=== PATIENT | male | born 1985 | race Caucasian/White ===

== ENCOUNTER 2016-08-13 20:58 | Emergency (ER) | payer MEDICARE ==
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
[2016-08-13] MEDS ORDERED: Valium 5 MG PO ONE (21:28)
[2016-08-13] MEDS ORDERED: Valium 5 MG ONE (21:31)
[2016-08-13 21:38] LABS: BASOPHIL % 0.2 % (0.0-0.4); Eosinophil % 0.6 % (0.00-5.0); Granulocytes % 67.7 % (36.0-66.0); Lymphocytes % 24.6 % (24.0-44.0); Mean Cell Volume 87.7 fl (78-100); Mean Corpuscular Hemoglobin 30.7 pg (26-32); Mean Platelet Volume 10.1 fl (6-9.5); Monocytes % 6.9 % (0.0-12.0); Platelet Count 274 K/mm3 (150-450); Red Blood Count 4.72 M/mm3 (4.1-5.6); Red Cell Distribution Width 12.9 % (11.5-14.0)
[2016-08-13 21:55] LABS: LIPASE 156 U/L (73-393)
[2016-08-13 22:05] LABS: ALBUMIN 4.4 g/dL (3.4-5.0); ALKALINE PHOSPHATASE 66 U/L (46-116); ANION GAP 15.1 MEQ/L (5-15); BILIRUBIN,TOTAL 0.3 mg/dL (0.2-1.0); BLOOD UREA NITROGEN 13 mg/dL (9-20); CHLORIDE 105 mEq/L (98-107); Carbon Dioxide 23.6 mEq/L (21-32); Glucose 101 MG/DL (70-110); Potassium 3.5 mEq/L (3.5-5.1); SGOT/AST 13 U/L (15-37); SGPT/ALT 14 U/L (12-78); SODIUM 140 mEq/L (136-145); Total Protein 8.2 gm/dL (6.4-8.2)
[2016-08-13 22:07] LABS: TROPONIN < 0.017 ng/ml (0.000-0.056)
[2016-08-13 22:09] VITALS: BP 121/70
[2016-08-13] MEDS ORDERED: TORAdol 30 mg Injection ONE (22:41)
[2016-08-13] MEDS: TORAdol 30 mg Injection IV ONE ×2 (22:41→22:49)
[2016-08-13 23:21] VITALS: PULSE 96; O2SAT 98
--- NOTE | 2016-08-14 09:38 | XRAY ---
Indication: Short of breath. Comparison: May 11, 2016. Portable chest again demonstrates normal heart, lungs, and bony thorax.
== END 2016-08-13 23:00 | disposition home or self-care (01) ==
LOC: ED 20:58
DX: R07.89 Other chest pain (principal); F41.9 Anxiety disorder, unspecified
CPT/HCPCS: 36415; 71010; 80053; 82150; 83690; 83880; 84484; 85025; 93005; 93041; 99283; 99284; J1885

== ENCOUNTER 2016-09-26 13:03 | Emergency (ER) | payer MEDICARE ==
[2016-09-26 15:17] VITALS: BP 120/75; PULSE 67
[2016-09-26 15:22] VITALS: O2SAT 98
--- NOTE | 2016-09-26 15:22 | ERPHSYRPT ---
- History of Present Illness Time Seen by Provider: 09/26/16 14:16 Source: patient Exam Limitations: no limitations Patient Subjective Stated Complaint: cough for four weeks Triage Nursing Assessment: intermitent dry cough noted. skin w/d, color normal , resp easy. Physician History: States cough productive of yellowish sputum. Pt. does not work. Timing/Duration: week(s) (4) Cough Quality/Degree: mild Possible Cause: smoke exposure Modifying Factors: Improves With: activity Associated Symptoms: denies symptoms Allergies/Adverse Reactions: Iodinated Contrast Media - Oral and [Iodinated Contrast Media - IV Dye] Allergy (Severe, Verified 09/26/16 13:46) Rash quetiapine fumarate [From Seroquel] Allergy (Intermediate, Verified 09/26/16 13: 46) rash, itching meperidine HCl [From Demerol] Allergy (Mild, Verified 09/26/16 13:46) Rash/hyper morphine Allergy (Mild, Verified 09/26/16 13:46) rash/ hyper prednisone Allergy (Mild, Verified 09/26/16 13:46) Nausea promethazine HCl [From Phenergan] Allergy (Mild, Verified 09/26/16 13:46) rash, nausea tramadol HCl [From Ultram] Allergy (Mild, Verified 09/26/16 13:46) rash itching Home Medications: Methylphenidate HCl [Ritalin] 10 mg PO TID 08/13/16 [History] Amitriptyline HCl 25 mg [Elavil 25 mg] 25 mg PO HS 09/26/16 [History] Hx Tetanus, Diphtheria Vaccination/Date Given: Yes Hx Influenza Vaccination/Date Given: Yes Hx Pneumococcal Vaccination/Date Given: No - Review of Systems Constitutional: No Symptoms Eyes: No Symptoms Ears, Nose, & Throat: No Symptoms Respiratory: Cough Cardiac: No Symptoms Abdominal/Gastrointestinal: No Symptoms Musculoskeletal: No Symptoms Skin: No Symptoms Neurological: No Symptoms Psychological: No Symptoms Endocrine: No Symptoms Hematologic/Lymphatic: No Symptoms Immunological/Allergic: No Symptoms - Past Medical History Pertinent Past Medical History: Yes Neurological History: Migraines ENT History: No Pertinent History Cardiac History: No Pertinent History Respiratory History: No Pertinent History Endocrine Medical History: No Pertinent History Musculoskeletal History: Other GI Medical History: Hernia History: No Pertinent History Psycho-Social History: Attention Deficit Disorder Male Reproductive Disorders: No Pertinent History Other Medical History: non hodgkins lymphoma - Past Surgical History Past Surgical History: Yes Neuro Surgical History: No Pertinent History Cardiac: No Pertinent History Respiratory: No Pertinent History Gastrointestinal: Hernia Repair Genitourinary: No Pertinent History Musculoskeletal: Orthopedic Surgery Male Surgical History: No Pertinent History Other Surgical History: port placed et removed - Social History Smoking Status: Never smoker How long have you smoked: rarely Exposure to second hand smoke: No Drug Use: none Patient Lives Alone: No - Nursing Vital Signs Nursing Vital Signs: Initial Vital Signs Temperature 97.5 F Temperature Source Oral Pulse Rate 68 Respiratory Rate 20 Blood Pressure [Right Arm] 140/71 Pain Intensity 5 - Physical Exam General Appearance: mild distress Eye Exam: eyes nml inspection Ears, Nose, Throat Exam: normal ENT inspection, pharynx normal, moist mucous membranes, other (posterior pharyngeal drainage) Neck Exam: normal inspection Respiratory Exam: normal breath sounds, lungs clear Cardiovascular Exam: regular rate/rhythm, normal heart sounds, normal peripheral pulses Gastrointestinal/Abdomen Exam: soft, normal bowel sounds Back Exam: normal inspection, normal range of motion Extremity Exam: normal inspection, normal range of motion, pelvis stable Neurologic Exam: alert, oriented x 3, cooperative Skin Exam: normal color, warm, dry SpO2 Interpretation: normal SpO2: 98 Oxygen Delivery: Room Air - Course Nursing assessment & vital signs reviewed: Yes - Progress Progress: unchanged Air Movement: good Blood Culture(s) Obtained: No Antibiotics given: Yes Discussed with : Fer (PCP 1 week) Will see patient in: office Counseled pt/family regarding: diagnosis, need for follow-up - Departure Time of Disposition: 15:23 Departure Disposition: Home Clinical Impression: Bronchitis Condition: Stable Critical Care Time: No Prescriptions: Azithromycin [Azithromycin 250 mg Pack] 250 mg PO UD #6 tablet Dextromethorphan HBr [Robitussin] 15 mg PO 2XW PRN #20 capsule PRN Reason: Cough
== END 2016-09-26 15:38 | disposition home or self-care (01) ==
LOC: ED 13:03
DX: J40 Bronchitis, not specified as acute or chronic (principal); R05 Cough
CPT/HCPCS: 99283

== ENCOUNTER 2016-09-28 21:59 | Emergency (ER) | payer MEDICARE ==
[2016-09-28] MEDS ORDERED: NORCO 5/325 MG PO ONE (23:38)
[2016-09-28] MEDS ORDERED: NORCO 5/325 MG ONE (23:41)
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
[2016-09-29 00:22] VITALS: BP 140/105; PULSE 93; O2SAT 98
--- NOTE | 2016-09-29 09:15 | XRAY ---
Indication: Pain following fall. Comparison: January 08, 2010. 3 views of the right elbow again demonstrates normal bones, articulation, and soft tissues.
== END 2016-09-29 00:22 | disposition home or self-care (01) ==
LOC: ED 21:59
DX: S50.01XA Contusion of right elbow, initial encounter (principal); W18.2XXA Fall in (into) shower or empty bathtub, initial encounter
CPT/HCPCS: 73080; 99283; A9270-GY

== ENCOUNTER 2016-10-17 21:11 | Emergency (ER) | payer MEDICARE ==
[2016-10-17] MEDS ORDERED: TORAdol 30 mg Injection IM ONE (21:36)
--- NOTE | 2016-10-17 21:40 | ERPHSYRPT ---
- History of Present Illness Time Seen by Provider: 10/17/16 21:32 Source: patient Exam Limitations: no limitations Patient Subjective Stated Complaint: reports that he caught his ankle between a trailer hitch yesterday - swelling and pain and unable to bare weight Triage Nursing Assessment: wc to treatment area - hobbling gait to cart. alert/ oriented - flat affect. skin flushed/hot/dry - no rash - abrasion on right anterior/distal foot - swelling on the lateral right ankle. resps easy - non- labored Physician History: 31-year-old white male arrives with complaint of pain in his right foot and ankle after catching the foot between trailer hitch and a car yesterday states he has pain in the right foot and ankle will not specify exactly where worse with weightbearing. Past medical history includes migraines, ADD, non-Hodgkin's lymphoma. Past surgical history includes orthopedic surgery, port placed and removed. Social history positive for tobacco use Method of Injury: other (caught between trailer hitch and car yest) Occurred: yesterday Quality: constant Severity of Pain-Max: moderate Severity of Pain-Current: moderate Lower Extremities Pain: foot: right, ankle: right Modifying Factors: Improves With: other (standing and weightbearing) Associated Symptoms: unable to bear weight Allergies/Adverse Reactions: Iodinated Contrast Media - Oral and [Iodinated Contrast Media - IV Dye] Allergy (Severe, Verified 10/17/16 21:15) Rash ketorolac [From Toradol] Allergy (Intermediate, Verified 10/17/16 21:54) quetiapine fumarate [From Seroquel] Allergy (Intermediate, Verified 10/17/16 21: 15) rash, itching meperidine HCl [From Demerol] Allergy (Mild, Verified 10/17/16 21:15) Rash/hyper morphine Allergy (Mild, Verified 10/17/16 21:15) rash/ hyper prednisone Allergy (Mild, Verified 10/17/16 21:15) Nausea promethazine HCl [From Phenergan] Allergy (Mild, Verified 10/17/16 21:15) rash, nausea tramadol HCl [From Ultram] Allergy (Mild, Verified 10/17/16 21:15) rash itching Home Medications: Methylphenidate HCl [Ritalin] 10 mg PO TID 08/13/16 [History] Amitriptyline HCl 25 mg [Elavil 25 mg] 25 mg PO HS 09/26/16 [History] Hx Tetanus, Diphtheria Vaccination/Date Given: Yes Hx Influenza Vaccination/Date Given: No Hx Pneumococcal Vaccination/Date Given: No Immunizations Up to Date: Yes - Review of Systems Constitutional: No Fever, No Chills Eyes: No Symptoms Ears, Nose, & Throat: No Symptoms Respiratory: No Cough, No Dyspnea Cardiac: No Chest Pain, No Edema, No Syncope Abdominal/Gastrointestinal: No Abdominal Pain, No Nausea, No Vomiting, No Diarrhea Genitourinary Symptoms: No Dysuria Musculoskeletal: Other (right foot and ankle pain) Skin: No Rash Neurological: No Dizziness, No Focal Weakness, No Sensory Changes Psychological: No Symptoms Endocrine: No Symptoms All Other Systems: Reviewed and Negative - Past Medical History Pertinent Past Medical History: Yes Neurological History: Migraines ENT History: No Pertinent History Cardiac History: No Pertinent History Respiratory History: No Pertinent History Endocrine Medical History: No Pertinent History Musculoskeletal History: Other GI Medical History: Hernia History: No Pertinent History Psycho-Social History: Attention Deficit Disorder Male Reproductive Disorders: No Pertinent History Other Medical History: non hodgkins lymphoma - Past Surgical History Past Surgical History: Yes Neuro Surgical History: No Pertinent History Cardiac: No Pertinent History Respiratory: No Pertinent History Gastrointestinal: Hernia Repair Genitourinary: No Pertinent History Musculoskeletal: Orthopedic Surgery Male Surgical History: No Pertinent History Other Surgical History: port placed et removed - Social History Smoking Status: Never smoker How long have you smoked: rarely Exposure to second hand smoke: Yes Drug Use: none Patient Lives Alone: No - Nursing Vital Signs Nursing Vital Signs: Initial Vital Signs Pulse Rate 85 Respiratory Rate 16 Blood Pressure [] 157/63 Pain Intensity 7 - Physical Exam General Appearance: mild distress Eyes, Ears, Nose, Throat Exam: moist mucous membranes Neck Exam: non-tender, supple Cardiovascular/Respiratory Exam: chest non-tender, normal breath sounds, regular rate/rhythm, no respiratory distress Gastrointestinal/Abdominal Exam: non-tender, guarding Back Exam: normal inspection, No vertebral tenderness Hips Exam: bilateral: non-tender, normal inspection, normal range of motion, no evidence of injury Legs Exam: bilateral leg: non-tender, normal inspection, normal range of motion , no evidence of injury Knees Exam: bilateral knee: non-tender, normal inspection, normal range of motion, no evidence of injury Ankle Exam: right ankle: other (right ankle tender with palpation anteriorly, laterally, medially with palpation and movement), left ankle: non-tender, normal inspection, normal range of motion, no evidence of injury Foot Exam: right foot: other (left strapping machine tender with palpation dorsally , decreased range of motion left foot secondary to pain), left foot: non-tender, normal inspection, normal range of motion, no evidence of injury Neuro/Tendon Exam: normal sensation, normal motor functions Mental Status Exam: alert Skin Exam: normal color, warm, dry SpO2 Interpretation: normal (98%) SpO2: 98 Oxygen Delivery: Room Air - Radiology Exams Right Foot X-ray Interpretation: Interpreted by me, Negative, No Fracture, No Subluxation Right Ankle X-ray Interpretation: Interpreted by me, Negative, No Fracture, No Subluxation Ordered Tests: Active Orders 24 hr Category Date Time Status Juan Bandage Application -[facility] STAT Care 10/17/16 22:45 Active Crutches STAT Care 10/17/16 22:45 Active Splint STAT Care 10/17/16 22:45 Active ANKLE (3 VIEWS) Stat Exams 10/17/16 21:35 Taken FOOT (MINIMUM 3 VIEWS) Stat Exams 10/17/16 21:35 Taken Medication Summary Discontinued Medications Generic Name Dose Route Start Last Admin Trade Name Darwin PRN Reason Stop Dose Admin Ketorolac Tromethamine 60 mg 10/17/16 21:36 10/17/16 21:55 Toradol 30 Mg Injection IM 10/17/16 21:37 Not Given STAT ONE Ketorolac Tromethamine Confirm 10/17/16 21:45 Toradol 30 Mg Injection Administered 10/17/16 21:46 Dose 60 mg .ROUTE .STJeNaCell-MED ONE - Progress Progress: improved Progress Note: 10/17/16 22:47 X-ray patient's right foot and ankle both negative. Will go ahead and have nurse apply Juan wrap and a postop shoe. Had considered an injection of Toradol for pain for this person however he states "it makes him mean". Will give him a prescription for a limited amount of [place]. And one [place] tablet here in the emergency room. Will send patient home with crutches weightbearing as tolerated - Departure Time of Disposition: 22:48 Departure Disposition: Home Clinical Impression: Contusion of right foot Right ankle sprain Qualifiers: Encounter type: initial encounter Involved ligament of ankle: unspecified ligament Qualified Code(s): S93.401A - Sprain of unspecified ligament of right ankle, initial encounter Condition: Fair Critical Care Time: No Additional Instructions: Return home. Ice and elevate right foot and ankle 24-48 hours. [place] 5/325 #12 one orally every 4-6 hours as needed for pain. Crutches weightbearing as tolerated. Follow-up with your family . symptoms are worse, no better in 48 hours, or persist longer than one week. Return for acute distress or for severe symptoms. Your x-rays have been preliminarily read they will be reread tomorrow you'll be contacted if any discrepancies exist. Prescriptions: Hydrocodone Bit/Acetaminophen [[place] 5/325Mg] 1 tab PO Q4-6HPRN PRN #12 tablet PRN Reason: Pain
[2016-10-17] MEDS ORDERED: TORAdol 30 mg Injection ONE (21:45)
[2016-10-17 22:44] VITALS: O2SAT 98
[2016-10-17] MEDS ORDERED: NORCO 5/325 MG PO ONE (22:50)
[2016-10-17] MEDS ORDERED: NORCO 5/325 MG ONE (22:56)
[2016-10-17 23:08] VITALS: BP 157/87; PULSE 92
--- NOTE | 2016-10-18 19:05 | XRAY ---
Exam: 3 views of the right ankle from 10/17/2016. Comparison: None. Indication: Trauma. Findings: AP, internal oblique, and lateral images are submitted for evaluation. I see no acute fracture or dislocation. There is minimal soft tissue prominence overlying the lateral malleolus. Correlate clinically. The right ankle mortise is well-preserved and reveals smooth articular margins. The base of the right fifth metatarsal appears intact. Impression: 1. No acute fracture or dislocation of the right ankle is seen
--- NOTE | 2016-10-18 19:09 | XRAY ---
Exam: 3 views of the right foot from 10/17/2016. Comparison: None. Indication: Trauma. Findings: AP, internal oblique, and lateral radiographs of the right foot were obtained. I see no acute fracture or dislocation. A minimal intraosseous cyst is not excluded within the right calcaneus near the junction of the anterior and middle thirds on the lateral radiograph. The joint spaces appear unremarkable. The plantar arch is normal. No radiopaque soft tissue foreign body is seen. Impression: 1. No acute fracture or dislocation of the right foot is seen.
== END 2016-10-17 23:08 | disposition home or self-care (01) ==
LOC: ED 21:11
DX: S93.401A Sprain of unspecified ligament of right ankle, initial encounter (principal); S90.31XA Contusion of right foot, initial encounter; W22.8XXA Striking against or struck by other objects, initial encounter; F98.8 Other specified behavioral and emotional disorders with onset usually occurring in childhood and adolescence; C85.90 Non-Hodgkin lymphoma, unspecified, unspecified site
CPT/HCPCS: 73610; 73630; 96372; 99284; J1885; A9270-GY

== ENCOUNTER 2016-10-21 08:49 | Emergency (ER) | payer MEDICARE ==
[2016-10-21 09:01] VITALS: O2SAT 95
--- NOTE | 2016-10-21 09:13 | ERPHSYRPT ---
- History of Present Illness Time Seen by Provider: 10/21/16 09:17 Source: patient Exam Limitations: no limitations Patient Subjective Stated Complaint: fall Triage Nursing Assessment: fall after being chased by duck. fell and hit curb-- pain to rt shoulder. abrasion to rt knee and dorsal rt elbow. redness to rt shoulder. no swelling or deformity--pain with movement. ambulated on scene Physician History: Patient is a 31-year-old male brought in by ambulance after falling on his right shoulder and right knee while running away from a duck. The patient said he saw a duck near him and he ran away. He is right-handed. He scraped his right knee. He has pain from his elbow up to his right shoulder. He did not hit his head or lose consciousness. His last tetanus vaccination was 4 months ago. He is requesting pain medicine. His past medical history significant for ADHD. Occurred: just prior to arrival Reason for Fall: tripped, fell from standing pos Injuries/Pain Location: upper extremity, lower extremity Loss of Consciousness: no loss of consciousness Quality: sharpness Severity of Pain-Max: moderate Severity of Pain-Current: moderate Modifying Factors: Improves With: nothing Associated Symptoms (Fall): denies symptoms Allergies/Adverse Reactions: Iodinated Contrast Media - Oral and [Iodinated Contrast Media - IV Dye] Allergy (Severe, Verified 10/17/16 21:15) Rash ketorolac [From Toradol] Allergy (Intermediate, Verified 10/17/16 21:54) quetiapine fumarate [From Seroquel] Allergy (Intermediate, Verified 10/17/16 21: 15) rash, itching meperidine HCl [From Demerol] Allergy (Mild, Verified 10/17/16 21:15) Rash/hyper morphine Allergy (Mild, Verified 10/17/16 21:15) rash/ hyper prednisone Allergy (Mild, Verified 10/17/16 21:15) Nausea promethazine HCl [From Phenergan] Allergy (Mild, Verified 10/17/16 21:15) rash, nausea tramadol HCl [From Ultram] Allergy (Mild, Verified 10/17/16 21:15) rash itching Home Medications: Methylphenidate HCl [Ritalin] 10 mg PO TID 08/13/16 [History] Hx Tetanus, Diphtheria Vaccination/Date Given: No Hx Influenza Vaccination/Date Given: Yes Hx Pneumococcal Vaccination/Date Given: No Immunizations Up to Date: No - Review of Systems Constitutional: No Fever, No Chills Eyes: No Symptoms Ears, Nose, & Throat: No Symptoms Respiratory: No Cough, No Dyspnea Cardiac: No Chest Pain, No Edema, No Syncope Abdominal/Gastrointestinal: No Abdominal Pain, No Nausea, No Vomiting, No Diarrhea Genitourinary Symptoms: No Dysuria Musculoskeletal: Fall, Injury Skin: Skin Lesions, No Rash Neurological: No Dizziness, No Focal Weakness, No Sensory Changes Psychological: No Symptoms Endocrine: No Symptoms Hematologic/Lymphatic: No Symptoms Immunological/Allergic: No Symptoms All Other Systems: Reviewed and Negative - Past Medical History Pertinent Past Medical History: Yes Neurological History: Migraines ENT History: No Pertinent History Cardiac History: No Pertinent History Respiratory History: No Pertinent History Endocrine Medical History: No Pertinent History Musculoskeletal History: Other GI Medical History: Hernia History: No Pertinent History Psycho-Social History: Anxiety, Attention Deficit Disorder, Depression Male Reproductive Disorders: No Pertinent History Other Medical History: non hodgkins lymphoma - Past Surgical History Past Surgical History: Yes Neuro Surgical History: No Pertinent History Cardiac: No Pertinent History Respiratory: No Pertinent History Gastrointestinal: Hernia Repair Genitourinary: No Pertinent History Musculoskeletal: Orthopedic Surgery Male Surgical History: No Pertinent History Other Surgical History: port placed et removed. rt ankle fx - Social History Smoking Status: Never smoker How long have you smoked: rarely Exposure to second hand smoke: No Drug Use: none Patient Lives Alone: No - Nursing Vital Signs Nursing Vital Signs: Initial Vital Signs Temperature 98.5 F Temperature Source Oral Pulse Rate 71 Respiratory Rate 18 Blood Pressure [Left Arm] 144/97 Pain Intensity 7 - [place] Coma Score Best Eye Response ([place]): (4) open spontaneously Best Verbal Response ([place]): (5) oriented Best Motor Response ([place]): (6) obeys commands [place] Total: 15 - Physical Exam General Appearance: no apparent distress, alert Head Injury: no evidence of injury Eye Exam: PERRL/EOMI ENT Exam: airway nml Neck Exam: normal inspection, No tenderness Respiratory/Chest Exam: normal breath sounds, No chest tenderness, No respiratory distress Cardiovascular Exam: normal heart sounds, regular rate/rhythm Gastrointestinal Exam: soft, No tenderness, No distention, No guarding, No ecchymosis Rectal Exam: not done Back Exam: normal inspection, No vertebral tenderness Extremity Exam: limited range of motion (right arm), pain with movement Neurologic Exam: alert, oriented x 3, cooperative, sensation nml, No motor deficits Skin Exam: abrasion (posterior right shoulder and right knee) SpO2: 95 Oxygen Delivery: Room Air - Radiology Exams Right Humerus X-ray Interpretation: Teleradiologist Report, Negative Right Shoulder X-ray Interpretation: Teleradiologist Report, Non-displaced Fracture (small serpiginous radiolucency near the lateral margin of the scapula for which mondisplaced fracture is of primary concern per Dr Veloz.) Ordered Tests: Active Orders 24 hr Category Date Time Status Cold Application STAT Care 10/21/16 09:14 Active IV Insertion STAT Care 10/21/16 09:14 Active HUMERUS Stat Exams 10/21/16 09:15 Completed SHOULDER Stat Exams 10/21/16 09:15 Completed Medication Summary Discontinued Medications Generic Name Dose Route Start Last Admin Trade Name Freq PRN Reason Stop Dose Admin Ketorolac Tromethamine 30 mg 10/21/16 09:14 10/21/16 09:21 Toradol 30 Mg Injection IV 10/21/16 09:15 30 mg STAT ONE Administration Ketorolac Tromethamine Confirm 10/21/16 09:20 Toradol 30 Mg Injection Administered 10/21/16 09:21 Dose 30 mg .ROUTE .STInvacio-MED ONE - Progress Progress: improved Counseled pt/family regarding: rad results - Departure Time of Disposition: 10:17 Departure Disposition: Home Clinical Impression: Scapular fracture Condition: Stable Critical Care Time: No Additional Instructions: You have a small nondisplaced fracture of your right scapula, called shoulder blade. Take naproxen 500 mg every 12 hours as needed. Apply ice to the area as needed. Wear the sling until released by her doctor. Follow-up with your doctor next week. Prescriptions: Naproxen 500 mg PO BID PRN #30 tablet
[2016-10-21] MEDS ORDERED: TORAdol 30 mg Injection IV ONE (09:14)
[2016-10-21] MEDS ORDERED: TORAdol 30 mg Injection ONE (09:20)
--- NOTE | 2016-10-21 10:05 | XRAY ---
Indication: Pain following fall. Comparison: August 30, 2016. 3 views of the right shoulder now demonstrates small serpiginous radiolucency near the lateral margin of the scapula for which nondisplaced fracture is of primary concern. No other bony, articular, or soft tissue abnormalities.
--- NOTE | 2016-10-21 10:07 | XRAY ---
Indication: Pain following fall. Comparison: None 2 views of the right humerus obtained. No bony, articular, or soft tissue abnormalities. Shoulder reported separately.
[2016-10-21 10:41] VITALS: BP 139/56; PULSE 74
== END 2016-10-21 10:41 | disposition home or self-care (01) ==
LOC: ED 08:49
DX: S42.101A Fracture of unspecified part of scapula, right shoulder, initial encounter for closed fracture (principal); W01.10XA Fall on same level from slipping, tripping and stumbling with subsequent striking against unspecified object, initial encounter
CPT/HCPCS: 36000; 73030; 73060; 96374; 99284; J1885

== ENCOUNTER 2016-11-02 21:14 | Emergency (ER) | payer MEDICARE ==
[2016-11-02] MEDS ORDERED: MOTRIN 600 MG PO ONE (21:28)
[2016-11-02 21:29] VITALS: BP 147/105; PULSE 84
--- NOTE | 2016-11-02 21:29 | ERPHSYRPT ---
- History of Present Illness Time Seen by Provider: 11/02/16 21:20 Source: patient Exam Limitations: clinical condition Patient Subjective Stated Complaint: states that he fell and injured the right shoulder last night after tripping - states that he feels like it is swelling and is more painful today Triage Nursing Assessment: ambulatory to treatment area - steady gait - moves all extremities with equal strength - some disability et reduced ROM to the right arm. resps easy - non-labored. alert/oriented - pleasant affect. skin pwd with some superficial abrasions on the right forearm Physician History: PATIENT FELL 1 WEEK AGO SUSTAINED NONDISPLACED FRACTURE OF RIGHT LATERAL MARGIN OF HIS SCAPULA, ALSO FELL LAST NIGHT SUSTAINED INJURY TO RIGHT SHOULDER AND ELBOW AFTER HE TRIPPED. DENIES ASSOCIATED HEAD, NECK OR BACK INJURY. Occurred: just prior to arrival Method of Injury: direct blow, fell Quality: constant Severity of Pain-Max: moderate Severity of Pain-Current: moderate Extremities Pain Location: shoulder: right, elbow: right Modifying Factors: Improves With: movement Associated Symptoms: none Allergies/Adverse Reactions: Iodinated Contrast Media - Oral and [Iodinated Contrast Media - IV Dye] Allergy (Severe, Verified 11/02/16 21:24) Rash ketorolac [From Toradol] Allergy (Intermediate, Verified 11/02/16 21:24) quetiapine fumarate [From Seroquel] Allergy (Intermediate, Verified 11/02/16 21: 24) rash, itching meperidine HCl [From Demerol] Allergy (Mild, Verified 11/02/16 21:24) Rash/hyper morphine Allergy (Mild, Verified 11/02/16 21:24) rash/ hyper prednisone Allergy (Mild, Verified 11/02/16 21:24) Nausea promethazine HCl [From Phenergan] Allergy (Mild, Verified 11/02/16 21:24) rash, nausea tramadol HCl [From Ultram] Allergy (Mild, Verified 11/02/16 21:24) rash itching Home Medications: Methylphenidate HCl [Ritalin] 10 mg PO TID 08/13/16 [History] Hx Tetanus, Diphtheria Vaccination/Date Given: Yes Hx Influenza Vaccination/Date Given: No Hx Pneumococcal Vaccination/Date Given: No Immunizations Up to Date: Yes - Review of Systems Constitutional: No Fever, No Chills Musculoskeletal: Injury, Joint Pain, Joint Swelling - Past Medical History Pertinent Past Medical History: Yes Neurological History: Migraines ENT History: No Pertinent History Cardiac History: No Pertinent History Respiratory History: No Pertinent History Endocrine Medical History: No Pertinent History Musculoskeletal History: Other GI Medical History: Hernia History: No Pertinent History Psycho-Social History: Anxiety, Attention Deficit Disorder, Depression Male Reproductive Disorders: No Pertinent History Other Medical History: non hodgkins lymphoma - Past Surgical History Past Surgical History: Yes Neuro Surgical History: No Pertinent History Cardiac: No Pertinent History Respiratory: No Pertinent History Gastrointestinal: Hernia Repair Genitourinary: No Pertinent History Musculoskeletal: Orthopedic Surgery Male Surgical History: No Pertinent History Other Surgical History: port placed et removed. rt ankle fx - Social History Smoking Status: Never smoker How long have you smoked: rarely Exposure to second hand smoke: No Drug Use: none Patient Lives Alone: Yes - Nursing Vital Signs Nursing Vital Signs: Initial Vital Signs Temperature 97.9 F Temperature Source Oral Pulse Rate 84 Respiratory Rate 16 Blood Pressure [] 147/105 Pain Intensity 7 - Physical Exam General Appearance: alert Neck Exam: normal inspection, non-tender, supple, full range of motion Abdominal Exam: No guarding Back Exam: No vertebral tenderness Shoulder Exam: normal inspection, limited ROM (THERE IS NO ECCHYMOSIS OR CREPITUS), soft tissue tenderness Elbow/Forearm Exam: limited ROM (RIGHT RADIAL PULSE 2+), pain (NO ECCHYMOSIS OR DEFORMITY), soft tissue tenderness (RIGHT ELBOW 2CM SUPERIOR TO LATERAL EPICONDYLE), swelling DTR - Upper Extremity Exam: bicep (R): 2+, bicep (L): 2+, tricep (R): 2+, tricep (L): 2+ Neuro/Tendon Exam: normal sensation, normal motor functions Mental Status Exam: alert, oriented x 3, cooperative Skin Exam: normal color, warm, dry SpO2 Interpretation: normal SpO2: 99 - Radiology Exams Right Elbow X-ray Interpretation: Interpreted by me, Negative, No Fracture (NO DISLOCATION) Right Shoulder X-ray Interpretation: Interpreted by me, Negative (NO DISLOCATION, HEALING NONDISPLACED FRACTURE NEAR THE LATERAL MARGIN OF THE SCAPULA) Ordered Tests: Active Orders 24 hr Category Date Time Status ELBOW (MINIMUM 3 VIEWS) Stat Exams 11/02/16 21:28 Taken SHOULDER Stat Exams 11/02/16 21:29 Taken Medication Summary Discontinued Medications Generic Name Dose Route Start Last Admin Trade Name Freq PRN Reason Stop Dose Admin Ibuprofen 600 mg 11/02/16 21:28 11/02/16 21:29 Motrin 600 Mg PO 11/02/16 21:29 Not Given STAT ONE - Progress Counseled pt/family regarding: diagnosis, need for follow-up, rad results - Departure Time of Disposition: 22:10 Departure Disposition: Home Clinical Impression: CONTUSION/STRAIN RIGHT SHOULDER/ELBOW, HEALING RIGHT SCAPULA FRACTURE Condition: Stable Critical Care Time: No Referrals: CORAZON CABRALES [Primary Care Provider] - Additional Instructions: CONTINUE TO WEAR YOUR SLING AT HOME FOR 1 WEEK FOR COMFORT. NAPROSYN 500MG TWICE DAILY NEEDED. FOLLOW UP WITH YOUR FAMILY PHYSICIAN IN 1 WEEK. Prescriptions: Naproxen [Naprosyn] 500 mg PO BID PRN PRN #15 tablet PRN Reason: Pain
[2016-11-02 22:09] VITALS: O2SAT 99
--- NOTE | 2016-11-03 08:44 | XRAY ---
Indication: Pain following fall. Comparison: October 21, 2016. 3 views of the right shoulder obtained. No bony, articular, or soft tissue abnormalities. Previous lateral scapular radiolucency not seen today.
--- NOTE | 2016-11-03 08:46 | XRAY ---
Indication: Pain following fall. Comparison: September 28, 2016. 3 views of the right elbow again demonstrates normal bones, articulation, and soft tissues.
== END 2016-11-02 22:19 | disposition home or self-care (01) ==
LOC: ED 21:14
DX: S40.011A Contusion of right shoulder, initial encounter (principal); S43.401A Unspecified sprain of right shoulder joint, initial encounter; W01.0XXA Fall on same level from slipping, tripping and stumbling without subsequent striking against object, initial encounter; S42.101D Fracture of unspecified part of scapula, right shoulder, subsequent encounter for fracture with routine healing
CPT/HCPCS: 73030; 73080; 99283

== ENCOUNTER 2016-11-25 23:23 | Emergency (ER) | payer MEDICARE ==
--- NOTE | 2016-11-26 00:17 | ERPHSYRPT ---
- History of Present Illness Time Seen by Provider: 11/26/16 00:12 Source: patient Exam Limitations: no limitations Physician History: Noticed erythematous rash on R arm, puristic in nature after getting out of bathtub at 11PM. States worked outside around some leaves earlier today and unsure if he was around any poison jess/oak. No new soaps, detergents, pets or lotion. No SOB, dizziness or weakness. Timing/Duration: today Quality: itchy Severity: mild Location: other (R upper arm) Possible Causes: no cause identified Associated Symptoms: change in skin texture, rash, No difficulty breathing, No numbness, No paresthesia, No petechiae Allergies/Adverse Reactions: Iodinated Contrast Media - Oral and [Iodinated Contrast Media - IV Dye] Allergy (Severe, Verified 11/02/16 21:24) Rash ketorolac [From Toradol] Allergy (Intermediate, Verified 11/02/16 21:24) quetiapine fumarate [From Seroquel] Allergy (Intermediate, Verified 11/02/16 21: 24) rash, itching meperidine HCl [From Demerol] Allergy (Mild, Verified 11/02/16 21:24) Rash/hyper morphine Allergy (Mild, Verified 11/02/16 21:24) rash/ hyper prednisone Allergy (Mild, Verified 11/02/16 21:24) Nausea promethazine HCl [From Phenergan] Allergy (Mild, Verified 11/02/16 21:24) rash, nausea tramadol HCl [From Ultram] Allergy (Mild, Verified 11/02/16 21:24) rash itching Home Medications: Methylphenidate HCl [Ritalin] 10 mg PO TID 08/13/16 [History] Hx Tetanus, Diphtheria Vaccination/Date Given: Yes Hx Influenza Vaccination/Date Given: No Hx Pneumococcal Vaccination/Date Given: No - Review of Systems Constitutional: No Fever, No Chills Eyes: No Symptoms Ears, Nose, & Throat: No Symptoms Respiratory: No Cough, No Dyspnea Cardiac: No Chest Pain, No Edema, No Syncope Abdominal/Gastrointestinal: No Abdominal Pain, No Nausea, No Vomiting, No Diarrhea Genitourinary Symptoms: No Dysuria Musculoskeletal: No Back Pain, No Neck Pain Skin: Rash Neurological: No Dizziness, No Focal Weakness, No Sensory Changes Psychological: No Symptoms Endocrine: No Symptoms All Other Systems: Reviewed and Negative - Past Medical History Pertinent Past Medical History: Yes Neurological History: Migraines ENT History: No Pertinent History Cardiac History: No Pertinent History Respiratory History: No Pertinent History Endocrine Medical History: No Pertinent History Musculoskeletal History: Other GI Medical History: Hernia History: No Pertinent History Psycho-Social History: Anxiety, Attention Deficit Disorder, Depression Male Reproductive Disorders: No Pertinent History Other Medical History: non hodgkins lymphoma - Past Surgical History Past Surgical History: Yes Neuro Surgical History: No Pertinent History Cardiac: No Pertinent History Respiratory: No Pertinent History Gastrointestinal: Hernia Repair Genitourinary: No Pertinent History Musculoskeletal: Orthopedic Surgery Male Surgical History: No Pertinent History Other Surgical History: port placed et removed. rt ankle fx - Social History Smoking Status: Never smoker How long have you smoked: rarely Exposure to second hand smoke: No Drug Use: none Patient Lives Alone: Yes - Physical Exam General Appearance: no apparent distress, alert Eye Exam: PERRL/EOMI, eyes nml inspection Ears, Nose, Throat Exam: normal ENT inspection, pharynx normal, moist mucous membranes Neck Exam: normal inspection, non-tender, supple, full range of motion Respiratory Exam: normal breath sounds, lungs clear, No respiratory distress Cardiovascular Exam: regular rate/rhythm, normal heart sounds Gastrointestinal/Abdomen Exam: soft, mass, No tenderness Back Exam: normal inspection, normal range of motion, No CVA tenderness, No vertebral tenderness Extremity Exam: normal range of motion, other (Minimal erythematous rash to R upper arm/elbow if any seen) Neurologic Exam: alert, oriented x 3, cooperative, normal mood/affect, sensation nml, No motor deficits Skin Exam: normal color, warm, dry - Progress Progress: improved Progress Note: 11/26/16 00:19 Pt. given Benadryl for rash Counseled pt/family regarding: diagnosis - Departure Time of Disposition: 00:19 Departure Disposition: Home Clinical Impression: Rash and nonspecific skin eruption Condition: Stable Critical Care Time: No Instructions: Rash Additional Instructions: May take Benadryl 25-50mg every 6-8hrs for any itching rash Return for worse rash, itchiness, swelling or any problems.
[2016-11-26] MEDS ORDERED: BENADRYL 25 MG CAPSULE PO ONE (00:21)
[2016-11-26] MEDS ORDERED: BENADRYL 25 MG CAPSULE ONE (00:33)
[2016-11-26 00:56] VITALS: PULSE 98; O2SAT 99
== END 2016-11-26 00:57 | disposition home or self-care (01) ==
LOC: ED 23:23
DX: R21 Rash and other nonspecific skin eruption (principal)
CPT/HCPCS: 99282; A9270-GY

== ENCOUNTER 2016-11-27 21:11 | Emergency (ER) | payer MEDICARE ==
--- NOTE | 2016-11-27 21:28 | ERPHSYRPT ---
- History of Present Illness Time Seen by Provider: 11/27/16 21:25 Source: patient Exam Limitations: no limitations Physician History: States misstepped when he stepped in hole while at work today resulting in R ankle pain. Pt. able to work rest of day, but states he was limping due to discomfort with weight bearing. Also states noted some bruising and swelling to area as well. Denies any numbness, tingling or weakness or distal foot. Denies any other injuries. Have not taken any meds for discomfort. Method of Injury: fell Occurred: this morning Quality: constant, aching, throbbing Severity of Pain-Max: moderate Severity of Pain-Current: moderate Lower Extremities Pain: ankle: right Modifying Factors: Improves With: immobilization (improves), movement (worsens) Associated Symptoms: No unable to bear weight, No snapping sensation Allergies/Adverse Reactions: Iodinated Contrast Media - Oral and [Iodinated Contrast Media - IV Dye] Allergy (Severe, Verified 11/27/16 21:25) Rash ketorolac [From Toradol] Allergy (Intermediate, Verified 11/27/16 21:25) quetiapine fumarate [From Seroquel] Allergy (Intermediate, Verified 11/27/16 21: 25) rash, itching meperidine HCl [From Demerol] Allergy (Mild, Verified 11/27/16 21:25) Rash/hyper morphine Allergy (Mild, Verified 11/27/16 21:25) rash/ hyper prednisone Allergy (Mild, Verified 11/27/16 21:25) Nausea promethazine HCl [From Phenergan] Allergy (Mild, Verified 11/27/16 21:25) rash, nausea tramadol HCl [From Ultram] Allergy (Mild, Verified 11/27/16 21:25) rash itching Home Medications: Methylphenidate HCl [Ritalin] 10 mg PO TID 08/13/16 [History] Hx Tetanus, Diphtheria Vaccination/Date Given: Yes Hx Influenza Vaccination/Date Given: Yes Hx Pneumococcal Vaccination/Date Given: No - Review of Systems Constitutional: No Fever, No Chills Eyes: No Symptoms Ears, Nose, & Throat: No Symptoms Respiratory: No Cough, No Dyspnea Cardiac: No Symptoms, No Chest Pain, No Edema, No Syncope Abdominal/Gastrointestinal: No Symptoms, No Abdominal Pain, No Nausea, No Vomiting, No Diarrhea Genitourinary Symptoms: No Dysuria Musculoskeletal: Joint Pain (R ankle), No Back Pain, No Neck Pain Skin: No Symptoms, No Rash Neurological: No Symptoms, No Dizziness, No Focal Weakness, No Sensory Changes Psychological: No Symptoms Endocrine: No Symptoms All Other Systems: Reviewed and Negative - Past Medical History Pertinent Past Medical History: Yes Neurological History: Migraines ENT History: No Pertinent History Cardiac History: No Pertinent History Respiratory History: No Pertinent History Endocrine Medical History: No Pertinent History Musculoskeletal History: Other GI Medical History: Hernia History: No Pertinent History Psycho-Social History: Anxiety, Attention Deficit Disorder, Depression Male Reproductive Disorders: No Pertinent History Other Medical History: non hodgkins lymphoma - Past Surgical History Past Surgical History: Yes Neuro Surgical History: No Pertinent History Cardiac: No Pertinent History Respiratory: No Pertinent History Gastrointestinal: Hernia Repair Genitourinary: No Pertinent History Musculoskeletal: Orthopedic Surgery Male Surgical History: No Pertinent History Other Surgical History: port placed et removed. rt ankle fx - Social History Smoking Status: Never smoker How long have you smoked: rarely Exposure to second hand smoke: No Drug Use: none Patient Lives Alone: No - Nursing Vital Signs Nursing Vital Signs: Initial Vital Signs Temperature 98.1 F Temperature Source Oral Pulse Rate 110 Respiratory Rate 18 Blood Pressure [Left Arm] 119/70 Pain Intensity 8 - Physical Exam General Appearance: alert Eyes, Ears, Nose, Throat Exam: moist mucous membranes Neck Exam: non-tender, supple Cardiovascular/Respiratory Exam: chest non-tender, normal breath sounds, regular rate/rhythm, no respiratory distress Gastrointestinal/Abdominal Exam: non-tender, guarding Back Exam: normal inspection, No vertebral tenderness Hips Exam: bilateral: non-tender, normal inspection, normal range of motion, no evidence of injury Legs Exam: bilateral leg: non-tender, normal inspection, normal range of motion , no evidence of injury Knees Exam: bilateral knee: non-tender, normal inspection, normal range of motion, no evidence of injury Ankle Exam: right ankle: bone tenderness (Tender to bilat malleolar area), limited range of motion, pain, soft tissue tenderness, swelling (Minimal swelling if any noted, no ecchymosis noted), left ankle: non-tender, normal inspection, normal range of motion, no evidence of injury Foot Exam: bilateral foot: non-tender, normal inspection, normal range of motion , no evidence of injury DTR - Lower Extremities Exam: knee (R): 2+, knee (L): 2+ Neuro/Tendon Exam: normal sensation, normal motor functions Mental Status Exam: alert, oriented x 3, cooperative Skin Exam: normal color, warm, dry SpO2 Interpretation: normal SpO2: 96 Oxygen Delivery: Room Air - Course Nursing assessment & vital signs reviewed: Yes - Radiology Exams Right Ankle X-ray Interpretation: Interpreted by me, No Fracture Ordered Tests: Active Orders 24 hr Category Date Time Status Cold Application STAT Care 11/27/16 21:33 Active ANKLE (3 VIEWS) Stat Exams 11/27/16 21:35 Taken Medication Summary Discontinued Medications Generic Name Dose Route Start Last Admin Trade Name Darwin PRN Reason Stop Dose Admin Ibuprofen 800 mg 11/27/16 21:35 11/27/16 21:53 Motrin 600 Mg PO 11/27/16 21:36 Not Given STAT ONE Ibuprofen 800 mg 11/27/16 21:52 11/27/16 21:55 Motrin 400 Mg PO 11/27/16 21:53 800 mg STAT ONE Administration Ibuprofen Confirm 11/27/16 21:51 Motrin 400 Mg Administered 11/27/16 21:52 Dose 800 mg .ROUTE .STK-MED ONE - Progress Progress: improved Progress Note: 11/27/16 21:32 Pt. given Motrin for discomfort along with ice bag. Counseled pt/family regarding: diagnosis, rad results - Departure Time of Disposition: 22:02 Departure Disposition: Home Clinical Impression: Right ankle sprain Condition: Stable Critical Care Time: No Referrals: CORAZON CABRALES [Primary Care Provider] - Instructions: Ankle Sprain, Contusion Additional Instructions: Ice, elevate, decrease weight bearing, Motrin 800mg every 8 hrs with food to decrease swelling/pain. Return for worse swelling, pain, numbness or any problems. Follow up with your doctor in 2-3 days
[2016-11-27] MEDS ORDERED: MOTRIN 600 MG PO ONE (21:35)
[2016-11-27] MEDS ORDERED: MOTRIN 400 MG ONE (21:51)
[2016-11-27] MEDS: MOTRIN 400 MG PO ONE ×2 (21:55→22:14)
[2016-11-27 22:25] VITALS: BP 114/65; PULSE 68; O2SAT 98
--- NOTE | 2016-11-28 10:08 | XRAY ---
Indication: Pain. Comparison: October 17, 2016. 3 views of the right ankle again demonstrates tiny heel spurs. No new/acute bony, articular, or soft tissue abnormalities.
== END 2016-11-27 22:28 | disposition home or self-care (01) ==
LOC: ED 21:11
DX: S93.401A Sprain of unspecified ligament of right ankle, initial encounter (principal); W17.2XXA Fall into hole, initial encounter
CPT/HCPCS: 73610; 99283; A9270-GY

== ENCOUNTER 2016-12-08 22:08 | Emergency (ER) | payer MEDICARE ==
[2016-12-08] MEDS ORDERED: Sodium Chloride 0.9% 1000 ML 1,000 ML IV SCH (22:15)
[2016-12-08] MEDS ORDERED: Nitrostat 0.4 MG (ED) SL ONE ×2 (22:15→22:25)
--- NOTE | 2016-12-08 22:15 | ERPHSYRPT ---
- History of Present Illness Time Seen by Provider: 12/08/16 22:08 Source: patient Exam Limitations: no limitations Physician History: FOR THE PAST 3 DAYS PT HAS HAD A HEADACHE AND SHARP INTERMITTENT RIGHT SIDED CHEST PAIN RADIATING TO THE LEFT SIDE LASTING UP TO 30 MINUTES PER EPISODE WITH VOMITING X1 TODAY WITHOUT BLOOD. PT DENIES FEVER, DIARRHEA, ABDOMINAL PAIN. Allergies/Adverse Reactions: Iodinated Contrast- Oral and IV Dye [Iodinated Contrast Media - IV Dye] Allergy (Severe, Verified 11/27/16 21:25) Rash ketorolac [From Toradol] Allergy (Intermediate, Verified 11/27/16 21:25) quetiapine fumarate [From Seroquel] Allergy (Intermediate, Verified 11/27/16 21: 25) rash, itching meperidine HCl [From Demerol] Allergy (Mild, Verified 11/27/16 21:25) Rash/hyper morphine Allergy (Mild, Verified 11/27/16 21:25) rash/ hyper prednisone Allergy (Mild, Verified 11/27/16 21:25) Nausea promethazine HCl [From Phenergan] Allergy (Mild, Verified 11/27/16 21:25) rash, nausea tramadol HCl [From Ultram] Allergy (Mild, Verified 11/27/16 21:25) rash itching Home Medications: Methylphenidate HCl [Ritalin] 10 mg PO TID 08/13/16 [History] Hx Tetanus, Diphtheria Vaccination/Date Given: Yes Hx Influenza Vaccination/Date Given: Yes Hx Pneumococcal Vaccination/Date Given: No - Review of Systems Constitutional: No Fever Respiratory: No Dyspnea Cardiac: Chest Pain Abdominal/Gastrointestinal: Vomiting, No Abdominal Pain, No Diarrhea Neurological: Headache All Other Systems: Reviewed and Negative - Past Medical History Pertinent Past Medical History: Yes Neurological History: Migraines ENT History: No Pertinent History Cardiac History: No Pertinent History Respiratory History: No Pertinent History Endocrine Medical History: No Pertinent History Musculoskeletal History: Other GI Medical History: Hernia History: No Pertinent History Psycho-Social History: Anxiety, Attention Deficit Disorder, Depression Male Reproductive Disorders: No Pertinent History Other Medical History: non hodgkins lymphoma - Past Surgical History Past Surgical History: Yes Neuro Surgical History: No Pertinent History Cardiac: No Pertinent History Respiratory: No Pertinent History Gastrointestinal: Hernia Repair Genitourinary: No Pertinent History Musculoskeletal: Orthopedic Surgery Male Surgical History: No Pertinent History Other Surgical History: port placed et removed. rt ankle fx - Social History Smoking Status: Never smoker How long have you smoked: rarely Exposure to second hand smoke: No Drug Use: none Patient Lives Alone: No - Nursing Vital Signs Nursing Vital Signs: Initial Vital Signs Temperature 98.2 F Temperature Source Oral Pulse Rate [Bilateral Radial] 78 Pulse Rate 71 Respiratory Rate 20 Blood Pressure [Right Arm] 141/89 Pain Intensity 5 - Physical Exam General Appearance: alert Eye Exam: PERRL/EOMI Ears, Nose, Throat Exam: TMs normal, pharynx normal, moist mucous membranes Neck Exam: normal inspection Respiratory Exam: lungs clear Cardiovascular Exam: normal heart sounds Gastrointestinal/Abdomen Exam: soft, normal bowel sounds Back Exam: normal range of motion Extremity Exam: normal inspection, No pedal edema Neurologic Exam: alert, cooperative Skin Exam: warm, dry - Course Nursing assessment & vital signs reviewed: Yes EKG Interpreted by Me: RATE (67), NORMAL AXIS, NORMAL QRS, Other (SINUS ARRHYTHMIA) - Radiology Exams Chest X-ray Interpretation: Interpreted by me, No Pneumonia Ordered Tests: Active Orders 24 hr Category Date Time Status Quality Intern STAT Care 12/08/16 22:15 Active EKG-ER Only STAT Care 12/08/16 22:15 Active IV Insertion STAT Care 12/08/16 22:15 Active Oxygen-ED Only NASAL CANNULA 2 lpm Care 12/08/16 22:15 Active Pulse Oximetry (ED) STAT Care 12/08/16 22:15 Active CHEST 1 VIEW (PORTABLE) Stat Exams 12/08/16 22:16 Taken AMYLASE Stat Lab 12/08/16 22:00 Completed CBC W DIFF Stat Lab 12/08/16 22:00 Completed CMP Stat Lab 12/08/16 22:00 Completed LIPASE Stat Lab 12/08/16 22:00 Completed MAGNESIUM Stat Lab 12/08/16 22:00 Completed TROPONIN Q3H Lab 12/08/16 22:00 Completed TROPONIN Q3H Lab 12/09/16 01:30 Ordered TROPONIN Q3H Lab 12/09/16 04:30 Ordered TROPONIN Q3H Lab 12/09/16 07:30 Ordered TROPONIN Q3H Lab 12/09/16 10:30 Ordered Medication Summary Generic Name Dose Route Start Last Admin Trade Name Freq PRN Reason Stop Dose Admin Sodium Chloride 1,000 mls @ 100 mls/hr 12/08/16 22:15 12/08/16 22:27 Sodium Chloride 0.9% 1000 Ml IV 01/07/17 22:14 100 mls/hr .Q10H JOHAN Administration Discontinued Medications Generic Name Dose Route Start Last Admin Trade Name Darwin PRN Reason Stop Dose Admin Aspirin 324 mg 12/08/16 22:17 12/08/16 22:22 Baby Aspirin 81 Mg Chew PO 12/08/16 22:18 324 mg STAT ONE Administration Aspirin Confirm 12/08/16 22:25 Baby Aspirin 81 Mg Chew Administered 12/08/16 22:26 Dose 324 mg .ROUTE .STK-MED ONE Nitroglycerin 0.4 mg 12/08/16 22:15 12/08/16 22:23 Nitrostat 0.4 Mg (Ed) SL 12/08/16 22:16 0.4 mg STAT ONE Administration Nitroglycerin Confirm 12/08/16 22:25 Nitrostat 0.4 Mg (Ed) Administered 12/08/16 22:26 Dose 0.4 mg SL .STK-MED ONE Lab/Rad Data: Laboratory Result Diagrams 12/08/16 22:00 12/08/16 22:00 Laboratory Results 12/08/16 12/08/16 12/08/16 Range/Units 22:00 22:00 22:00 WBC 6.4 (4.0-10.5) K/mm3 RBC 4.55 (4.1-5.6) M/mm3 Hgb 13.7 (12.5-18.0) gm/dl Hct 39.9 L (42-50) % MCV 87.7 (78-100) fl MCH 30.1 (26-32) pg MCHC 34.3 (32-36) g/dl RDW 12.8 (11.5-14.0) % Plt Count 256 (150-450) K/mm3 MPV 10.1 H (6-9.5) fl Gran % 62.1 (36.0-66.0) % Lymphocytes % 26.8 (24.0-44.0) % Monocytes % 9.2 (0.0-12.0) % Eosinophils % 1.6 (0.00-5.0) % Basophils % 0.3 (0.0-0.4) % Basophils # 0.02 (0-0.4) Sodium 138 (136-145) mEq/L Potassium 3.8 (3.5-5.1) mEq/L Chloride 102 (98-107) mEq/L Carbon Dioxide 25.4 (21-32) mEq/L Anion Gap 14.6 (5-15) MEQ/L BUN 17 (9-20) mg/dL Creatinine 0.95 (0.55-1.30) mg/dl Estimated GFR > 60 ML/MIN Glucose 106 (70-110) MG/DL Calcium 9.3 (8.5-10.1) mg/dL Magnesium 2.0 (1.8-2.4) mg/dL Total Bilirubin 0.40 (0.2-1.0) mg/dL AST 30 (15-37) U/L ALT 23 (12-78) U/L Alkaline Phosphatase 68 (46-116) U/L Troponin I < 0.017 (0.000-0.056) ng/ml Serum Total Protein 8.3 H (6.4-8.2) gm/dL Albumin 4.1 (3.4-5.0) g/dL Amylase 37 (25-115) U/L Lipase 122 (73-393) U/L - Departure Time of Disposition: 23:03 Departure Disposition: Home Clinical Impression: CHEST PAIN, HEADACHE Condition: Fair Critical Care Time: No Instructions: Chest Pain Additional Instructions: FOLLOW UP WITH PRIVATE DOCTOR TOMORROW.
[2016-12-08] MEDS ORDERED: BABY ASPIRIN 81 MG CHEW PO ONE (22:17)
[2016-12-08 22:18] VITALS: BP 141/89; PULSE 71
[2016-12-08 22:20] LABS: BASOPHIL % 0.3 % (0.0-0.4); Eosinophil % 1.6 % (0.00-5.0); Granulocytes % 62.1 % (36.0-66.0); Lymphocytes % 26.8 % (24.0-44.0); Mean Cell Volume 87.7 fl (78-100); Mean Corpuscular Hemoglobin 30.1 pg (26-32); Mean Platelet Volume 10.1 fl (6-9.5); Monocytes % 9.2 % (0.0-12.0); Platelet Count 256 K/mm3 (150-450); Red Blood Count 4.55 M/mm3 (4.1-5.6); Red Cell Distribution Width 12.8 % (11.5-14.0); White Blood Count 6.4 K/mm3 (4.0-10.5)
[2016-12-08 22:21] VITALS: O2SAT 96
[2016-12-08] MEDS ORDERED: BABY ASPIRIN 81 MG CHEW ONE (22:25)
[2016-12-08] MEDS ORDERED: Sodium Chloride 0.9% 1000 ML 1,000 ML ONE (22:25)
[2016-12-08 22:45] LABS: ALBUMIN 4.1 g/dL (3.4-5.0); ALKALINE PHOSPHATASE 68 U/L (46-116); ANION GAP 14.6 MEQ/L (5-15); BLOOD UREA NITROGEN 17 mg/dL (9-20); CHLORIDE 102 mEq/L (98-107); Carbon Dioxide 25.4 mEq/L (21-32); Glucose 106 MG/DL (70-110); LIPASE 122 U/L (73-393); Potassium 3.8 mEq/L (3.5-5.1); SGOT/AST 30 U/L (15-37); SGPT/ALT 23 U/L (12-78); SODIUM 138 mEq/L (136-145); Total Protein 8.3 gm/dL (6.4-8.2)
[2016-12-08] MEDS ORDERED: TYLENOL 325 MG PO ONE (23:05)
[2016-12-08] MEDS ORDERED: TYLENOL 325 MG ONE (23:08)
--- NOTE | 2016-12-09 09:03 | XRAY ---
Indication: Chest pain. Comparison: August 13, 2016. Portable chest remains clear. Heart and mediastinal structures within normal limits. Bony thorax intact. Impression: Stable nonacute chest.
== END 2016-12-09 00:08 | disposition home or self-care (01) ==
LOC: ED 22:08
DX: R07.89 Other chest pain (principal); R51 Headache; R11.10 Vomiting, unspecified
CPT/HCPCS: 36000; 36415; 71010; 80053; 82150; 83690; 83735; 84484; 85025; 93005; 93041; 99283; A9270-GY

== ENCOUNTER 2016-12-12 14:07 | Emergency (ER) | payer MEDICARE ==
[2016-12-12] MEDS ORDERED: Fluor-I-Strip/Ful-Flo OP ONE ×2 (14:15→14:19)
[2016-12-12] MEDS ORDERED: TETRACAINE 0.5% STERI-UNIT SOL OP STA (14:15)
[2016-12-12] MEDS ORDERED: TETRACAINE 0.5% STERI-UNIT SOL OP ONE (14:19)
--- NOTE | 2016-12-12 14:19 | ERPHSYRPT ---
- History of Present Illness Time Seen by Provider: 12/12/16 14:15 Source: patient Patient Subjective Stated Complaint: PT WAS NAILING A BOARD AND NAIL HIT HIM TO LEFT EYE, CO PAIN TO LEFT EYE Triage Nursing Assessment: PT HAS REDNESS, TEARING , PT HAS SMALL DARK AREA TO LEFT SIDE OF EYE Physician History: Pt. was pounding a nail when it recoiled and hit his L eye. States sharp pain with blurred vision along with some fluid coming from L eye. States tetanus UTD and received his immunization this year. Denies any other injuries. Timing/Duration: today Location: left eye Severity: moderate Apparent Injury: yes Associated Symptoms: pain, burning, redness, decreased vision Visual Assistive Devices: None Chemical Exposure: No Treatment at Time of Chemical Exposure: Irrigated with water Trauma: Yes Welding Arc/Tanning Bed Exposure: No Allergies/Adverse Reactions: Iodinated Contrast- Oral and IV Dye [Iodinated Contrast Media - IV Dye] Allergy (Severe, Verified 11/27/16 21:25) Rash ketorolac [From Toradol] Allergy (Intermediate, Verified 11/27/16 21:25) quetiapine fumarate [From Seroquel] Allergy (Intermediate, Verified 11/27/16 21: 25) rash, itching meperidine HCl [From Demerol] Allergy (Mild, Verified 11/27/16 21:25) Rash/hyper morphine Allergy (Mild, Verified 11/27/16 21:25) rash/ hyper prednisone Allergy (Mild, Verified 11/27/16 21:25) Nausea promethazine HCl [From Phenergan] Allergy (Mild, Verified 11/27/16 21:25) rash, nausea tramadol HCl [From Ultram] Allergy (Mild, Verified 11/27/16 21:25) rash itching Home Medications: Methylphenidate HCl [Ritalin] 10 mg PO TID 08/13/16 [History] Hx Tetanus, Diphtheria Vaccination/Date Given: Yes (2016) Hx Influenza Vaccination/Date Given: No Hx Pneumococcal Vaccination/Date Given: No - Review of Systems Constitutional: No Fever, No Chills Eyes: Discharge, Eye Pain, Eye Redness, Tearing, Vision Changes, Foreign Body Sensation Ears, Nose, & Throat: No Symptoms Respiratory: No Cough, No Dyspnea Cardiac: No Chest Pain, No Edema, No Syncope Abdominal/Gastrointestinal: No Abdominal Pain, No Nausea, No Vomiting, No Diarrhea Genitourinary Symptoms: No Dysuria Musculoskeletal: No Back Pain, No Neck Pain Skin: No Rash Neurological: No Dizziness, No Focal Weakness, No Sensory Changes Psychological: No Symptoms Endocrine: No Symptoms All Other Systems: Reviewed and Negative - Past Medical History Pertinent Past Medical History: Yes Neurological History: Migraines ENT History: No Pertinent History Cardiac History: No Pertinent History Respiratory History: No Pertinent History Endocrine Medical History: No Pertinent History Musculoskeletal History: Other GI Medical History: Hernia History: No Pertinent History Psycho-Social History: Anxiety, Attention Deficit Disorder, Depression Male Reproductive Disorders: No Pertinent History Other Medical History: non hodgkins lymphoma - Past Surgical History Past Surgical History: Yes Neuro Surgical History: No Pertinent History Cardiac: No Pertinent History Respiratory: No Pertinent History Gastrointestinal: Hernia Repair Genitourinary: No Pertinent History Musculoskeletal: Orthopedic Surgery Male Surgical History: No Pertinent History Other Surgical History: port placed et removed. rt ankle fx - Social History Smoking Status: Never smoker How long have you smoked: rarely Exposure to second hand smoke: No Drug Use: none Patient Lives Alone: No - Nursing Vital Signs Nursing Vital Signs: Initial Vital Signs Temperature 97.4 F Temperature Source Oral Pulse Rate 94 Respiratory Rate 16 Blood Pressure [Right Arm] 137/108 Pain Intensity 7 - Physical Exam General Appearance: no apparent distress Vision Acuity Degree Evaluation Phase: Uncorrected Eye Exam: right eye: normal inspection, PERRL, EOMI, left eye: abnormal pupil ( teardrop pupil), vision changes, other (perforated L globe with aqueous humor noted) Ears, Nose, Throat Exam: normal ENT inspection Neck Exam: normal inspection Respiratory Exam: normal breath sounds Cardiovascular Exam: regular rate/rhythm Gastrointestinal Exam: soft Extremity Exam: normal inspection Neurologic: alert, oriented x 3, cooperative, hydrologist II-XII nml as tested, normal mood/affect Skin Exam: normal color SpO2 Interpretation: normal SpO2: 96 Oxygen Delivery: Room Air - Course Nursing assessment & vital signs reviewed: Yes Ordered Tests: Active Orders 24 hr Category Date Time Status Visual Acuity STAT Care 12/12/16 14:15 Active Medication Summary Discontinued Medications Generic Name Dose Route Start Last Admin Trade Name Freq PRN Reason Stop Dose Admin Fluorescein Sodium 1 mg 12/12/16 14:15 12/12/16 14:22 [place]-K-Lhpkp/Ful-Bala OP 12/12/16 14:16 1 mg STAT ONE Administration Fluorescein Sodium Confirm 12/12/16 14:19 Vlgym-E-Bqheg/Ful-Bala Administered 12/12/16 14:20 Dose 1 mg OP .STK-MED ONE Tetracaine HCl 4 ml 12/12/16 14:15 12/12/16 14:22 Tetracaine 0.5% Steri-Unit Lilly OP 12/12/16 14:16 4 ml STAT STA Administration Tetracaine HCl Confirm 12/12/16 14:19 Tetracaine 0.5% Steri-Unit Lilly Administered 12/12/16 14:20 Dose 4 ml OP .STK-MED ONE - Progress Progress: improved Progress Note: 12/12/16 14:57 Placed an eye shield placement to L eye. Dr. Alston, pasteurizing supervisor, notified and agreed to accept pt. Discussed with : Other (Dr. Alston agreed to admit) Counseled pt/family regarding: diagnosis - Departure Time of Disposition: 15:00 Departure Disposition: Transfer ([facility]) Clinical Impression: Penetrating eye injury of left eye Condition: Stable Critical Care Time: No
[2016-12-12 15:14] VITALS: BP 149/97; PULSE 90; O2SAT 99
== END 2016-12-12 15:19 | disposition home or self-care (01) ==
LOC: ED 14:07
DX: S05.52XA Penetrating wound with foreign body of left eyeball, initial encounter (principal); W22.8XXA Striking against or struck by other objects, initial encounter
CPT/HCPCS: 99283

== ENCOUNTER 2017-02-06 22:44 | Emergency (ER) | payer MEDICARE ==
[2017-02-06 22:56] VITALS: O2SAT 96
[2017-02-06] MEDS ORDERED: NORCO 5/325 MG PO ONE (23:00)
[2017-02-06] MEDS ORDERED: NORCO 5/325 MG ONE (23:04)
--- NOTE | 2017-02-06 23:06 | ERPHSYRPT ---
- History of Present Illness Time Seen by Provider: 02/06/17 22:53 Source: patient Exam Limitations: no limitations Patient Subjective Stated Complaint: pt states that left groin pain since hernia repair on 05/09/2016 but getting worse since 2200 tonight - denies acute injury Triage Nursing Assessment: ambulatory to treatment area - waddling gait - moves all extremities with equal strength. alert/oriented - appropriate affect. skin pwd - no rash/injury appreciated - tenderness to the left lower groin. resps easy - non-labored Physician History: ABOUT 90 MINUTES AGO PT STARTED WITH SHARP CONSTANT LEFT INGUINAL PAIN AFTER STANDING UP. PT HAD A LEFT INGUINAL HERNIA REPAIR 05/09/[address] HOLBROOK AND HAS HAD NO PROBLEMS UNTIL TONIGHT. LAST BM WAS TODAY & WNL. PT ALSO C/O A SORE THROAT AND NON-PRODUCTIVE COUGH TODAY. PT DENIES FEVER, NAUSEA, VOMITING, CHEST PAIN. Allergies/Adverse Reactions: Iodinated Contrast- Oral and IV Dye [Iodinated Contrast Media - IV Dye] Allergy (Severe, Verified 02/06/17 22:47) Rash ketorolac [From Toradol] Allergy (Intermediate, Verified 02/06/17 22:47) quetiapine fumarate [From Seroquel] Allergy (Intermediate, Verified 02/06/17 22: 47) rash, itching meperidine HCl [From Demerol] Allergy (Mild, Verified 02/06/17 22:47) Rash/hyper morphine Allergy (Mild, Verified 02/06/17 22:47) rash/ hyper oxycodone [From OxyContin] Allergy (Mild, Verified 02/06/17 22:56) Itching prednisone Allergy (Mild, Verified 02/06/17 22:47) Nausea promethazine HCl [From Phenergan] Allergy (Mild, Verified 02/06/17 22:47) rash, nausea tramadol HCl [From Ultram] Allergy (Mild, Verified 02/06/17 22:47) rash itching Home Medications: Methylphenidate HCl [Ritalin] 10 mg PO TID 02/06/17 [History] Hx Tetanus, Diphtheria Vaccination/Date Given: Yes Hx Influenza Vaccination/Date Given: Yes Hx Pneumococcal Vaccination/Date Given: No Immunizations Up to Date: Yes - Past Medical History Pertinent Past Medical History: Yes Neurological History: Migraines ENT History: No Pertinent History Cardiac History: No Pertinent History Respiratory History: No Pertinent History Endocrine Medical History: No Pertinent History Musculoskeletal History: Other GI Medical History: Hernia History: No Pertinent History Psycho-Social History: Anxiety, Attention Deficit Disorder, Depression Male Reproductive Disorders: No Pertinent History Other Medical History: non hodgkins lymphoma - Past Surgical History Past Surgical History: Yes Neuro Surgical History: No Pertinent History Cardiac: No Pertinent History Respiratory: No Pertinent History Gastrointestinal: Hernia Repair Genitourinary: No Pertinent History Musculoskeletal: Orthopedic Surgery Male Surgical History: No Pertinent History Other Surgical History: port placed et removed. rt ankle fx - Social History Smoking Status: Never smoker How long have you smoked: rarely Exposure to second hand smoke: No Drug Use: none Patient Lives Alone: No - Review of Systems Constitutional: No Fever Ears, Nose, & Throat: Throat Pain Respiratory: Cough Cardiac: No Chest Pain Abdominal/Gastrointestinal: No Nausea, No Vomiting Genitourinary Symptoms: Other (LEFT INGUINAL PAIN), No Dysuria Skin: No Rash Neurological: No Headache All Other Systems: Reviewed and Negative - Nursing Vital Signs Nursing Vital Signs: Initial Vital Signs Temperature 98.0 F 02/06/17 22:48 Pulse Rate 86 02/06/17 22:48 Respiratory Rate 16 02/06/17 22:48 Blood Pressure 123/93 02/06/17 22:48 O2 Sat by Pulse Oximetry 96 02/06/17 22:48 Pain Scale Pain Intensity 7 - Physical Exam General Appearance: alert Eye Exam: PERRL/EOMI Ears, Nose, Throat Exam: pharynx normal, moist mucous membranes Neck Exam: normal inspection, full range of motion Respiratory Exam: lungs clear Cardiovascular Exam: normal heart sounds Gastrointestinal/Abdomen Exam: soft, normal bowel sounds, No tenderness Male Genital Exam: inguinal tenderness (MILD LEFT INGUINAL TENDERNESS), No hernia mass, No scrotal swellling Back Exam: normal range of motion Extremity Exam: normal inspection, No pedal edema Neurologic Exam: alert, cooperative Skin Exam: warm, dry SpO2 Interpretation: normal SpO2: 96 Oxygen Delivery: Room Air - Radiology Ultrasound Exam Scrotal Ultrasound: Other (TECH REPORT: NO TORSION.) Ordered Tests: Active Orders 24 hr Category Date Time Status TESTICLE [US] Stat Exams 02/06/17 23:00 Ordered Medication Summary Discontinued Medications Generic Name Dose Route Start Last Admin Trade Name Freq PRN Reason Stop Dose Admin Hydrocodone Bitart/Acetaminophen 2 tab 02/06/17 23:00 02/06/17 23:06 [place] 5/325 Mg PO 02/06/17 23:01 2 tab STAT ONE Administration Hydrocodone Bitart/Acetaminophen Confirm 02/06/17 23:04 [place] 5/325 Mg Administered 02/06/17 23:05 Dose 2 tab .ROUTE .STK-MED ONE - Departure Time of Disposition: 00:12 Departure Disposition: Home Clinical Impression: LEFT INGUINAL STRAIN Condition: Stable Critical Care Time: No Referrals: CORAZON CABRALES [Primary Care Provider] - Instructions: Groin Strain Additional Instructions: FOLLOW UP WITH PRIVATE DOCTOR TOMORROW. AVOID HEAVY LIFTING FOR 2 DAYS. Prescriptions: Naproxen [Naprosyn] 500 mg PO [id number] PRN #20 tablet PRN Reason: Pain
[2017-02-07 00:20] VITALS: BP 146/94; PULSE 88
--- NOTE | 2017-02-07 09:14 | XRAY ---
Indication: Left testicular pain. Two-dimensional testicular sonogram performed. Comparison: None Both testicles homogeneous in echogenicity with normal color perfusion. The right testicle measures 4.8 x 2.3 x 2.9 cm and the left measures 4.2 x 2.3 x 3.0 cm. Left and right epididymis sonographically normal. Small nonspecific hydrocele, left greater than right. No suspicious extratesticular mass. Impression: Small bilateral hydroceles. Remaining testicle sonogram is negative. Comment: Preliminary report was given.
== END 2017-02-07 00:19 | disposition home or self-care (01) ==
LOC: ED 22:44
DX: S76.912A Strain of unspecified muscles, fascia and tendons at thigh level, left thigh, initial encounter (principal)
CPT/HCPCS: 76870; 99282; 99283; A9270-GY

== ENCOUNTER 2017-02-12 00:43 | Emergency (ER) | payer MEDICARE ==
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
[2017-02-12 01:25] VITALS: BP 130/96; PULSE 84; O2SAT 98
--- NOTE | 2017-02-12 08:55 | XRAY ---
Indication: 3rd-5th MCP pain. Comparison: January 17, 2017. 3 views of the right hand again demonstrates tiny well- circumscribed ossification base of the third proximal phalanx either developmental versus old injury. No new/acute bony, articular, or soft tissue abnormalities.
== END 2017-02-12 01:25 | disposition home or self-care (01) ==
LOC: ED 00:43
DX: S69.91XA Unspecified injury of right wrist, hand and finger(s), initial encounter (principal); W22.03XA Walked into furniture, initial encounter
CPT/HCPCS: 73130; 99282; 99283; L3908

== ENCOUNTER 2017-02-16 22:09 | Emergency (ER) | payer MEDICARE ==
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
[2017-02-16] MEDS ORDERED: ULTRAM 50 MG PO ONE (23:25)
[2017-02-16] MEDS ORDERED: ULTRAM 50 MG ONE (23:30)
[2017-02-16 23:39] VITALS: BP 140/93; PULSE 96; O2SAT 20
--- NOTE | 2017-02-17 08:54 | XRAY ---
Indication: Fourth finger pain following injury. Comparison: February 12, 2017. 3 views of the right hand unchanged again demonstrating tiny well- circumscribed ossification base of the third proximal phalanx either developmental versus old injury. No new/acute findings.
== END 2017-02-16 23:39 | disposition home or self-care (01) ==
LOC: ED 22:09
DX: M79.641 Pain in right hand (principal); W22.03XD Walked into furniture, subsequent encounter
CPT/HCPCS: 73130; 99283; A9270-GY

== ENCOUNTER 2017-02-24 22:51 | Emergency (ER) | payer MEDICARE ==
[2017-02-24] MEDS ORDERED: BABY ASPIRIN 81 MG CHEW PO ONE (23:11)
[2017-02-24 23:18] VITALS: O2SAT 97
[2017-02-24] MEDS ORDERED: BABY ASPIRIN 81 MG CHEW ONE (23:19)
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
[2017-02-25 00:11] VITALS: BP 155/109; PULSE 99
--- NOTE | 2017-02-25 09:03 | XRAY ---
Indication: Chest pain. Comparison: December 08, 2016. Portable chest less inflated today crowding the lung bases. No focal infiltrate, consolidation, or large effusion. Heart is not enlarged. Bony thorax intact. Impression: Nonacute chest.
== END 2017-02-25 00:10 | disposition home or self-care (01) ==
LOC: ED 22:51
DX: R07.89 Other chest pain (principal); F43.0 Acute stress reaction
CPT/HCPCS: 36000; 36415; 71010; 80307; 84484; 93005; 99284; A9270-GY

== ENCOUNTER 2017-05-11 20:37 | Emergency (ER) | payer MEDICARE ==
[2017-05-11 20:53] VITALS: BP 143/95; PULSE 80; O2SAT 97
[2017-05-11] MEDS ORDERED: SUBLIMAZE 100 MCG/2 ML IV ONE (20:56)
[2017-05-11] MEDS ORDERED: Zofran 4 MG/2 ML VIAL IV ONE (20:56)
[2017-05-11] MEDS ORDERED: Sodium Chloride 0.9% 1000 ML 1,000 ML IV SCH (21:00)
--- NOTE | 2017-05-11 21:04 | ERPHSYRPT ---
- History of Present Illness Time Seen by Provider: 05/11/17 20:50 Historian: patient Exam Limitations: clinical condition Patient Subjective Stated Complaint: pt states he began having chest pain at about 1800. states he was having neck and back pain and now his pain is in his chest wrapping around to both sides and to his lt arm. pain is worse with deep breath Triage Nursing Assessment: pt alert and oreinted, asnwers questions approp. skin pink warm and dry. pt ambulatory with steady gait noted. respirations nonlabored wtih lungs cta. pulse 80 on monitor, radial pulse strong and regular Physician History: PATIENT WITH A HISTORY OF CHRONIC LOW BACK PAIN COMPLAINS OF PAIN RADIATES FROM BACK TO HIS NECK AND LEFT SHOULDER SINCE 1800 ASSOCIATED WITH PAIN BELOW LEFT AXILLA OVER CHEST WALL EXACERBATED WITH BREATHING. DENIES DIAPHORESIS, PALPITATION, DYSPNEA OR COUGHING. Timing/Duration: today Activities at Onset: none Quality: stabbing Location: shoulder, back, other (LEFT ARM PIT NEAR SHOULDER) Severity of Pain-Max: mild Severity of Pain-Current: mild Modifying Factors: Improves With: breathing, change in position Associated Symptoms: hurts to breathe Prior Chest Pain/Cardiac Workup: no prior chest pain Nitro Today/Relief: no nitro taken today Aspirin Treatment Today: no aspirin today Allergies/Adverse Reactions: Iodinated Contrast- Oral and IV Dye [Iodinated Contrast Media - IV Dye] Allergy (Severe, Verified 05/11/17 21:27) Rash ketorolac [From Toradol] Allergy (Intermediate, Verified 05/11/17 21:27) quetiapine fumarate [From Seroquel] Allergy (Intermediate, Verified 05/11/17 21: 27) rash, itching meperidine HCl [From Demerol] Allergy (Mild, Verified 05/11/17 21:27) Rash/hyper morphine Allergy (Mild, Verified 05/11/17 21:27) rash/ hyper oxycodone [From OxyContin] Allergy (Mild, Verified 05/11/17 21:27) Itching prednisone Allergy (Mild, Verified 05/11/17 21:27) Nausea promethazine HCl [From Phenergan] Allergy (Mild, Verified 05/11/17 21:27) rash, nausea tramadol HCl [From Ultram] Allergy (Mild, Verified 05/11/17 21:27) rash itching Home Medications: Methylphenidate HCl [Ritalin] 10 mg PO TID 02/06/17 [History] Hx Tetanus, Diphtheria Vaccination/Date Given: Yes Hx Influenza Vaccination/Date Given: Yes Hx Pneumococcal Vaccination/Date Given: No Immunizations Up to Date: Yes - Review of Systems Constitutional: No Fever, No Chills Eyes: No Symptoms Ears, Nose, & Throat: No Symptoms Respiratory: No Symptoms Cardiac: Chest Pain Abdominal/Gastrointestinal: No Abdominal Pain, No Nausea, No Vomiting, No Diarrhea Genitourinary Symptoms: No Dysuria Musculoskeletal: No Back Pain, No Neck Pain Skin: No Rash Neurological: No Dizziness, No Focal Weakness, No Sensory Changes Psychological: No Symptoms Endocrine: No Symptoms All Other Systems: Reviewed and Negative - Past Medical History Pertinent Past Medical History: Yes Neurological History: Migraines ENT History: No Pertinent History Cardiac History: No Pertinent History Respiratory History: No Pertinent History Endocrine Medical History: No Pertinent History Musculoskeletal History: Other GI Medical History: Hernia History: No Pertinent History Psycho-Social History: Anxiety, Attention Deficit Disorder, Depression Male Reproductive Disorders: No Pertinent History Other Medical History: non hodgkins lymphoma - Past Surgical History Past Surgical History: Yes Neuro Surgical History: No Pertinent History Cardiac: No Pertinent History Respiratory: No Pertinent History Gastrointestinal: Hernia Repair Genitourinary: No Pertinent History Musculoskeletal: Orthopedic Surgery Male Surgical History: No Pertinent History Other Surgical History: port placed et removed. rt ankle fx - Social History Smoking Status: Former smoker How long have you smoked: rarely Exposure to second hand smoke: No Drug Use: none Patient Lives Alone: No - Nursing Vital Signs Nursing Vital Signs: Initial Vital Signs Temperature 97.7 F 05/11/17 20:38 Pulse Rate 72 05/11/17 20:38 Respiratory Rate 20 05/11/17 20:38 Blood Pressure 143/95 05/11/17 20:38 O2 Sat by Pulse Oximetry 97 05/11/17 20:38 Pain Scale Pain Intensity 8 - Physical Exam General Appearance: no apparent distress, alert Neck Exam: normal inspection, non-tender, supple, full range of motion, other ( TENDERNESS LEFT PARASPINAL AREA, LEFT DELTOID MUSCLE AND LEFT SHOULDER) Respiratory Exam: normal breath sounds, chest tenderness (INFERIOR TO AXILLA ON LEFT 3RD TO 5TH ICS) Cardiovascular Exam: normal heart sounds Gastrointestinal/Abdomen Exam: soft, normal bowel sounds Extremity Exam: normal inspection Neurologic Exam: alert, oriented x 3, cooperative SpO2 Interpretation: normal SpO2: 97 Oxygen Delivery: Room Air - Course EKG Interpreted by Me: RATE, Sinus Rhythm, NORMAL AXIS Ordered Tests: Active Orders 24 hr Category Date Time Status EKG-ER Only STAT Care 05/11/17 20:56 Active IV Insertion STAT Care 05/11/17 21:08 Active CHEST 1 VIEW (PORTABLE) Stat Exams 05/11/17 20:57 Taken BMP Stat Lab 05/11/17 20:45 Completed CBC W DIFF Stat Lab 05/11/17 20:45 Completed TROPONIN Q3H Lab 05/11/17 20:40 Completed Medication Summary Discontinued Medications Generic Name Dose Route Start Last Admin Trade Name Freq PRN Reason Stop Dose Admin Fentanyl Citrate 100 mcg 05/11/17 20:56 05/11/17 21:17 Sublimaze 100 Mcg/2 Ml IV 05/11/17 20:57 Not Given STAT ONE Fentanyl Citrate Confirm 05/11/17 21:05 Sublimaze 100 Mcg/2 Ml Administered 05/11/17 21:06 Dose 100 mcg .ROUTE .STK-MED ONE Sodium Chloride 1,000 mls @ 100 mls/hr 05/11/17 21:00 05/11/17 21:17 Sodium Chloride 0.9% 1000 Ml IV 06/10/17 20:59 Not Given .Q10H JOHAN Sodium Chloride Confirm 05/11/17 21:05 Sodium Chloride 0.9% 1000 Ml Administered 05/11/17 21:06 Dose 1,000 mls @ ud .ROUTE .STK-MED ONE Ondansetron HCl 4 mg 05/11/17 20:56 05/11/17 21:18 Zofran 4 Mg/2 Ml Vial IV 05/11/17 20:57 Not Given STAT ONE Ondansetron HCl Confirm 05/11/17 21:05 Zofran 4 Mg/2 Ml Vial Administered 05/11/17 21:06 Dose 4 mg .ROUTE .STK-MED ONE Lab/Rad Data: Laboratory Result Diagrams 05/11/17 20:45 05/11/17 20:45 Laboratory Results 05/11/17 05/11/17 05/11/17 Range/Units 20:45 20:45 20:40 WBC 6.4 (4.0-10.5) K/mm3 RBC 4.58 (4.1-5.6) M/mm3 Hgb 13.9 (12.5-18.0) gm/dl Hct 40.0 L (42-50) % MCV 87.3 (78-100) fl MCH 30.3 (26-32) pg MCHC 34.8 (32-36) g/dl RDW 12.7 (11.5-14.0) % Plt Count 268 (150-450) K/mm3 MPV 10.1 H (6-9.5) fl Gran % 62.0 (36.0-66.0) % Lymphocytes % 28.6 (24.0-44.0) % Monocytes % 8.2 (0.0-12.0) % Eosinophils % 0.9 (0.00-5.0) % Basophils % 0.3 (0.0-0.4) % Basophils # 0.02 (0-0.4) Sodium 139 (136-145) mEq/L Potassium 4.0 (3.5-5.1) mEq/L Chloride 105 (98-107) mEq/L Carbon Dioxide 24.5 (21-32) mEq/L Anion Gap 13.7 (5-15) MEQ/L BUN 10 (9-20) mg/dL Creatinine 0.91 (0.55-1.30) mg/dl Estimated GFR > 60 ML/MIN Glucose 117 H (70-110) MG/DL Calcium 8.9 (8.5-10.1) mg/dL Troponin I < 0.017 (0.000-0.056) ng/ml - Progress Progress Note: 05/11/17 22:49 OFFERED PATIENT IV ZOFRAN 4MG, FENTANYL 0.1MG AND PATIENT SIGNED AMA Counseled pt/family regarding: diagnosis, need for follow-up - Departure Time of Disposition: 20:40 Departure Disposition: AMA Clinical Impression: CHEST WALL PAIN Condition: Stable Critical Care Time: No Referrals: CORAZON CABRALES [Primary Care Provider] - Additional Instructions: CONSULT YOUR PRIMARY CARE PHYSICIAN FOR FOLLOWUP.
[2017-05-11] MEDS ORDERED: Zofran 4 MG/2 ML VIAL ONE (21:05)
[2017-05-11] MEDS ORDERED: Sodium Chloride 0.9% 1000 ML 0 ML ONE (21:05)
[2017-05-11] MEDS ORDERED: SUBLIMAZE 100 MCG/2 ML ONE (21:05)
[2017-05-11 21:16] LABS: BASOPHIL % 0.3 % (0.0-0.4); Eosinophil % 0.9 % (0.00-5.0); Lymphocytes % 28.6 % (24.0-44.0); Mean Cell Volume 87.3 fl (78-100); Mean Corpuscular Hemoglobin 30.3 pg (26-32); Mean Platelet Volume 10.1 fl (6-9.5); Monocytes % 8.2 % (0.0-12.0); Platelet Count 268 K/mm3 (150-450); Red Blood Count 4.58 M/mm3 (4.1-5.6); Red Cell Distribution Width 12.7 % (11.5-14.0); White Blood Count 6.4 K/mm3 (4.0-10.5)
[2017-05-11 21:33] LABS: ANION GAP 13.7 MEQ/L (5-15); BLOOD UREA NITROGEN 10 mg/dL (9-20); CHLORIDE 105 mEq/L (98-107); Carbon Dioxide 24.5 mEq/L (21-32); Glucose 117 MG/DL (70-110); SODIUM 139 mEq/L (136-145)
--- NOTE | 2017-05-12 09:02 | XRAY ---
Indication: Chest pain. Comparison: February 24, 2017. Portable chest remains underinflated and clear. Heart is not enlarged. Bony thorax intact. Impression: Stable nonacute underinflated chest.
== END 2017-05-11 21:17 | disposition left against medical advice (07) ==
LOC: ED 20:37
DX: R07.89 Other chest pain (principal)
CPT/HCPCS: 36000; 36415; 71010; 80048; 84484; 85025; 93005; 96374; 96375; 99283; J2405; J3010

== ENCOUNTER 2017-07-10 14:56 | Emergency (ER) | payer MEDICARE ==
--- NOTE | 2017-07-10 15:53 | ERPHSYRPT ---
- History of Present Illness Time Seen by Provider: 07/10/17 15:00 Source: patient, EMS Patient Subjective Stated Complaint: STATES FELL OUT OF CHAIR AT HOME THAT HAD WHEELS FALLING ON LEFT SHOULDER AND LEFT HIP. HAVING PAIN IN THOSE AREAS. Triage Nursing Assessment: TO ROOM PER EMS COT. SKIN W/D, COLOR NORMAL, RESP EASY. TENDERNESS NOTED TO LEFT SHOULDER AND LEFT HIP. GOOD LEFT RADIAL PULSE AND GOOD LEFT PEDAL PULSE. NO DEFORMITIES NOTED. Physician History: CC: fall Hx: 31 y/o patient fell at home from a chair. He has pain in left shoulder and left hip. No neck or back pain. No other injuries. no LOC. The chair slipped and broke. He has multiple allergies. No chest or abd pain. Occurred: just prior to arrival Loss of Consciousness: no loss of consciousness Allergies/Adverse Reactions: Iodinated Contrast- Oral and IV Dye [Iodinated Contrast Media - IV Dye] Allergy (Severe, Verified 05/11/17 21:27) Rash ketorolac [From Toradol] Allergy (Intermediate, Verified 05/11/17 21:27) quetiapine fumarate [From Seroquel] Allergy (Intermediate, Verified 05/11/17 21: 27) rash, itching meperidine HCl [From Demerol] Allergy (Mild, Verified 05/11/17 21:27) Rash/hyper morphine Allergy (Mild, Verified 05/11/17 21:27) rash/ hyper oxycodone [From OxyContin] Allergy (Mild, Verified 05/11/17 21:27) Itching prednisone Allergy (Mild, Verified 05/11/17 21:27) Nausea promethazine HCl [From Phenergan] Allergy (Mild, Verified 05/11/17 21:27) rash, nausea tramadol HCl [From Ultram] Allergy (Mild, Verified 05/11/17 21:27) rash itching Home Medications: Methylphenidate HCl [Ritalin] 10 mg PO TID 02/06/17 [History] Naproxen 500 mg [Naprosyn 500 MG] 500 mg PO BID 07/10/17 [History] Hx Tetanus, Diphtheria Vaccination/Date Given: Yes Hx Influenza Vaccination/Date Given: Yes Hx Pneumococcal Vaccination/Date Given: No - Review of Systems Constitutional: No Symptoms Eyes: No Vision Changes Respiratory: No Dyspnea Cardiac: No Chest Pain Abdominal/Gastrointestinal: No Abdominal Pain, No Nausea, No Vomiting Musculoskeletal: Fall, Injury, No Back Pain, No Neck Pain Neurological: No Focal Weakness, No Headache, No Parasthesia All Other Systems: Reviewed and Negative - Past Medical History Pertinent Past Medical History: Yes Neurological History: Migraines ENT History: No Pertinent History Cardiac History: No Pertinent History Respiratory History: No Pertinent History Endocrine Medical History: No Pertinent History Musculoskeletal History: Other GI Medical History: Hernia History: No Pertinent History Psycho-Social History: Anxiety, Attention Deficit Disorder, Depression Male Reproductive Disorders: No Pertinent History Other Medical History: non hodgkins lymphoma - Past Surgical History Past Surgical History: Yes Neuro Surgical History: No Pertinent History Cardiac: No Pertinent History Respiratory: No Pertinent History Gastrointestinal: Hernia Repair Genitourinary: No Pertinent History Musculoskeletal: Orthopedic Surgery Male Surgical History: No Pertinent History Other Surgical History: port placed et removed. rt ankle fx - Social History Smoking Status: Never smoker How long have you smoked: rarely Exposure to second hand smoke: No Drug Use: none Patient Lives Alone: No - Nursing Vital Signs Nursing Vital Signs: Initial Vital Signs Respiratory Rate 07/10/17 14:58 Pain Scale Pain Intensity 7 - Bevier Coma Score Best Eye Response (Kobi): (4) open spontaneously Best Verbal Response (Kobi): (5) oriented Best Motor Response (Kobi): (6) obeys commands Bevier Total: 15 - Physical Exam General Appearance: alert Head Injury: no evidence of injury Eye Exam: PERRL/EOMI ENT Exam: airway nml Neck Exam: supple, normal inspection, No mid-line tenderness Respiratory/Chest Exam: normal breath sounds, No chest tenderness Cardiovascular Exam: normal heart sounds, regular rate/rhythm Gastrointestinal Exam: soft, No tenderness, No distention Genitalia Exam: normal genital exam Back Exam: normal inspection, No vertebral tenderness Extremity Exam: normal inspection, tenderness (left shoulder and left hip area) Neurologic Exam: alert, oriented x 3, cooperative, health psychologist II-XII nml as tested, sensation nml, No motor deficits Skin Exam: warm, dry, No rash - Course Nursing assessment & vital signs reviewed: Yes - Radiology Exams left shoulder, left hip, pelvis X-ray Interpretation: Teleradiologist Report, Negative, No Fracture Ordered Tests: Active Orders 24 hr Category Date Time Status Cold Application STAT Care 07/10/17 15:07 Active Sling Application STAT Care 07/10/17 16:08 Active HIP UNI (2V) INCL PEL IF DONE Stat Exams 07/10/17 15:06 Completed SHOULDER Stat Exams 07/10/17 15:06 Completed Medication Summary Discontinued Medications Generic Name Dose Route Start Last Admin Trade Name Darwin PRN Reason Stop Dose Admin Hydrocodone Bitart/Acetaminophen 1 tab 07/10/17 16:02 07/10/17 16:07 [place] 5/325 Mg PO 07/10/17 16:03 1 tab STAT ONE Administration Hydrocodone Bitart/Acetaminophen Confirm 07/10/17 16:06 [place] 5/325 Mg Administered 07/10/17 16:07 Dose 1 tab .ROUTE .STK-MED ONE - Progress Progress Note: 07/10/17 16:29 [place] given here. Rx motrin which he has taken in past without problems. He will be released with contusion instr. Left arm sling for comfort. Counseled pt/family regarding: diagnosis, need for follow-up, rad results - Departure Time of Disposition: 16:29 Departure Disposition: Home Clinical Impression: Fall from chair, Sprain of left shoulder, Contusion of left hip Condition: Fair Critical Care Time: No Referrals: CORAZON CABRALES [Primary Care Provider] - Instructions: Contusion, Shoulder Sprain Additional Instructions: Left arm sling for comfort for 1-2 days. Simple range of motion exercises left shoulder. Ice packs off and on. Rx ibuprofen- sent to [place]. Follow up wit Dr Cabrales. Prescriptions: Ibuprofen 1 tab PO Q6H PRN PRN #20 tablet PRN Reason: pain
[2017-07-10] MEDS ORDERED: NORCO 5/325 MG PO ONE (16:02)
[2017-07-10] MEDS ORDERED: NORCO 5/325 MG ONE (16:06)
--- NOTE | 2017-07-10 16:23 | XRAY ---
Indication: Pain following fall. Comparison: None 3 views of the left shoulder demonstrates normal bones, articulation, and soft tissues.
[2017-07-10 16:25] VITALS: BP 123/86; PULSE 78; O2SAT 98
--- NOTE | 2017-07-10 16:27 | XRAY ---
Indication: Pain following fall. Comparison: None AP pelvis and 2 views of the left hip demonstrates normal bones, articulation, and soft tissues.
== END 2017-07-10 16:50 | disposition home or self-care (01) ==
LOC: ED 14:56
DX: S43.402A Unspecified sprain of left shoulder joint, initial encounter (principal); S70.02XA Contusion of left hip, initial encounter; W08.XXXA Fall from other furniture, initial encounter
CPT/HCPCS: 73030; 73502; 99282; 99283; A9270-GY

== ENCOUNTER 2017-10-04 23:13 | Emergency (ER) | payer MEDICARE ==
[2017-10-05 00:02] VITALS: BP 131/81; O2SAT 98
[2017-10-05] MEDS ORDERED: MOTRIN 600 MG PO ONE (00:04)
[2017-10-05] MEDS ORDERED: TYLENOL 325 MG PO STA (00:06)
[2017-10-05] MEDS ORDERED: TYLENOL 325 MG ONE (00:12)
--- NOTE | 2017-10-05 00:27 | ERPHSYRPT ---
- History of Present Illness Time Seen by Provider: 10/04/17 23:50 Source: patient Exam Limitations: clinical condition Patient Subjective Stated Complaint: fell through glass table. c/o pain right big toe and scratch on left lower leg Triage Nursing Assessment: limping. small red area noted to right great toe, small abrasion to left reyna. no bleeding or swelling noted. Physician History: PATIENT STATES A CERAMIC TABLET FELL ONTO RIGHT FOOT SUSTAINED INJURY TO RIGHT GREAT TOE, HAS PAIN UPON WEIGHT BEARING. DENIES DEFORMITY OR ECCHYMOSIS. Method of Injury: direct blow Occurred: just prior to arrival Quality: constant Severity of Pain-Max: moderate Severity of Pain-Current: moderate Lower Extremities Pain: foot: right Modifying Factors: Improves With: movement Associated Symptoms: unable to bear weight Allergies/Adverse Reactions: Iodinated Contrast- Oral and IV Dye [Iodinated Contrast Media - IV Dye] Allergy (Severe, Verified 05/11/17 21:27) Rash ketorolac [From Toradol] Allergy (Intermediate, Verified 05/11/17 21:27) quetiapine fumarate [From Seroquel] Allergy (Intermediate, Verified 05/11/17 21: 27) rash, itching meperidine HCl [From Demerol] Allergy (Mild, Verified 05/11/17 21:27) Rash/hyper morphine Allergy (Mild, Verified 05/11/17 21:27) rash/ hyper oxycodone [From OxyContin] Allergy (Mild, Verified 05/11/17 21:27) Itching prednisone Allergy (Mild, Verified 05/11/17 21:27) Nausea promethazine HCl [From Phenergan] Allergy (Mild, Verified 05/11/17 21:27) rash, nausea tramadol HCl [From Ultram] Allergy (Mild, Verified 05/11/17 21:27) rash itching Home Medications: Methylphenidate HCl [Ritalin] 10 mg PO TID 02/06/17 [History] Naproxen 500 mg [Naprosyn 500 MG] 500 mg PO BID 07/10/17 [History] Hx Tetanus, Diphtheria Vaccination/Date Given: Yes Hx Influenza Vaccination/Date Given: Yes Hx Pneumococcal Vaccination/Date Given: No Immunizations Up to Date: Yes - Review of Systems Constitutional: No Symptoms, No Fever, No Chills Musculoskeletal: Injury, Joint Pain, Joint Swelling Neurological: No Symptoms Psychological: No Symptoms - Past Medical History Pertinent Past Medical History: Yes Neurological History: Migraines, Seizures ENT History: No Pertinent History Cardiac History: No Pertinent History Respiratory History: No Pertinent History Endocrine Medical History: No Pertinent History, Other Musculoskeletal History: No Pertinent History GI Medical History: Hernia History: No Pertinent History Psycho-Social History: Anxiety, Attention Deficit Disorder, Depression Male Reproductive Disorders: No Pertinent History Other Medical History: Notes history of kidney infection, R scapular fracture - Past Surgical History Past Surgical History: Yes Neuro Surgical History: No Pertinent History Cardiac: No Pertinent History Respiratory: No Pertinent History Gastrointestinal: Hernia Repair Genitourinary: No Pertinent History Musculoskeletal: Orthopedic Surgery Male Surgical History: No Pertinent History Other Surgical History: port placed et removed. rt ankle fx - Social History Smoking Status: Former smoker How long have you smoked: rarely Exposure to second hand smoke: No Drug Use: none Patient Lives Alone: No - Nursing Vital Signs Nursing Vital Signs: Initial Vital Signs Temperature 98.0 F 10/04/17 23:43 Respiratory Rate 18 10/04/17 23:43 Blood Pressure 131/81 10/04/17 23:43 O2 Sat by Pulse Oximetry 98 10/04/17 23:43 Pain Scale Pain Intensity 7 - Physical Exam General Appearance: no apparent distress Foot Exam: right foot: pain (RIGHT TOE WITH TENDERNESS PROXIMAL PHALANGX NO CREPITUS, ECCHYMOSIS, FROM METATARSAL PHALANGEAL JOINT, AND DIP JOINT), soft tissue tenderness, swelling SpO2 Interpretation: normal SpO2: 98 Oxygen Delivery: Room Air Ordered Tests: Active Orders 24 hr Category Date Time Status Crutches STAT Care 10/05/17 00:07 Active FOOT (MINIMUM 3 VIEWS) Stat Exams 10/05/17 00:03 Taken Medication Summary Discontinued Medications Generic Name Dose Route Start Last Admin Trade Name Freq PRN Reason Stop Dose Admin Acetaminophen 650 mg 10/05/17 00:06 10/05/17 00:12 Tylenol 325 Mg PO 10/05/17 00:07 650 mg STAT STA Administration Acetaminophen Confirm 10/05/17 00:12 Tylenol 325 Mg Administered 10/05/17 00:13 Dose 650 mg .ROUTE .STK-MED ONE Ibuprofen 600 mg 10/05/17 00:04 10/05/17 00:10 Motrin 600 Mg PO 10/05/17 00:05 Not Given STAT ONE - Progress Progress: pain not gone completely Progress Note: 10/05/17 00:26 ADMINISTERED TYLENOL 650MG ORALLY, CRUTCHES NONWEIGHT BEARING RIGHT FOOT Counseled pt/family regarding: diagnosis, need for follow-up, rad results - Departure Time of Disposition: 00:23 Departure Disposition: Home Clinical Impression: CONTUSION RIGHT FOOT Condition: Stable Critical Care Time: No Referrals: CORAZON CABRALES [Primary Care Provider] - Additional Instructions: AMBULATE USING CRUTCHES NONWEIGHT BEARING RIGHT FOOT FOR 5 DAYS. APPLY ICE OVER TOE SWELLING EVERY 4 HOURS, DURATION 30 MINUTES FOR 48 HOURS. PERCOGESIC EVERY 4 HOURS NEEDED FOR PAIN. CONSULT YOUR PRIMARY CARE PROVIDER FOR FOLLOWUP. Prescriptions: Acetaminophen/Diphenhydramine [Percogesic 325-12.5 mg Tablet] 1 tablet PO Q4H PRN PRN #15 tablet PRN Reason: Pain
--- NOTE | 2017-10-05 08:47 | XRAY ---
Indication: Pain following injury. Comparison: October 17, 2016. 3 nonweightbearing views of the right foot again demonstrates normal bones, articulation, and soft tissues.
== END 2017-10-05 00:36 | disposition home or self-care (01) ==
LOC: ED 23:13
DX: S90.31XA Contusion of right foot, initial encounter (principal); W20.8XXA Other cause of strike by thrown, projected or falling object, initial encounter
CPT/HCPCS: 73630; 99283; 99284; A9270-GY

== ENCOUNTER 2017-10-24 14:38 | Emergency (ER) | payer MEDICARE ==
--- NOTE | 2017-10-24 15:00 | ERPHSYRPT ---
- History of Present Illness Time Seen by Provider: 10/24/17 14:51 Historian: patient Exam Limitations: no limitations Patient Subjective Stated Complaint: pt reports constant chest pain for 4 weeks. states he arrived for physical therapy and his BP was high and he had chest pain so they advised him to be seen. Triage Nursing Assessment: pt is aox3, pupils perrl, resps are easy and non labored lung sounds are clear throughout all hernández, radial pulses are strong and equal, heart sounds are strong and regular. no edema is appreciated, cap refill < 3 seconds, pain to the left chest that radiates to the shoulder, pain is sharp and constant in nature. pt skin is pink warm and dry. Physician History: Pt is c/o left sided chest pain, stared in his left armpit, radiating, and wrapping around his left chest, was radiating to his arm yesterday. He denies productive cough, fever, SOB< nausea, vomiting, dizziness, or other complaints. 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 Timing/Duration: week(s) (4) Activities at Onset: none Quality: sharpness Location: other (left chest) Severity of Pain-Max: moderate Severity of Pain-Current: moderate Modifying Factors: Improves With: breathing, movement, palpation Associated Symptoms: denies symptoms Prior Chest Pain/Cardiac Workup: non-cardiac Aspirin Treatment Today: no aspirin today Allergies/Adverse Reactions: Iodinated Contrast- Oral and IV Dye [Iodinated Contrast Media - IV Dye] Allergy (Severe, Verified 05/11/17 21:27) Rash ketorolac [From Toradol] Allergy (Intermediate, Verified 05/11/17 21:27) quetiapine fumarate [From Seroquel] Allergy (Intermediate, Verified 05/11/17 21: 27) rash, itching meperidine HCl [From Demerol] Allergy (Mild, Verified 05/11/17 21:27) Rash/hyper morphine Allergy (Mild, Verified 05/11/17 21:27) rash/ hyper oxycodone [From OxyContin] Allergy (Mild, Verified 05/11/17 21:27) Itching prednisone Allergy (Mild, Verified 05/11/17 21:27) Nausea promethazine HCl [From Phenergan] Allergy (Mild, Verified 05/11/17 21:27) rash, nausea tramadol HCl [From [facility]] Allergy (Mild, Verified 05/11/17 21:27) rash itching Home Medications: Methylphenidate HCl [Ritalin] 10 mg PO TID 02/06/17 [History] Naproxen 500 mg [Naprosyn 500 MG] 500 mg PO BID 07/10/17 [History] Hx Tetanus, Diphtheria Vaccination/Date Given: Yes Hx Influenza Vaccination/Date Given: No Hx Pneumococcal Vaccination/Date Given: No Immunizations Up to Date: Yes - Review of Systems Constitutional: No Symptoms Respiratory: No Symptoms Cardiac: Chest Pain Abdominal/Gastrointestinal: No Symptoms All Other Systems: Reviewed and Negative - Past Medical History Pertinent Past Medical History: Yes Neurological History: Migraines, Seizures ENT History: No Pertinent History Cardiac History: No Pertinent History Respiratory History: No Pertinent History Endocrine Medical History: No Pertinent History, Other Musculoskeletal History: No Pertinent History GI Medical History: Hernia History: No Pertinent History Psycho-Social History: Anxiety, Attention Deficit Disorder, Depression Male Reproductive Disorders: No Pertinent History Other Medical History: Notes history of kidney infection, R scapular fracture - Past Surgical History Past Surgical History: Yes Neuro Surgical History: No Pertinent History Cardiac: No Pertinent History Respiratory: No Pertinent History Gastrointestinal: Hernia Repair Genitourinary: No Pertinent History Musculoskeletal: Orthopedic Surgery Male Surgical History: No Pertinent History Other Surgical History: port placed et removed. rt ankle fx - Social History Smoking Status: Never smoker How long have you smoked: rarely Exposure to second hand smoke: No Drug Use: none Patient Lives Alone: No - Nursing Vital Signs Nursing Vital Signs: Initial Vital Signs Temperature 97.7 F 10/24/17 14:43 Pulse Rate 58 L 10/24/17 14:43 Respiratory Rate 20 10/24/17 14:43 Blood Pressure 154/99 10/24/17 14:43 O2 Sat by Pulse Oximetry 97 10/24/17 14:43 Pain Scale Pain Intensity 0 - Physical Exam General Appearance: no apparent distress Eye Exam: eyes nml inspection Ears, Nose, Throat Exam: normal ENT inspection Neck Exam: normal inspection, non-tender, supple, No mass, No carotid bruit, No JVD Respiratory Exam: normal breath sounds, chest tenderness (left pectoral area), lungs clear, airway intact, other (no bruises or crepitation), No respiratory distress Cardiovascular Exam: regular rate/rhythm, normal heart sounds, normal peripheral pulses, No murmur Gastrointestinal/Abdomen Exam: soft, normal bowel sounds, No tenderness Back Exam: normal inspection, No CVA tenderness Extremity Exam: normal inspection, No calf tenderness, No pedal edema Neurologic Exam: alert, oriented x 3, normal mood/affect Skin Exam: normal color, warm, dry, No rash Lymphatic Exam: No adenopathy SpO2 Interpretation: normal SpO2: 97 Oxygen Delivery: Room Air - Course EKG Interpreted by Me: RATE (57/min), Sinus Edis, NORMAL AXIS, NORMAL INTERVALS , NORMAL ST-T, Other (repeat Ek:33 PM; unchanged.) - Radiology Exams Chest X-ray Interpretation: Reviewed by me, Negative Ordered Tests: Active Orders 24 hr Category Date Time Status Otolaryngology Rep STAT Care 10/24/17 14:53 Active EKG-ER Only STAT Care 10/24/17 14:52 Active EKG-ER Only STAT Care 10/24/17 16:36 Active IV Insertion STAT Care 10/24/17 14:52 Active Oxygen-ED Only NASAL CANNULA 2 lpm Care 10/24/17 14:52 Active CHEST 1 VIEW (PORTABLE) Stat Exams 10/24/17 15:10 Completed CBC W DIFF Stat Lab 10/24/17 14:50 Completed CK-Creatinine Phosphokinase Stat Lab 10/24/17 14:50 Completed CMP Stat Lab 10/24/17 14:50 Completed NT PRO BNP Stat Lab 10/24/17 14:50 Completed PROTIME WITH INR Stat Lab 10/24/17 14:50 Completed PTT Stat Lab 10/24/17 14:50 Completed TROPONIN Q3H Lab 10/24/17 14:50 Completed TROPONIN Q3H Lab 10/24/17 17:11 Completed TROPONIN Q3H Lab 10/24/17 21:00 Ordered TROPONIN Q3H Lab 10/25/17 00:00 Ordered TROPONIN Q3H Lab 10/25/17 03:00 Ordered Urine Triage Profile Stat Lab 10/24/17 14:53 Ordered Lab/Rad Data: Laboratory Result Diagrams 10/24/17 14:50 10/24/17 14:50 Laboratory Results 10/24/17 10/24/17 10/24/17 Range/Units 17:11 14:50 14:50 WBC (4.0-10.5) K/mm3 RBC (4.1-5.6) M/mm3 Hgb (12.5-18.0) gm/dl Hct (42-50) % MCV (78-100) fl MCH (26-32) pg MCHC (32-36) g/dl RDW (11.5-14.0) % Plt Count (150-450) K/mm3 MPV (6-9.5) fl Gran % (36.0-66.0) % Eos # (Auto) (0-0.5) Absolute Lymphs (auto) (1.0-4.6) Absolute Monos (auto) (0.0-1.3) Lymphocytes % (24.0-44.0) % Monocytes % (0.0-12.0) % Eosinophils % (0.00-5.0) % Basophils % (0.0-0.4) % Absolute Granulocytes (1.4-6.9) Basophils # (0-0.4) PT 11.9 (8.83-12.87) SECONDS INR 1.07 (0.8-3.0) APTT 36.5 H (24.1-36.1) SECONDS Sodium (137-145) mmol/L Potassium (3.5-5.1) mmol/L Chloride (98-107) mmol/L Carbon Dioxide (22-30) mmol/L Anion Gap (5-15) MEQ/L BUN (9-20) mg/dL Creatinine (0.66-1.25) mg/dL Estimated GFR ML/MIN Glucose (74-106) mg/dL Calcium (8.4-10.2) mg/dL Total Bilirubin (0.2-1.3) mg/dL AST (17-59) U/L ALT (0-50) U/L Alkaline Phosphatase (38-126) U/L Creatine Kinase (55-170) U/L Troponin I < 0.012 < 0.012 (0.000-0.034) ng/mL NT-Pro-B Natriuret Pep (0-450) pg/mL Serum Total Protein (6.3-8.2) g/dL Albumin (3.5-5.0) g/dL 10/24/17 10/24/17 Range/Units 14:50 14:50 WBC 5.1 (4.0-10.5) K/mm3 RBC 4.70 (4.1-5.6) M/mm3 Hgb 14.3 (12.5-18.0) gm/dl Hct 40.3 L (42-50) % MCV 85.7 (78-100) fl MCH 30.4 (26-32) pg MCHC 35.5 (32-36) g/dl RDW 12.4 (11.5-14.0) % Plt Count 248 (150-450) K/mm3 MPV 9.8 H (6-9.5) fl Gran % 60.5 (36.0-66.0) % Eos # (Auto) 0.10 (0-0.5) Absolute Lymphs (auto) 1.44 (1.0-4.6) Absolute Monos (auto) 0.46 (0.0-1.3) Lymphocytes % 28.3 (24.0-44.0) % Monocytes % 9.0 (0.0-12.0) % Eosinophils % 2.0 (0.00-5.0) % Basophils % 0.2 (0.0-0.4) % Absolute Granulocytes 3.08 (1.4-6.9) Basophils # 0.01 (0-0.4) PT (8.83-12.87) SECONDS INR (0.8-3.0) APTT (24.1-36.1) SECONDS Sodium 140 (137-145) mmol/L Potassium 4.4 (3.5-5.1) mmol/L Chloride 102 (98-107) mmol/L Carbon Dioxide 24 (22-30) mmol/L Anion Gap 17.4 H (5-15) MEQ/L BUN 15 (9-20) mg/dL Creatinine 0.90 (0.66-1.25) mg/dL Estimated GFR > 60.0 ML/MIN Glucose 104 (74-106) mg/dL Calcium 9.7 (8.4-10.2) mg/dL Total Bilirubin 0.40 (0.2-1.3) mg/dL AST 29 (17-59) U/L ALT 24 (0-50) U/L Alkaline Phosphatase 58 (38-126) U/L Creatine Kinase 130 (55-170) U/L Troponin I (0.000-0.034) ng/mL NT-Pro-B Natriuret Pep 37.4 (0-450) pg/mL Serum Total Protein 8.2 (6.3-8.2) g/dL Albumin 4.7 (3.5-5.0) g/dL - Progress Progress: improved Air Movement: good Progress Note: 10/24/17 16:15 Wells criteria: 0 point 10/24/17 18:09 Pt has been pain free, stable, no sign of shortness of breath, or fever. I informed patient and his family about the results, repeat troponin negative, he is being discharged in stable condition to follow up with his doctor in 2-3 days , and return if severe shortness of breath, chest pain, fever> 102 F, vomiting. 10/24/17 18:10 He was given Ultram 50 mg PO Q6h PRN for pain # 10 tablets. - Departure Time of Disposition: 18:14 Departure Disposition: Home Clinical Impression: Chest wall pain Chest pain Qualifiers: Chest pain type: unspecified Qualified Code(s): R07.9 - Chest pain, unspecified Condition: Stable Critical Care Time: No Referrals: CORAZON CABRALES [Primary Care Provider] - Instructions: Chest Pain (DC), Atypical Chest Pain Additional Instructions: Rest x 2-3 days, apply moist heat to painful area, return if severe shortness of breath, vomiting, chest pain, fever> 102 F!
[2017-10-24 15:07] LABS: BASOPHIL % 0.2 % (0.0-0.4); Basophil (Absolute #) 0.01 (0-0.4); Granulocyte Absolute (ANC) 3.08 (1.4-6.9); Granulocytes % 60.5 % (36.0-66.0); Hematocrit 40.3 % (42-50); Hemoglobin 14.3 gm/dl (12.5-18.0); Lymphocyte (Absolute #) 1.44 (1.0-4.6); Lymphocytes % 28.3 % (24.0-44.0); Mean Cell Volume 85.7 fl (78-100); Mean Corpuscular Hemoglobin 30.4 pg (26-32); Mean Corpuscular Hgb Concent. 35.5 g/dl (32-36); Mean Platelet Volume 9.8 fl (6-9.5); Monocyte (Absolute #) 0.46 (0.0-1.3); Platelet Count 248 K/mm3 (150-450); Red Cell Distribution Width 12.4 % (11.5-14.0); White Blood Count 5.1 K/mm3 (4.0-10.5)
--- NOTE | 2017-10-24 15:22 | XRAY ---
Indication: Chest pain. Comparison: May 11, 2017. Portable chest remains underinflated and clear. Heart and mediastinal structures within normal limits. Bony thorax intact. Impression: Stable nonacute underinflated chest.
[2017-10-24 15:24] LABS: INR 1.07 (0.8-3.0)
[2017-10-24 15:26] LABS: PTT 36.5 SECONDS (24.1-36.1)
[2017-10-24 15:30] LABS: ALBUMIN 4.7 g/dL (3.5-5.0); ALKALINE PHOSPHATASE 58 U/L (38-126); ANION GAP 17.4 MEQ/L (5-15); BLOOD UREA NITROGEN 15 mg/dL (9-20); CHLORIDE 102 mmol/L (98-107); CK-Creatinine Phosphokinase 130 U/L (55-170); Calcium 9.7 mg/dL (8.4-10.2); Carbon Dioxide 24 mmol/L (22-30); Glucose 104 mg/dL (74-106); Potassium 4.4 mmol/L (3.5-5.1); SGOT/AST 29 U/L (17-59); SGPT/ALT 24 U/L (0-50); SODIUM 140 mmol/L (137-145); Total Protein 8.2 g/dL (6.3-8.2)
[2017-10-24 15:38] LABS: NT PRO BNP 37.4 pg/mL (0-450)
[2017-10-24 17:51] VITALS: BP 120/84; PULSE 58
[2017-10-24 18:08] VITALS: O2SAT 97
== END 2017-10-24 18:23 | disposition home or self-care (01) ==
LOC: ED 14:38
DX: R07.89 Other chest pain (principal); Z79.899 Other long term (current) drug therapy
CPT/HCPCS: 36000; 36415; 71045; 80053; 82550; 83880; 84484; 85025; 85610; 85730; 93005; 93041; 96360; 99284

== ENCOUNTER 2017-11-10 23:58 | Emergency (ER) | payer MEDICARE ==
[2017-11-11] MEDS ORDERED: Naprosyn 500 MG PO ONE (00:06)
[2017-11-11 00:08] VITALS: BP 142/80; PULSE 92; O2SAT 97
--- NOTE | 2017-11-11 00:34 | ERPHSYRPT ---
- History of Present Illness Time Seen by Provider: 11/11/17 00:29 Source: patient Exam Limitations: no limitations Patient Subjective Stated Complaint: Has had pain in his right heel for about a week and it has gotten worse tonite. Triage Nursing Assessment: Pt A&O x3, pain in right ankle x7 days, pulses normal , vitals wnl, doesn't appear to be in any distress Physician History: Has had pain in his right heel for about a week and it has gotten worse tonite. no deformity noted Method of Injury: unknown Occurred: last week Quality: intermittent Severity of Pain-Max: mild Severity of Pain-Current: moderate Lower Extremities Pain: ankle: right Allergies/Adverse Reactions: Iodinated Contrast- Oral and IV Dye [Iodinated Contrast Media - IV Dye] Allergy (Severe, Verified 05/11/17 21:27) Rash ketorolac [From Toradol] Allergy (Intermediate, Verified 05/11/17 21:27) quetiapine fumarate [From Seroquel] Allergy (Intermediate, Verified 05/11/17 21: 27) rash, itching meperidine HCl [From Demerol] Allergy (Mild, Verified 05/11/17 21:27) Rash/hyper morphine Allergy (Mild, Verified 05/11/17 21:27) rash/ hyper oxycodone [From OxyContin] Allergy (Mild, Verified 05/11/17 21:27) Itching prednisone Allergy (Mild, Verified 05/11/17 21:27) Nausea promethazine HCl [From Phenergan] Allergy (Mild, Verified 05/11/17 21:27) rash, nausea tramadol HCl [From Ultram] Allergy (Mild, Verified 05/11/17 21:27) rash itching acetaminophen [From Percocet] Adverse Reaction (Verified 11/11/17 00:09) Home Medications: Methylphenidate HCl [Ritalin] 10 mg PO TID 02/06/17 [History] Hydrochlorothiazide 25 mg [hydroDIURIL 25 MG] 25 mg PO DAILY 11/11/17 [ History] Lisinopril 10 mg [Zestril 10 MG] 10 mg PO DAILY 11/11/17 [History] Hx Tetanus, Diphtheria Vaccination/Date Given: Yes Hx Influenza Vaccination/Date Given: No Hx Pneumococcal Vaccination/Date Given: No - Review of Systems Constitutional: No Symptoms Eyes: No Symptoms Musculoskeletal: Joint Pain (right ankle) - Past Medical History Pertinent Past Medical History: Yes Neurological History: Migraines, Seizures ENT History: No Pertinent History Cardiac History: No Pertinent History Respiratory History: No Pertinent History Endocrine Medical History: No Pertinent History, Other Musculoskeletal History: No Pertinent History GI Medical History: Hernia History: No Pertinent History Psycho-Social History: Anxiety, Attention Deficit Disorder, Depression Male Reproductive Disorders: No Pertinent History Other Medical History: Notes history of kidney infection, R scapular fracture - Past Surgical History Past Surgical History: Yes Neuro Surgical History: No Pertinent History Cardiac: No Pertinent History Respiratory: No Pertinent History Gastrointestinal: Hernia Repair Genitourinary: No Pertinent History Musculoskeletal: Orthopedic Surgery Male Surgical History: No Pertinent History Other Surgical History: port placed et removed. rt ankle fx - Social History Smoking Status: Former smoker How long have you smoked: rarely Exposure to second hand smoke: Yes Drug Use: none Patient Lives Alone: No - Nursing Vital Signs Nursing Vital Signs: Initial Vital Signs Temperature 97.7 F 11/10/17 23:59 Pulse Rate 92 H 11/10/17 23:59 Blood Pressure 142/80 11/10/17 23:59 O2 Sat by Pulse Oximetry 97 11/10/17 23:59 Pain Scale Pain Intensity 5 - Physical Exam General Appearance: no apparent distress Ankle Exam: right ankle: limited range of motion, pain SpO2: 97 Oxygen Delivery: Room Air - Course Nursing assessment & vital signs reviewed: Yes - Radiology Exams Right Ankle X-ray Interpretation: Reviewed by me, Negative, No Fracture, No Subluxation Ordered Tests: Active Orders 24 hr Category Date Time Status ANKLE (3 VIEWS) Stat Exams 11/11/17 00:06 Taken Medication Summary Discontinued Medications Generic Name Dose Route Start Last Admin Trade Name Freq PRN Reason Stop Dose Admin Naproxen 500 mg 11/11/17 00:06 11/11/17 00:28 Naprosyn 500 Mg PO 11/11/17 00:07 500 mg STAT ONE Administration - Progress Progress: improved, pain not gone completely Counseled pt/family regarding: diagnosis, need for follow-up, rad results - Departure Time of Disposition: 00:33 Departure Disposition: Home Clinical Impression: Right ankle sprain Qualifiers: Encounter type: initial encounter Involved ligament of ankle: unspecified ligament Qualified Code(s): S93.401A - Sprain of unspecified ligament of right ankle, initial encounter Condition: Stable Critical Care Time: No Referrals: CORAZON CABRALES [Primary Care Provider] - Instructions: Foot Sprain (DC) Additional Instructions: Please follow the instructions given to you. Please take your medication as prescribed if given. If symptoms recur or get worse, come back to the emergency room if you cannot reach your primary care physician, or call your primary care physician for an appointment. Again if your symptoms get worse, come back to the emergency room. Thanks for visiting emergency room, and let us take care of you. Prescriptions: Orphenadrine Citrate 100 mg [Norflex 100 MG Tablet] 100 mg PO BID #20 tab
--- NOTE | 2017-11-11 07:33 | XRAY ---
Indication: Ankle pain. Comparison: November 27, 2016. 3 views of the right ankle obtained. No bony, articular, or soft tissue abnormalities.
== END 2017-11-11 01:03 | disposition home or self-care (01) ==
LOC: ED 23:58
DX: S93.401A Sprain of unspecified ligament of right ankle, initial encounter (principal); Z79.899 Other long term (current) drug therapy
CPT/HCPCS: 73610; 99283; L4386; A9270-GY

== ENCOUNTER 2018-01-29 16:24 | Emergency (ER) | payer MEDICARE ==
[2018-01-29 16:37] VITALS: BP 130/93
--- NOTE | 2018-01-29 16:46 | ERPHSYRPT ---
- History of Present Illness Time Seen by Provider: 01/29/18 16:42 Source: patient Exam Limitations: no limitations Patient Subjective Stated Complaint: Pt states "I had rotator cuff surgery on November 16 and I was fishing last night into this morning with my friends and I slipped and fell on the stairs. I have been trying to treat the pain with ibuprofen all day but it is not helping." Triage Nursing Assessment: Pt alert and oriented X 3, skin pwd. PT ambulates with an upright steady gait, able to speak in clear full sentences. Pt holding right arm. able to speak in clear full sentencess. Physician History: states fell last night at 2 AM injuring right shoulder. Patient with previous right shoulder surgery recently. States pain is to right lateral shoulder area , described as ache, intermittent and localized. Denies any numbness, tingling or weakness Occurred: this morning (2 AM) Method of Injury: fell Quality: intermittent, aching Severity of Pain-Max: moderate Severity of Pain-Current: moderate Extremities Pain Location: shoulder: right Modifying Factors: Improves With: immobilization (improves), movement (worsens) Associated Symptoms: none Allergies/Adverse Reactions: Iodinated Contrast- Oral and IV Dye [Iodinated Contrast Media - IV Dye] Allergy (Severe, Verified 05/11/17 21:27) Rash ketorolac [From Toradol] Allergy (Intermediate, Verified 05/11/17 21:27) quetiapine fumarate [From Seroquel] Allergy (Intermediate, Verified 05/11/17 21: 27) rash, itching meperidine HCl [From Demerol] Allergy (Mild, Verified 05/11/17 21:27) Rash/hyper morphine Allergy (Mild, Verified 05/11/17 21:27) rash/ hyper oxycodone [From OxyContin] Allergy (Mild, Verified 05/11/17 21:27) Itching prednisone Allergy (Mild, Verified 05/11/17 21:27) Nausea promethazine HCl [From Phenergan] Allergy (Mild, Verified 05/11/17 21:27) rash, nausea tramadol HCl [From Ultram] Allergy (Mild, Verified 05/11/17 21:27) rash itching acetaminophen [From Percocet] Adverse Reaction (Verified 11/11/17 00:09) Home Medications: Methylphenidate HCl [Ritalin] 10 mg PO TID 02/06/17 [History] Hydrochlorothiazide 25 mg [hydroDIURIL 25 MG] 25 mg PO DAILY 11/11/17 [ History] Lisinopril 10 mg [Zestril 10 MG] 10 mg PO DAILY 11/11/17 [History] Hx Tetanus, Diphtheria Vaccination/Date Given: Yes Hx Influenza Vaccination/Date Given: Yes Hx Pneumococcal Vaccination/Date Given: No Immunizations Up to Date: Yes - Review of Systems Constitutional: No Fever, No Chills Eyes: No Symptoms Ears, Nose, & Throat: No Symptoms Respiratory: No Symptoms, No Cough, No Dyspnea Cardiac: No Symptoms, No Chest Pain, No Edema, No Syncope Abdominal/Gastrointestinal: No Symptoms, No Abdominal Pain, No Nausea, No Vomiting, No Diarrhea Genitourinary Symptoms: No Symptoms, No Dysuria Musculoskeletal: Joint Pain (R shoulder), No Back Pain, No Neck Pain Skin: No Symptoms, No Rash Neurological: No Symptoms, No Dizziness, No Focal Weakness, No Sensory Changes Psychological: No Symptoms Endocrine: No Symptoms All Other Systems: Reviewed and Negative - Past Medical History Pertinent Past Medical History: Yes Neurological History: Migraines ENT History: No Pertinent History Cardiac History: Hypertension Respiratory History: No Pertinent History Endocrine Medical History: No Pertinent History Musculoskeletal History: Osteoarthritis GI Medical History: Hernia History: No Pertinent History Psycho-Social History: Anxiety, Attention Deficit Disorder, Depression Male Reproductive Disorders: No Pertinent History Other Medical History: Notes history of kidney infection, R scapular fracture, right rotator cuff surgery - Past Surgical History Past Surgical History: Yes Neuro Surgical History: No Pertinent History Cardiac: No Pertinent History Respiratory: No Pertinent History Gastrointestinal: Hernia Repair Genitourinary: No Pertinent History Musculoskeletal: Orthopedic Surgery Male Surgical History: No Pertinent History Other Surgical History: port placed et removed. rt ankle fx - Social History Smoking Status: Former smoker How long have you smoked: rarely Exposure to second hand smoke: Yes Drug Use: none Patient Lives Alone: No - Nursing Vital Signs Nursing Vital Signs: Initial Vital Signs Temperature 97.8 F 01/29/18 16:30 Pulse Rate 98 H 01/29/18 16:30 Respiratory Rate 16 01/29/18 16:30 Blood Pressure 130/93 01/29/18 16:30 O2 Sat by Pulse Oximetry 97 01/29/18 16:30 Pain Scale Pain Intensity 8 - Physical Exam General Appearance: no apparent distress, alert Eyes, Ears, Nose, Throat Exam: moist mucous membranes Neck Exam: normal inspection, non-tender, supple Cardiovascular/Respiratory Exam: chest non-tender, normal breath sounds, regular rate/rhythm, no respiratory distress Abdominal Exam: non-tender, soft, no organomegaly, No guarding Back Exam: normal inspection, normal range of motion, No vertebral tenderness Shoulder Exam: normal inspection, bone tenderness, limited ROM, pain, soft tissue tenderness Elbow/Forearm Exam: normal inspection, non-tender, no evidence of injury, normal ROM Wrist Exam: normal inspection, non-tender, no evidence of injury, normal ROM Hand Exam: normal inspection, non-tender, no evidence of injury, normal ROM Neuro/Tendon Exam: normal sensation, normal motor functions Mental Status Exam: alert, oriented x 3, cooperative Skin Exam: normal color, warm, dry SpO2 Interpretation: normal SpO2: 97 - Course Nursing assessment & vital signs reviewed: Yes - Radiology Exams Right Shoulder X-ray Interpretation: Interpreted by me, No Fracture Ordered Tests: Active Orders 24 hr Category Date Time Status SHOULDER Stat Exams 01/29/18 16:41 Taken - Progress Progress: unchanged Counseled pt/family regarding: diagnosis, rad results - Departure Time of Disposition: 17:28 Departure Disposition: Home Clinical Impression: Contusion of right shoulder Condition: Stable Critical Care Time: No Referrals: CORAZON CABRALES [Primary Care Provider] - Instructions: Shoulder Sprain (DC) Additional Instructions: ice to the sore areas, wear shoulder sling for and Tylenol for pain/swelling. Follow-up with your orthopedic doctor in 2-3 days. Return for worse pain, swelling, numbness, tingling, weakness or any problems
[2018-01-29 17:45] VITALS: PULSE 68; O2SAT 98
--- NOTE | 2018-01-30 08:43 | XRAY ---
Indication: Diffuse right shoulder pain following fall. Comparison: None 3 views of the right shoulder demonstrates small humeral neck bone cyst. No other bony, articular, or soft tissue abnormalities.
== END 2018-01-29 17:45 | disposition home or self-care (01) ==
LOC: ED 16:24
DX: S40.011A Contusion of right shoulder, initial encounter (principal); W10.8XXA Fall (on) (from) other stairs and steps, initial encounter; Z98.890 Other specified postprocedural states; M25.511 Pain in right shoulder; Z79.899 Other long term (current) drug therapy; I10 Essential (primary) hypertension
CPT/HCPCS: 73030; 99283

== ENCOUNTER 2018-02-19 17:42 | Emergency (ER) | payer MEDICARE ==
[2018-02-19 17:53] VITALS: BP 148/104; PULSE 92; O2SAT 97
[2018-02-19] MEDS ORDERED: Sodium Chloride 0.9% 1000 ML 1,000 ML IV STA (18:02)
[2018-02-19] MEDS ORDERED: BABY ASPIRIN 81 MG CHEW PO ONE (18:02)
--- NOTE | 2018-02-19 19:13 | ERPHSYRPT ---
- History of Present Illness Time Seen by Provider: 02/19/18 18:00 Historian: patient Patient Subjective Stated Complaint: PT states "I was at the airshow yesterday and I got a little dizzy, then I had diarrhea and today my chest started to hurt." Triage Nursing Assessment: Pt alert and oriented X 3, skin pwd. PT ambulates with an upright steady gait, able to speak in clear full sentences. PT in no apparent respiratory distress. Physician History: PATIENT WITH A HISTORY OF HYPERTENSION, STATES SUSTAINED SUN EXPOSURE AT AIR SHOW 2 DAYS AGO, COMPLAINS OF TRANSIENT CHEST PAIN FOR 1 HOUR, DENIES CHEST PAIN UPON ARRIVAL OF EMS TO HIS HOME. DENIES DIAPHORESIS, DYSPNEA, COUGH CHEST PAIN OR FEVER UPON ARRIVAL TO EMERGENCY. PATIENT REFUSES BLOOD DRAW AND INTRAVEOUS ACCESS. Timing/Duration: today Activities at Onset: none Quality: sharpness Location: substernal Chest Pain Radiation: no radiation Severity of Pain-Max: mild Severity of Pain-Current: none Modifying Factors: Improves With: nothing Associated Symptoms: denies symptoms Prior Chest Pain/Cardiac Workup: no prior chest pain Nitro Today/Relief: no nitro taken today Aspirin Treatment Today: no aspirin today Allergies/Adverse Reactions: Iodinated Contrast- Oral and IV Dye [Iodinated Contrast Media - IV Dye] Allergy (Severe, Verified 05/11/17 21:27) Rash ketorolac [From Toradol] Allergy (Intermediate, Verified 05/11/17 21:27) quetiapine fumarate [From Seroquel] Allergy (Intermediate, Verified 05/11/17 21: 27) rash, itching meperidine HCl [From Demerol] Allergy (Mild, Verified 05/11/17 21:27) Rash/hyper morphine Allergy (Mild, Verified 05/11/17 21:27) rash/ hyper oxycodone [From OxyContin] Allergy (Mild, Verified 05/11/17 21:27) Itching prednisone Allergy (Mild, Verified 05/11/17 21:27) Nausea promethazine HCl [From Phenergan] Allergy (Mild, Verified 05/11/17 21:27) rash, nausea tramadol HCl [From Ultram] Allergy (Mild, Verified 05/11/17 21:27) rash itching acetaminophen [From Percocet] Adverse Reaction (Verified 11/11/17 00:09) Home Medications: Methylphenidate HCl [Ritalin] 10 mg PO TID 02/06/17 [History] Hydrochlorothiazide 25 mg [hydroDIURIL 25 MG] 25 mg PO DAILY 11/11/17 [ History] Lisinopril 10 mg [Zestril 10 MG] 10 mg PO DAILY 11/11/17 [History] Hx Tetanus, Diphtheria Vaccination/Date Given: Yes Hx Influenza Vaccination/Date Given: Yes Hx Pneumococcal Vaccination/Date Given: No Immunizations Up to Date: Yes - Review of Systems Constitutional: No Fever, No Chills Eyes: No Symptoms Ears, Nose, & Throat: No Symptoms Respiratory: No Symptoms, No Cough, No Dyspnea Cardiac: No Chest Pain, No Edema, No Syncope Abdominal/Gastrointestinal: No Symptoms, No Abdominal Pain, No Nausea, No Vomiting, No Diarrhea Genitourinary Symptoms: No Symptoms, No Dysuria Musculoskeletal: No Symptoms, No Back Pain, No Neck Pain Skin: No Rash Neurological: No Dizziness, No Focal Weakness, No Sensory Changes Psychological: No Symptoms Endocrine: No Symptoms All Other Systems: Reviewed and Negative - Past Medical History Pertinent Past Medical History: Yes Neurological History: Migraines ENT History: No Pertinent History Cardiac History: Hypertension Respiratory History: No Pertinent History Endocrine Medical History: No Pertinent History Musculoskeletal History: Osteoarthritis GI Medical History: Hernia History: No Pertinent History Psycho-Social History: Anxiety, Attention Deficit Disorder, Depression Male Reproductive Disorders: No Pertinent History Other Medical History: Notes history of kidney infection, R scapular fracture, right rotator cuff surgery - Past Surgical History Past Surgical History: Yes Neuro Surgical History: No Pertinent History Cardiac: No Pertinent History Respiratory: No Pertinent History Gastrointestinal: Hernia Repair Genitourinary: No Pertinent History Musculoskeletal: Orthopedic Surgery Male Surgical History: No Pertinent History Other Surgical History: port placed et removed. rt ankle fx - Social History Smoking Status: Never smoker How long have you smoked: rarely Exposure to second hand smoke: Yes Drug Use: none Patient Lives Alone: No - Nursing Vital Signs Nursing Vital Signs: Initial Vital Signs Temperature 98.1 F 02/19/18 17:48 Pulse Rate 88 02/19/18 17:48 Respiratory Rate 18 02/19/18 17:48 Blood Pressure 148/104 02/19/18 17:48 O2 Sat by Pulse Oximetry 97 02/19/18 17:48 Pain Scale Pain Intensity 4 - Physical Exam General Appearance: no apparent distress, alert Eye Exam: PERRL/EOMI, eyes nml inspection Ears, Nose, Throat Exam: normal ENT inspection, moist mucous membranes Neck Exam: normal inspection, non-tender, supple, full range of motion Respiratory Exam: normal breath sounds, lungs clear, No respiratory distress Cardiovascular Exam: regular rate/rhythm, normal heart sounds Gastrointestinal/Abdomen Exam: soft, normal bowel sounds, No tenderness, No mass Back Exam: normal inspection, No CVA tenderness, No vertebral tenderness Extremity Exam: normal inspection, normal range of motion Neurologic Exam: alert, oriented x 3, cooperative, normal mood/affect, sensation nml, No motor deficits Skin Exam: normal color, warm, dry SpO2: 97 Oxygen Delivery: Room Air - Course EKG Interpreted by Me: RATE, Sinus Rhythm (RATE 82 NO ISCHEMIC CHANGES) Ordered Tests: Active Orders 24 hr Category Date Time Status Engineering Scientist STAT Care 02/19/18 18:02 Active EKG-ER Only STAT Care 02/19/18 18:02 Active IV Insertion STAT Care 02/19/18 18:02 Active CHEST 1 VIEW (PORTABLE) Stat Exams 02/19/18 18:02 Ordered BMP Stat Lab 02/19/18 18:02 Ordered CBC W DIFF Stat Lab 02/19/18 18:02 Ordered TROPONIN Q3H Lab 02/19/18 18:15 Ordered TROPONIN Q3H Lab 02/19/18 21:15 Ordered TROPONIN Q3H Lab 02/20/18 00:15 Ordered TROPONIN Q3H Lab 02/20/18 03:15 Ordered TROPONIN Q3H Lab 02/20/18 06:15 Ordered Urine Triage Profile Stat Lab 02/19/18 18:03 Uncollected Medication Summary Discontinued Medications Generic Name Dose Route Start Last Admin Trade Name Freq PRN Reason Stop Dose Admin Aspirin 324 mg 02/19/18 18:02 02/19/18 18:27 Baby Aspirin 81 Mg Chew PO 02/19/18 18:03 Not Given STAT ONE Sodium Chloride 1,000 mls @ 999 mls/hr 02/19/18 18:02 02/19/18 18:28 Sodium Chloride 0.9% 1000 Ml IV 02/19/18 19:02 Not Given .Q1H1M STA - Progress Progress Note: 02/19/18 19:15 PATIENT REFUSES ASPIRIN, IV ACCESS, AND LAB DRAW Counseled pt/family regarding: diagnosis, need for follow-up - Departure Time of Disposition: 18:30 Departure Disposition: AMA Clinical Impression: CHEST PAIN Condition: Stable Critical Care Time: No Referrals: CORAZON CABRALES [Primary Care Provider] -
== END 2018-02-19 18:30 | disposition left against medical advice (07) ==
LOC: ED 17:42
DX: R07.9 Chest pain, unspecified (principal); I10 Essential (primary) hypertension; M19.90 Unspecified osteoarthritis, unspecified site; F41.8 Other specified anxiety disorders
CPT/HCPCS: 99283

== ENCOUNTER 2018-07-09 15:01 | Emergency (ER) | payer MEDICARE ==
--- NOTE | 2018-07-09 15:46 | ERPHSYRPT ---
- History of Present Illness Time Seen by Provider: 07/09/18 15:26 Source: patient Exam Limitations: no limitations Patient Subjective Stated Complaint: Pt states "My blood pressure has been high lately. I have been coughing." Triage Nursing Assessment: Pt alert and oriented X 3, skin pwd Pt ambulates with an upright steady gait, able to speak in clear full sentences. Pt in no apparent respiratory distress PT has intermittant cough. Physician History: The patient is a 32-year-old male with his mother complaining that his blood pressure was high last night, had a headache, was slightly nauseated, had some chest pain, and didn't feel well. His blood pressure by his own cuff at home was 180s over 130. His mother didn't want to bring him in because she wanted him to rest. Today he feels better. They called his doctor in [facility] and was told to come in. He also complains of a slight cough. His past medical history is significant for hypertension and ADD. He takes lisinopril 10 mg daily.he Timing/Duration: yesterday (The) Severity: moderate Modifying Factors: Improves With: nothing Associated Symptoms: nausea, chest pain Allergies/Adverse Reactions: Iodinated Contrast- Oral and IV Dye [Iodinated Contrast Media - IV Dye] Allergy (Severe, Verified 05/11/17 21:27) Rash ketorolac [From Toradol] Allergy (Intermediate, Verified 05/11/17 21:27) quetiapine fumarate [From Seroquel] Allergy (Intermediate, Verified 05/11/17 21: 27) rash, itching meperidine HCl [From Demerol] Allergy (Mild, Verified 05/11/17 21:27) Rash/hyper morphine Allergy (Mild, Verified 05/11/17 21:27) rash/ hyper oxycodone [From OxyContin] Allergy (Mild, Verified 05/11/17 21:27) Itching prednisone Allergy (Mild, Verified 05/11/17 21:27) Nausea promethazine HCl [From Phenergan] Allergy (Mild, Verified 05/11/17 21:27) rash, nausea tramadol HCl [From Ultram] Allergy (Mild, Verified 05/11/17 21:27) rash itching acetaminophen [From Percocet] Adverse Reaction (Verified 11/11/17 00:09) Home Medications: Methylphenidate HCl [Ritalin] 10 mg PO TID 02/06/17 [History] Lisinopril 10 mg [Zestril 10 MG] 10 mg PO DAILY 11/11/17 [History] Hx Tetanus, Diphtheria Vaccination/Date Given: Yes Hx Influenza Vaccination/Date Given: Yes Hx Pneumococcal Vaccination/Date Given: No Immunizations Up to Date: Yes - Review of Systems Constitutional: No Fever, No Chills Eyes: No Symptoms Ears, Nose, & Throat: No Symptoms Respiratory: Cough Cardiac: Chest Pain Abdominal/Gastrointestinal: Nausea Genitourinary Symptoms: No Dysuria Musculoskeletal: No Back Pain, No Neck Pain Skin: No Rash Neurological: Headache Psychological: No Symptoms Endocrine: No Symptoms Hematologic/Lymphatic: No Symptoms Immunological/Allergic: No Symptoms All Other Systems: Reviewed and Negative - Past Medical History Pertinent Past Medical History: Yes Neurological History: Migraines ENT History: No Pertinent History Cardiac History: Hypertension Respiratory History: No Pertinent History Endocrine Medical History: No Pertinent History Musculoskeletal History: Osteoarthritis GI Medical History: Hernia History: No Pertinent History Psycho-Social History: Anxiety, Attention Deficit Disorder, Depression Male Reproductive Disorders: No Pertinent History Other Medical History: NON-HODGKINS LYMPHOMA REMISSION FOR 13 YEARS. - Past Surgical History Past Surgical History: Yes Neuro Surgical History: No Pertinent History Cardiac: No Pertinent History Respiratory: No Pertinent History Gastrointestinal: Hernia Repair Genitourinary: No Pertinent History Musculoskeletal: Orthopedic Surgery Male Surgical History: No Pertinent History Other Surgical History: port placed et removed. rt ankle fx - Social History Smoking Status: Never smoker How long have you smoked: rarely Exposure to second hand smoke: No Drug Use: none Patient Lives Alone: No - Nursing Vital Signs Nursing Vital Signs: Initial Vital Signs Temperature 98.0 F 07/09/18 15:05 Pulse Rate 88 07/09/18 15:05 Respiratory Rate 20 07/09/18 15:05 Blood Pressure 159/107 07/09/18 15:05 O2 Sat by Pulse Oximetry 98 07/09/18 15:05 Pain Scale Pain Intensity 8 - Physical Exam General Appearance: no apparent distress, alert Eye Exam: PERRL/EOMI, eyes nml inspection Ears, Nose, Throat Exam: normal ENT inspection, TMs normal, pharynx normal, moist mucous membranes Neck Exam: normal inspection, non-tender, supple, full range of motion Respiratory Exam: normal breath sounds, lungs clear, No respiratory distress Cardiovascular Exam: regular rate/rhythm, normal heart sounds, normal peripheral pulses Gastrointestinal/Abdomen Exam: soft, normal bowel sounds, No tenderness, No mass Rectal Exam: not done Back Exam: normal inspection, normal range of motion, No CVA tenderness, No vertebral tenderness Extremity Exam: normal inspection, normal range of motion, pelvis stable Neurologic Exam: alert, oriented x 3, cooperative, normal mood/affect, nml cerebellar function, nml station & gait, sensation nml, No motor deficits Skin Exam: normal color, warm, dry, No rash Lymphatic Exam: No adenopathy SpO2 Interpretation: normal SpO2: 98 Oxygen Delivery: Room Air - Course EKG Interpreted by Me: RATE, Sinus Rhythm, NORMAL AXIS, NORMAL INTERVALS, NORMAL QRS, NORMAL ST-T, Other (no change in EKG comp to EKG from 02/19/18.) - Radiology Exams Chest X-ray Interpretation: Reviewed by me, Teleradiologist Report (per Dr Veloz), Negative - CT Exams Head CT Interpretation: Negative, Tele-radiologist Report (per Dr Veloz), No/ Intracranial Hemorrhag Ordered Tests: Active Orders 24 hr Category Date Time Status Furniture Shampooer STAT Care 07/09/18 15:51 Active Clean Catch Urine Specimen STAT Care 07/09/18 15:50 Active EKG-ER Only STAT Care 07/09/18 15:50 Active IV Insertion STAT Care 07/09/18 15:50 Active Pulse Oximetry (ED) STAT Care 07/09/18 15:50 Active CHEST 2 VIEWS (PA AND LAT) Stat Exams 07/09/18 15:50 Completed HEAD WITHOUT CONTRAST [CT] Stat Exams 07/09/18 15:52 Completed CBC W DIFF Stat Lab 07/09/18 16:05 Completed CMP Stat Lab 07/09/18 16:05 Completed TROPONIN Q3H Lab 07/09/18 16:05 Completed TROPONIN Q3H Lab 07/09/18 19:00 Ordered TROPONIN Q3H Lab 07/09/18 22:00 Ordered TROPONIN Q3H Lab 07/10/18 01:00 Ordered TROPONIN Q3H Lab 07/10/18 04:00 Ordered Urine Triage Profile Stat Lab 07/09/18 16:25 Completed Medication Summary Discontinued Medications Generic Name Dose Route Start Last Admin Trade Name Freq PRN Reason Stop Dose Admin Acetaminophen 1,000 mg 07/09/18 17:08 07/09/18 17:17 Tylenol Extra Strength 500 Mg PO 07/09/18 17:09 1,000 mg STAT STA Administration Acetaminophen Confirm 07/09/18 17:16 Tylenol Extra Strength 500 Mg Administered 07/09/18 17:17 Dose 1,000 mg .ROUTE .STK-MED ONE Aspirin 324 mg 07/09/18 15:50 07/09/18 16:28 Baby Aspirin 81 Mg Chew PO 07/09/18 15:51 324 mg STAT ONE Administration Aspirin Confirm 07/09/18 16:12 Baby Aspirin 81 Mg Chew Administered 07/09/18 16:13 Dose 324 mg .ROUTE .STK-MED ONE Metoprolol Tartrate 5 mg 07/09/18 16:10 07/09/18 16:28 Lopressor 5 Mg/5 Ml Injection IV 07/09/18 16:11 5 mg STAT ONE Administration Metoprolol Tartrate Confirm 07/09/18 16:12 Lopressor 5 Mg/5 Ml Injection Administered 07/09/18 16:13 Dose 5 mg IV .STK-MED ONE Lab/Rad Data: Laboratory Result Diagrams 07/09/18 16:05 07/09/18 16:05 Laboratory Results 07/09/18 07/09/18 07/09/18 Range/Units 16:25 16:05 16:05 WBC (4.0-10.5) K/mm3 RBC (4.1-5.6) M/mm3 Hgb (12.5-18.0) gm/dl Hct (42-50) % MCV (78-100) fl MCH (26-32) pg MCHC (32-36) g/dl RDW (11.5-14.0) % Plt Count (150-450) K/mm3 MPV (6-9.5) fl Gran % (36.0-66.0) % Eos # (Auto) (0-0.5) Absolute Lymphs (auto) (1.0-4.6) Absolute Monos (auto) (0.0-1.3) Lymphocytes % (24.0-44.0) % Monocytes % (0.0-12.0) % Eosinophils % (0.00-5.0) % Basophils % (0.0-0.4) % Absolute Granulocytes (1.4-6.9) Basophils # (0-0.4) Sodium 140 (137-145) mmol/L Potassium 4.2 (3.5-5.1) mmol/L Chloride 104 (98-107) mmol/L Carbon Dioxide 23 (22-30) mmol/L Anion Gap 16.4 H (5-15) MEQ/L BUN 18 (9-20) mg/dL Creatinine 0.79 (0.66-1.25) mg/dL Estimated GFR > 60.0 ML/MIN Glucose 102 (74-106) mg/dL Calcium 9.7 (8.4-10.2) mg/dL Total Bilirubin 0.60 (0.2-1.3) mg/dL AST 46 (17-59) U/L ALT 41 (0-50) U/L Alkaline Phosphatase 57 (38-126) U/L Troponin I < 0.012 (0.000-0.034) ng/mL Serum Total Protein 8.6 H (6.3-8.2) g/dL Albumin 5.0 (3.5-5.0) g/dL Urine Opiates Level NEGATIVE (NEGATIVE) Ur Methadone NEGATIVE (NEGATIVE) Urine Barbiturates NEGATIVE (NEGATIVE) Ur Phencyclidine (PCP) NEGATIVE (NEGATIVE) Urine Amphetamine NEGATIVE (NEGATIVE) U Benzodiazepine Level NEGATIVE (NEGATIVE) Urine Cocaine NEGATIVE (NEGATIVE) Urine Marijuana (THC) NEGATIVE (NEGATIVE) 07/09/18 Range/Units 16:05 WBC 5.6 (4.0-10.5) K/mm3 RBC 4.95 (4.1-5.6) M/mm3 Hgb 15.0 (12.5-18.0) gm/dl Hct 43.1 (42-50) % MCV 87.1 (78-100) fl MCH 30.3 (26-32) pg MCHC 34.8 (32-36) g/dl RDW 12.6 (11.5-14.0) % Plt Count 257 (150-450) K/mm3 MPV 10.0 H (6-9.5) fl Gran % 65.1 (36.0-66.0) % Eos # (Auto) 0.10 (0-0.5) Absolute Lymphs (auto) 1.33 (1.0-4.6) Absolute Monos (auto) 0.46 (0.0-1.3) Lymphocytes % 23.9 L (24.0-44.0) % Monocytes % 8.3 (0.0-12.0) % Eosinophils % 1.8 (0.00-5.0) % Basophils % 0.9 (0.0-0.4) % Absolute Granulocytes 3.62 (1.4-6.9) Basophils # 0.05 (0-0.4) Sodium (137-145) mmol/L Potassium (3.5-5.1) mmol/L Chloride (98-107) mmol/L Carbon Dioxide (22-30) mmol/L Anion Gap (5-15) MEQ/L BUN (9-20) mg/dL Creatinine (0.66-1.25) mg/dL Estimated GFR ML/MIN Glucose (74-106) mg/dL Calcium (8.4-10.2) mg/dL Total Bilirubin (0.2-1.3) mg/dL AST (17-59) U/L ALT (0-50) U/L Alkaline Phosphatase (38-126) U/L Troponin I (0.000-0.034) ng/mL Serum Total Protein (6.3-8.2) g/dL Albumin (3.5-5.0) g/dL Urine Opiates Level (NEGATIVE) Ur Methadone (NEGATIVE) Urine Barbiturates (NEGATIVE) Ur Phencyclidine (PCP) (NEGATIVE) Urine Amphetamine (NEGATIVE) U Benzodiazepine Level (NEGATIVE) Urine Cocaine (NEGATIVE) Urine Marijuana (THC) (NEGATIVE) - Progress Progress: improved Counseled pt/family regarding: lab results, diagnosis, need for follow-up, rad results - Departure Time of Disposition: 17:37 Departure Disposition: Home Clinical Impression: HTN (hypertension) Condition: Stable Critical Care Time: No Referrals: JACQUELINE LUNDBERG NP [Primary Care Provider] - Additional Instructions: You have an episode of mildly elevated blood pressure. You were given metoprolol 5 mg by IV in the ER. You were also given aspirin 324 mg orally. Your laboratory results including the troponin which is an indicator of heart health were good. You have been taking lisinopril 10 mg daily. Increase your lisinopril from 10 mg to 20 mg daily. Follow-up with your primary medical doctor tomorrow.
[2018-07-09] MEDS ORDERED: BABY ASPIRIN 81 MG CHEW PO ONE (15:50)
[2018-07-09] MEDS ORDERED: LOPRESSOR 5 MG/5 ML INJECTION IV ONE ×2 (16:10→16:12)
[2018-07-09 16:11] LABS: BASOPHIL % 0.9 % (0.0-0.4); Basophil (Absolute #) 0.05 (0-0.4); Eosinophil % 1.8 % (0.00-5.0); Granulocytes % 65.1 % (36.0-66.0); Hematocrit 43.1 % (42-50); Lymphocyte (Absolute #) 1.33 (1.0-4.6); Lymphocytes % 23.9 % (24.0-44.0); Mean Cell Volume 87.1 fl (78-100); Mean Corpuscular Hemoglobin 30.3 pg (26-32); Mean Corpuscular Hgb Concent. 34.8 g/dl (32-36); Monocyte (Absolute #) 0.46 (0.0-1.3); Monocytes % 8.3 % (0.0-12.0); Platelet Count 257 K/mm3 (150-450); Red Blood Count 4.95 M/mm3 (4.1-5.6); Red Cell Distribution Width 12.6 % (11.5-14.0); White Blood Count 5.6 K/mm3 (4.0-10.5)
[2018-07-09] MEDS ORDERED: BABY ASPIRIN 81 MG CHEW ONE (16:12)
[2018-07-09 16:23] LABS: ALKALINE PHOSPHATASE 57 U/L (38-126); ANION GAP 16.4 MEQ/L (5-15); BLOOD UREA NITROGEN 18 mg/dL (9-20); CHLORIDE 104 mmol/L (98-107); Calcium 9.7 mg/dL (8.4-10.2); Carbon Dioxide 23 mmol/L (22-30); Creatinine 1 0.79 mg/dL (0.66-1.25); Glucose 102 mg/dL (74-106); Potassium 4.2 mmol/L (3.5-5.1); SGOT/AST 46 U/L (17-59); SGPT/ALT 41 U/L (0-50); SODIUM 140 mmol/L (137-145); Total Protein 8.6 g/dL (6.3-8.2)
--- NOTE | 2018-07-09 16:29 | XRAY ---
Indication: Headache. High blood pressure. Multiple contiguous axial images obtained through the head without contrast. Comparison: None Normal appearing brain parenchyma, ventricles, and bony calvarium. Visualized paranasal sinuses and mastoid air cells are clear. Impression: Normal CT head without contrast exam. CTDI 70.38
--- NOTE | 2018-07-09 16:36 | XRAY ---
Indication: Cough. Hypertension. Comparison: October 24, 2017. PA/lateral chest again demonstrates normal heart, lungs, and bony thorax.
[2018-07-09] MEDS ORDERED: TYLENOL EXTRA STRENGTH 500 MG PO STA (17:08)
[2018-07-09] MEDS ORDERED: TYLENOL EXTRA STRENGTH 500 MG ONE (17:16)
[2018-07-09 17:24] LABS: Amphetamine,Urine NEGATIVE (NEGATIVE); Barbiturate,Urine NEGATIVE (NEGATIVE); Benzodiazepine,Urine NEGATIVE (NEGATIVE); Cocaine,Urine NEGATIVE (NEGATIVE); Methadone,Urine NEGATIVE (NEGATIVE); Opiate,Urine NEGATIVE (NEGATIVE); PCP,Urine NEGATIVE (NEGATIVE); THC,Urine NEGATIVE (NEGATIVE)
[2018-07-09 17:39] VITALS: O2SAT 98
[2018-07-09 17:55] VITALS: BP 141/87; PULSE 78
== END 2018-07-09 17:52 | disposition home or self-care (01) ==
LOC: ED 15:01
DX: I10 Essential (primary) hypertension (principal); R51 Headache; R07.9 Chest pain, unspecified; R11.0 Nausea; Z79.899 Other long term (current) drug therapy
CPT/HCPCS: 36415; 70450; 71046; 80053; 80307; 84484; 85025; 93005; 93041; 96374; 99284; A9270-GY

== ENCOUNTER 2018-12-31 14:05 | Emergency (ER) | payer MEDICARE ==
--- NOTE | 2018-12-31 14:38 | ERPHSYRPT ---
- History of Present Illness Time Seen by Provider: 12/31/18 14:20 Historian: patient, family Patient Subjective Stated Complaint: pt reports abdominal pain starting yesterday, reports he has a history of chrons, celiac disease, as well as an ulcer to the small bowel. pt reports he also had blood in his stool today, pt states his stool was very hard. pt also reports he is bloated. mother also reports pt recently had a pill cam study recently. Triage Nursing Assessment: pt is aox3, pupils perrl, afebrile, resps easy and non labored, radial pulses strong and equal, pt abd appears slighlty distended, diffusely tender with palpation, bowel sounds present and normoactive x 4. pt skin pink warm dry. Physician History: 33 y/o white male with h/p crohns dz, celiac dz and intraabd non hodgkins lymphoma presents with a few day h/o generalized abd pain, abd distension and today a small amt of rectal bleeding. pt states he called his gi specialist and oncologist and were told to go to [facility]. mother drives and states it is too far for her to drive there without having a panic attack so she came here. pt has an appt with gi specialist on 01/17/19. pt has not been placed on steroids in the past for his abd complaints. he cannot take oral prednisone. he can take dilaudid for pain. pt underwent a pill gi cam in the last 2 weeks. small bowel ulceration present Timing/Duration: day(s) (2) Activities at Onset: none Quality: aching, cramping Abdominal Pain Onset Location: generalized abdomen Pain Radiation: no radiation Severity of Pain-Max: moderate Severity of Pain-Current: moderate Modifying Factors: Improves With: nothing Associated Symptoms: nausea, No chest pain, No loss of appetite, No shortness of breath, No testicular pain, No vomiting, No weakness Previous symptoms: same symptoms as today Allergies/Adverse Reactions: Iodinated Contrast- Oral and IV Dye [Iodinated Contrast Media - IV Dye] Allergy (Severe, Verified 12/31/18 14:23) Rash ketorolac [From Toradol] Allergy (Intermediate, Verified 12/31/18 14:23) quetiapine fumarate [From Seroquel] Allergy (Intermediate, Verified 12/31/18 14: 23) rash, itching meperidine HCl [From Demerol] Allergy (Mild, Verified 12/31/18 14:23) Rash/hyper morphine Allergy (Mild, Verified 12/31/18 14:23) rash/ hyper oxycodone [From OxyContin] Allergy (Mild, Verified 12/31/18 14:23) Itching prednisone Allergy (Mild, Verified 12/31/18 14:23) Nausea promethazine HCl [From Phenergan] Allergy (Mild, Verified 12/31/18 14:23) rash, nausea tramadol HCl [From Ultram] Allergy (Mild, Verified 12/31/18 14:23) rash itching acetaminophen [From Percocet] Adverse Reaction (Verified 12/31/18 14:23) Home Medications: Methylphenidate HCl [Ritalin] 10 mg PO TID 02/06/17 [History] Lisinopril 10 mg [Zestril 10 MG] 10 mg PO DAILY 11/11/17 [History] Escitalopram Oxalate 10 mg [Lexapro 10 MG] 10 mg PO DAILY 12/31/18 [History] PANTOPRAZOLE 40 mg Tablet [Protonix 40MG Tablet] 40 mg PO QAM 12/31/18 [ History] Sucralfate 1 gm [Carafate 1 GM] 1 gm PO QID 12/31/18 [History] Hx Tetanus, Diphtheria Vaccination/Date Given: Yes Hx Influenza Vaccination/Date Given: Yes Hx Pneumococcal Vaccination/Date Given: No Immunizations Up to Date: Yes - Review of Systems Constitutional: No Symptoms Eyes: No Symptoms Ears, Nose, & Throat: No Symptoms Respiratory: No Symptoms Cardiac: No Symptoms Abdominal/Gastrointestinal: Abdominal Pain, Nausea, No Vomiting, No Diarrhea Genitourinary Symptoms: No Symptoms Musculoskeletal: No Symptoms Skin: No Symptoms Neurological: No Symptoms Psychological: No Symptoms Endocrine: No Symptoms Hematologic/Lymphatic: No Symptoms Immunological/Allergic: No Symptoms All Other Systems: Reviewed and Negative - Past Medical History Pertinent Past Medical History: Yes Neurological History: Migraines ENT History: No Pertinent History Cardiac History: Hypertension Respiratory History: No Pertinent History Endocrine Medical History: No Pertinent History Musculoskeletal History: Osteoarthritis GI Medical History: Hernia History: No Pertinent History Psycho-Social History: Anxiety, Attention Deficit Disorder, Depression Male Reproductive Disorders: No Pertinent History Other Medical History: NON-HODGKINS LYMPHOMA REMISSION FOR 13 YEARS. - Past Surgical History Past Surgical History: Yes Neuro Surgical History: No Pertinent History Cardiac: No Pertinent History Respiratory: No Pertinent History Gastrointestinal: Hernia Repair Genitourinary: No Pertinent History Musculoskeletal: Orthopedic Surgery Male Surgical History: No Pertinent History Other Surgical History: port placed et removed. rt ankle fx - Social History Smoking Status: Never smoker How long have you smoked: rarely Exposure to second hand smoke: No Drug Use: none Patient Lives Alone: No - Nursing Vital Signs Nursing Vital Signs: Initial Vital Signs Temperature 97.7 F 12/31/18 14:07 Pulse Rate 80 12/31/18 14:07 Respiratory Rate 20 12/31/18 14:07 Blood Pressure 157/105 12/31/18 14:07 O2 Sat by Pulse Oximetry 95 12/31/18 14:07 Pain Scale Pain Intensity 7 - Physical Exam General Appearance: mild distress, alert, anxiety Eye Exam: PERRL/EOMI, eyes nml inspection Ears, Nose, Throat Exam: normal ENT inspection, moist mucous membranes Neck Exam: normal inspection, non-tender, supple, full range of motion Respiratory Exam: normal breath sounds, lungs clear, airway intact, No chest tenderness, No respiratory distress Cardiovascular Exam: regular rate/rhythm, normal heart sounds, normal peripheral pulses Gastrointestinal/Abdomen Exam: soft, normal bowel sounds, tenderness (mild diffuse), distention (mild ), guarding, No rebound Rectal Exam: not done Back Exam: normal inspection, normal range of motion, CVA tenderness, No vertebral tenderness Extremity Exam: normal inspection, normal range of motion, pelvis stable Neurologic Exam: alert, oriented x 3, cooperative, bombsight specialist II-XII nml as tested Skin Exam: normal color, warm, dry Lymphatic Exam: No adenopathy SpO2 Interpretation: normal SpO2: 95 O2 Delivery: Room Air Ordered Tests: Active Orders 24 hr Category Date Time Status IV Insertion STAT Care 12/31/18 14:41 Active ABDOMEN AND PELVIS W/0 CONTRAS [CT] Stat Exams 12/31/18 15:56 Completed AMYLASE Stat Lab 12/31/18 14:41 Completed CBC W DIFF Stat Lab 12/31/18 14:41 Completed CMP Stat Lab 12/31/18 14:41 Completed LIPASE Stat Lab 12/31/18 14:41 Completed Lactic Acid Stat Lab 12/31/18 14:55 Completed UA W/RFX UR CULTURE Stat Lab 12/31/18 16:29 Completed Medication Summary Discontinued Medications Generic Name Dose Route Start Last Admin Trade Name Darwin PRN Reason Stop Dose Admin Hydromorphone HCl 1 mg 12/31/18 14:41 12/31/18 14:48 Hydromorphone 1 Mg/Ml Ampule IV 12/31/18 14:42 1 mg STAT ONE Administration Hydromorphone HCl Confirm 12/31/18 14:46 Hydromorphone 1 Mg/Ml Ampule Administered 12/31/18 14:47 Dose 1 mg .ROUTE .STK-MED ONE Hydromorphone HCl 0.5 mg 12/31/18 16:08 12/31/18 16:51 Hydromorphone 1 Mg/Ml Ampule IV 12/31/18 16:09 0.5 mg STAT ONE Administration Hydromorphone HCl Confirm 12/31/18 16:48 Hydromorphone 1 Mg/Ml Ampule Administered 12/31/18 16:49 Dose 1 mg .ROUTE .STK-MED ONE Sodium Chloride 1,000 mls @ 999 mls/hr 12/31/18 14:41 12/31/18 15:46 Sodium Chloride 0.9% 1000 Ml IV 12/31/18 15:41 Infused .Q1H1M STA Infusion Sodium Chloride Confirm 12/31/18 14:46 Sodium Chloride 0.9% 1000 Ml Administered 12/31/18 14:47 Dose 1,000 mls @ ud .ROUTE .STK-MED ONE Ondansetron HCl 4 mg 12/31/18 14:41 12/31/18 14:47 Zofran 4 Mg/2 Ml Vial IV 12/31/18 14:42 4 mg STAT ONE Administration Ondansetron HCl Confirm 12/31/18 14:45 Zofran 4 Mg/2 Ml Vial Administered 12/31/18 14:46 Dose 4 mg .ROUTE .STK-MED ONE Lab/Rad Data: Laboratory Result Diagrams 12/31/18 14:41 12/31/18 14:41 Laboratory Results 12/31/18 12/31/18 12/31/18 Range/Units 16:29 14:55 14:41 WBC (4.0-10.5) K/mm3 RBC (4.1-5.6) M/mm3 Hgb (12.5-18.0) gm/dl Hct (42-50) % MCV (78-100) fl MCH (26-32) pg MCHC (32-36) g/dl RDW (11.5-14.0) % Plt Count (150-450) K/mm3 MPV (6-9.5) fl Gran % (36.0-66.0) % Eos # (Auto) (0-0.5) Absolute Lymphs (auto) (1.0-4.6) Absolute Monos (auto) (0.0-1.3) Lymphocytes % (24.0-44.0) % Monocytes % (0.0-12.0) % Eosinophils % (0.00-5.0) % Basophils % (0.0-0.4) % Absolute Granulocytes (1.4-6.9) Basophils # (0-0.4) Sodium 140 (137-145) mmol/L Potassium 4.2 (3.5-5.1) mmol/L Chloride 105 (98-107) mmol/L Carbon Dioxide 25 (22-30) mmol/L Anion Gap 14.2 (5-15) MEQ/L BUN 10 (9-20) mg/dL Creatinine 0.93 (0.66-1.25) mg/dL Estimated GFR > 60.0 ML/MIN Glucose 108 H (74-106) mg/dL Lactic Acid 1.4 (0.4-2.0) Calcium 9.6 (8.4-10.2) mg/dL Total Bilirubin 0.60 (0.2-1.3) mg/dL AST 46 (17-59) U/L ALT 35 (0-50) U/L Alkaline Phosphatase 61 (38-126) U/L Serum Total Protein 8.0 (6.3-8.2) g/dL Albumin 4.5 (3.5-5.0) g/dL Amylase 80 (30-110) U/L Lipase 140 (23-300) U/L Urine Color STRAW (YELLOW) Urine Appearance CLEAR (CLEAR) Urine pH 8.0 (5-6) Ur Specific [place] 1.012 (1.005-1.025) Urine Protein NEGATIVE (Negative) Urine Ketones NEGATIVE (NEGATIVE) Urine Blood NEGATIVE (0-5) Lambert/ul Urine Nitrite NEGATIVE (NEGATIVE) Urine Bilirubin NEGATIVE (NEGATIVE) Urine Urobilinogen NEGATIVE (0-1) mg/dL Ur Leukocyte Esterase NEGATIVE (NEGATIVE) Urine WBC (Auto) NONE (0-5) /HPF Urine RBC (Auto) NONE (0-2) /HPF U Epithel Cells (Auto) NONE (FEW) /HPF Urine Bacteria (Auto) NONE (NEGATIVE) /HPF Urine Mucus (Auto) SLIGHT (NEGATIVE) /HPF Urine Culture Reflexed NO (NO) Urine Glucose NEGATIVE (NEGATIVE) mg/dL 12/31/18 Range/Units 14:41 WBC 4.3 (4.0-10.5) K/mm3 RBC 4.48 (4.1-5.6) M/mm3 Hgb 13.8 (12.5-18.0) gm/dl Hct 39.8 L (42-50) % MCV 88.8 (78-100) fl MCH 30.8 (26-32) pg MCHC 34.7 (32-36) g/dl RDW 12.7 (11.5-14.0) % Plt Count 237 (150-450) K/mm3 MPV 10.0 H (6-9.5) fl Gran % 58.2 (36.0-66.0) % Eos # (Auto) 0.07 (0-0.5) Absolute Lymphs (auto) 1.35 (1.0-4.6) Absolute Monos (auto) 0.34 (0.0-1.3) Lymphocytes % 31.7 (24.0-44.0) % Monocytes % 8.0 (0.0-12.0) % Eosinophils % 1.6 (0.00-5.0) % Basophils % 0.5 (0.0-0.4) % Absolute Granulocytes 2.48 (1.4-6.9) Basophils # 0.02 (0-0.4) Sodium (137-145) mmol/L Potassium (3.5-5.1) mmol/L Chloride (98-107) mmol/L Carbon Dioxide (22-30) mmol/L Anion Gap (5-15) MEQ/L BUN (9-20) mg/dL Creatinine (0.66-1.25) mg/dL Estimated GFR ML/MIN Glucose (74-106) mg/dL Lactic Acid (0.4-2.0) Calcium (8.4-10.2) mg/dL Total Bilirubin (0.2-1.3) mg/dL AST (17-59) U/L ALT (0-50) U/L Alkaline Phosphatase (38-126) U/L Serum Total Protein (6.3-8.2) g/dL Albumin (3.5-5.0) g/dL Amylase (30-110) U/L Lipase (23-300) U/L Urine Color (YELLOW) Urine Appearance (CLEAR) Urine pH (5-6) Ur Specific [place] (1.005-1.025) Urine Protein (Negative) Urine Ketones (NEGATIVE) Urine Blood (0-5) Lambert/ul Urine Nitrite (NEGATIVE) Urine Bilirubin (NEGATIVE) Urine Urobilinogen (0-1) mg/dL Ur Leukocyte Esterase (NEGATIVE) Urine WBC (Auto) (0-5) /HPF Urine RBC (Auto) (0-2) /HPF U Epithel Cells (Auto) (FEW) /HPF Urine Bacteria (Auto) (NEGATIVE) /HPF Urine Mucus (Auto) (NEGATIVE) /HPF Urine Culture Reflexed (NO) Urine Glucose (NEGATIVE) mg/dL - Progress Progress: improved Progress Note: 12/31/18 17:01 ct abd/pelvis-no acute process. Counseled pt/family regarding: lab results, diagnosis, need for follow-up, rad results - Departure Departure Disposition: Home Clinical Impression: Abdominal pain Condition: Stable Critical Care Time: No Referrals: GABRIEL NUNEZ [Primary Care Provider] - Additional Instructions: drink plenty of fluids. follow up tomorrow with your line server and your oncologist for further management Forms: Work/School Release Form
[2018-12-31] MEDS ORDERED: Zofran 4 MG/2 ML VIAL IV ONE (14:41)
[2018-12-31] MEDS ORDERED: Hydromorphone 1 mg/ml Ampule IV ONE ×2 (14:41→16:08)
[2018-12-31] MEDS ORDERED: Sodium Chloride 0.9% 1000 ML 1,000 ML IV STA (14:41)
[2018-12-31] MEDS ORDERED: Zofran 4 MG/2 ML VIAL ONE (14:45)
[2018-12-31] MEDS ORDERED: Hydromorphone 1 mg/ml Ampule ONE ×2 (14:46→16:48)
[2018-12-31] MEDS ORDERED: Sodium Chloride 0.9% 1000 ML 1,000 ML ONE (14:46)
[2018-12-31 14:47] LABS: BASOPHIL % 0.5 % (0.0-0.4); Basophil (Absolute #) 0.02 (0-0.4); Eosinophil % 1.6 % (0.00-5.0); Eosinophil (Absolute #) 0.07 (0-0.5); Granulocyte Absolute (ANC) 2.48 (1.4-6.9); Granulocytes % 58.2 % (36.0-66.0); Hematocrit 39.8 % (42-50); Hemoglobin 13.8 gm/dl (12.5-18.0); Lymphocyte (Absolute #) 1.35 (1.0-4.6); Lymphocytes % 31.7 % (24.0-44.0); Mean Cell Volume 88.8 fl (78-100); Mean Corpuscular Hemoglobin 30.8 pg (26-32); Mean Corpuscular Hgb Concent. 34.7 g/dl (32-36); Monocyte (Absolute #) 0.34 (0.0-1.3); Platelet Count 237 K/mm3 (150-450); Red Blood Count 4.48 M/mm3 (4.1-5.6); Red Cell Distribution Width 12.7 % (11.5-14.0); White Blood Count 4.3 K/mm3 (4.0-10.5)
[2018-12-31 14:52] LABS: ALBUMIN 4.5 g/dL (3.5-5.0); ALKALINE PHOSPHATASE 61 U/L (38-126); AMYLASE 80 U/L (30-110); ANION GAP 14.2 MEQ/L (5-15); BLOOD UREA NITROGEN 10 mg/dL (9-20); CHLORIDE 105 mmol/L (98-107); Calcium 9.6 mg/dL (8.4-10.2); Carbon Dioxide 25 mmol/L (22-30); Creatinine 1 0.93 mg/dL (0.66-1.25); Glucose 108 mg/dL (74-106); Potassium 4.2 mmol/L (3.5-5.1); SGOT/AST 46 U/L (17-59); SGPT/ALT 35 U/L (0-50); SODIUM 140 mmol/L (137-145)
--- NOTE | 2018-12-31 16:23 | XRAY ---
Indication: Abdomen pain and distention. Multiple contiguous axial images obtained through the abdomen and pelvis without contrast as ordered. Comparison: Contrast exam September 14, 2018. Lung bases images minimal bilateral dependent atelectasis and right infrahilar calcified granulomas. No infiltrate or effusion. Heart is not enlarged. Noncontrasted stomach and bowel loops again nonobstructed. Normal appendix. No free fluid/air. Stable diffuse fatty liver, 13 cm splenomegaly, and right lower pole cortical cyst. Nonobstructing bilateral micro-nephrocalcinosis presumed obscured on previous contrasted exam. Remaining liver, gallbladder, pancreas, spleen, adrenal glands, kidneys, ureters, bladder, and aorta appear unremarkable for noncontrast exam. Osseous structures intact. No ventral or inguinal hernias. Impression: 1. Stable fatty liver, splenomegaly, right renal cyst, and evidence for old granulomatous disease. 2. Nonobstructing micro-nephrocalcinosis. 3. No acute intra-abdominal/pelvic abnormalities on this noncontrast exam. CTDI 22.80
[2018-12-31 16:25] LABS: Appearance CLEAR (CLEAR); Bilirubin NEGATIVE (NEGATIVE); Blood NEGATIVE Ery/ul (0-5); Glucose NEGATIVE (NEGATIVE); Ketones NEGATIVE (NEGATIVE); Leukocyte Esterase NEGATIVE (NEGATIVE); Mucus SLIGHT /HPF (NEGATIVE); Nitrite NEGATIVE (NEGATIVE); Protein,Urine Dip NEGATIVE (Negative); Specific Gravity 1.012 (1.005-1.025); Urobilinogen NEGATIVE mg/dL (0-1)
[2018-12-31 17:03] VITALS: BP 138/97; PULSE 64
[2018-12-31 17:04] VITALS: O2SAT 95
== END 2018-12-31 17:11 | disposition home or self-care (01) ==
LOC: ED 14:05
DX: R10.9 Unspecified abdominal pain (principal); K50.90 Crohn's disease, unspecified, without complications; K90.0 Celiac disease; Z79.899 Other long term (current) drug therapy
CPT/HCPCS: 36000; 36415; 74176; 80053; 81001; 82150; 83605; 83690; 85025; 96360; 96374; 96375; 96376; 99284; J1170; J2405

== ENCOUNTER 2019-01-14 14:48 | Emergency (ER) | payer MEDICARE ==
--- NOTE | 2019-01-14 15:09 | ERPHSYRPT ---
- History of Present Illness Time Seen by Provider: 01/14/19 15:00 Historian: patient, family Patient Subjective Stated Complaint: Pt states "We called [facility] and they told us to come here. After we were here two weeks ago we went to [facility] and they did nothing except give pain medication, 12 pills, and told us to follow up. We went to Dr. Webb after the pain meds ran out and he said to keep coming to the ED until we can get to [facility] on for a Appointment." Triage Nursing Assessment: Pt presented through the front, alert and oriented x 3, skin pwd. Pt ambulates with an upright steady gait, able to speak in clear full sentences. PT in no apparent respiratory distress. Physician History: 33 y/o white male with h/o chronic abd pain. pt here 12/31/18 for same issue. in addition, he has been seen at other EDs since then as well. pt has h/o crohns dz , celiac dz, nonhodgkins lymphoma. he has a gi specialist appt on 01/17/19. ct abd/pelvis 12/31/18 no acute process. no n/v/d. this episode of pain began last pm. began suprapubic region and now generalized. Timing/Duration: yesterday (pm), worse Quality: sharpness, stabbing Abdominal Pain Onset Location: generalized abdomen Pain Radiation: no radiation Severity of Pain-Max: moderate Severity of Pain-Current: moderate (per his report) Modifying Factors: Worsens With: urinating, vomiting Associated Symptoms: denies symptoms Previous symptoms: same symptoms as today Allergies/Adverse Reactions: Iodinated Contrast- Oral and IV Dye [Iodinated Contrast Media - IV Dye] Allergy (Severe, Verified 12/31/18 14:23) Rash ketorolac [From Toradol] Allergy (Intermediate, Verified 12/31/18 14:23) quetiapine fumarate [From Seroquel] Allergy (Intermediate, Verified 12/31/18 14: 23) rash, itching meperidine HCl [From Demerol] Allergy (Mild, Verified 12/31/18 14:23) Rash/hyper morphine Allergy (Mild, Verified 12/31/18 14:23) rash/ hyper oxycodone [From OxyContin] Allergy (Mild, Verified 12/31/18 14:23) Itching prednisone Allergy (Mild, Verified 12/31/18 14:23) Nausea promethazine HCl [From Phenergan] Allergy (Mild, Verified 12/31/18 14:23) rash, nausea tramadol HCl [From Ultram] Allergy (Mild, Verified 12/31/18 14:23) rash itching acetaminophen [From Percocet] Adverse Reaction (Verified 12/31/18 14:23) Home Medications: Methylphenidate HCl [Ritalin] 10 mg PO TID 02/06/17 [History] Lisinopril 10 mg [Zestril 10 MG] 10 mg PO DAILY 11/11/17 [History] Escitalopram Oxalate 10 mg [Lexapro 10 MG] 10 mg PO DAILY 12/31/18 [History] PANTOPRAZOLE 40 mg Tablet [Protonix 40MG Tablet] 40 mg PO QAM 12/31/18 [ History] Sucralfate 1 gm [Carafate 1 GM] 1 gm PO QID 12/31/18 [History] Hx Tetanus, Diphtheria Vaccination/Date Given: Yes Hx Influenza Vaccination/Date Given: Yes Hx Pneumococcal Vaccination/Date Given: No Immunizations Up to Date: Yes - Review of Systems Constitutional: No Symptoms Eyes: No Symptoms Ears, Nose, & Throat: No Symptoms Respiratory: No Symptoms Cardiac: No Symptoms Abdominal/Gastrointestinal: Abdominal Pain (generalized) Genitourinary Symptoms: No Symptoms Musculoskeletal: No Symptoms Skin: No Symptoms Neurological: No Symptoms Psychological: No Symptoms Endocrine: No Symptoms Hematologic/Lymphatic: No Symptoms Immunological/Allergic: No Symptoms All Other Systems: Reviewed and Negative - Past Medical History Pertinent Past Medical History: Yes Neurological History: Migraines ENT History: No Pertinent History Cardiac History: Hypertension Respiratory History: No Pertinent History Endocrine Medical History: No Pertinent History Musculoskeletal History: Osteoarthritis GI Medical History: Hernia History: No Pertinent History Psycho-Social History: Anxiety, Attention Deficit Disorder, Depression Male Reproductive Disorders: No Pertinent History Other Medical History: NON-HODGKINS LYMPHOMA REMISSION FOR 13 YEARS. - Past Surgical History Past Surgical History: Yes Neuro Surgical History: No Pertinent History Cardiac: No Pertinent History Respiratory: No Pertinent History Gastrointestinal: Hernia Repair Genitourinary: No Pertinent History Musculoskeletal: Orthopedic Surgery Male Surgical History: No Pertinent History Other Surgical History: port placed et removed. rt ankle fx - Social History Smoking Status: Never smoker How long have you smoked: rarely Exposure to second hand smoke: Yes Drug Use: none Patient Lives Alone: No - Nursing Vital Signs Nursing Vital Signs: Initial Vital Signs Temperature 97.8 F 01/14/19 14:51 Pulse Rate 97 H 01/14/19 14:51 Respiratory Rate 18 01/14/19 14:51 Blood Pressure 160/106 01/14/19 14:51 O2 Sat by Pulse Oximetry 97 01/14/19 14:51 Pain Scale Pain Intensity 9 - Physical Exam General Appearance: no apparent distress, alert Eye Exam: PERRL/EOMI, eyes nml inspection Ears, Nose, Throat Exam: normal ENT inspection, moist mucous membranes Neck Exam: normal inspection, non-tender, supple, full range of motion Respiratory Exam: normal breath sounds, lungs clear, airway intact, No chest tenderness, No respiratory distress Cardiovascular Exam: regular rate/rhythm, normal heart sounds, normal peripheral pulses Gastrointestinal/Abdomen Exam: soft, normal bowel sounds, tenderness ( generalized), No guarding, No rebound Rectal Exam: not done Back Exam: normal inspection, normal range of motion, vertebral tenderness, No CVA tenderness Extremity Exam: normal inspection, normal range of motion, pelvis stable Neurologic Exam: alert, oriented x 3, cooperative, health it specialist II-XII nml as tested Skin Exam: normal color, warm, dry Lymphatic Exam: No adenopathy SpO2 Interpretation: normal SpO2: 97 O2 Delivery: Room Air Ordered Tests: Active Orders 24 hr Category Date Time Status [employer] Supervisor STAT Care 01/14/19 15:21 Active IV Insertion STAT Care 01/14/19 15:11 Active NPO (ED) STAT Care 01/14/19 15:21 Active AMYLASE Stat Lab 01/14/19 15:20 Completed CBC W DIFF Stat Lab 01/14/19 15:20 Completed CMP Stat Lab 01/14/19 15:20 Completed LIPASE Stat Lab 01/14/19 15:20 Completed Lactic Acid Stat Lab 01/14/19 15:26 Completed UA W/RFX UR CULTURE Stat Lab 01/14/19 15:12 Uncollected Urine Triage Profile Stat Lab 01/14/19 15:12 Uncollected Medication Summary Generic Name Dose Route Start Last Admin Trade Name Freq PRN Reason Stop Dose Admin Sodium Chloride 500 mls @ 500 mls/hr 01/14/19 15:22 01/14/19 15:31 Sodium Chloride 0.9% 500 Ml IV 01/14/19 16:21 500 mls/hr .Q1H ONE Administration Discontinued Medications Generic Name Dose Route Start Last Admin Trade Name Darwin PRN Reason Stop Dose Admin Hydromorphone HCl 0.5 mg 01/14/19 15:11 01/14/19 15:31 Hydromorphone 1 Mg/Ml Ampule IV 01/14/19 15:12 0.5 mg STAT ONE Administration Hydromorphone HCl Confirm 01/14/19 15:27 Hydromorphone 1 Mg/Ml Ampule Administered 01/14/19 15:28 Dose 1 mg .ROUTE .STK-MED ONE Sodium Chloride Confirm 01/14/19 15:28 Sodium Chloride 0.9% 1000 Ml Administered 01/14/19 15:29 Dose 1,000 mls @ ud .ROUTE .STK-MED ONE Ondansetron HCl 4 mg 01/14/19 15:11 01/14/19 15:30 Zofran 4 Mg/2 Ml Vial IV 01/14/19 15:12 4 mg STAT ONE Administration Ondansetron HCl Confirm 01/14/19 15:27 Zofran 4 Mg/2 Ml Vial Administered 01/14/19 15:28 Dose 4 mg .ROUTE .STK-MED ONE Lab/Rad Data: Laboratory Result Diagrams 01/14/19 15:20 01/14/19 15:20 Laboratory Results 01/14/19 01/14/19 01/14/19 Range/Units 15:26 15:20 15:20 WBC 4.6 (4.0-10.5) K/mm3 RBC 4.83 (4.1-5.6) M/mm3 Hgb 15.3 (12.5-18.0) gm/dl Hct 42.4 (42-50) % MCV 87.8 (78-100) fl MCH 31.7 (26-32) pg MCHC 36.1 H (32-36) g/dl RDW 12.6 (11.5-14.0) % Plt Count 246 (150-450) K/mm3 MPV 10.4 H (6-9.5) fl Gran % 60.6 (36.0-66.0) % Eos # (Auto) 0.07 (0-0.5) Absolute Lymphs (auto) 1.34 (1.0-4.6) Absolute Monos (auto) 0.38 (0.0-1.3) Lymphocytes % 29.2 (24.0-44.0) % Monocytes % 8.3 (0.0-12.0) % Eosinophils % 1.5 (0.00-5.0) % Basophils % 0.4 (0.0-0.4) % Absolute Granulocytes 2.78 (1.4-6.9) Basophils # 0.02 (0-0.4) Sodium 141 (137-145) mmol/L Potassium 4.3 (3.5-5.1) mmol/L Chloride 106 (98-107) mmol/L Carbon Dioxide 25 (22-30) mmol/L Anion Gap 14.6 (5-15) MEQ/L BUN 15 (9-20) mg/dL Creatinine 1.16 (0.66-1.25) mg/dL Estimated GFR > 60.0 ML/MIN Glucose 99 (74-106) mg/dL Lactic Acid 1.6 (0.4-2.0) Calcium 9.7 (8.4-10.2) mg/dL Total Bilirubin 0.80 (0.2-1.3) mg/dL AST 61 H (17-59) U/L ALT 36 (0-50) U/L Alkaline Phosphatase 59 (38-126) U/L Serum Total Protein 8.5 H (6.3-8.2) g/dL Albumin 4.8 (3.5-5.0) g/dL Amylase (30-110) U/L Lipase (23-300) U/L 01/14/19 Range/Units 15:20 WBC (4.0-10.5) K/mm3 RBC (4.1-5.6) M/mm3 Hgb (12.5-18.0) gm/dl Hct (42-50) % MCV (78-100) fl MCH (26-32) pg MCHC (32-36) g/dl RDW (11.5-14.0) % Plt Count (150-450) K/mm3 MPV (6-9.5) fl Gran % (36.0-66.0) % Eos # (Auto) (0-0.5) Absolute Lymphs (auto) (1.0-4.6) Absolute Monos (auto) (0.0-1.3) Lymphocytes % (24.0-44.0) % Monocytes % (0.0-12.0) % Eosinophils % (0.00-5.0) % Basophils % (0.0-0.4) % Absolute Granulocytes (1.4-6.9) Basophils # (0-0.4) Sodium (137-145) mmol/L Potassium (3.5-5.1) mmol/L Chloride (98-107) mmol/L Carbon Dioxide (22-30) mmol/L Anion Gap (5-15) MEQ/L BUN (9-20) mg/dL Creatinine (0.66-1.25) mg/dL Estimated GFR ML/MIN Glucose (74-106) mg/dL Lactic Acid (0.4-2.0) Calcium (8.4-10.2) mg/dL Total Bilirubin (0.2-1.3) mg/dL AST (17-59) U/L ALT (0-50) U/L Alkaline Phosphatase (38-126) U/L Serum Total Protein (6.3-8.2) g/dL Albumin (3.5-5.0) g/dL Amylase 59 (30-110) U/L Lipase 99 (23-300) U/L - Progress Progress: improved Counseled pt/family regarding: lab results, diagnosis, need for follow-up - Departure Departure Disposition: Home Clinical Impression: Chronic abdominal pain Condition: Stable Critical Care Time: No Referrals: GABRIEL NUNEZ [Primary Care Provider] - Additional Instructions: call your primary doctor and gi specialist tomorrow for outpatient control of your chronic abdominal pain. keep your appointment with your gi specialist on
[2019-01-14] MEDS ORDERED: Hydromorphone 1 mg/ml Ampule ONE (15:27)
[2019-01-14] MEDS ORDERED: Zofran 4 MG/2 ML VIAL ONE (15:27)
[2019-01-14] MEDS ORDERED: Sodium Chloride 0.9% 1000 ML 1,000 ML ONE (15:28)
[2019-01-14] MEDS: Zofran 4 MG/2 ML VIAL IV ONE (15:30)
[2019-01-14] MEDS: Sodium Chloride 0.9% 500 ML 500 ML IV ONE (15:31)
[2019-01-14] MEDS: Hydromorphone 1 mg/ml Ampule IV ONE (15:31)
[2019-01-14 15:35] LABS: BASOPHIL % 0.4 % (0.0-0.4); Basophil (Absolute #) 0.02 (0-0.4); Eosinophil % 1.5 % (0.00-5.0); Eosinophil (Absolute #) 0.07 (0-0.5); Granulocyte Absolute (ANC) 2.78 (1.4-6.9); Granulocytes % 60.6 % (36.0-66.0); Hematocrit 42.4 % (42-50); Hemoglobin 15.3 gm/dl (12.5-18.0); Lymphocyte (Absolute #) 1.34 (1.0-4.6); Lymphocytes % 29.2 % (24.0-44.0); Mean Cell Volume 87.8 fl (78-100); Mean Corpuscular Hemoglobin 31.7 pg (26-32); Mean Corpuscular Hgb Concent. 36.1 g/dl (32-36); Mean Platelet Volume 10.4 fl (6-9.5); Monocyte (Absolute #) 0.38 (0.0-1.3); Monocytes % 8.3 % (0.0-12.0); Platelet Count 246 K/mm3 (150-450); Red Blood Count 4.83 M/mm3 (4.1-5.6); Red Cell Distribution Width 12.6 % (11.5-14.0); White Blood Count 4.6 K/mm3 (4.0-10.5)
[2019-01-14 15:45] LABS: AMYLASE 59 U/L (30-110)
[2019-01-14 15:52] LABS: ALBUMIN 4.8 g/dL (3.5-5.0); ALKALINE PHOSPHATASE 59 U/L (38-126); ANION GAP 14.6 MEQ/L (5-15); BLOOD UREA NITROGEN 15 mg/dL (9-20); CHLORIDE 106 mmol/L (98-107); Calcium 9.7 mg/dL (8.4-10.2); Carbon Dioxide 25 mmol/L (22-30); Creatinine 1 1.16 mg/dL (0.66-1.25); Glucose 99 mg/dL (74-106); Potassium 4.3 mmol/L (3.5-5.1); SGOT/AST 61 U/L (17-59); SGPT/ALT 36 U/L (0-50); SODIUM 141 mmol/L (137-145); Total Protein 8.5 g/dL (6.3-8.2)
[2019-01-14 16:22] VITALS: BP 144/100
[2019-01-14 16:39] VITALS: PULSE 73; O2SAT 98
== END 2019-01-14 16:41 | disposition home or self-care (01) ==
LOC: ED 14:48
DX: R10.9 Unspecified abdominal pain (principal); G89.29 Other chronic pain; Z79.899 Other long term (current) drug therapy; M19.90 Unspecified osteoarthritis, unspecified site; Z85.72 Personal history of non-Hodgkin lymphomas
CPT/HCPCS: 36000; 36415; 80053; 82150; 83605; 83690; 85025; 93041; 96360; 96374; 96375; 99284; J1170; J2405

== ENCOUNTER 2019-03-06 21:40 | Emergency (ER) | payer MEDICARE ==
--- NOTE | 2019-03-06 22:42 | ERPHSYRPT ---
- History of Present Illness Time Seen by Provider: 03/06/19 22:30 Exam Limitations: no limitations Patient Subjective Stated Complaint: pt reports headache starting this evening around 1930, reports he is scheduled to have an MRI of his brain tomorrow for frequent headaches recently. pt reports he is prescribed naproxen for his headaches and has not taken any today. Triage Nursing Assessment: pt is aox3, conversing with staff upon exam, talkative, answers questions appropriately, pupils perrl, afebrile, resps easy and non labored, radial pulses strong and equal, cap refill < 3 seconds, pt skin pink warm dry. Physician History: patient has had a three-year duration of a left-sided headache that is throbbing in nature with photophobia. it occurred while he was playing bingo. It is similar to past headaches. Patient is scheduled for an MRI of his brain for his frequent headaches on 03/07/2019. Timing/Duration: hour(s) (3) Quality: throbbing Head Pain Location: temporal Severity of Pain-Max: moderate Severity of Pain-Current: moderate Recent Head Trauma: frequent headaches Modifying Factors: Worsens With: cold therapy, exposure to light, movement Associated Symptoms: confusion, sensitive to light, No dizziness, No fatigue, No facial pain, No fever/chills, No flushing, No light-headedness, No loss of consciousness, No nausea/vomiting, No nasal congestion, No nasal drainage, No rash, No sweating, No seizures, No speech problems, No stiff neck, No trouble walking, No vision changes, No weakness Previous symptoms: same symptoms as today Allergies/Adverse Reactions: Iodinated Contrast Media [Iodinated Contrast Media - IV Dye] Allergy (Severe, Verified 03/06/19 22:44) Rash ketorolac [From Toradol] Allergy (Intermediate, Verified 03/06/19 22:44) quetiapine fumarate [From Seroquel] Allergy (Intermediate, Verified 03/06/19 22: 44) rash, itching meperidine HCl [From Demerol] Allergy (Mild, Verified 03/06/19 22:44) Rash/hyper morphine Allergy (Mild, Verified 03/06/19 22:44) rash/ hyper oxycodone [From OxyContin] Allergy (Mild, Verified 03/06/19 22:44) Itching prednisone Allergy (Mild, Verified 03/06/19 22:44) Nausea promethazine HCl [From Phenergan] Allergy (Mild, Verified 03/06/19 22:44) rash, nausea tramadol HCl [From Ultram] Allergy (Mild, Verified 03/06/19 22:44) rash itching acetaminophen [From Percocet] Adverse Reaction (Verified 03/06/19 22:44) Home Medications: Methylphenidate HCl [Ritalin] 10 mg PO TID 02/06/17 [History] Lisinopril 10 mg [Zestril 10 MG] 10 mg PO DAILY 11/11/17 [History] Escitalopram Oxalate 10 mg [Lexapro 10 MG] 10 mg PO DAILY 12/31/18 [History] PANTOPRAZOLE 40 mg Tablet [Protonix 40MG Tablet] 40 mg PO QAM 12/31/18 [ History] Sucralfate 1 gm [Carafate 1 GM] 1 gm PO QID 12/31/18 [History] Hx Tetanus, Diphtheria Vaccination/Date Given: Yes Hx Influenza Vaccination/Date Given: Yes Hx Pneumococcal Vaccination/Date Given: No Immunizations Up to Date: Yes - Review of Systems Constitutional: No Fever, No Chills, No Fatigue Eyes: Photophobia, No Eye Pain, No Double Vision Ears, Nose, & Throat: No Ear Pain, No Nose Congestion, No Nose Discharge, No Epistaxis, No Mouth Pain, No Throat Pain Respiratory: No Cough, No Dyspnea Cardiac: No Chest Pain, No Edema, No Syncope Abdominal/Gastrointestinal: No Abdominal Pain, No Nausea, No Vomiting, No Diarrhea Genitourinary Symptoms: No Hematuria, No Flank Pain Musculoskeletal: No Back Pain, No Neck Pain Skin: No Rash Neurological: Headache, No Dizziness, No Focal Weakness, No Irritability, No Lethargy, No Sensory Changes, No Tremors Psychological: No Symptoms Endocrine: No Symptoms Hematologic/Lymphatic: No Easy Bleeding, No Easy Bruising All Other Systems: Reviewed and Negative - Past Medical History Pertinent Past Medical History: Yes Neurological History: Migraines ENT History: No Pertinent History Cardiac History: Hypertension Respiratory History: No Pertinent History Endocrine Medical History: No Pertinent History Musculoskeletal History: Osteoarthritis GI Medical History: Crohns Disease, Hernia History: No Pertinent History Psycho-Social History: Anxiety, Attention Deficit Disorder, Depression Male Reproductive Disorders: No Pertinent History Other Medical History: NON-HODGKINS LYMPHOMA REMISSION FOR 13 YEARS. abnormal biopsy of stomach and small bowel 01/2019. celiac - Past Surgical History Past Surgical History: Yes Neuro Surgical History: No Pertinent History Cardiac: No Pertinent History Respiratory: No Pertinent History Gastrointestinal: Hernia Repair Genitourinary: No Pertinent History Musculoskeletal: Orthopedic Surgery Male Surgical History: No Pertinent History Other Surgical History: port placed et removed. rt ankle fx - Social History Smoking Status: Never smoker How long have you smoked: rarely Exposure to second hand smoke: No Drug Use: none Patient Lives Alone: No - Nursing Vital Signs Nursing Vital Signs: Initial Vital Signs Temperature 98.1 F 03/06/19 22:25 Pulse Rate 95 H 03/06/19 22:25 Respiratory Rate 20 03/06/19 22:25 Blood Pressure 151/116 03/06/19 22:25 Pain Scale Pain Intensity 7 - Physical Exam General Appearance: no apparent distress Eye Exam: PERRL/EOMI, eyes nml inspection, other (negative papilledema or hemorrhage bilaterally on funduscopic exam), No scleral icterus Ears, Nose, Throat Exam: normal ENT inspection, moist mucous membranes Neck Exam: normal inspection, supple, full range of motion, No meningismus, No Brudzinski, No Kernig's, No carotid bruit, No JVD, No limited range of motion, No lymphadenopathy, No midline tenderness Respiratory Exam: normal breath sounds, lungs clear, airway intact, No respiratory distress, No diminished breath sounds, No crackles/rales, No rhonchi , No wheezing, No stridor Cardiovascular Exam: regular rate/rhythm, normal heart sounds, capillary refill <2 sec Gastrointestinal/Abdominal Exam: soft, No tenderness, No distention Back Exam: normal inspection, normal range of motion Extremity Exam: normal inspection, normal range of motion Mental Status Exam: alert, oriented x 3, 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 Exam: normal speech, PERRL, No facial droop Coordination/Gait Exam: normal cerebellar function Motor/Sensory Exam: no motor deficit, no sensory deficit Skin Exam: normal color, warm, dry, No rash - Course Nursing assessment & vital signs reviewed: Yes EKG Interpreted by Me: RATE (79), Sinus Rhythm, NORMAL AXIS, NORMAL INTERVALS, NORMAL QRS, NORMAL ST-T, Other (no change in comparison to EKG from 07/09/2018) Ordered Tests: Active Orders 24 hr Category Date Time Status EKG-ER Only STAT Care 03/06/19 23:35 Active IV Insertion STAT Care 03/06/19 22:37 Active Medication Summary Discontinued Medications Generic Name Dose Route Start Last Admin Trade Name Esdrasq PRN Reason Stop Dose Admin Dihydroergotamine Mesylate 1 mg 03/06/19 22:39 03/06/19 23:21 Dhe 1 Mg IV 03/06/19 22:40 Not Given ONCE ONE Diphenhydramine HCl 50 mg 03/06/19 22:37 03/06/19 23:27 Benadryl 50 Mg/Ml IV 03/06/19 22:38 50 mg STAT ONE Administration Diphenhydramine HCl Confirm 03/06/19 23:24 Benadryl 50 Mg/Ml Administered 03/06/19 23:25 Dose 50 mg .ROUTE .STK-MED ONE Sodium Chloride 1,000 mls @ 999 mls/hr 03/06/19 22:37 03/06/19 23:26 Sodium Chloride 0.9% 1000 Ml IV 03/06/19 23:37 999 mls/hr .Q1H1M STA Administration Sodium Chloride Confirm 03/06/19 23:24 Sodium Chloride 0.9% 1000 Ml Administered 03/06/19 23:25 Dose 1,000 mls @ ud .ROUTE .STK-MED ONE Metoclopramide HCl 10 mg 03/07/19 00:15 Reglan 10 Mg/2 Ml IV 03/07/19 00:16 STAT ONE Ondansetron HCl 4 mg 03/06/19 22:37 03/06/19 23:27 Zofran 4 Mg/2 Ml Vial IV 03/06/19 22:38 4 mg STAT ONE Administration Ondansetron HCl Confirm 03/06/19 23:24 Zofran 4 Mg/2 Ml Vial Administered 03/06/19 23:25 Dose 4 mg .ROUTE .STK-MED ONE - Progress Progress: re-examined Air Movement: good Progress Note: 03/06/19 23:35 patient states having chest pain currently. An EKG will be done. 03/07/19 00:13 the patient's chest pain has completely resolved. Patient has no shortness of breath, focal weakness, neck stiffness, or any suspicious rashes. Patient was given Reglan as fluids and IV Benadryl has helped with the headache. 03/07/19 00:48 patient's headache is improving. Patient would like to go home and take his naproxen as he has not taken this and is usually helps his headache significantly. patient has a supple neck and has no neurologic deficits. Counseled pt/family regarding: diagnosis, need for follow-up - Departure Departure Disposition: Home Clinical Impression: Headache Qualifiers: Headache type: unspecified Headache chronicity pattern: acute headache Intractability: not intractable Qualified Code(s): R51 - Headache Hypertension Qualifiers: Hypertension type: essential hypertension Qualified Code(s): I10 - Essential ( primary) hypertension Condition: Good Critical Care Time: No Referrals: GABRIEL NUNEZ [Primary Care Provider] - 03/07/19 (keep your appointment for your MRI on 03/07/2019) Instructions: Headache, Adult (DC), High Blood Pressure (DC), DASH Diet Additional Instructions: return immediately back to the Emergency Department if any worse pain, new weakness, new change in vision, uncontrollable vomiting, or any other concerning signs or symptoms that were not present during today's emergency department visit for immediate reevaluation in the emergency department.
[2019-03-06] MEDS: DHE IV ONE (23:21)
[2019-03-06] MEDS ORDERED: Sodium Chloride 0.9% 1000 ML 1,000 ML ONE (23:24)
[2019-03-06] MEDS ORDERED: Zofran 4 MG/2 ML VIAL ONE (23:24)
[2019-03-06] MEDS ORDERED: BENADRYL 50 MG/ML ONE (23:24)
[2019-03-06] MEDS: Sodium Chloride 0.9% 1000 ML 1,000 ML IV STA (23:26)
[2019-03-06] MEDS: Zofran 4 MG/2 ML VIAL IV ONE (23:27)
[2019-03-06] MEDS: BENADRYL 50 MG/ML IV ONE (23:27)
[2019-03-07] MEDS ORDERED: Reglan 10 MG/2 ML ONE (00:51)
[2019-03-07 00:53] VITALS: BP 135/94; PULSE 76; O2SAT 95
[2019-03-07] MEDS: Reglan 10 MG/2 ML IV ONE (00:53)
== END 2019-03-07 00:59 | disposition home or self-care (01) ==
LOC: ED 21:40
DX: R51 Headache (principal); I10 Essential (primary) hypertension
CPT/HCPCS: 36000; 93005; 96360; 96374; 96375; 99284; J1200; J2405

== ENCOUNTER 2019-03-25 15:53 | Emergency (ER) | payer MEDICARE ==
--- NOTE | 2019-03-25 16:22 | ERPHSYRPT ---
- History of Present Illness Time Seen by Provider: 03/25/19 16:21 Source: patient, family ([place]) Exam Limitations: no limitations Patient Subjective Stated Complaint: pt states he is having pain in l foot,does not recall injuring foot. pain began yesterday. Triage Nursing Assessment: pt is alert and oriented 3+ pulse palpable in l foot Method of Injury: unknown Occurred: this morning Quality: constant Severity of Pain-Max: moderate Severity of Pain-Current: moderate Lower Extremities Pain: foot: right Modifying Factors: Improves With: movement (makes it worse, weight bearing difficult) Associated Symptoms: none, other (This pain hit him just as he was getting ready to go to a court-ordered class.) Allergies/Adverse Reactions: Iodinated Contrast Media [Iodinated Contrast Media - IV Dye] Allergy (Severe, Verified 03/25/19 16:08) Rash ketorolac [From Toradol] Allergy (Intermediate, Verified 03/25/19 16:08) quetiapine fumarate [From Seroquel] Allergy (Intermediate, Verified 03/25/19 16: 08) rash, itching meperidine HCl [From Demerol] Allergy (Mild, Verified 03/25/19 16:08) Rash/hyper morphine Allergy (Mild, Verified 03/25/19 16:08) rash/ hyper oxycodone [From OxyContin] Allergy (Mild, Verified 03/25/19 16:08) Itching prednisone Allergy (Mild, Verified 03/25/19 16:08) Nausea promethazine HCl [From Phenergan] Allergy (Mild, Verified 03/25/19 16:08) rash, nausea tramadol HCl [From Ultram] Allergy (Mild, Verified 03/25/19 16:08) rash itching acetaminophen [From Percocet] Adverse Reaction (Verified 03/25/19 16:08) Home Medications: Methylphenidate HCl [Ritalin] 10 mg PO TID 02/06/17 [History] Escitalopram Oxalate 10 mg [Lexapro 10 MG] 10 mg PO DAILY 12/31/18 [History] PANTOPRAZOLE 40 mg Tablet [Protonix 40MG Tablet] 40 mg PO QAM 12/31/18 [ History] Sucralfate 1 gm [Carafate 1 GM] 1 gm PO QID 12/31/18 [History] Aspirin 81 mg PO DAILY 03/25/19 [History] Hx Tetanus, Diphtheria Vaccination/Date Given: No (2 years ago) Hx Influenza Vaccination/Date Given: Yes Hx Pneumococcal Vaccination/Date Given: No - Review of Systems Constitutional: No Symptoms, No Fever, No Chills Eyes: No Symptoms Ears, Nose, & Throat: No Symptoms Respiratory: No Symptoms, No Cough, No Dyspnea Cardiac: No Symptoms, No Chest Pain, No Edema, No Syncope Abdominal/Gastrointestinal: No Symptoms, No Abdominal Pain, No Nausea, No Vomiting, No Diarrhea Genitourinary Symptoms: No Symptoms, No Dysuria Musculoskeletal: Joint Pain (left foot pain), No Back Pain, No Neck Pain, No Injury Skin: No Symptoms, No Rash Neurological: No Symptoms, No Dizziness, No Focal Weakness, No Sensory Changes Psychological: No Symptoms Endocrine: No Symptoms Hematologic/Lymphatic: No Symptoms Immunological/Allergic: No Symptoms All Other Systems: Reviewed and Negative - Past Medical History Pertinent Past Medical History: Yes Neurological History: Migraines ENT History: No Pertinent History Cardiac History: Hypertension Respiratory History: No Pertinent History Endocrine Medical History: No Pertinent History Musculoskeletal History: Osteoarthritis GI Medical History: Crohns Disease History: No Pertinent History Psycho-Social History: Anxiety, Attention Deficit Disorder, Depression Male Reproductive Disorders: No Pertinent History Other Medical History: celiac, adhd, non hodgkins lymphoma - Past Surgical History Past Surgical History: Yes Neuro Surgical History: No Pertinent History Cardiac: No Pertinent History Respiratory: No Pertinent History Gastrointestinal: Hernia Repair Genitourinary: No Pertinent History Musculoskeletal: Orthopedic Surgery Male Surgical History: No Pertinent History Other Surgical History: r shoulder - Social History Smoking Status: Former smoker How long have you smoked: rarely Exposure to second hand smoke: No Drug Use: none Patient Lives Alone: No - Nursing Vital Signs Nursing Vital Signs: Initial Vital Signs Temperature 97.5 F 03/25/19 15:55 Pulse Rate 99 H 03/25/19 15:55 Respiratory Rate 18 03/25/19 15:55 Blood Pressure 138/85 03/25/19 15:55 O2 Sat by Pulse Oximetry 97 03/25/19 15:55 Pain Scale Pain Intensity 4 - Physical Exam General Appearance: mild distress, alert, anxiety Neck Exam: normal inspection Cardiovascular/Respiratory Exam: chest non-tender, normal breath sounds Gastrointestinal/Abdominal Exam: non-tender Back Exam: normal inspection Hips Exam: bilateral: non-tender, normal inspection, normal range of motion, no evidence of injury Legs Exam: bilateral leg: non-tender Knees Exam: bilateral knee: non-tender, normal inspection, normal range of motion, no evidence of injury Ankle Exam: bilateral ankle: non-tender, normal inspection, normal range of motion, no evidence of injury Foot Exam: right foot: non-tender (only left foot TTP dorsal foot), left foot: soft tissue tenderness (left forefoot), bilateral foot: normal inspection Neuro/Tendon Exam: normal sensation, normal motor functions Mental Status Exam: alert, oriented x 3 Skin Exam: normal color, warm, dry SpO2 Interpretation: normal SpO2: 97 O2 Delivery: Room Air Ordered Tests: Active Orders 24 hr Category Date Time Status Splint STAT Care 03/25/19 17:35 Active FOOT (MINIMUM 3 VIEWS) Stat Exams 03/25/19 16:51 Completed - Departure Departure Disposition: Home Clinical Impression: Sprain of foot, left Qualifiers: Encounter type: initial encounter Qualified Code(s): S93.602A - Unspecified sprain of left foot, initial encounter Condition: Stable Critical Care Time: No Referrals: GABRIEL NUNEZ [Primary Care Provider] - As Directed (Orthopedic clinic.) Instructions: Foot Sprain (DC) Additional Instructions: Wear foot support and use crutches as needed. Schedule appt. at orthopedic clinic. Forms: Work/School Release Form Plan of Treatment: RICE, NSAID, see ortho. Prescriptions: Naproxen 500 mg [Naprosyn 500 MG] 500 mg PO BIDPRN PRN #30 tablet PRN Reason: Pain
--- NOTE | 2019-03-25 17:24 | XRAY ---
Exam: 3 views of the left foot from 03/25/2019. Comparison: None of the left foot. Indication: No known injury, complains of pain in left foot, mainly area of toes, for the last 4 days. Findings: AP, oblique, and lateral radiographs of the left foot were obtained. I see no acute fracture or dislocation, particularly within the toes of the left foot. The MTP joints appear essentially unremarkable, as do the interphalangeal joints of the toes. There is normal plantar arch. No radiopaque soft tissue foreign body is seen. Joint spaces of the hindfoot and midfoot appear unremarkable. No other focal bone lesion is seen. Impression: 1. No acute fracture or dislocation of the left foot is seen. No other focal bone abnormality is seen. 2. No radiopaque soft tissue foreign body is seen within the left foot.
[2019-03-25 17:52] VITALS: BP 129/88; PULSE 70
[2019-03-25 21:52] VITALS: O2SAT 97
== END 2019-03-25 17:52 | disposition home or self-care (01) ==
LOC: ED 15:53
DX: S93.602A Unspecified sprain of left foot, initial encounter (principal); M79.672 Pain in left foot
CPT/HCPCS: 73630; 99284

== ENCOUNTER 2019-05-26 18:06 | Emergency (ER) | payer MEDICARE ==
--- NOTE | 2019-05-26 18:12 | ERPHSYRPT ---
- History of Present Illness Time Seen by Provider: 05/26/19 18:12 Historian: patient, family Exam Limitations: no limitations Physician History: 33 y/o white male presents with few day h/o unable to hold down oral intake. pt has chronic abd pain and recurrent vomiting. 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 denies diarrhea. denies fever. denies cough. pt states he cannot take zofran but has no problem with phenergan. this was also verified by nurse. Timing/Duration: day(s) (3) Quality: aching Abdominal Pain Onset Location: generalized abdomen Pain Radiation: no radiation Severity of Pain-Max: mild Severity of Pain-Current: mild Modifying Factors: Improves With: vomiting Associated Symptoms: diarrhea, loss of appetite, nausea, vomiting Previous symptoms: same symptoms as today Allergies/Adverse Reactions: Iodinated Contrast Media [Iodinated Contrast Media - IV Dye] Allergy (Severe, Verified 03/25/19 16:08) Rash ketorolac [From Toradol] Allergy (Intermediate, Verified 03/25/19 16:08) quetiapine fumarate [From Seroquel] Allergy (Intermediate, Verified 03/25/19 16: 08) rash, itching meperidine HCl [From Demerol] Allergy (Mild, Verified 03/25/19 16:08) Rash/hyper morphine Allergy (Mild, Verified 03/25/19 16:08) rash/ hyper oxycodone [From OxyContin] Allergy (Mild, Verified 03/25/19 16:08) Itching prednisone Allergy (Mild, Verified 03/25/19 16:08) Nausea promethazine HCl [From Phenergan] Allergy (Mild, Verified 03/25/19 16:08) rash, nausea tramadol HCl [From Ultram] Allergy (Mild, Verified 03/25/19 16:08) rash itching ondansetron [From Zofran] Allergy (Verified 05/26/19 19:30) Hives acetaminophen [From Percocet] Adverse Reaction (Verified 03/25/19 16:08) Home Medications: Methylphenidate HCl [Ritalin] 10 mg PO TID 02/06/17 [History] Escitalopram Oxalate 10 mg [Lexapro 10 MG] 10 mg PO DAILY 12/31/18 [History] PANTOPRAZOLE 40 mg Tablet [Protonix 40MG Tablet] 40 mg PO QAM 12/31/18 [ History] Sucralfate 1 gm [Carafate 1 GM] 1 gm PO QID 12/31/18 [History] Aspirin 81 mg PO DAILY 03/25/19 [History] Hx Tetanus, Diphtheria Vaccination/Date Given: No (2 years ago) Hx Influenza Vaccination/Date Given: Yes Hx Pneumococcal Vaccination/Date Given: No - Review of Systems Constitutional: No Symptoms Eyes: No Symptoms Ears, Nose, & Throat: No Symptoms Respiratory: No Symptoms Cardiac: No Symptoms Abdominal/Gastrointestinal: Abdominal Pain (mild ), Nausea, Vomiting, No Diarrhea Genitourinary Symptoms: No Symptoms Musculoskeletal: No Symptoms Skin: No Symptoms Neurological: No Symptoms Psychological: No Symptoms Endocrine: No Symptoms Hematologic/Lymphatic: No Symptoms Immunological/Allergic: No Symptoms All Other Systems: Reviewed and Negative - Past Medical History Pertinent Past Medical History: Yes Neurological History: Migraines ENT History: No Pertinent History Cardiac History: Hypertension Respiratory History: No Pertinent History Endocrine Medical History: No Pertinent History Musculoskeletal History: Osteoarthritis GI Medical History: Crohns Disease History: No Pertinent History Psycho-Social History: Anxiety, Attention Deficit Disorder, Depression Male Reproductive Disorders: No Pertinent History Other Medical History: celiac, adhd, non hodgkins lymphoma - Past Surgical History Past Surgical History: Yes Neuro Surgical History: No Pertinent History Cardiac: No Pertinent History Respiratory: No Pertinent History Gastrointestinal: Hernia Repair Genitourinary: No Pertinent History Musculoskeletal: Orthopedic Surgery Male Surgical History: No Pertinent History Other Surgical History: r shoulder - Social History Smoking Status: Former smoker How long have you smoked: rarely Exposure to second hand smoke: No Drug Use: none Patient Lives Alone: No - Nursing Vital Signs Nursing Vital Signs: Initial Vital Signs Temperature 97.7 F 05/26/19 18:35 Pulse Rate 90 05/26/19 18:35 Respiratory Rate 20 05/26/19 18:35 Blood Pressure 147/95 05/26/19 18:35 O2 Sat by Pulse Oximetry 98 05/26/19 18:35 Pain Scale Pain Intensity 6 - Physical Exam General Appearance: no apparent distress, alert, anxiety Eye Exam: PERRL/EOMI, eyes nml inspection Ears, Nose, Throat Exam: normal ENT inspection, moist mucous membranes Neck Exam: normal inspection, non-tender, supple, full range of motion Respiratory Exam: normal breath sounds, lungs clear, airway intact, No chest tenderness, No respiratory distress Cardiovascular Exam: regular rate/rhythm, normal heart sounds, normal peripheral pulses Gastrointestinal/Abdomen Exam: soft, normal bowel sounds, No tenderness, No guarding Rectal Exam: not done Back Exam: normal inspection, normal range of motion, No CVA tenderness, No vertebral tenderness Extremity Exam: normal inspection, normal range of motion, pelvis stable Neurologic Exam: alert, oriented x 3, cooperative, independent marketing consultant II-XII nml as tested Skin Exam: normal color, warm, dry Lymphatic Exam: No adenopathy SpO2 Interpretation: normal O2 Delivery: Room Air - Course Nursing assessment & vital signs reviewed: Yes Ordered Tests: Active Orders 24 hr Category Date Time Status IV Insertion STAT Care 05/26/19 19:10 Active AMYLASE Stat Lab 05/26/19 19:10 Completed CBC W DIFF Stat Lab 05/26/19 19:10 Completed CMP Stat Lab 05/26/19 19:10 Completed LIPASE Stat Lab 05/26/19 19:10 Completed Lactic Acid Stat Lab 05/26/19 21:35 Completed UA W/RFX UR CULTURE Stat Lab 05/26/19 19:57 Completed Medication Summary Discontinued Medications Generic Name Dose Route Start Last Admin Trade Name Freq PRN Reason Stop Dose Admin Hydromorphone HCl 1 mg 05/26/19 19:10 05/26/19 19:58 Hydromorphone 1 Mg/Ml Ampule IV 05/26/19 19:11 1 mg STAT ONE Administration Hydromorphone HCl Confirm 05/26/19 19:25 Hydromorphone 1 Mg/Ml Ampule Administered 05/26/19 19:26 Dose 1 mg .ROUTE .STK-MED ONE Sodium Chloride 1,000 mls @ 999 mls/hr 05/26/19 19:10 05/26/19 19:44 Sodium Chloride 0.9% 1000 Ml IV 05/26/19 20:10 999 mls/hr .Q1H1M STA Administration Sodium Chloride Confirm 05/26/19 19:26 Sodium Chloride 0.9% 1000 Ml Administered 05/26/19 19:27 Dose 1,000 mls @ ud .ROUTE .STK-MED ONE Ondansetron HCl 4 mg 05/26/19 19:10 05/26/19 19:56 Zofran 4 Mg/2 Ml Vial IV 05/26/19 19:11 Not Given STAT ONE Ondansetron HCl Confirm 05/26/19 19:25 Zofran 4 Mg/2 Ml Vial Administered 05/26/19 19:26 Dose 4 mg .ROUTE .STK-MED ONE Promethazine HCl 12.5 mg 05/26/19 19:47 05/26/19 19:55 Phenergan 25 Mg Inj IV 05/26/19 19:48 12.5 mg STAT ONE Administration Promethazine HCl Confirm 05/26/19 19:50 Phenergan 25 Mg Inj Administered 05/26/19 19:51 Dose 25 mg .ROUTE .STK-MED ONE Lab/Rad Data: Laboratory Result Diagrams 05/26/19 19:10 05/26/19 19:10 Laboratory Results 05/26/19 05/26/19 05/26/19 Range/Units 21:35 19:57 19:10 WBC (4.0-10.5) K/mm3 RBC (4.1-5.6) M/mm3 Hgb (12.5-18.0) gm/dl Hct (42-50) % MCV (78-100) fl MCH (26-32) pg MCHC (32-36) g/dl RDW (11.5-14.0) % Plt Count (150-450) K/mm3 MPV (6-9.5) fl Gran % (36.0-66.0) % Eos # (Auto) (0-0.5) Absolute Lymphs (auto) (1.0-4.6) Absolute Monos (auto) (0.0-1.3) Lymphocytes % (24.0-44.0) % Monocytes % (0.0-12.0) % Eosinophils % (0.00-5.0) % Basophils % (0.0-0.4) % Absolute Granulocytes (1.4-6.9) Basophils # (0-0.4) Sodium 144 (137-145) mmol/L Potassium 4.0 (3.5-5.1) mmol/L Chloride 107 (98-107) mmol/L Carbon Dioxide 25 (22-30) mmol/L Anion Gap 16.0 H (5-15) MEQ/L BUN 10 (9-20) mg/dL Creatinine 0.78 (0.66-1.25) mg/dL Estimated GFR > 60.0 ML/MIN Glucose 117 H (74-106) mg/dL Lactic Acid 1.8 (0.4-2.0) Calcium 9.8 (8.4-10.2) mg/dL Total Bilirubin 0.50 (0.2-1.3) mg/dL AST 48 (17-59) U/L ALT 42 (0-50) U/L Alkaline Phosphatase 61 (38-126) U/L Serum Total Protein 8.5 H (6.3-8.2) g/dL Albumin 4.6 (3.5-5.0) g/dL Amylase 77 (30-110) U/L Lipase 104 (23-300) U/L Urine Color YELLOW (YELLOW) Urine Appearance CLEAR (CLEAR) Urine pH 6.0 (5-6) Ur Specific Satin 1.019 (1.005-1.025) Urine Protein NEGATIVE (Negative) Urine Ketones NEGATIVE (NEGATIVE) Urine Blood NEGATIVE (0-5) Lambert/ul Urine Nitrite NEGATIVE (NEGATIVE) Urine Bilirubin NEGATIVE (NEGATIVE) Urine Urobilinogen NEGATIVE (0-1) mg/dL Ur Leukocyte Esterase NEGATIVE (NEGATIVE) Urine WBC (Auto) NONE (0-5) /HPF Urine RBC (Auto) NONE (0-2) /HPF U Epithel Cells (Auto) NONE (FEW) /HPF Urine Bacteria (Auto) NONE (NEGATIVE) /HPF Urine Mucus (Auto) SLIGHT (NEGATIVE) /HPF Urine Culture Reflexed NO (NO) Urine Glucose NEGATIVE (NEGATIVE) mg/dL 05/26/19 Range/Units 19:10 WBC 5.5 (4.0-10.5) K/mm3 RBC 4.65 (4.1-5.6) M/mm3 Hgb 14.3 (12.5-18.0) gm/dl Hct 40.9 L (42-50) % MCV 88.0 (78-100) fl MCH 30.8 (26-32) pg MCHC 35.0 (32-36) g/dl RDW 12.8 (11.5-14.0) % Plt Count 257 (150-450) K/mm3 MPV 10.1 H (6-9.5) fl Gran % 65.9 (36.0-66.0) % Eos # (Auto) 0.10 (0-0.5) Absolute Lymphs (auto) 1.35 (1.0-4.6) Absolute Monos (auto) 0.39 (0.0-1.3) Lymphocytes % 24.7 (24.0-44.0) % Monocytes % 7.1 (0.0-12.0) % Eosinophils % 1.8 (0.00-5.0) % Basophils % 0.5 (0.0-0.4) % Absolute Granulocytes 3.59 (1.4-6.9) Basophils # 0.03 (0-0.4) Sodium (137-145) mmol/L Potassium (3.5-5.1) mmol/L Chloride (98-107) mmol/L Carbon Dioxide (22-30) mmol/L Anion Gap (5-15) MEQ/L BUN (9-20) mg/dL Creatinine (0.66-1.25) mg/dL Estimated GFR ML/MIN Glucose (74-106) mg/dL Lactic Acid (0.4-2.0) Calcium (8.4-10.2) mg/dL Total Bilirubin (0.2-1.3) mg/dL AST (17-59) U/L ALT (0-50) U/L Alkaline Phosphatase (38-126) U/L Serum Total Protein (6.3-8.2) g/dL Albumin (3.5-5.0) g/dL Amylase (30-110) U/L Lipase (23-300) U/L Urine Color (YELLOW) Urine Appearance (CLEAR) Urine pH (5-6) Ur Specific Satin (1.005-1.025) Urine Protein (Negative) Urine Ketones (NEGATIVE) Urine Blood (0-5) Lambert/ul Urine Nitrite (NEGATIVE) Urine Bilirubin (NEGATIVE) Urine Urobilinogen (0-1) mg/dL Ur Leukocyte Esterase (NEGATIVE) Urine WBC (Auto) (0-5) /HPF Urine RBC (Auto) (0-2) /HPF U Epithel Cells (Auto) (FEW) /HPF Urine Bacteria (Auto) (NEGATIVE) /HPF Urine Mucus (Auto) (NEGATIVE) /HPF Urine Culture Reflexed (NO) Urine Glucose (NEGATIVE) mg/dL - Progress Progress: improved Counseled pt/family regarding: lab results, diagnosis, need for follow-up - Departure Departure Disposition: Home Clinical Impression: Vomiting Condition: Stable Critical Care Time: No Referrals: GABRIEL NUNEZ [Primary Care Provider] - Additional Instructions: drink plenty of clear liquids. follow up with [employer] tomorrow Prescriptions: Promethazine HCl 25 mg [Phenergan 25 mg] 25 mg PO Q8H PRN PRN #10 tablet PRN Reason: Vomiting
[2019-05-26] MEDS ORDERED: Sodium Chloride 0.9% 1000 ML 1,000 ML IV STA (19:10)
[2019-05-26] MEDS ORDERED: Zofran 4 MG/2 ML VIAL IV ONE (19:10)
[2019-05-26] MEDS ORDERED: Hydromorphone 1 mg/ml Ampule IV ONE (19:10)
[2019-05-26] MEDS ORDERED: Hydromorphone 1 mg/ml Ampule ONE (19:25)
[2019-05-26] MEDS ORDERED: Zofran 4 MG/2 ML VIAL ONE (19:25)
[2019-05-26] MEDS ORDERED: Sodium Chloride 0.9% 1000 ML 1,000 ML ONE (19:26)
[2019-05-26] MEDS ORDERED: Phenergan 25 MG INJ IV ONE (19:47)
[2019-05-26] MEDS ORDERED: Phenergan 25 MG INJ ONE (19:50)
[2019-05-26 20:07] LABS: Absolute Neutrophil Ct (ANC) 3.59 (1.4-6.9); BASOPHIL % 0.5 % (0.0-0.4); Basophil (Absolute #) 0.03 (0-0.4); Eosinophil % 1.8 % (0.00-5.0); Hematocrit 40.9 % (42-50); Hemoglobin 14.3 gm/dl (12.5-18.0); Lymphocyte (Absolute #) 1.35 (1.0-4.6); Lymphocytes % 24.7 % (24.0-44.0); Mean Corpuscular Hemoglobin 30.8 pg (26-32); Mean Platelet Volume 10.1 fl (6-9.5); Monocyte (Absolute #) 0.39 (0.0-1.3); Monocytes % 7.1 % (0.0-12.0); Neutrophil % 65.9 % (36.0-66.0); Platelet Count 257 K/mm3 (150-450); Red Blood Count 4.65 M/mm3 (4.1-5.6); Red Cell Distribution Width 12.8 % (11.5-14.0); White Blood Count 5.5 K/mm3 (4.0-10.5)
[2019-05-26 20:10] LABS: Appearance CLEAR (CLEAR); Bilirubin NEGATIVE (NEGATIVE); Blood NEGATIVE Ery/ul (0-5); Glucose NEGATIVE (NEGATIVE); Ketones NEGATIVE (NEGATIVE); Leukocyte Esterase NEGATIVE (NEGATIVE); Mucus SLIGHT /HPF (NEGATIVE); Nitrite NEGATIVE (NEGATIVE); Protein,Urine Dip NEGATIVE (Negative); Specific Gravity 1.019 (1.005-1.025); Urobilinogen NEGATIVE mg/dL (0-1)
[2019-05-26 20:15] VITALS: O2SAT 96
[2019-05-26 20:23] LABS: ALBUMIN 4.6 g/dL (3.5-5.0); ALKALINE PHOSPHATASE 61 U/L (38-126); AMYLASE 77 U/L (30-110); BLOOD UREA NITROGEN 10 mg/dL (9-20); CHLORIDE 107 mmol/L (98-107); Calcium 9.8 mg/dL (8.4-10.2); Carbon Dioxide 25 mmol/L (22-30); Creatinine 1 0.78 mg/dL (0.66-1.25); Glucose 117 mg/dL (74-106); LIPASE 104 U/L (23-300); SGOT/AST 48 U/L (17-59); SGPT/ALT 42 U/L (0-50); SODIUM 144 mmol/L (137-145); Total Protein 8.5 g/dL (6.3-8.2)
[2019-05-26 22:26] VITALS: BP 143/90; PULSE 77
== END 2019-05-26 22:39 | disposition home or self-care (01) ==
LOC: ED 18:06
DX: R11.10 Vomiting, unspecified (principal)
CPT/HCPCS: 36000; 36415; 80053; 81001; 82150; 83605; 83690; 85025; 96360; 96374; 96375; 99284; J1170; J2405; J2550

== ENCOUNTER 2019-06-02 20:49 | Emergency (ER) | payer MEDICARE ==
[2019-06-02] MEDS ORDERED: DUONEB 0.5-3 MG/3 ml Neb IH ONE (20:57)
[2019-06-02] MEDS ORDERED: Sodium Chloride 0.9% 1000 ML 1,000 ML IV STA (20:57)
[2019-06-02] MEDS ORDERED: Xopenex 1.25 MG/0.5 ML UD NEBULE IH ONE ×2 (21:04→21:05)
[2019-06-02] MEDS ORDERED: Sodium Chloride 0.9% 1000 ML 1,000 ML ONE (21:11)
[2019-06-02 21:12] LABS: Absolute Neutrophil Ct (ANC) 9.27 (1.4-6.9); BASOPHIL % 0.3 % (0.0-0.4); Basophil (Absolute #) 0.03 (0-0.4); Eosinophil % 0.6 % (0.00-5.0); Eosinophil (Absolute #) 0.07 (0-0.5); Hematocrit 41.3 % (42-50); Hemoglobin 14.5 gm/dl (12.5-18.0); Lymphocyte (Absolute #) 1.34 (1.0-4.6); Lymphocytes % 11.5 % (24.0-44.0); Mean Cell Volume 87.5 fl (78-100); Mean Corpuscular Hemoglobin 30.7 pg (26-32); Mean Corpuscular Hgb Concent. 35.1 g/dl (32-36); Mean Platelet Volume 9.9 fl (6-9.5); Monocyte (Absolute #) 0.96 (0.0-1.3); Monocytes % 8.2 % (0.0-12.0); Neutrophil % 79.4 % (36.0-66.0); Platelet Count 260 K/mm3 (150-450); Red Blood Count 4.72 M/mm3 (4.1-5.6); White Blood Count 11.7 K/mm3 (4.0-10.5)
[2019-06-02 21:31] LABS: ALBUMIN 4.8 g/dL (3.5-5.0); ALKALINE PHOSPHATASE 60 U/L (38-126); BLOOD UREA NITROGEN 10 mg/dL (9-20); CHLORIDE 104 mmol/L (98-107); Calcium 9.6 mg/dL (8.4-10.2); Carbon Dioxide 24 mmol/L (22-30); Creatinine 1 0.91 mg/dL (0.66-1.25); Glucose 128 mg/dL (74-106); MAGNESIUM 1.6 mg/dL (1.6-2.3); NT PRO BNP 23.9 pg/mL (0-450); Potassium 3.9 mmol/L (3.5-5.1); SGOT/AST 45 U/L (17-59); SGPT/ALT 40 U/L (0-50); SODIUM 143 mmol/L (137-145)
[2019-06-02] MEDS ORDERED: TYLENOL EXTRA STRENGTH 500 MG PO STA (21:43)
[2019-06-02] MEDS ORDERED: TYLENOL EXTRA STRENGTH 500 MG ONE (21:50)
[2019-06-02] MEDS ORDERED: ROCEPHIN 1 Gm-D5w 50 ml Bag** 1 G/50 ML IVPB IV STA (21:56)
[2019-06-02 22:01] LABS: INFLUENZA A NEGATIVE (NEGATIVE); INFLUENZA B NEGATIVE (NEGATIVE); RESPIRATORY SYNCTIAL VIRUS NEGATIVE (Negative)
[2019-06-02] MEDS ORDERED: ROCEPHIN 1 Gm-D5w 50 ml Bag** 1 G/50 ML IVPB IV ONE (22:08)
--- NOTE | 2019-06-02 22:21 | ERPHSYRPT ---
- History of Present Illness Time Seen by Provider: 06/02/19 21:30 Source: patient Exam Limitations: no limitations Patient Subjective Stated Complaint: pt states he has had a cough and pain in chest while coughing since yesterday, was vomiting last week, pt states vomiting now comes and goes. Triage Nursing Assessment: pt alert and oriented, states he has been feeling short of breath since yesterday with accompanied cough. pt rates pain in chest at 5/10 Physician History: ppatient is a 33-year-old white male who presents with a complaint of severe cough for one week. He also has had some intermittent nausea and vomiting. He has been extremely fatigued and sleeping frequently and often he denies any fevers says he is producing some yellow sputum. He reports a history of Crohn' s disease and recurrent lymphoma. Presently he is undergoing further evaluation for his lymphoma recurrence and has not at this point received any additional therapy for that. Timing/Duration: day(s) (7) Activities at Onset: none Severity of Dyspnea-Max: moderate Severity of Dyspnea-Current: moderate Possible Cause: unknown cause Modifying Factors: Improves With: coughing, deep breath, exertion Associated Symptoms: cough, chest pain/discomfort, wheezing, chills International travel in last 2 weeks: No Allergies/Adverse Reactions: Iodinated Contrast Media [Iodinated Contrast Media - IV Dye] Allergy (Severe, Verified 06/02/19 21:06) Rash ketorolac [From Toradol] Allergy (Intermediate, Verified 06/02/19 21:06) quetiapine fumarate [From Seroquel] Allergy (Intermediate, Verified 06/02/19 21: 06) rash, itching meperidine HCl [From Demerol] Allergy (Mild, Verified 06/02/19 21:06) Rash/hyper morphine Allergy (Mild, Verified 06/02/19 21:06) rash/ hyper oxycodone [From OxyContin] Allergy (Mild, Verified 06/02/19 21:06) Itching prednisone Allergy (Mild, Verified 06/02/19 21:06) Nausea tramadol HCl [From Ultram] Allergy (Mild, Verified 06/02/19 21:06) rash itching ondansetron [From Zofran] Allergy (Verified 06/02/19 21:06) Hives acetaminophen [From Percocet] Adverse Reaction (Verified 06/02/19 21:06) Home Medications: Methylphenidate HCl [Ritalin] 10 mg PO TID 02/06/17 [History] Escitalopram Oxalate 10 mg [Lexapro 10 MG] 10 mg PO DAILY 12/31/18 [History] PANTOPRAZOLE 40 mg Tablet [Protonix 40MG Tablet] 40 mg PO QAM 12/31/18 [ History] Sucralfate 1 gm [Carafate 1 GM] 1 gm PO QID 12/31/18 [History] Aspirin 81 mg PO DAILY 03/25/19 [History] Hx Tetanus, Diphtheria Vaccination/Date Given: No (2 years ago) Hx Influenza Vaccination/Date Given: Yes Hx Pneumococcal Vaccination/Date Given: No - Review of Systems Constitutional: No Fever, No Chills Eyes: No Symptoms Ears, Nose, & Throat: No Symptoms Respiratory: Cough, Dyspnea, Wheezing Cardiac: No Chest Pain, No Edema, No Syncope Abdominal/Gastrointestinal: Abdominal Pain, Nausea, Vomiting, No Diarrhea Genitourinary Symptoms: No Dysuria Musculoskeletal: No Back Pain, No Neck Pain Skin: No Rash Neurological: No Dizziness, No Focal Weakness, No Sensory Changes Psychological: No Symptoms Endocrine: No Symptoms All Other Systems: Reviewed and Negative - Past Medical History Pertinent Past Medical History: Yes Neurological History: Migraines ENT History: No Pertinent History Cardiac History: Hypertension Respiratory History: No Pertinent History Endocrine Medical History: No Pertinent History Musculoskeletal History: Osteoarthritis GI Medical History: Crohns Disease History: No Pertinent History Psycho-Social History: Anxiety, Attention Deficit Disorder, Depression Male Reproductive Disorders: No Pertinent History Other Medical History: celiac, adhd, non hodgkins lymphoma - Past Surgical History Past Surgical History: Yes Neuro Surgical History: No Pertinent History Cardiac: No Pertinent History Respiratory: No Pertinent History Gastrointestinal: Hernia Repair Genitourinary: No Pertinent History Musculoskeletal: Orthopedic Surgery Male Surgical History: No Pertinent History Other Surgical History: r shoulder, rotator cuff - Social History Smoking Status: Never smoker How long have you smoked: rarely Exposure to second hand smoke: No Drug Use: none Patient Lives Alone: No - Nursing Vital Signs Nursing Vital Signs: Initial Vital Signs Temperature 98.8 F 06/02/19 20:53 Pulse Rate 121 H 06/02/19 20:53 Respiratory Rate 22 06/02/19 20:53 Blood Pressure 152/118 06/02/19 20:53 O2 Sat by Pulse Oximetry 97 06/02/19 20:53 Pain Scale Pain Intensity 5 - Physical Exam General Appearance: mild distress, alert Eye Exam: PERRL/EOMI Neck Exam: normal inspection, supple Respiratory Exam: crackles/rales, rhonchi, wheezing Cardiovascular/Chest Exam: normal heart sounds, regular rate/rhythm Abdominal/Gastrointestinal Exam: soft, No tenderness, No distention, No mass Extremity Exam: non-tender, normal range of motion, normal inspection, no calf tenderness, no pedal edema Peripheral Pulses Exam: carotid (R): 2+, carotid (L): 2+ Neurologic Exam: alert, oriented x 3, cooperative, student support counselor II-XII nml as tested, sensation nml, No motor deficits Skin Exam: normal color, warm, No dry Lymphatic Exam: No adenopathy SpO2 Interpretation: normal SpO2: 97 O2 Delivery: Room Air - Course Nursing assessment & vital signs reviewed: Yes EKG Interpreted by Me: RATE, Sinus Tach (and), NORMAL AXIS, NORMAL INTERVALS, NORMAL QRS (aall), Non-specific ST Changes - Radiology Exams Chest X-ray Interpretation: Interpreted by me, Negative Ordered Tests: Active Orders 24 hr Category Date Time Status EKG-ER Only STAT Care 06/02/19 20:57 Active CHEST 1 VIEW (PORTABLE) Stat Exams 06/02/19 20:58 Taken BLOOD CULTURE Stat Lab 06/02/19 21:25 Received CBC W DIFF Stat Lab 06/02/19 21:08 Completed CMP Stat Lab 06/02/19 21:08 Completed MAGNESIUM Stat Lab 06/02/19 21:08 Completed NT PRO BNP Stat Lab 06/02/19 21:08 Completed Peak Expiratory Flow Rate ONCE RT 06/02/19 21:06 Active Respiratory Therapy Assessment DAILY RT 06/02/19 21:06 Active Medication Summary Generic Name Dose Route Start Last Admin Trade Name Freq PRN Reason Stop Dose Admin Ceftriaxone Sodium/Dextrose 1 g in 50 mls @ 100 mls/hr 06/02/19 21:56 22:09 Rocephin 1 Gm-D5w 50 Ml Bag IV 06/02/19 22:25 100 ml/hr STAT STA 100 mls/hr Administration Discontinued Medications Generic Name Dose Route Start Last Admin Trade Name Freq PRN Reason Stop Dose Admin Acetaminophen 1,000 mg 06/02/19 21:43 06/02/19 21:51 Tylenol Extra Strength 500 Mg PO 06/02/19 21:44 1,000 mg STAT STA Administration Acetaminophen Confirm 06/02/19 21:50 Tylenol Extra Strength 500 Mg Administered 06/02/19 21:51 Dose 1,000 mg .ROUTE .STK-MED ONE Albuterol/Ipratropium 3 ml 06/02/19 20:57 Duoneb 0.5-3 Mg/3 Ml Neb IH 06/02/19 20:58 STAT ONE Sodium Chloride 1,000 mls @ 999 mls/hr 06/02/19 20:57 06/02/19 21:14 Sodium Chloride 0.9% 1000 Ml IV 06/02/19 21:57 999 mls/hr .Q1H1M STA Administration Sodium Chloride Confirm 06/02/19 21:11 Sodium Chloride 0.9% 1000 Ml Administered 06/02/19 21:12 Dose 1,000 mls @ ud .ROUTE .STK-MED ONE Ceftriaxone Sodium/Dextrose Confirm 06/02/19 22:08 Rocephin 1 Gm-D5w 50 Ml Bag Administered 06/02/19 22:09 Dose 1 g in 50 mls @ ud IV .STK-MED ONE Levalbuterol HCl Confirm 06/02/19 21:04 Xopenex 1.25 Mg/0.5 Ml Ud Nebule Administered 06/02/19 21:05 Dose 1.25 mg IH .STK-MED ONE Levalbuterol HCl 1.25 mg 06/02/19 21:05 06/02/19 21:19 Xopenex 1.25 Mg/0.5 Ml Ud Nebule IH 06/02/19 21:06 1.25 mg STAT ONE Administration Lab/Rad Data: Laboratory Result Diagrams 06/02/19 21:08 06/02/19 21:08 Laboratory Results 06/02/19 06/02/19 06/02/19 Range/Units 21:25 21:08 21:08 WBC 11.7 H (4.0-10.5) K/mm3 RBC 4.72 (4.1-5.6) M/mm3 Hgb 14.5 (12.5-18.0) gm/dl Hct 41.3 L (42-50) % MCV 87.5 (78-100) fl MCH 30.7 (26-32) pg MCHC 35.1 (32-36) g/dl RDW 13.0 (11.5-14.0) % Plt Count 260 (150-450) K/mm3 MPV 9.9 H (6-9.5) fl Gran % 79.4 H (36.0-66.0) % Eos # (Auto) 0.07 (0-0.5) Absolute Lymphs (auto) 1.34 (1.0-4.6) Absolute Monos (auto) 0.96 (0.0-1.3) Lymphocytes % 11.5 L (24.0-44.0) % Monocytes % 8.2 (0.0-12.0) % Eosinophils % 0.6 (0.00-5.0) % Basophils % 0.3 (0.0-0.4) % Absolute Granulocytes 9.27 H (1.4-6.9) Basophils # 0.03 (0-0.4) Sodium 143 (137-145) mmol/L Potassium 3.9 (3.5-5.1) mmol/L Chloride 104 (98-107) mmol/L Carbon Dioxide 24 (22-30) mmol/L Anion Gap 19.0 H (5-15) MEQ/L BUN 10 (9-20) mg/dL Creatinine 0.91 (0.66-1.25) mg/dL Estimated GFR > 60.0 ML/MIN Glucose 128 H (74-106) mg/dL Calcium 9.6 (8.4-10.2) mg/dL Magnesium 1.6 (1.6-2.3) mg/dL Total Bilirubin 0.80 (0.2-1.3) mg/dL AST 45 (17-59) U/L ALT 40 (0-50) U/L Alkaline Phosphatase 60 (38-126) U/L NT-Pro-B Natriuret Pep 23.9 (0-450) pg/mL Serum Total Protein 9.0 H (6.3-8.2) g/dL Albumin 4.8 (3.5-5.0) g/dL Influenza Type A Ag NEGATIVE (NEGATIVE) Influenza Type B Ag NEGATIVE (NEGATIVE) RSV (PCR) NEGATIVE (Negative) - Progress Progress: improved Air Movement: good Blood Culture(s) Obtained: No Antibiotics given: Yes - Departure Departure Disposition: Home Clinical Impression: Bronchitis Condition: Fair Critical Care Time: No Referrals: GABRIEL NUNEZ [Primary Care Provider] - Prescriptions: Cephalexin Mh 500 mg [Keflex 500 mg] 500 mg PO TID #30 capsule Levalbuterol HCl 1.25 MG/0.5M* [Xopenex 1.25 MG/0.5 ML UD NEBULE] 1.25 mg IH Q6H #30 neb
[2019-06-02 22:56] VITALS: BP 141/104; PULSE 105; O2SAT 98
--- NOTE | 2019-06-03 08:52 | XRAY ---
Indication: Cough and short of breath. Comparison: May 08, 2019. Portable chest again demonstrates normal heart, lungs, and bony thorax.
== END 2019-06-02 22:55 | disposition home or self-care (01) ==
LOC: ED 20:49
DX: J40 Bronchitis, not specified as acute or chronic (principal)
CPT/HCPCS: 36415; 71045; 80053; 83735; 83880; 85025; 87040; 87631; 93005; 94150; 94640; 96360; 96365; 96374; 99284; J0696; A9270-GY

== ENCOUNTER 2019-06-24 16:01 | Emergency (ER) | payer MEDICARE ==
--- NOTE | 2019-06-24 16:24 | ERPHSYRPT ---
- History of Present Illness Time Seen by Provider: 06/24/19 16:15 Historian: patient, family Exam Limitations: no limitations Patient Subjective Stated Complaint: pt to ER with complaits of chest pain, SOB and headache x 1 hour ago. 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 pt denies taking anything for pain. Physician History: 33 y/o white male with chronic abd and chest pain issues presents with chest pain for one hour. he complains of associated sob and headache. pt has h/o migraine headaches, depression and anxiety. Timing/Duration: today, hour(s) (1) Location: substernal, central Chest Pain Radiation: no radiation Severity of Pain-Max: mild Severity of Pain-Current: mild Modifying Factors: Improves With: nothing Associated Symptoms: shortness of breath, No nausea, No vomiting, No palpitations Prior Chest Pain/Cardiac Workup: angina (pt has had cardiac work up in the past) Nitro Today/Relief: no nitro taken today Aspirin Treatment Today: no aspirin today Allergies/Adverse Reactions: Iodinated Contrast Media [Iodinated Contrast Media - IV Dye] Allergy (Severe, Verified 06/24/19 16:12) Rash ketorolac [From Toradol] Allergy (Intermediate, Verified 06/24/19 16:12) quetiapine fumarate [From Seroquel] Allergy (Intermediate, Verified 06/24/19 16: 12) rash, itching meperidine HCl [From Demerol] Allergy (Mild, Verified 06/24/19 16:12) Rash/hyper morphine Allergy (Mild, Verified 06/24/19 16:12) rash/ hyper oxycodone [From OxyContin] Allergy (Mild, Verified 06/24/19 16:12) Itching prednisone Allergy (Mild, Verified 06/24/19 16:12) Nausea tramadol HCl [From Ultram] Allergy (Mild, Verified 06/24/19 16:12) rash itching ondansetron [From Zofran] Allergy (Verified 06/24/19 16:12) Hives acetaminophen [From Percocet] Adverse Reaction (Verified 06/24/19 16:12) Home Medications: Methylphenidate HCl [Ritalin] 10 mg PO TID 02/06/17 [History] Escitalopram Oxalate 10 mg [Lexapro 10 MG] 10 mg PO DAILY 12/31/18 [History] PANTOPRAZOLE 40 mg Tablet [Protonix 40MG Tablet] 40 mg PO QAM 12/31/18 [ History] Sucralfate 1 gm [Carafate 1 GM] 1 gm PO QID 12/31/18 [History] Aspirin 81 mg PO DAILY 03/25/19 [History] Fluticasone/Vilanterol [Breo Ellipta 100-25 Mcg INH] 1 spray INTRANASAL DAILY [History] Hx Tetanus, Diphtheria Vaccination/Date Given: Yes Hx Influenza Vaccination/Date Given: Yes Hx Pneumococcal Vaccination/Date Given: No Immunizations Up to Date: Yes - Review of Systems Constitutional: No Symptoms Eyes: No Symptoms Ears, Nose, & Throat: No Symptoms Respiratory: No Symptoms, Dyspnea, No Cough Cardiac: Chest Pain Abdominal/Gastrointestinal: No Symptoms Genitourinary Symptoms: No Symptoms Musculoskeletal: No Symptoms Skin: No Symptoms Neurological: Headache Psychological: No Symptoms Endocrine: No Symptoms Hematologic/Lymphatic: No Symptoms Immunological/Allergic: No Symptoms All Other Systems: Reviewed and Negative - Past Medical History Pertinent Past Medical History: Yes Neurological History: Migraines ENT History: No Pertinent History Cardiac History: Hypertension Respiratory History: No Pertinent History Endocrine Medical History: No Pertinent History Musculoskeletal History: Osteoarthritis GI Medical History: Crohns Disease History: No Pertinent History Psycho-Social History: Anxiety, Attention Deficit Disorder, Depression Male Reproductive Disorders: No Pertinent History Other Medical History: celiac, adhd, non hodgkins lymphoma - Past Surgical History Past Surgical History: Yes Neuro Surgical History: No Pertinent History Cardiac: No Pertinent History Respiratory: No Pertinent History Gastrointestinal: Hernia Repair Genitourinary: No Pertinent History Musculoskeletal: Orthopedic Surgery Male Surgical History: No Pertinent History Other Surgical History: r shoulder, rotator cuff - Social History Smoking Status: Former smoker How long have you smoked: rarely Exposure to second hand smoke: Yes Drug Use: none Patient Lives Alone: No - Nursing Vital Signs Nursing Vital Signs: Initial Vital Signs Temperature 98.1 F 06/24/19 16:05 Pulse Rate 110 H 06/24/19 16:05 Respiratory Rate 26 H 06/24/19 16:05 Blood Pressure 149/107 06/24/19 16:05 O2 Sat by Pulse Oximetry 96 06/24/19 16:05 Pain Scale Pain Intensity 5 - Physical Exam General Appearance: no apparent distress, alert, anxiety Eye Exam: PERRL/EOMI, eyes nml inspection Ears, Nose, Throat Exam: normal ENT inspection, moist mucous membranes Neck Exam: normal inspection, non-tender, supple, full range of motion Respiratory Exam: normal breath sounds, chest tenderness, lungs clear, airway intact, No respiratory distress Cardiovascular Exam: normal peripheral pulses, tachycardia Gastrointestinal/Abdomen Exam: soft, normal bowel sounds, No tenderness Rectal Exam: not done Back Exam: normal inspection, normal range of motion, No CVA tenderness, No vertebral tenderness Extremity Exam: normal inspection, normal range of motion, pelvis stable Neurologic Exam: alert, oriented x 3, cooperative, operations examiner II-XII nml as tested Skin Exam: normal color, warm, dry Lymphatic Exam: No adenopathy SpO2 Interpretation: normal SpO2: 96 O2 Delivery: Room Air - Course Nursing assessment & vital signs reviewed: Yes EKG Interpreted by Me: RATE (105), Sinus Rhythm, Sinus Tach, NORMAL AXIS, NORMAL INTERVALS, NORMAL QRS, Other (no sig change when compared to ekg dated ) Ordered Tests: Active Orders 24 hr Category Date Time 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 Care 06/24/19 16:15 Active EKG-ER Only STAT Care 06/24/19 16:15 Active IV Insertion STAT Care 06/24/19 16:15 Active Pulse Oximetry (ED) STAT Care 06/24/19 16:16 Active CHEST 1 VIEW (PORTABLE) Stat Exams 06/24/19 16:27 Completed CBC W DIFF Stat Lab 06/24/19 16:10 Completed CMP Stat Lab 06/24/19 16:10 Completed NT PRO BNP Stat Lab 06/24/19 16:10 Completed PROTIME WITH INR Stat Lab 06/24/19 16:10 Completed TROPONIN Q3H Lab 06/24/19 16:10 Completed TROPONIN Q3H Lab 06/24/19 19:30 Ordered TROPONIN Q3H Lab 06/24/19 22:30 Ordered TROPONIN Q3H Lab 06/25/19 01:30 Ordered TROPONIN Q3H Lab 06/25/19 04:30 Ordered Medication Summary Discontinued Medications Generic Name Dose Route Start Last Admin Trade Name Freq PRN Reason Stop Dose Admin Aspirin 324 mg 06/24/19 16:26 06/24/19 16:42 Baby Aspirin 81 Mg Chew PO 06/24/19 16:27 324 mg STAT ONE Administration Aspirin Confirm 06/24/19 16:30 Baby Aspirin 81 Mg Chew Administered 06/24/19 16:31 Dose 324 mg .ROUTE .STK-MED ONE Hydromorphone HCl 0.5 mg 06/24/19 16:37 06/24/19 16:41 Hydromorphone 1 Mg/Ml Ampule IV 06/24/19 16:38 0.5 mg STAT ONE Administration Hydromorphone HCl Confirm 06/24/19 16:40 Hydromorphone 1 Mg/Ml Ampule Administered 06/24/19 16:41 Dose 1 mg .ROUTE .STK-MED ONE Morphine Sulfate 2 mg 06/24/19 16:26 06/24/19 17:05 Morphine Sulfate 2 Mg Inj IV 06/24/19 16:27 Not Given STAT ONE Morphine Sulfate Confirm 06/24/19 16:30 Morphine Sulfate 2 Mg Inj Administered 06/24/19 16:31 Dose 2 mg .ROUTE .STK-MED ONE Ondansetron HCl 4 mg 06/24/19 16:26 06/24/19 17:06 Zofran 4 Mg/2 Ml Vial IV 06/24/19 16:27 Not Given STAT ONE Ondansetron HCl Confirm 06/24/19 16:29 Zofran 4 Mg/2 Ml Vial Administered 06/24/19 16:30 Dose 4 mg .ROUTE .STK-MED ONE Promethazine HCl 12.5 mg 06/24/19 16:34 06/24/19 16:52 Phenergan 25 Mg Inj IM 06/24/19 16:35 Not Given STAT ONE Promethazine HCl Confirm 06/24/19 16:39 Phenergan 25 Mg Inj Administered 06/24/19 16:40 Dose 25 mg .ROUTE .STK-MED ONE Lab/Rad Data: Laboratory Result Diagrams 06/24/19 16:10 06/24/19 16:10 Laboratory Results 06/24/19 06/24/19 06/24/19 Range/Units 16:10 16:10 16:10 WBC (4.0-10.5) K/mm3 RBC (4.1-5.6) M/mm3 Hgb (12.5-18.0) gm/dl Hct (42-50) % MCV (78-100) fl MCH (26-32) pg MCHC (32-36) g/dl RDW (11.5-14.0) % Plt Count (150-450) K/mm3 MPV (6-9.5) fl Gran % (36.0-66.0) % Eos # (Auto) (0-0.5) Absolute Lymphs (auto) (1.0-4.6) Absolute Monos (auto) (0.0-1.3) Lymphocytes % (24.0-44.0) % Monocytes % (0.0-12.0) % Eosinophils % (0.00-5.0) % Basophils % (0.0-0.4) % Absolute Granulocytes (1.4-6.9) Basophils # (0-0.4) PT 12.8 (8.83-12.87) SECONDS INR 1.13 (0.8-3.0) Sodium 141 (137-145) mmol/L Potassium 3.9 (3.5-5.1) mmol/L Chloride 106 (98-107) mmol/L Carbon Dioxide 25 (22-30) mmol/L Anion Gap 13.4 (5-15) MEQ/L BUN 13 (9-20) mg/dL Creatinine 0.96 (0.66-1.25) mg/dL Estimated GFR > 60.0 ML/MIN Glucose 117 H (74-106) mg/dL Calcium 10.0 (8.4-10.2) mg/dL Total Bilirubin 0.60 (0.2-1.3) mg/dL AST 59 (17-59) U/L ALT 44 (0-50) U/L Alkaline Phosphatase 54 (38-126) U/L Troponin I < 0.012 (0.000-0.034) ng/mL NT-Pro-B Natriuret Pep 14.6 (0-450) pg/mL Serum Total Protein 8.7 H (6.3-8.2) g/dL Albumin 4.7 (3.5-5.0) g/dL 06/24/19 Range/Units 16:10 WBC 4.7 (4.0-10.5) K/mm3 RBC 4.62 (4.1-5.6) M/mm3 Hgb 14.0 (12.5-18.0) gm/dl Hct 41.2 L (42-50) % MCV 89.2 (78-100) fl MCH 30.3 (26-32) pg MCHC 34.0 (32-36) g/dl RDW 12.8 (11.5-14.0) % Plt Count 274 (150-450) K/mm3 MPV 10.1 H (6-9.5) fl Gran % 67.5 H (36.0-66.0) % Eos # (Auto) 0.08 (0-0.5) Absolute Lymphs (auto) 0.95 L (1.0-4.6) Absolute Monos (auto) 0.48 (0.0-1.3) Lymphocytes % 20.1 L (24.0-44.0) % Monocytes % 10.1 (0.0-12.0) % Eosinophils % 1.7 (0.00-5.0) % Basophils % 0.6 (0.0-0.4) % Absolute Granulocytes 3.19 (1.4-6.9) Basophils # 0.03 (0-0.4) PT (8.83-12.87) SECONDS INR (0.8-3.0) Sodium (137-145) mmol/L Potassium (3.5-5.1) mmol/L Chloride (98-107) mmol/L Carbon Dioxide (22-30) mmol/L Anion Gap (5-15) MEQ/L BUN (9-20) mg/dL Creatinine (0.66-1.25) mg/dL Estimated GFR ML/MIN Glucose (74-106) mg/dL Calcium (8.4-10.2) mg/dL Total Bilirubin (0.2-1.3) mg/dL AST (17-59) U/L ALT (0-50) U/L Alkaline Phosphatase (38-126) U/L Troponin I (0.000-0.034) ng/mL NT-Pro-B Natriuret Pep (0-450) pg/mL Serum Total Protein (6.3-8.2) g/dL Albumin (3.5-5.0) g/dL - Progress Progress: improved, re-examined Air Movement: good Progress Note: 06/24/19 17:57 cxr-no acute process cp resolved. Blood Culture(s) Obtained: No Antibiotics given: No Counseled pt/family regarding: lab results, diagnosis, need for follow-up, rad results - Departure Departure Disposition: Home Clinical Impression: Chronic chest pain Condition: Stable Critical Care Time: No Referrals: GABRIEL NUNEZ [Primary Care Provider] - Additional Instructions: follow up with primary doctor for further management
[2019-06-24] MEDS ORDERED: BABY ASPIRIN 81 MG CHEW PO ONE (16:26)
[2019-06-24] MEDS ORDERED: MORPHINE SULFATE 2 MG INJ IV ONE (16:26)
[2019-06-24] MEDS ORDERED: Zofran 4 MG/2 ML VIAL IV ONE (16:26)
[2019-06-24] MEDS ORDERED: Zofran 4 MG/2 ML VIAL ONE (16:29)
[2019-06-24] MEDS ORDERED: MORPHINE SULFATE 2 MG INJ ONE (16:30)
[2019-06-24] MEDS ORDERED: BABY ASPIRIN 81 MG CHEW ONE (16:30)
[2019-06-24] MEDS ORDERED: Phenergan 25 MG INJ IM ONE (16:34)
[2019-06-24] MEDS ORDERED: Hydromorphone 1 mg/ml Ampule IV ONE (16:37)
[2019-06-24] MEDS ORDERED: Phenergan 25 MG INJ ONE (16:39)
[2019-06-24] MEDS ORDERED: Hydromorphone 1 mg/ml Ampule ONE (16:40)
[2019-06-24 16:46] LABS: Absolute Neutrophil Ct (ANC) 3.19 (1.4-6.9); BASOPHIL % 0.6 % (0.0-0.4); Basophil (Absolute #) 0.03 (0-0.4); Eosinophil % 1.7 % (0.00-5.0); Eosinophil (Absolute #) 0.08 (0-0.5); Hematocrit 41.2 % (42-50); Lymphocyte (Absolute #) 0.95 (1.0-4.6); Lymphocytes % 20.1 % (24.0-44.0); Mean Cell Volume 89.2 fl (78-100); Mean Corpuscular Hemoglobin 30.3 pg (26-32); Mean Platelet Volume 10.1 fl (6-9.5); Monocyte (Absolute #) 0.48 (0.0-1.3); Monocytes % 10.1 % (0.0-12.0); Neutrophil % 67.5 % (36.0-66.0); Platelet Count 274 K/mm3 (150-450); Red Blood Count 4.62 M/mm3 (4.1-5.6); Red Cell Distribution Width 12.8 % (11.5-14.0); White Blood Count 4.7 K/mm3 (4.0-10.5)
--- NOTE | 2019-06-24 16:49 | XRAY ---
Indication: Chest pain and short of breath. Comparison: June 03, 2019. Portable chest again demonstrates normal heart, lungs, and bony thorax.
[2019-06-24 16:52] LABS: INR 1.13 (0.8-3.0); PROTIME 12.8 SECONDS (8.83-12.87)
[2019-06-24 17:07] LABS: ALBUMIN 4.7 g/dL (3.5-5.0); ALKALINE PHOSPHATASE 54 U/L (38-126); ANION GAP 13.4 MEQ/L (5-15); BLOOD UREA NITROGEN 13 mg/dL (9-20); CHLORIDE 106 mmol/L (98-107); Carbon Dioxide 25 mmol/L (22-30); Creatinine 1 0.96 mg/dL (0.66-1.25); Glucose 117 mg/dL (74-106); NT PRO BNP 14.6 pg/mL (0-450); Potassium 3.9 mmol/L (3.5-5.1); SGOT/AST 59 U/L (17-59); SGPT/ALT 44 U/L (0-50); SODIUM 141 mmol/L (137-145); Total Protein 8.7 g/dL (6.3-8.2)
[2019-06-24 17:18] VITALS: BP 156/110
[2019-06-24 17:58] VITALS: PULSE 94; O2SAT 96
== END 2019-06-24 18:09 | disposition home or self-care (01) ==
LOC: ED 16:01
DX: R07.9 Chest pain, unspecified (principal); G89.29 Other chronic pain; F41.9 Anxiety disorder, unspecified; I10 Essential (primary) hypertension
CPT/HCPCS: 36000; 36415; 71045; 80053; 83880; 84484; 85025; 85610; 93005; 93041; 94760; 96374; 99284; J1170; J2270; J2405; J2550; A9270-GY

== ENCOUNTER 2019-07-08 22:16 | Emergency (ER) | payer MEDICARE ==
--- NOTE | 2019-07-08 23:21 | ERPHSYRPT ---
- History of Present Illness Time Seen by Provider: 07/08/19 23:21 Source: patient Exam Limitations: no limitations Physician History: 33 y/o white male presents with chronic recurrent lower suprapubic abd pain, right leg numbness. present today. pt states he almost fell. pt denies cp and denies soa. Method of Injury: other (none) Occurred: this evening Quality: other (numbness) Severity of Pain-Max: mild Severity of Pain-Current: mild Lower Extremities Pain: leg: right Modifying Factors: Improves With: movement Associated Symptoms: none Allergies/Adverse Reactions: Iodinated Contrast Media [Iodinated Contrast Media - IV Dye] Allergy (Severe, Verified 06/24/19 16:12) Rash ketorolac [From Toradol] Allergy (Intermediate, Verified 06/24/19 16:12) quetiapine fumarate [From Seroquel] Allergy (Intermediate, Verified 06/24/19 16: 12) rash, itching meperidine HCl [From Demerol] Allergy (Mild, Verified 06/24/19 16:12) Rash/hyper morphine Allergy (Mild, Verified 06/24/19 16:12) rash/ hyper oxycodone [From OxyContin] Allergy (Mild, Verified 06/24/19 16:12) Itching prednisone Allergy (Mild, Verified 06/24/19 16:12) Nausea tramadol HCl [From Ultram] Allergy (Mild, Verified 06/24/19 16:12) rash itching ondansetron [From Zofran] Allergy (Verified 06/24/19 16:12) Hives acetaminophen [From Percocet] Adverse Reaction (Verified 06/24/19 16:12) Home Medications: Methylphenidate HCl [Ritalin] 10 mg PO TID 02/06/17 [History] Escitalopram Oxalate 10 mg [Lexapro 10 MG] 10 mg PO DAILY 12/31/18 [History] PANTOPRAZOLE 40 mg Tablet [Protonix 40MG Tablet] 40 mg PO QAM 12/31/18 [ History] Sucralfate 1 gm [Carafate 1 GM] 1 gm PO QID 12/31/18 [History] Aspirin 81 mg PO DAILY 03/25/19 [History] Fluticasone/Vilanterol [Breo Ellipta 100-25 Mcg INH] 1 spray INTRANASAL DAILY [History] Hx Tetanus, Diphtheria Vaccination/Date Given: Yes Hx Influenza Vaccination/Date Given: Yes Hx Pneumococcal Vaccination/Date Given: No - Review of Systems Constitutional: No Symptoms Eyes: No Symptoms Ears, Nose, & Throat: No Symptoms Respiratory: No Symptoms Cardiac: No Symptoms Abdominal/Gastrointestinal: Abdominal Pain (lower midline), No Nausea, No Vomiting, No Diarrhea Genitourinary Symptoms: No Symptoms Musculoskeletal: No Symptoms Skin: No Symptoms Neurological: No Symptoms Psychological: No Symptoms Endocrine: No Symptoms Hematologic/Lymphatic: No Symptoms Immunological/Allergic: No Symptoms All Other Systems: Reviewed and Negative - Past Medical History Pertinent Past Medical History: Yes Neurological History: Migraines ENT History: No Pertinent History Cardiac History: Hypertension Respiratory History: No Pertinent History Endocrine Medical History: No Pertinent History Musculoskeletal History: Osteoarthritis GI Medical History: Crohns Disease History: No Pertinent History Psycho-Social History: Anxiety, Attention Deficit Disorder, Depression Male Reproductive Disorders: No Pertinent History Other Medical History: celiac, adhd, non hodgkins lymphoma - Past Surgical History Past Surgical History: Yes Neuro Surgical History: No Pertinent History Cardiac: No Pertinent History Respiratory: No Pertinent History Gastrointestinal: Hernia Repair Genitourinary: No Pertinent History Musculoskeletal: Orthopedic Surgery Male Surgical History: No Pertinent History Other Surgical History: r shoulder, rotator cuff - Social History Smoking Status: Former smoker How long have you smoked: rarely Exposure to second hand smoke: Yes Drug Use: none Patient Lives Alone: No - Nursing Vital Signs Nursing Vital Signs: Initial Vital Signs Temperature 97.4 F 07/08/19 23:17 Pulse Rate 97 H 07/08/19 23:17 Respiratory Rate 16 07/08/19 23:17 Blood Pressure 145/116 07/08/19 23:17 O2 Sat by Pulse Oximetry 97 07/08/19 23:17 Pain Scale Pain Intensity [Abdomen] 6 Pain Intensity 6 - Physical Exam General Appearance: no apparent distress, alert, anxiety Eyes, Ears, Nose, Throat Exam: normal ENT inspection, moist mucous membranes Neck Exam: normal inspection, non-tender, supple, full range of motion Cardiovascular/Respiratory Exam: chest non-tender, no respiratory distress Gastrointestinal/Abdominal Exam: non-tender, soft, no organomegaly, no hernia, No guarding, No tenderness Back Exam: normal inspection, normal range of motion, No CVA tenderness, No vertebral tenderness Hips Exam: bilateral: non-tender, normal inspection, normal range of motion Legs Exam: bilateral leg: non-tender, normal inspection, normal range of motion Knees Exam: bilateral knee: non-tender, normal inspection, normal range of motion, no evidence of injury Ankle Exam: bilateral ankle: non-tender, normal inspection, normal range of motion, no evidence of injury Foot Exam: bilateral foot: non-tender, normal inspection, normal range of motion , no evidence of injury Neuro/Tendon Exam: normal sensation, normal motor functions, normal tendon functions Mental Status Exam: alert, oriented x 3, cooperative Skin Exam: normal color, warm, dry SpO2 Interpretation: normal O2 Delivery: Room Air - Course Nursing assessment & vital signs reviewed: Yes Ordered Tests: Active Orders 24 hr Category Date Time Status CULTURE,URINE Stat Lab 07/09/19 00:40 Received Lactic Acid Stat Lab 07/08/19 23:50 Completed UA W/RFX UR CULTURE Stat Lab 07/09/19 00:40 Completed Lab/Rad Data: Laboratory Result Diagrams 07/08/19 00:20 07/08/19 00:20 Laboratory Results 07/09/19 07/09/19 07/08/19 Range/Units 00:40 00:26 00:20 WBC (4.0-10.5) K/mm3 RBC (4.1-5.6) M/mm3 Hgb (12.5-18.0) gm/dl Hct (42-50) % MCV (78-100) fl MCH (26-32) pg MCHC (32-36) g/dl RDW (11.5-14.0) % Plt Count (150-450) K/mm3 MPV (7.5-11.0) fl Gran % (36.0-66.0) % Eos # (Auto) (0-0.5) Absolute Lymphs (auto) (1.0-4.6) Absolute Monos (auto) (0.0-1.3) Lymphocytes % (24.0-44.0) % Monocytes % (0.0-12.0) % Eosinophils % (0.00-5.0) % Basophils % (0.0-0.4) % Absolute Granulocytes (1.4-6.9) Basophils # (0-0.4) Sodium 140 (137-145) mmol/L Potassium 5.0 (3.5-5.1) mmol/L Chloride 106 (98-107) mmol/L Carbon Dioxide 24 (22-30) mmol/L Anion Gap 14.6 (5-15) MEQ/L BUN 17 (9-20) mg/dL Creatinine 1.00 (0.66-1.25) mg/dL Estimated GFR > 60.0 ML/MIN Glucose 102 (74-106) mg/dL Lactic Acid 1.1 (0.4-2.0) Calcium 10.1 (8.4-10.2) mg/dL Total Bilirubin 0.60 (0.2-1.3) mg/dL AST 47 (17-59) U/L ALT 35 (0-50) U/L Alkaline Phosphatase 63 (38-126) U/L Serum Total Protein 8.4 H (6.3-8.2) g/dL Albumin 4.6 (3.5-5.0) g/dL Amylase 62 (30-110) U/L Lipase 107 (23-300) U/L Urine Color YELLOW (YELLOW) Urine Appearance CLEAR (CLEAR) Urine pH 5.0 (5-6) Ur Specific [place] 1.036 (1.005-1.025) Urine Protein NEGATIVE (Negative) Urine Ketones NEGATIVE (NEGATIVE) Urine Blood NEGATIVE (0-5) Lambert/ul Urine Nitrite NEGATIVE (NEGATIVE) Urine Bilirubin SMALL (NEGATIVE) Urine Urobilinogen 2 (0-1) mg/dL Ur Leukocyte Esterase NEGATIVE (NEGATIVE) Urine WBC (Auto) 6-10 (0-5) /HPF Urine RBC (Auto) 6-10 (0-2) /HPF U Epithel Cells (Auto) RARE (FEW) /HPF Urine Bacteria (Auto) RARE (NEGATIVE) /HPF Urine Mucus (Auto) MANY (NEGATIVE) /HPF Urine Culture Reflexed YES (NO) Urine Glucose NEGATIVE (NEGATIVE) mg/dL 07/08/19 Range/Units 00:20 WBC 6.3 (4.0-10.5) K/mm3 RBC 4.65 (4.1-5.6) M/mm3 Hgb 14.1 (12.5-18.0) gm/dl Hct 41.3 L (42-50) % MCV 88.8 (78-100) fl MCH 30.3 (26-32) pg MCHC 34.1 (32-36) g/dl RDW 13.0 (11.5-14.0) % Plt Count 256 (150-450) K/mm3 MPV 10.1 (7.5-11.0) fl Gran % 67.8 H (36.0-66.0) % Eos # (Auto) 0.05 (0-0.5) Absolute Lymphs (auto) 1.52 (1.0-4.6) Absolute Monos (auto) 0.42 (0.0-1.3) Lymphocytes % 24.2 (24.0-44.0) % Monocytes % 6.7 (0.0-12.0) % Eosinophils % 0.8 (0.00-5.0) % Basophils % 0.5 (0.0-0.4) % Absolute Granulocytes 4.25 (1.4-6.9) Basophils # 0.03 (0-0.4) Sodium (137-145) mmol/L Potassium (3.5-5.1) mmol/L Chloride (98-107) mmol/L Carbon Dioxide (22-30) mmol/L Anion Gap (5-15) MEQ/L BUN (9-20) mg/dL Creatinine (0.66-1.25) mg/dL Estimated GFR ML/MIN Glucose (74-106) mg/dL Lactic Acid (0.4-2.0) Calcium (8.4-10.2) mg/dL Total Bilirubin (0.2-1.3) mg/dL AST (17-59) U/L ALT (0-50) U/L Alkaline Phosphatase (38-126) U/L Serum Total Protein (6.3-8.2) g/dL Albumin (3.5-5.0) g/dL Amylase (30-110) U/L Lipase (23-300) U/L Urine Color (YELLOW) Urine Appearance (CLEAR) Urine pH (5-6) Ur Specific [place] (1.005-1.025) Urine Protein (Negative) Urine Ketones (NEGATIVE) Urine Blood (0-5) Lambert/ul Urine Nitrite (NEGATIVE) Urine Bilirubin (NEGATIVE) Urine Urobilinogen (0-1) mg/dL Ur Leukocyte Esterase (NEGATIVE) Urine WBC (Auto) (0-5) /HPF Urine RBC (Auto) (0-2) /HPF U Epithel Cells (Auto) (FEW) /HPF Urine Bacteria (Auto) (NEGATIVE) /HPF Urine Mucus (Auto) (NEGATIVE) /HPF Urine Culture Reflexed (NO) Urine Glucose (NEGATIVE) mg/dL - Progress Progress: unchanged Counseled pt/family regarding: lab results, diagnosis, need for follow-up - Departure Departure Disposition: Home Clinical Impression: Chronic abdominal pain, Leg pain Condition: Stable Critical Care Time: No Referrals: GABRIEL NUNEZ [Primary Care Provider] - Additional Instructions: take your medications as prescribed. follow up with primary doctor for further management
[2019-07-09 00:31] LABS: Absolute Neutrophil Ct (ANC) 4.25 (1.4-6.9); BASOPHIL % 0.5 % (0.0-0.4); Basophil (Absolute #) 0.03 (0-0.4); Eosinophil % 0.8 % (0.00-5.0); Eosinophil (Absolute #) 0.05 (0-0.5); Hematocrit 41.3 % (42-50); Hemoglobin 14.1 gm/dl (12.5-18.0); Lymphocyte (Absolute #) 1.52 (1.0-4.6); Lymphocytes % 24.2 % (24.0-44.0); Mean Cell Volume 88.8 fl (78-100); Mean Corpuscular Hemoglobin 30.3 pg (26-32); Mean Corpuscular Hgb Concent. 34.1 g/dl (32-36); Mean Platelet Volume 10.1 fl (7.5-11.0); Monocyte (Absolute #) 0.42 (0.0-1.3); Monocytes % 6.7 % (0.0-12.0); Neutrophil % 67.8 % (36.0-66.0); Platelet Count 256 K/mm3 (150-450); Red Blood Count 4.65 M/mm3 (4.1-5.6); White Blood Count 6.3 K/mm3 (4.0-10.5)
[2019-07-09 00:50] LABS: ALBUMIN 4.6 g/dL (3.5-5.0); ALKALINE PHOSPHATASE 63 U/L (38-126); AMYLASE 62 U/L (30-110); ANION GAP 14.6 MEQ/L (5-15); BLOOD UREA NITROGEN 17 mg/dL (9-20); CHLORIDE 106 mmol/L (98-107); Calcium 10.1 mg/dL (8.4-10.2); Carbon Dioxide 24 mmol/L (22-30); Glucose 102 mg/dL (74-106); LIPASE 107 U/L (23-300); SGOT/AST 47 U/L (17-59); SGPT/ALT 35 U/L (0-50); SODIUM 140 mmol/L (137-145); Total Protein 8.4 g/dL (6.3-8.2)
[2019-07-09 01:03] LABS: Appearance CLEAR (CLEAR); Bacteria RARE /HPF (NEGATIVE); Bilirubin SMALL (NEGATIVE); Blood NEGATIVE Ery/ul (0-5); Epithelial Cells RARE /HPF (FEW); Glucose NEGATIVE (NEGATIVE); Ketones NEGATIVE (NEGATIVE); Leukocyte Esterase NEGATIVE (NEGATIVE); Mucus MANY /HPF (NEGATIVE); Nitrite NEGATIVE (NEGATIVE); Protein,Urine Dip NEGATIVE (Negative); Specific Gravity 1.036 (1.005-1.025); Urobilinogen 2 mg/dL (0-1)
[2019-07-09] MEDS ORDERED: NORCO 5/325 MG PO ONE (01:30)
[2019-07-09] MEDS ORDERED: NORCO 5/325 MG ONE (01:49)
[2019-07-09 01:56] VITALS: BP 143/105; PULSE 99; O2SAT 98
== END 2019-07-09 01:56 | disposition home or self-care (01) ==
LOC: ED 22:16
DX: R10.30 Lower abdominal pain, unspecified (principal); R20.0 Anesthesia of skin; M79.604 Pain in right leg; Z79.899 Other long term (current) drug therapy; I10 Essential (primary) hypertension
CPT/HCPCS: 36415; 80053; 81001; 82150; 83605; 83690; 85025; 87086; 99283; A9270-GY

== ENCOUNTER 2019-08-29 21:12 | Emergency (ER) | payer MEDICARE ==
[2019-08-29] MEDS ORDERED: Sodium Chloride 0.9% 1000 ML 1,000 ML IV STA (21:50)
[2019-08-29] MEDS ORDERED: Reglan 10 MG/2 ML IV ONE (21:51)
[2019-08-29] MEDS ORDERED: BENADRYL 50 MG/ML IV ONE (21:51)
[2019-08-29] MEDS ORDERED: TYLENOL EXTRA STRENGTH 500 MG PO STA (21:51)
--- NOTE | 2019-08-29 21:58 | ERPHSYRPT ---
- History of Present Illness Time Seen by Provider: 08/29/19 21:39 Source: patient Exam Limitations: no limitations Patient Subjective Stated Complaint: headache and L side facial numbness last night. states face feels "normal" tonight. Triage Nursing Assessment: pt to ED c/o PAPPAS onset Monday and L side facial numbness yesterday, not currently numb. rates 8/10 pain that radiates down to R side neck. GCS 15. A&Ox3. no deficits noted during neuro assessment. neuro hx of migraines. pt states L face went numb for short time yesterday but "feels fine now." lung sounds clear and equal bilat, heart sounds clear. ambulatory to room, self assist to bed and put gown on. Physician History: 34 years old male with history of poorly controlled migraine presented in the ER with chief complaint of 3 days history of left frontotemporal headache with no significant improvement taking naproxen at home. Not associated with any nausea or vomiting but aggravated with movements and bright light/noise. Patient reports yesterday left side facial numbness for 10 to 15 minutes which improved without any intervention. Currently does not have any facial or temporal numbness. Patient reports usually he gets numbness in the temporal area but yesterday left whole facial numbness was there. Did not notice any difficulty speech or visual symptoms. No focal weakness. There was no facial droop. Denies any fever or chills. Timing/Duration: day(s) (3), sudden, worse Quality: sharpness Head Pain Location: frontal, temporal, parietal Severity of Pain-Max: moderate Severity of Pain-Current: severe Recent Head Trauma: no recent headache/trauma Modifying Factors: Improves With: exposure to light, movement, noise Associated Symptoms: No facial pain, No loss of consciousness, No nausea/ vomiting, No nasal congestion, No sweating, No sinus infection, No sensitive to light, No speech problems, No stiff neck, No trouble walking, No vision changes , No visual disturbance, No weakness Allergies/Adverse Reactions: Iodinated Contrast Media [Iodinated Contrast Media - IV Dye] Allergy (Severe, Verified 08/29/19 21:44) Rash ketorolac [From Toradol] Allergy (Intermediate, Verified 08/29/19 21:44) quetiapine fumarate [From Seroquel] Allergy (Intermediate, Verified 08/29/19 21: 44) rash, itching meperidine HCl [From Demerol] Allergy (Mild, Verified 08/29/19 21:44) Rash/hyper morphine Allergy (Mild, Verified 08/29/19 21:44) rash/ hyper oxycodone [From OxyContin] Allergy (Mild, Verified 08/29/19 21:44) Itching prednisone Allergy (Mild, Verified 08/29/19 21:44) Nausea tramadol HCl [From Ultram] Allergy (Mild, Verified 08/29/19 21:44) rash itching ondansetron [From Zofran] Allergy (Verified 08/29/19 21:44) Hives acetaminophen [From Percocet] Adverse Reaction (Verified 08/29/19 21:44) Home Medications: Methylphenidate HCl [Ritalin] 10 mg PO TID 02/06/17 [History] Escitalopram Oxalate 10 mg [Lexapro 10 MG] 10 mg PO DAILY 12/31/18 [History] PANTOPRAZOLE 40 mg Tablet [Protonix 40MG Tablet] 40 mg PO QAM 12/31/18 [ History] Sucralfate 1 gm [Carafate 1 GM] 1 gm PO QID 12/31/18 [History] Aspirin 81 mg PO DAILY 03/25/19 [History] Fluticasone/Vilanterol [Breo Ellipta 100-25 Mcg INH] 1 spray INTRANASAL DAILY [History] Hx Tetanus, Diphtheria Vaccination/Date Given: Yes Hx Influenza Vaccination/Date Given: Yes Hx Pneumococcal Vaccination/Date Given: No Immunizations Up to Date: Yes - Review of Systems Constitutional: No Symptoms Eyes: No Symptoms Ears, Nose, & Throat: No Symptoms Respiratory: No Symptoms Cardiac: No Symptoms Abdominal/Gastrointestinal: No Symptoms Genitourinary Symptoms: No Symptoms Musculoskeletal: No Symptoms Skin: No Symptoms Neurological: Headache Psychological: No Symptoms Endocrine: No Symptoms Hematologic/Lymphatic: No Symptoms Immunological/Allergic: No Symptoms - Past Medical History Pertinent Past Medical History: Yes Neurological History: Migraines ENT History: No Pertinent History Cardiac History: Hypertension Respiratory History: Asthma Endocrine Medical History: No Pertinent History Musculoskeletal History: Osteoarthritis GI Medical History: Crohns Disease History: No Pertinent History Psycho-Social History: Anxiety, Attention Deficit Disorder, Depression Male Reproductive Disorders: No Pertinent History Other Medical History: celiac, adhd, non hodgkins lymphoma - Past Surgical History Past Surgical History: Yes Neuro Surgical History: No Pertinent History Cardiac: No Pertinent History Respiratory: No Pertinent History Gastrointestinal: Hernia Repair Genitourinary: No Pertinent History Musculoskeletal: Orthopedic Surgery Male Surgical History: No Pertinent History Other Surgical History: r shoulder, rotator cuff - Social History Smoking Status: Former smoker How long have you smoked: rarely Exposure to second hand smoke: Yes Drug Use: none Patient Lives Alone: Yes - Nursing Vital Signs Nursing Vital Signs: Initial Vital Signs Temperature 97.7 F 08/29/19 21:30 Pulse Rate 116 H 08/29/19 21:30 Respiratory Rate 18 08/29/19 21:30 Blood Pressure 155/117 08/29/19 21:30 O2 Sat by Pulse Oximetry 97 08/29/19 21:30 Pain Scale Pain Intensity 8 - Physical Exam General Appearance: no apparent distress, alert, anxiety Eye Exam: PERRL/EOMI, eyes nml inspection Ears, Nose, Throat Exam: normal ENT inspection, TMs normal, pharynx normal, moist mucous membranes Neck Exam: normal inspection, non-tender, supple, full range of motion Respiratory Exam: normal breath sounds, lungs clear Cardiovascular Exam: regular rate/rhythm, normal heart sounds, normal peripheral pulses Gastrointestinal/Abdominal Exam: soft, normal bowel sounds, tenderness Back Exam: normal inspection Extremity Exam: normal inspection, normal range of motion, pelvis stable Mental Status Exam: alert, oriented x 3, cooperative meter maker Exam: normal hearing, normal speech, PERRL, No facial asymmetry, No facial droop, No facial paresthesias, No facial weakness, No gaze palsy Coordination/Gait Exam: normal finger to nose, normal gait, normal cerebellar function, negative Romberg's sign Motor/Sensory Exam: no motor deficit, no sensory deficit, no pronator drift, negative Babinski's sign DTR Exam: bicep (R): 2+, bicep (L): 2+, knee (R): 2+, knee (L): 2+ SpO2 Interpretation: normal SpO2: 97 O2 Delivery: Room Air - Course Nursing assessment & vital signs reviewed: Yes Ordered Tests: Active Orders 24 hr Category Date Time Status IV Insertion STAT Care 08/29/19 21:50 Active HEAD WITHOUT CONTRAST [CT] Stat Exams 08/29/19 22:11 Taken Medication Summary Discontinued Medications Generic Name Dose Route Start Last Admin Trade Name Darwin PRN Reason Stop Dose Admin Acetaminophen 1,000 mg 08/29/19 21:51 08/29/19 22:25 Tylenol Extra Strength 500 Mg PO 08/29/19 21:52 1,000 mg STAT STA Administration Acetaminophen Confirm 08/29/19 22:20 Tylenol Extra Strength 500 Mg Administered 08/29/19 22:21 Dose 1,000 mg .ROUTE .STK-MED ONE Diphenhydramine HCl 25 mg 08/29/19 21:51 08/29/19 22:23 Benadryl 50 Mg/Ml IV 08/29/19 21:52 25 mg STAT ONE Administration Diphenhydramine HCl Confirm 08/29/19 22:20 Benadryl 50 Mg/Ml Administered 08/29/19 22:21 Dose 50 mg .ROUTE .STK-MED ONE Sodium Chloride 1,000 mls @ 999 mls/hr 08/29/19 21:50 08/29/19 22:23 Sodium Chloride 0.9% 1000 Ml IV 08/29/19 22:50 999 mls/hr .Q1H1M STA Administration Sodium Chloride Confirm 08/29/19 22:12 Sodium Chloride 0.9% 1000 Ml Administered 08/29/19 22:13 Dose 1,000 mls @ ud .ROUTE .STK-MED ONE Metoclopramide HCl 10 mg 08/29/19 21:51 08/29/19 22:24 Reglan 10 Mg/2 Ml IV 08/29/19 21:52 10 mg STAT ONE Administration Metoclopramide HCl Confirm 08/29/19 22:20 Reglan 10 Mg/2 Ml Administered 08/29/19 22:21 Dose 10 mg .ROUTE .STK-MED ONE - Progress Progress: improved, re-examined Air Movement: good Progress Note: He is given migraine cocktail, on reevaluation headache is improved and is resting comfortably. He has nonfocal neuro exam, I have obtained CT head because of his worst nature of headache and some questionable history of left facial tingling numbness but is negative. I believe patient has complex migraine and has not been treated rightly. I have advised him to follow-up with his primary care neurologist for reevaluation to be placed on prophylactic medication. I do not believe patient needs any further work-up and is stable for discharge with outpatient follow-up. Discussed signs symptoms of worsening needing return to ER which he seems understanding. 08/29/19 23:17 Blood Culture(s) Obtained: No Antibiotics given: No Counseled pt/family regarding: diagnosis, need for follow-up, rad results, smoking cessation - Departure Departure Disposition: Home Clinical Impression: Migraine Qualifiers: Migraine type: unspecified Status migrainosus presence: without status migrainosus Intractability: not intractable Qualified Code(s): G43.909 - Migraine, unspecified, not intractable, without status migrainosus Condition: Stable Critical Care Time: No Referrals: GABRIEL NUNEZ [Primary Care Provider] - (1 day for re evaluation ) NISHA JIMENES [NON-STAFF PHY W/O PRIVILEGES] - (1 day , call for appointment and re evaluation ) Instructions: Headache, Adult (DC) Additional Instructions: Follow-up with primary care and neurology for reevaluation. Do not smoke. Return to ER for any worsening.
[2019-08-29] MEDS ORDERED: Sodium Chloride 0.9% 1000 ML 1,000 ML ONE (22:12)
[2019-08-29] MEDS ORDERED: TYLENOL EXTRA STRENGTH 500 MG ONE (22:20)
[2019-08-29] MEDS ORDERED: BENADRYL 50 MG/ML ONE (22:20)
[2019-08-29] MEDS ORDERED: Reglan 10 MG/2 ML ONE (22:20)
[2019-08-29 23:31] VITALS: BP 131/85; PULSE 89; O2SAT 96
--- NOTE | 2019-08-30 22:18 | XRAY ---
Exam: CT of the head without IV contrast from 08/29/2019. CTDI: 53.92 mGy. Comparison: CT of the head without IV contrast from 07/09/2018. Indication: 34-year-old male with headache for over 4 days, left side facial numbness earlier today, high blood pressure, dizziness, rule out bleed/CVA. Technique: Non-IV contrast axial images were obtained of the brain. Reconstructed coronal and sagittal images were created and reviewed. Findings: The ventricles appear of normal size and configuration. No focal mass effect or midline shift is seen. No acute intracranial bleed or abnormal extra-axial fluid collection is seen. The krishnamurthy matter-white matter interfaces appear normal. No low attenuation territorial infarct is seen. The cortical sulci and basilar cisterns appear unremarkable. The calvarium of the skull appears intact revealing no fracture. A thin linear septum is seen within the inferior aspect of the right maxillary sinus. Otherwise, the paranasal sinuses are clear without abnormality. Mastoid air cells appear unremarkable without effusion. No gross abnormality of the orbits is seen. Impression: 1. No acute intracranial bleed, evidence of focal low attenuation infarct, or other acute intracranial abnormality is seen. The findings are unchanged from 07/09/2018.
== END 2019-08-29 23:36 | disposition home or self-care (01) ==
LOC: ED 21:12
DX: G43.909 Migraine, unspecified, not intractable, without status migrainosus (principal)
CPT/HCPCS: 36000; 70450; 96374; 96375; 99284; J1200; A9270-GY

== ENCOUNTER 2019-12-20 18:40 | Emergency (ER) | payer MEDICARE ==
[2019-12-20] MEDS ORDERED: TYLENOL EXTRA STRENGTH 500 MG PO STA (19:13)
[2019-12-20] MEDS ORDERED: MOTRIN 600 MG PO ONE (19:13)
--- NOTE | 2019-12-20 19:23 | ERPHSYRPT ---
- History of Present Illness Time Seen by Provider: 12/20/19 18:41 Source: patient Exam Limitations: no limitations Patient Subjective Stated Complaint: Right hand injury Triage Nursing Assessment: Patient ambulated back to ED and transferred self to bed. Patient A+O X 3. Patient's skin pink, warm and dry. Patient complains of right hand pain after smashing his hand while moving a metal hospital bed around 1745. Patient states pain is 7/10. no bruising or swelling noted to right hand. Physician History: Patient is here with right hand pain. Just prior to arrival patient smashed his right hand in between the bed and a another object. No falls or other trauma. He has not taken any medication, no ice, rest, compression. Location: right hand Quality: sharp Radiation: none Severity: moderate Duration: just [place] Timing: after injury Modifying factors/associated signs and symptoms: none tried Timing/Duration: today Severity: mild Modifying Factors: Improves With: movement, rest Associated Symptoms: denies symptoms Allergies/Adverse Reactions: Iodinated Contrast Media [Iodinated Contrast Media - IV Dye] Allergy (Severe, Verified 12/20/19 18:47) Rash ketorolac [From Toradol] Allergy (Intermediate, Verified 12/20/19 18:47) quetiapine fumarate [From Seroquel] Allergy (Intermediate, Verified 12/20/19 18:47) rash, itching meperidine HCl [From Demerol] Allergy (Mild, Verified 12/20/19 18:47) Rash/hyper morphine Allergy (Mild, Verified 12/20/19 18:47) rash/ hyper oxycodone [From OxyContin] Allergy (Mild, Verified 12/20/19 18:47) Itching prednisone Allergy (Mild, Verified 12/20/19 18:47) Nausea tramadol HCl [From Ultram] Allergy (Mild, Verified 12/20/19 18:47) rash itching ondansetron [From Zofran] Allergy (Verified 12/20/19 18:47) Hives acetaminophen [From Percocet] Adverse Reaction (Verified 12/20/19 18:47) Home Medications: Fluticasone/Vilanterol [Breo Ellipta 200-25 Mcg INH] 1 puff IH DAILY 12/20/19 [History] Methylphenidate HCl [Methylphenidate ER] 1 tab PO DAILY 12/20/19 [History] Hx Tetanus, Diphtheria Vaccination/Date Given: Yes Hx Influenza Vaccination/Date Given: Yes Hx Pneumococcal Vaccination/Date Given: No Immunizations Up to Date: Yes Travel Risk - International Travel Have you traveled outside of the country in past 3 weeks: No - Coronavirus Screening Are you exhibiting any of the following symptoms?: No Close contact with a COVID-19 positive Pt in past 14-21 Days: No - Review of Systems Constitutional: No Fever, No Chills Eyes: No Symptoms Ears, Nose, & Throat: No Symptoms Respiratory: No Cough, No Dyspnea Cardiac: No Chest Pain, No Edema, No Syncope Abdominal/Gastrointestinal: No Abdominal Pain, No Nausea, No Vomiting, No Diarrhea Genitourinary Symptoms: No Dysuria Musculoskeletal: Injury (hand pain), Other, No Back Pain, No Neck Pain Skin: No Rash Neurological: No Dizziness, No Focal Weakness, No Sensory Changes Psychological: No Symptoms Endocrine: No Symptoms All Other Systems: Reviewed and Negative - Past Medical History Pertinent Past Medical History: Yes Neurological History: Migraines ENT History: No Pertinent History Cardiac History: Hypertension Respiratory History: Asthma Endocrine Medical History: No Pertinent History Musculoskeletal History: Osteoarthritis GI Medical History: Crohns Disease History: No Pertinent History Psycho-Social History: Anxiety, Attention Deficit Disorder, Depression Male Reproductive Disorders: No Pertinent History Other Medical History: celiac, adhd, non hodgkins lymphoma - Past Surgical History Past Surgical History: Yes Neuro Surgical History: No Pertinent History Cardiac: No Pertinent History Respiratory: No Pertinent History Gastrointestinal: Hernia Repair Genitourinary: No Pertinent History Musculoskeletal: Orthopedic Surgery Male Surgical History: No Pertinent History Other Surgical History: r shoulder, rotator cuff - Social History Smoking Status: Former smoker How long have you smoked: rarely Exposure to second hand smoke: No Drug Use: none Patient Lives Alone: No - Nursing Vital Signs Nursing Vital Signs: Initial Vital Signs Temperature 97.9 F 12/20/19 18:47 Pulse Rate 78 12/20/19 18:47 Respiratory Rate 18 12/20/19 18:47 Blood Pressure 139/97 12/20/19 18:47 O2 Sat by Pulse Oximetry 97 12/20/19 18:47 Pain Scale Pain Intensity 6 - Physical Exam General Appearance: no apparent distress, alert Eye Exam: PERRL/EOMI, eyes nml inspection Ears, Nose, Throat Exam: normal ENT inspection, TMs normal, pharynx normal, moist mucous membranes Neck Exam: normal inspection, non-tender, supple, full range of motion Respiratory Exam: normal breath sounds, lungs clear, No respiratory distress Cardiovascular Exam: regular rate/rhythm, normal heart sounds, normal peripheral pulses Gastrointestinal/Abdomen Exam: soft, normal bowel sounds, No tenderness, No mass Back Exam: normal inspection, normal range of motion, No CVA tenderness, No vertebral tenderness Extremity Exam: normal inspection, normal range of motion, pelvis stable Neurologic Exam: alert, oriented x 3, cooperative, normal mood/affect, nml cerebellar function, nml station & gait, sensation nml, No motor deficits Skin Exam: normal color, warm, dry, No rash Lymphatic Exam: No adenopathy SpO2 Interpretation: normal SpO2: 97 Comments: 12/20/19 19:22 Right dorsal hand tenderness to palpation. No obvious deformity, sensation intact, 2+ capillary refill, 2 point tactile discrimination intact. 5 out of 5 strength. Full range of motion without pain. Compartments are soft, nontender. Overlying skin shows no tenting, bruising, ecchymosis. - Radiology Exams Hand X-ray Interpretation: Interpreted by me, No Fracture, Nml Alignment Ordered Tests: Active Orders 24 hr Category Date Time Status HAND (MINIMUM 3 VIEWS) Stat Exams 12/20/19 19:20 Taken WRIST (MIN 3 VIEWS) Stat Exams 12/20/19 19:20 Taken Medication Summary Discontinued Medications Generic Name Dose Route Start Last Admin Trade Name Esdrasq PRN Reason Stop Dose Admin Acetaminophen 1,000 mg 12/20/19 19:13 12/20/19 19:39 Tylenol Extra Strength 500 Mg PO 12/20/19 19:14 1,000 mg STAT STA Administration Acetaminophen Confirm 12/20/19 19:33 Tylenol Extra Strength 500 Mg Administered 12/20/19 19:34 Dose 1,000 mg .ROUTE .STK-MED ONE Ibuprofen 600 mg 12/20/19 19:13 12/20/19 19:34 Motrin 600 Mg PO 12/20/19 19:14 600 mg STAT ONE Administration Ibuprofen Confirm 12/20/19 19:33 Motrin 600 Mg Administered 12/20/19 19:34 Dose 600 mg .ROUTE .STK-MED ONE - Progress Progress: improved Progress Note: 12/20/19 19:22 We will obtain x-rays of the right hand, right wrist looking for any fractures or broken bones. Tylenol and ibuprofen. 12/20/19 19:41 X-ray shows no obvious fracture. Patient feels improved with pain medication here. Will discharge patient home. Follow-up with PCP return here for new or changing symptoms. Counseled pt/family regarding: diagnosis, rad results - Departure Departure Disposition: Home, Release to OR/[facility] Clinical Impression: Right hand pain Condition: Stable Critical Care Time: No Referrals: GABRIEL NUNEZ [Primary Care Provider] - Instructions: Hand Pain (DC)
[2019-12-20] MEDS ORDERED: TYLENOL EXTRA STRENGTH 500 MG ONE (19:33)
[2019-12-20] MEDS ORDERED: MOTRIN 600 MG ONE (19:33)
[2019-12-20 19:57] VITALS: BP 140/90; PULSE 73; O2SAT 96
--- NOTE | 2019-12-20 22:18 | XRAY ---
Indication: Pain following injury. Comparison: None 3 view right wrist obtained. No bony, articular, or soft tissue abnormalities.
--- NOTE | 2019-12-20 22:18 | XRAY ---
Indication: Pain following injury. Comparison: None 3 view right hand obtained. No bony, articular, or soft tissue abnormalities.
== END 2019-12-20 19:56 | disposition home or self-care (01) ==
LOC: ED 18:40
DX: M79.641 Pain in right hand (principal); W23.1XXA Caught, crushed, jammed, or pinched between stationary objects, initial encounter; Y93.9 Activity, unspecified; Y92.89 Other specified places as the place of occurrence of the external cause
CPT/HCPCS: 73110; 73130; 99283; A9270-GY

== ENCOUNTER 2020-05-19 19:58 | Emergency (ER) | payer MEDICARE ==
[2020-05-19] MEDS ORDERED: CLEOCIN 150 MG CAPSULE PO ONE (20:11)
--- NOTE | 2020-05-19 20:14 | ERPHSYRPT ---
- History of Present Illness Time Seen by Provider: 05/19/20 20:10 Source: patient Physician History: Patient is a 34-year-old male presents to our ED with a lesion on his dorsal right forearm. Patient believes he was bitten by spider. The area is scabbed. It has a rim of cellulitis. No lymphangitis. Minimal localized pain. No radiation. Palpation worsens symptoms. Pain improved with rest. No upper extremity numbness tingling or weakness. No trauma. No fever. No nausea or vomiting. No rash. Patient is otherwise healthy. He voices no other complaints at this time. Timing/Duration: other (Patient awoke 2 days ago with lesion to his right dorsal forearm.) Severity: mild (Patient declined pain medication. ) Modifying Factors: Improves With: nothing Associated Symptoms: denies symptoms Allergies/Adverse Reactions: Iodinated Contrast Media [Iodinated Contrast Media - IV Dye] Allergy (Severe, Verified 12/20/19 18:47) Rash ketorolac [From Toradol] Allergy (Intermediate, Verified 12/20/19 18:47) quetiapine fumarate [From Seroquel] Allergy (Intermediate, Verified 12/20/19 18:47) rash, itching meperidine HCl [From Demerol] Allergy (Mild, Verified 12/20/19 18:47) Rash/hyper morphine Allergy (Mild, Verified 12/20/19 18:47) rash/ hyper oxycodone [From OxyContin] Allergy (Mild, Verified 12/20/19 18:47) Itching prednisone Allergy (Mild, Verified 12/20/19 18:47) Nausea tramadol HCl [From Ultram] Allergy (Mild, Verified 12/20/19 18:47) rash itching ondansetron [From Zofran] Allergy (Verified 12/20/19 18:47) Hives acetaminophen [From Percocet] Adverse Reaction (Verified 12/20/19 18:47) Home Medications: Fluticasone/Vilanterol [Breo Ellipta 200-25 Mcg INH] 1 puff IH DAILY 12/20/19 [History] Methylphenidate HCl [Methylphenidate ER] 1 tab PO DAILY 12/20/19 [History] Hx Tetanus, Diphtheria Vaccination/Date Given: Yes Hx Influenza Vaccination/Date Given: Yes Hx Pneumococcal Vaccination/Date Given: No - Review of Systems Constitutional: No Symptoms, No Fever, No Chills Eyes: No Symptoms Ears, Nose, & Throat: No Symptoms Respiratory: No Symptoms, No Cough, No Dyspnea Cardiac: No Symptoms, No Chest Pain, No Edema, No Syncope Abdominal/Gastrointestinal: No Symptoms, No Abdominal Pain, No Nausea, No Vomiting, No Diarrhea Genitourinary Symptoms: No Symptoms, No Dysuria Musculoskeletal: No Symptoms, No Back Pain, No Neck Pain Skin: No Symptoms, No Rash Neurological: No Symptoms, No Dizziness, No Focal Weakness, No Sensory Changes Psychological: No Symptoms Endocrine: No Symptoms Hematologic/Lymphatic: No Symptoms Immunological/Allergic: No Symptoms All Other Systems: Reviewed and Negative - Past Medical History Pertinent Past Medical History: Yes Neurological History: Migraines ENT History: No Pertinent History Cardiac History: Hypertension Respiratory History: Asthma Endocrine Medical History: No Pertinent History Musculoskeletal History: Osteoarthritis GI Medical History: Crohns Disease History: No Pertinent History Psycho-Social History: Anxiety, Attention Deficit Disorder, Depression Male Reproductive Disorders: No Pertinent History Other Medical History: celiac, adhd, non hodgkins lymphoma - Past Surgical History Past Surgical History: Yes Neuro Surgical History: No Pertinent History Cardiac: No Pertinent History Respiratory: No Pertinent History Gastrointestinal: Hernia Repair Genitourinary: No Pertinent History Musculoskeletal: Orthopedic Surgery Male Surgical History: No Pertinent History Other Surgical History: r shoulder, rotator cuff - Social History Smoking Status: Former smoker How long have you smoked: rarely Exposure to second hand smoke: No Drug Use: none Patient Lives Alone: No - Nursing Vital Signs Nursing Vital Signs: Initial Vital Signs Temperature 97.4 F 05/19/20 20:03 Pulse Rate 97 H 05/19/20 20:03 Respiratory Rate 18 05/19/20 20:03 Blood Pressure 172/114 05/19/20 20:03 O2 Sat by Pulse Oximetry 97 05/19/20 20:03 Pain Scale Pain Intensity 0 - Physical Exam General Appearance: no apparent distress, alert Eye Exam: PERRL/EOMI, eyes nml inspection Ears, Nose, Throat Exam: normal ENT inspection, TMs normal, pharynx normal, moist mucous membranes Neck Exam: normal inspection, non-tender, supple, full range of motion Respiratory Exam: normal breath sounds, lungs clear, No respiratory distress Cardiovascular Exam: regular rate/rhythm, normal heart sounds, normal peripheral pulses Gastrointestinal/Abdomen Exam: soft, normal bowel sounds, No tenderness, No mass Back Exam: normal inspection, normal range of motion, No CVA tenderness, No vertebral tenderness Extremity Exam: normal inspection, normal range of motion, pelvis stable Neurologic Exam: alert, oriented x 3, cooperative, normal mood/affect, nml cerebellar function, nml station & gait, sensation nml, No motor deficits Skin Exam: normal color, warm, dry, other (0.5 x 0.5 cm lesion dorsal aspect of right forearm. The lesion is scabbed over. There is a rim of cellulitis. No lymphangitis. No active drainage. Involved extremity is neurovascularly intact distally. Compartments are soft. Cap refill less than 2 seconds. Radial pulse palpable. Function of), No rash Lymphatic Exam: No adenopathy SpO2 Interpretation: normal SpO2: 97 O2 Delivery: Room Air - Course Nursing assessment & vital signs reviewed: Yes Ordered Tests: Medication Summary Discontinued Medications Generic Name Dose Route Start Last Admin Trade Name Freq PRN Reason Stop Dose Admin Clindamycin HCl 300 mg 05/19/20 20:11 Cleocin 150 Mg Capsule PO 05/19/20 20:12 STAT ONE - Progress Progress: improved Progress Note: 05/19/20 20:18 Patient received a dose of clindamycin in our ED. A prescription for the same was provided. Wound was irrigated and cleansed as well. No indication for further work-up. The lesion is localized. No systemic manifestations. No subcutaneous gas or crepitation. Compartments are soft. Extremity is pink warm well perfused. Patient agrees to follow-up with his primary care doctor for reevaluation within 48 hours. Counseled pt/family regarding: diagnosis, need for follow-up - Departure Departure Disposition: Home Clinical Impression: Insect bite, Cellulitis Condition: Stable Critical Care Time: No Referrals: GABRIEL NUNEZ [Primary Care Provider] - Additional Instructions: Discharge/Care Plan ERICA TODD JOYA was seen on 05/19/20 in the Emergency Room. The patient was counseled regarding Diagnosis,Lab results, Imaging studies, need for follow up and when to return to the Emergency Room. Prescriptions given: Discharge Note I have spoken with the patient and/or caregivers. I have explained the patient's condition, diagnosis and treatment plan based on the information available to me at this time. I have answered the patient's and/or caregiver's questions and addressed any concerns. The patient and/or caregivers have as good understanding of the patient's diagnosis, condition and treatment plan as can be expected at this point. The vital signs have been stable. The patient's condition is stable and appropriate for discharge from the emergency department. The patient will pursue further outpatient evaluation with the primary care physician or other designated or consulting physician as outlined in the discharge instructions. The patient and/or caregivers are agreeable to this plan of care and follow-up instructions have been explained in detail. The patient and/or caregivers have received these instruction. The patient/and or caregivers are aware that any significant change in condition or worsening of symptoms should prompt an immediate return to this or the closest emergency department or call 911. Prescriptions: Clindamycin HCl 150 mg [Cleocin 150 mg Capsule] 2 cap PO QID 7 Days #56 capsule
[2020-05-19] MEDS ORDERED: CLEOCIN 150 MG CAPSULE ONE (20:17)
[2020-05-19 20:26] VITALS: BP 149/100; PULSE 89; O2SAT 96
== END 2020-05-19 20:31 | disposition home or self-care (01) ==
LOC: ED 19:58
DX: S50.861A Insect bite (nonvenomous) of right forearm, initial encounter (principal); L03.113 Cellulitis of right upper limb; T63.301A Toxic effect of unspecified spider venom, accidental (unintentional), initial encounter; I10 Essential (primary) hypertension; Z79.899 Other long term (current) drug therapy
CPT/HCPCS: 99283; A9270-GY

== ENCOUNTER 2020-12-05 22:57 | Emergency (ER) | payer MEDICAID, MEDICARE ==
--- NOTE | 2020-12-05 23:30 | ERPHSYRPT ---
- History of Present Illness Time Seen by Provider: 12/05/20 23:15 Source: patient Exam Limitations: no limitations Physician History: This is a 35-year-old white male who was fishing 24 hours ago and did not suffer any type of injury but today he was having anterior thigh pain on the left side. He can walk on his legs but it his left anterior thigh hurts when he walks. He is never had anything like this before. Method of Injury: other (No injury) Occurred: yesterday Quality: aching Severity of Pain-Max: moderate Severity of Pain-Current: mild (Mild to moderate) Lower Extremities Pain: thigh: left (Anterior) Modifying Factors: Improves With: movement Associated Symptoms: other (Hurts to bear weight but can do so.) Allergies/Adverse Reactions: Iodinated Contrast Media [Iodinated Contrast Media - IV Dye] Allergy (Severe, Verified 12/05/20 23:03) Rash ketorolac [From Toradol] Allergy (Intermediate, Verified 12/05/20 23:03) quetiapine fumarate [From Seroquel] Allergy (Intermediate, Verified 12/05/20 23:03) rash, itching meperidine HCl [From Demerol] Allergy (Mild, Verified 12/05/20 23:03) Rash/hyper morphine Allergy (Mild, Verified 12/05/20 23:03) rash/ hyper oxycodone [From OxyContin] Allergy (Mild, Verified 12/05/20 23:03) Itching prednisone Allergy (Mild, Verified 12/05/20 23:03) Nausea tramadol HCl [From Ultram] Allergy (Mild, Verified 12/05/20 23:03) rash itching ondansetron [From Zofran] Allergy (Verified 12/05/20 23:03) Hives acetaminophen [From Percocet] Adverse Reaction (Verified 12/05/20 23:03) Home Medications: Methylphenidate HCl [Ritalin] 10 mg PO BID 05/19/20 [History] Naproxen 500 mg [Naprosyn 500 MG] 500 mg PO BIDPRN PRN 12/05/20 [History] Simvastatin 10 mg PO HS 12/05/20 [History] Hx Tetanus, Diphtheria Vaccination/Date Given: Yes Hx Influenza Vaccination/Date Given: Yes Hx Pneumococcal Vaccination/Date Given: No Travel Risk - International Travel Have you traveled outside of the country in past 3 weeks: No - Coronavirus Screening Are you exhibiting any of the following symptoms?: No Close contact with a COVID-19 positive Pt in past 14-21 Days: No - Review of Systems Constitutional: No Symptoms Eyes: No Symptoms Ears, Nose, & Throat: No Symptoms Respiratory: No Symptoms Cardiac: No Symptoms Abdominal/Gastrointestinal: No Symptoms Genitourinary Symptoms: No Symptoms Musculoskeletal: Other (Localized left anterior thigh ache) Skin: No Symptoms Neurological: No Symptoms Psychological: No Symptoms Endocrine: No Symptoms Hematologic/Lymphatic: No Symptoms Immunological/Allergic: No Symptoms All Other Systems: Reviewed and Negative - Past Medical History Pertinent Past Medical History: Yes Neurological History: Migraines ENT History: No Pertinent History Cardiac History: High Cholesterol, Hypertension Respiratory History: Asthma Endocrine Medical History: No Pertinent History Musculoskeletal History: Osteoarthritis GI Medical History: Crohns Disease History: No Pertinent History Psycho-Social History: Anxiety, Attention Deficit Disorder, Depression Male Reproductive Disorders: No Pertinent History Other Medical History: celiac, adhd, non hodgkins lymphoma - Past Surgical History Past Surgical History: Yes Neuro Surgical History: No Pertinent History Cardiac: No Pertinent History Respiratory: No Pertinent History Gastrointestinal: Hernia Repair Genitourinary: No Pertinent History Musculoskeletal: Orthopedic Surgery Male Surgical History: No Pertinent History Other Surgical History: r shoulder, rotator cuff - Social History Smoking Status: Former smoker How long have you smoked: rarely Exposure to second hand smoke: No Drug Use: none Patient Lives Alone: No - Nursing Vital Signs Nursing Vital Signs: Initial Vital Signs Temperature 97.5 F 12/05/20 22:57 Pulse Rate 83 12/05/20 22:57 Respiratory Rate 18 12/05/20 22:57 Blood Pressure 144/103 12/05/20 22:57 O2 Sat by Pulse Oximetry 98 12/05/20 22:57 Pain Scale Pain Intensity 5 - Physical Exam General Appearance: no apparent distress, alert, anxiety Eyes, Ears, Nose, Throat Exam: normal ENT inspection, moist mucous membranes Neck Exam: normal inspection, non-tender, supple, full range of motion Cardiovascular/Respiratory Exam: chest non-tender, no respiratory distress Gastrointestinal/Abdominal Exam: non-tender Back Exam: normal inspection, normal range of motion, No CVA tenderness, No vertebral tenderness Hips Exam: right: non-tender, left: soft tissue tenderness (Left anterior thigh), bilateral: normal inspection, normal range of motion, no evidence of injury Legs Exam: bilateral leg: normal inspection, normal range of motion, no evidence of injury Knees Exam: bilateral knee: non-tender, normal inspection, normal range of motion, no evidence of injury Ankle Exam: bilateral ankle: non-tender, normal inspection, normal range of motion, no evidence of injury Foot Exam: bilateral foot: non-tender, normal inspection, normal range of motion, no evidence of injury Neuro/Tendon Exam: normal sensation, normal motor functions, normal tendon functions, responds to pain Mental Status Exam: alert, oriented x 3, cooperative Skin Exam: normal color, warm, dry SpO2 Interpretation: normal SpO2: 98 O2 Delivery: Room Air - Course Nursing assessment & vital signs reviewed: Yes - Progress Progress: improved, pain not gone completely, re-examined Counseled pt/family regarding: diagnosis, need for follow-up - Departure Departure Disposition: Home Clinical Impression: Muscle spasm Condition: Stable Critical Care Time: No Referrals: GABRIEL NUNEZ [Primary Care Provider] - Additional Instructions: Take medication as prescribed. Follow-up with primary care doctor next week for further management. Prescriptions: Cyclobenzaprine HCl 10 mg [Cyclobenzaprine 10 MG] 10 mg PO TID #10 tablet
[2020-12-05] MEDS ORDERED: Cyclobenzaprine 10 MG PO ONE (23:42)
[2020-12-05] MEDS ORDERED: Naprosyn 500 MG PO ONE (23:44)
[2020-12-05] MEDS ORDERED: Cyclobenzaprine 10 MG ONE (23:45)
[2020-12-06 00:11] VITALS: BP 133/92; PULSE 85; O2SAT 97
== END 2020-12-06 00:11 | disposition home or self-care (01) ==
LOC: ED 22:57
DX: M62.838 Other muscle spasm (principal)
CPT/HCPCS: 99283; A9270-GY

== ENCOUNTER 2020-12-25 13:03 | Emergency (ER) | payer MEDICAID ==
[2020-12-25 13:19] VITALS: O2SAT 97
[2020-12-25] MEDS ORDERED: TYLENOL EXTRA STRENGTH 500 MG PO ONE (13:23)
[2020-12-25] MEDS ORDERED: TYLENOL EXTRA STRENGTH 500 MG ONE (13:25)
[2020-12-25 14:20] VITALS: BP 131/95; PULSE 92
[2020-12-25 14:38] LABS: Absolute Neutrophil Ct (ANC) 3.32 (1.4-6.9); BASOPHIL % 0.8 % (0.0-0.4); Basophil (Absolute #) 0.04 (0-0.4); Eosinophil % 3.8 % (0.00-5.0); Hematocrit 42.4 % (42-50); Hemoglobin 14.5 gm/dl (12.5-18.0); Lymphocyte (Absolute #) 1.34 (1.0-4.6); Lymphocytes % 25.6 % (24.0-44.0); Mean Cell Volume 89.1 fl (78-100); Mean Corpuscular Hemoglobin 30.5 pg (26-32); Mean Corpuscular Hgb Concent. 34.2 g/dl (32-36); Mean Platelet Volume 10.3 fl (7.5-11.0); Monocyte (Absolute #) 0.33 (0.0-1.3); Monocytes % 6.3 % (0.0-12.0); Neutrophil % 63.5 % (36.0-66.0); Platelet Count 304 K/mm3 (150-450); Red Blood Count 4.76 M/mm3 (4.1-5.6); Red Cell Distribution Width 12.9 % (11.5-14.0); White Blood Count 5.2 K/mm3 (4.0-10.5)
[2020-12-25 15:04] LABS: Erythrocyte Sedimentation Rate 16 mm/hr (0-15)
--- NOTE | 2020-12-25 15:05 | XRAY ---
Exam: 3 view left wrist series from 12/25/2020. Comparison: None. Indication: 35-year-old male with left wrist pain; no known injury. Findings: AP, oblique, and lateral radiographs of the left wrist were obtained. I see no acute fracture or dislocation. The carpal scaphoid bone appears intact. The radiocarpal joint space appears unremarkable. No intra-articular or periarticular soft tissue calcifications are seen. The carpal joint spaces appear unremarkable. No radiopaque soft tissue foreign body is seen. Impression: 1. No significant plain film bone or joint abnormality of the left wrist is seen.
--- NOTE | 2020-12-25 15:52 | ERPHSYRPT ---
- History of Present Illness Time Seen by Provider: 12/25/20 13:30 Source: patient Exam Limitations: no limitations Patient Subjective Stated Complaint: L wrist pain Triage Nursing Assessment: pt to ED c/o L wrist pain for unknown time. pt rates 4/10 pain now but more severe with activity. no swelling noted, limited ROM r/t pain. no other signs of trauma or injury Physician History: Patient is a 35-year-old male who presents with a complaint of pain in his left wrist. He has no known injury or trauma. , Noted several days ago and is getting worse. Method of Injury: unknown Quality: constant Extremities Pain Location: wrist: left (Very tenderness over the) Modifying Factors: Improves With: movement Allergies/Adverse Reactions: Iodinated Contrast Media [Iodinated Contrast Media - IV Dye] Allergy (Severe, Verified 12/25/20 13:19) Rash ketorolac [From Toradol] Allergy (Intermediate, Verified 12/25/20 13:19) quetiapine fumarate [From Seroquel] Allergy (Intermediate, Verified 12/25/20 13:19) rash, itching meperidine HCl [From Demerol] Allergy (Mild, Verified 12/25/20 13:19) Rash/hyper morphine Allergy (Mild, Verified 12/25/20 13:19) rash/ hyper oxycodone [From OxyContin] Allergy (Mild, Verified 12/25/20 13:19) Itching prednisone Allergy (Mild, Verified 12/25/20 13:19) Nausea tramadol HCl [From Ultram] Allergy (Mild, Verified 12/25/20 13:19) rash itching ondansetron [From Zofran] Allergy (Verified 12/25/20 13:19) Hives acetaminophen [From Percocet] Adverse Reaction (Verified 12/25/20 13:19) Home Medications: Methylphenidate HCl [Ritalin] 10 mg PO BID 12/25/20 [History] Propranolol HCl [Inderal LA] 60 mg PO DAILY 12/25/20 [History] Sumatriptan Succinate [Imitrex] 100 mg PO DAILY 12/25/20 [History] Hx Tetanus, Diphtheria Vaccination/Date Given: Yes Hx Influenza Vaccination/Date Given: Yes Hx Pneumococcal Vaccination/Date Given: No Immunizations Up to Date: Yes Travel Risk - International Travel Have you traveled outside of the country in past 3 weeks: No - Coronavirus Screening Are you exhibiting any of the following symptoms?: No Close contact with a COVID-19 positive Pt in past 14-21 Days: No - Vaccine Status Have you recieved a Covid-19 vaccination: Yes [employer]: Moderna - Vaccination Dates Date of 2cond Vaccination (if applicable): october - Review of Systems Constitutional: No Fever, No Chills Eyes: No Symptoms Ears, Nose, & Throat: No Symptoms Respiratory: No Cough, No Dyspnea Cardiac: No Chest Pain, No Edema, No Syncope Abdominal/Gastrointestinal: No Abdominal Pain, No Nausea, No Vomiting, No Diarrhea Genitourinary Symptoms: No Dysuria Musculoskeletal: Joint Redness, Joint Pain, Joint Swelling, No Back Pain, No Neck Pain Skin: No Rash Neurological: No Dizziness, No Focal Weakness, No Sensory Changes Psychological: No Symptoms Endocrine: No Symptoms All Other Systems: Reviewed and Negative - Past Medical History Pertinent Past Medical History: Yes Neurological History: Migraines ENT History: No Pertinent History Cardiac History: High Cholesterol, Hypertension Respiratory History: Asthma Endocrine Medical History: No Pertinent History Musculoskeletal History: Osteoarthritis GI Medical History: Crohns Disease History: No Pertinent History Psycho-Social History: Anxiety, Attention Deficit Disorder, Depression Male Reproductive Disorders: No Pertinent History Other Medical History: celiac, adhd, non hodgkins lymphoma - Past Surgical History Past Surgical History: Yes Neuro Surgical History: No Pertinent History Cardiac: No Pertinent History Respiratory: No Pertinent History Gastrointestinal: Hernia Repair Genitourinary: No Pertinent History Musculoskeletal: Orthopedic Surgery Male Surgical History: No Pertinent History Other Surgical History: r shoulder, rotator cuff - Social History Smoking Status: Former smoker How long have you smoked: rarely Exposure to second hand smoke: No Drug Use: none Patient Lives Alone: No - Nursing Vital Signs Nursing Vital Signs: Initial Vital Signs Temperature 98.6 F 12/25/20 13:13 Pulse Rate 81 12/25/20 13:13 Respiratory Rate 18 12/25/20 13:13 Blood Pressure 153/110 12/25/20 13:13 O2 Sat by Pulse Oximetry 97 12/25/20 13:13 Pain Scale Pain Intensity 3 - Physical Exam General Appearance: mild distress Eyes, Ears, Nose, Throat Exam: moist mucous membranes Neck Exam: non-tender, supple Cardiovascular/Respiratory Exam: chest non-tender, normal breath sounds, regular rate/rhythm, no respiratory distress Abdominal Exam: non-tender, No guarding Back Exam: normal inspection, No vertebral tenderness Wrist Exam: bone tenderness, limited ROM, pain, soft tissue tenderness, swelling Neuro/Tendon Exam: normal sensation, normal motor functions Mental Status Exam: alert, oriented x 3, cooperative Skin Exam: normal color, warm, dry SpO2: 97 - Course Nursing assessment & vital signs reviewed: Yes Ordered Tests: Active Orders 24 hr Category Date Time Status WRIST (MIN 3 VIEWS) Stat Exams 12/25/20 14:01 Completed CBC W DIFF Stat Lab 12/25/20 14:16 Completed SED RATE [Erythrocyte Sedimentation Rate] Stat Lab 12/25/20 14:16 Completed Uric Acid Stat Lab 12/25/20 14:16 Completed Medication Summary Discontinued Medications Generic Name Dose Route Start Last Admin Trade Name Darwin PRN Reason Stop Dose Admin Acetaminophen 1,000 mg 12/25/20 13:23 12/25/20 13:26 Tylenol Extra Strength 500 Mg PO 12/25/20 13:24 1,000 mg STAT ONE Administration Acetaminophen Confirm 12/25/20 13:25 Tylenol Extra Strength 500 Mg Administered 12/25/20 13:26 Dose 1,000 mg .ROUTE .TRUECar-MED ONE Lab/Rad Data: Laboratory Result Diagrams 12/25/20 14:16 Laboratory Results 12/25/20 12/25/20 Range/Units 14:16 14:16 WBC 5.2 (4.0-10.5) K/mm3 RBC 4.76 (4.1-5.6) M/mm3 Hgb 14.5 (12.5-18.0) gm/dl Hct 42.4 (42-50) % MCV 89.1 (78-100) fl MCH 30.5 (26-32) pg MCHC 34.2 (32-36) g/dl RDW 12.9 (11.5-14.0) % Plt Count 304 (150-450) K/mm3 MPV 10.3 (7.5-11.0) fl Gran % 63.5 (36.0-66.0) % Eos # (Auto) 0.20 (0-0.5) Absolute Lymphs (auto) 1.34 (1.0-4.6) Absolute Monos (auto) 0.33 (0.0-1.3) Lymphocytes % 25.6 (24.0-44.0) % Monocytes % 6.3 (0.0-12.0) % Eosinophils % 3.8 (0.00-5.0) % Basophils % 0.8 (0.0-0.4) % Absolute Granulocytes 3.32 (1.4-6.9) Basophils # 0.04 (0-0.4) ESR 16 H (0-15) mm/hr Uric Acid 9.6 H (3.5-7.2) mg/dL - Progress Progress: unchanged - Departure Departure Disposition: Home Clinical Impression: Acute gout Condition: Stable Critical Care Time: No Referrals: GABRIEL NUNEZ [Primary Care Provider] - Instructions: Gout (DC) Prescriptions: Oxycodone HCl/Acetaminophen [Percocet 5-325 mg Tablet] 1 each PO Q6H PRN PRN #12 tablet MDD 4 PRN Reason: Pain Prednisone 10 mg [Deltasone 10 mg] 10 mg PO TID #18 tablet
== END 2020-12-25 16:10 | disposition home or self-care (01) ==
LOC: ED 13:03
DX: M10.9 Gout, unspecified (principal); M25.532 Pain in left wrist; E78.00 Pure hypercholesterolemia, unspecified; I10 Essential (primary) hypertension; Z79.899 Other long term (current) drug therapy
CPT/HCPCS: 36415; 73110; 84550; 85025; 85652; 86140; 99284; L3908; A9270-GY

== ENCOUNTER 2021-04-20 21:54 | Emergency (ER) | payer MEDICAID ==
--- NOTE | 2021-04-20 22:33 | ERPHSYRPT ---
- History of Present Illness Time Seen by Provider: 04/20/21 22:16 Source: patient Exam Limitations: no limitations Patient Subjective Stated Complaint: Patient states " I was standing on a chair taking down siding and thecushion slid out and my left foot went through chair and I landed down on ground on my left side and since then I haven't been able to bear any weight on left foot." Triage Nursing Assessment: Patient arrived to ED and RN assisted patient back to room in W/C. Patient states he cannot bear weight on left foot. Patient did transfer self to bed. Patient A/O times 4. Patient able to follow instructions without difficulty. Patient with complaints of left foot pain from foot going through chair. Upon visual inspection no bruising or redness noted. Very minimal/slight edema noted to outside around left ankle. + Pedal pulse noted to left lower extremity. Patient denies any tingling or numbness. Cap refill < 3 seconds on left lower extremity. Patient ROM WNL but patient states he has alot of pain and discomfort. Central pulse strong and regular. No further injury noted or complaints voiced. Physician History: 35 years old presented in the ER with chief left foot and ankle pain after he accidentally slid while standing on a chair and twisted his left ankle. Patient is unable to bear any weight and is noticed some increasing swelling left ankle/dorsum of foot. No injury anywhere else. Method of Injury: fell, twisted Occurred: this evening Quality: sharpness Severity of Pain-Max: moderate Severity of Pain-Current: moderate Lower Extremities Pain: foot: left, ankle: left Modifying Factors: Improves With: immobilization, rest. Worsens With: movement Associated Symptoms: unable to bear weight Allergies/Adverse Reactions: Iodinated Contrast Media [Iodinated Contrast Media - IV Dye] Allergy (Severe, Verified 04/20/21 22:13) Rash ketorolac [From Toradol] Allergy (Intermediate, Verified 04/20/21 22:13) Itching quetiapine fumarate [From Seroquel] Allergy (Intermediate, Verified 04/20/21 22:13) rash, itching meperidine HCl [From Demerol] Allergy (Mild, Verified 04/20/21 22:13) Rash/hyper morphine Allergy (Mild, Verified 04/20/21 22:13) rash/ hyper oxycodone [From OxyContin] Allergy (Mild, Verified 04/20/21 22:13) Itching prednisone Allergy (Mild, Verified 04/20/21 22:13) Nausea tramadol HCl [From Ultram] Allergy (Mild, Verified 04/20/21 22:13) rash itching ondansetron [From Zofran] Allergy (Verified 04/20/21 22:13) Hives acetaminophen [From Percocet] Adverse Reaction (Verified 04/20/21 22:13) Hives Home Medications: Methylphenidate HCl [Ritalin] 10 mg PO BID 12/25/20 [History] Propranolol HCl [Inderal LA] 60 mg PO DAILY 12/25/20 [History] Sumatriptan Succinate [Imitrex] 100 mg PO DAILY 12/25/20 [History] Hx Tetanus, Diphtheria Vaccination/Date Given: Yes Hx Influenza Vaccination/Date Given: No Hx Pneumococcal Vaccination/Date Given: No Immunizations Up to Date: Yes Travel Risk - International Travel Have you traveled outside of the country in past 3 weeks: No - Coronavirus Screening Are you exhibiting any of the following symptoms?: No Close contact with a COVID-19 positive Pt in past 14-21 Days: No - Vaccine Status Have you recieved a Covid-19 vaccination: Yes Procedure Analyst: Moderna - Vaccination Dates Date of 2cond Vaccination (if applicable): 11/12/20 - Review of Systems Constitutional: No Symptoms Ears, Nose, & Throat: No Symptoms Respiratory: No Symptoms Cardiac: No Symptoms Abdominal/Gastrointestinal: No Symptoms Musculoskeletal: Injury, Joint Pain, Joint Swelling Skin: No Symptoms Neurological: No Symptoms Hematologic/Lymphatic: No Symptoms Immunological/Allergic: No Symptoms - Past Medical History Pertinent Past Medical History: Yes Neurological History: Migraines ENT History: No Pertinent History Cardiac History: High Cholesterol, Hypertension Respiratory History: Asthma Endocrine Medical History: No Pertinent History Musculoskeletal History: Osteoarthritis GI Medical History: Crohns Disease History: No Pertinent History Psycho-Social History: Anxiety, Attention Deficit Disorder, Depression Male Reproductive Disorders: No Pertinent History Other Medical History: celiac, adhd, non hodgkins lymphoma - Past Surgical History Past Surgical History: Yes Neuro Surgical History: No Pertinent History Cardiac: No Pertinent History Respiratory: No Pertinent History Gastrointestinal: Hernia Repair Genitourinary: No Pertinent History Musculoskeletal: Orthopedic Surgery Male Surgical History: No Pertinent History Other Surgical History: r shoulder, rotator cuff - Social History Smoking Status: Former smoker How long have you smoked: rarely Exposure to second hand smoke: No Drug Use: none Patient Lives Alone: No - Nursing Vital Signs Nursing Vital Signs: Initial Vital Signs Temperature 97.7 F 04/20/21 21:55 Pulse Rate 78 04/20/21 21:55 Respiratory Rate 18 04/20/21 21:55 Blood Pressure 147/103 04/20/21 21:55 O2 Sat by Pulse Oximetry 98 04/20/21 21:55 Pain Scale Pain Intensity 6 - Physical Exam General Appearance: no apparent distress Neck Exam: normal inspection, full range of motion Cardiovascular/Respiratory Exam: normal breath sounds, regular rate/rhythm Legs Exam: bilateral leg: non-tender, normal inspection, normal range of motion, no evidence of injury Knees Exam: bilateral knee: non-tender, normal inspection, normal range of motion, no evidence of injury Ankle Exam: right ankle: non-tender, normal inspection, normal range of motion, no evidence of injury, left ankle: bone tenderness (Lateral malleolus), limited range of motion, pain, soft tissue tenderness, swelling (Lateral malleolus and dorsum of proximal foot) Foot Exam: right foot: non-tender, normal inspection, normal range of motion, no evidence of injury, pain (Lateral foot and dorsum of) Neuro/Tendon Exam: normal sensation, normal motor functions Mental Status Exam: alert, oriented x 3, cooperative Skin Exam: normal color SpO2 Interpretation: normal SpO2: 98 O2 Delivery: Room Air Ordered Tests: Medication Summary Discontinued Medications Generic Name Dose Route Start Last Admin Trade Name Freq PRN Reason Stop Dose Admin Naproxen 500 mg 04/20/21 22:59 04/20/21 23:14 Naproxen 500 Mg Tablet PO 04/20/21 23:00 Not Given STAT ONE - Progress Progress: pain not gone completely, re-examined Progress Note: 04/20/21 23:00 No obvious fracture x-rays reviewed by me, official report is pending. Recommended Aircast crutches and weightbearing as tolerated. Patient does not want to go for crutches and wanted walking boot which is given. Outpatient podiatry follow-up. Naproxen, ice and elevation. Counseled pt/family regarding: diagnosis, need for follow-up, rad results - Departure Departure Disposition: Home Clinical Impression: Ankle sprain Qualifiers: Encounter type: initial encounter Involved ligament of ankle: unspecified ligament Laterality: left Qualified Code(s): S93.402A - Sprain of unspecified ligament of left ankle, initial encounter Condition: Stable Critical Care Time: No Referrals: GABRIEL NUNEZ [Primary Care Provider] - Follow Up with PCP/3 days PREMA COOLEY DPM [ACTIVE STAFF] - (Call tomorrow for reevaluation) Instructions: Ankle Sprain (DC), Foot Sprain (DC) Additional Instructions: Weightbearing as tolerated. Take Tylenol/naproxen as needed for pain control. Follow-up with podiatry for reevaluation. Keep it elevated, apply ice. Prescriptions: Naproxen 500 mg [Naprosyn 500 MG] 500 mg PO BID #20 tablet
[2021-04-20] MEDS ORDERED: Naprosyn 500 MG PO ONE (22:59)
[2021-04-20 23:21] VITALS: BP 131/93; PULSE 72
--- NOTE | 2021-04-21 08:47 | XRAY ---
Indication: Pain following fall. Comparison: None 3 view left ankle obtained. No bony, articular, or soft tissue abnormalities.
--- NOTE | 2021-04-21 08:57 | XRAY ---
Indication: Pain following fall. Comparison: None 3 nonweightbearing views left foot demonstrates normal bones, articulation, and soft tissues.
[2021-04-24 10:04] VITALS: O2SAT 98
== END 2021-04-20 23:24 | disposition home or self-care (01) ==
LOC: ED 21:54
DX: S93.402A Sprain of unspecified ligament of left ankle, initial encounter (principal); M25.572 Pain in left ankle and joints of left foot; X50.1XXA Overexertion from prolonged static or awkward postures, initial encounter; Y93.89 Activity, other specified; Y92.89 Other specified places as the place of occurrence of the external cause
CPT/HCPCS: 73610; 73630; 99284; L4386

== ENCOUNTER 2022-06-15 22:09 | Emergency (ER) | payer MEDICAID ==
[2022-06-15 22:22] VITALS: O2SAT 96
[2022-06-15] MEDS ORDERED: MOTRIN 400 MG PO ONE (22:31)
[2022-06-15] MEDS ORDERED: MOTRIN 400 MG ONE (22:37)
--- NOTE | 2022-06-15 22:56 | ERPHSYRPT ---
- History of Present Illness Time Seen by Provider: 06/15/22 22:19 Source: patient Exam Limitations: no limitations Patient Subjective Stated Complaint: pt states "This knee always bothers me but a couple days ago. I got out of bed and twisted it or something and not hurts to walk on it." Triage Nursing Assessment: pt ambulatory to bed by self with no assistance, pt alert and oriented x3, pt c/o R knee pain x3 days, pt has hx of bone spur remov ed out of R knee 2 years ago and states "It always hurts but it has been really bad for a couple days." skin pwd on bilateral lower extremities, slight swelling noted to R knee Physician History: 36yo M presents with right knee pain. Able to flex and extend although somewhat limited by pain. He reports aching, 7/10 pain over the anterior and posterior aspect of the knee. He reports being unable to walk w/out a limp since twisting it a few days ago. He had an osteophyte removed from the knee by Dr. Calderón earlier this year. He denies redness, warmth or swelling. Considered, but doubt, tibial plateau fracture, septic arthritis, other acute unstable fracture, or significant neurovascular compromise. Method of Injury: twisted Occurred: days ago (2) Quality: intermittent, aching Severity of Pain-Max: moderate Severity of Pain-Current: moderate Lower Extremities Pain: knee: right Modifying Factors: Improves With: movement (worsens), pain medication (not helping), rest (improves) Associated Symptoms: unable to bear weight (without a limp), other (denies redness, swelling) Allergies/Adverse Reactions: Iodinated Contrast Media [Iodinated Contrast Media - IV Dye] Allergy (Severe, Verified 06/15/22 22:13) Rash ketorolac [From Toradol] Allergy (Intermediate, Verified 06/15/22 22:13) Itching quetiapine fumarate [From Seroquel] Allergy (Intermediate, Verified 06/15/22 22:13) rash, itching meperidine HCl [From Demerol] Allergy (Mild, Verified 06/15/22 22:13) Rash/hyper morphine Allergy (Mild, Verified 06/15/22 22:13) rash/ hyper oxycodone [From OxyContin] Allergy (Mild, Verified 06/15/22 22:13) Itching prednisone Allergy (Mild, Verified 06/15/22 22:13) Nausea tramadol HCl [From Ultram] Allergy (Mild, Verified 06/15/22 22:13) rash itching ondansetron [From Zofran] Allergy (Verified 06/15/22 22:13) Hives acetaminophen [From Percocet] Adverse Reaction (Verified 06/15/22 22:13) Hives Home Medications: Methylphenidate HCl [Ritalin] 10 mg PO BID 12/25/20 [History] Propranolol HCl [Inderal LA] 60 mg PO DAILY 12/25/20 [History] SUMAtriptan succinate [Imitrex] 100 mg PO DAILY 12/25/20 [History] Hx Tetanus, Diphtheria Vaccination/Date Given: Yes Hx Influenza Vaccination/Date Given: Yes Hx Pneumococcal Vaccination/Date Given: No Immunizations Up to Date: Yes Travel Risk - International Travel Have you traveled outside of the country in past 3 weeks: No - Coronavirus Screening Are you exhibiting any of the following symptoms?: No Close contact with a COVID-19 positive Pt in past 14-21 Days: No - Vaccine Status Have you recieved a Covid-19 vaccination: Yes Appeals And Generalist Clerk: Moderna - Vaccination Dates Date of 2cond Vaccination (if applicable): 2021 - Review of Systems Constitutional: No Fever, No Chills Skin: No Cellulitis, No Rash Neurological: Other (no weakness) - Past Medical History Pertinent Past Medical History: Yes Neurological History: Migraines ENT History: No Pertinent History Cardiac History: Hypertension Respiratory History: Asthma Endocrine Medical History: No Pertinent History Musculoskeletal History: Osteoarthritis GI Medical History: Crohns Disease History: No Pertinent History Psycho-Social History: Anxiety, Attention Deficit Disorder, Depression Male Reproductive Disorders: No Pertinent History Other Medical History: celiac, Chrohn's dx, ADHD, non-hodgkins lymphoma - Past Surgical History Past Surgical History: Yes Neuro Surgical History: No Pertinent History Cardiac: No Pertinent History Respiratory: No Pertinent History Gastrointestinal: Hernia Repair Genitourinary: No Pertinent History Musculoskeletal: Orthopedic Surgery Male Surgical History: No Pertinent History Other Surgical History: r shoulder, rotator cuff, R knee - Social History Smoking Status: Never smoker How long have you smoked: rarely Exposure to second hand smoke: No Drug Use: none Patient Lives Alone: No - Nursing Vital Signs Nursing Vital Signs: Initial Vital Signs Temperature 98.3 F 06/15/22 22:14 Pulse Rate 92 H 06/15/22 22:14 Respiratory Rate 18 06/15/22 22:14 Blood Pressure 180/109 06/15/22 22:14 O2 Sat by Pulse Oximetry 96 06/15/22 22:14 Pain Scale Pain Intensity 5 - Physical Exam General Appearance: no apparent distress Legs Exam: right leg: normal inspection, normal range of motion, no evidence of injury, pain (medial joint line, patellar tendon), swelling (no), other (Ingrid firm end point, [place] neg, ant/post drawer neg) Neuro/Tendon Exam: normal sensation, normal motor functions Mental Status Exam: alert, oriented x 3, cooperative Skin Exam: normal color SpO2: 96 - Radiology Exams Right Knee X-ray Interpretation: Interpreted by me (no fracture, no dislocation) Ordered Tests: Active Orders 24 hr Category Date Time Status KNEE (3 VIEWS) Stat Exams 06/15/22 22:19 Taken Medication Summary Discontinued Medications Generic Name Dose Route Start Last Admin Trade Name Darwin PRN Reason Stop Dose Admin Ibuprofen 800 mg 06/15/22 22:31 06/15/22 22:38 Ibuprofen 400 Mg Tablet PO 06/15/22 22:32 800 mg STAT ONE Administration Ibuprofen Confirm 06/15/22 22:37 Ibuprofen 400 Mg Tablet Administered 06/15/22 22:38 Dose 800 mg .ROUTE .STK-MED ONE - Progress Progress: unchanged Progress Note: XR negative for fracture, exam concerning for possible meniscus injury. Patient given Ibuprofen w/ some pain improvement. 06/16/22 02:43 Will see patient in: office Counseled pt/family regarding: need for follow-up, rad results (f/u w/ ortho clinic) - Departure Departure Disposition: Home Clinical Impression: Right knee pain Condition: Stable Critical Care Time: No Referrals: ORTHO - DEJUAN CHAVIS NP [NON-STAFF PHY W/O PRIVILEGES] - [facility]-Ortho [phone] (walkin) Forms: Work/School Release Form
[2022-06-15 23:36] VITALS: BP 152/102; PULSE 80
--- NOTE | 2022-06-16 08:34 | XRAY ---
Indication: Pain. Comparison: January 29, 2021 3 view right knee obtained. Again no bony, articular, or soft tissue abnormalities.
== END 2022-06-15 23:43 | disposition home or self-care (01) ==
LOC: ED 22:09
DX: M25.561 Pain in right knee (principal); Z79.899 Other long term (current) drug therapy; I10 Essential (primary) hypertension
CPT/HCPCS: 73562; 99282; A9270-GY

== ENCOUNTER 2022-08-20 20:00 | Emergency (ER) | payer MEDICAID ==
[2022-08-20] MEDS ORDERED: Sodium Chloride 0.9% 1000 ML 1,000 ML IV STA (20:17)
[2022-08-20 20:24] LABS: Absolute Neutrophil Ct (ANC) 5.37 x10^3/uL (1.4-6.9); BASOPHIL % 0.6 % (0.0-0.4); Basophil (Absolute #) 0.05 x10^3/uL (0-0.4); Eosinophil % 0.3 % (0.00-5.0); Eosinophil (Absolute #) 0.02 x10^3/uL (0-0.5); Hematocrit 46.4 % (42-50); IMMATURE GRAN # 0.02 x10^3u/L (0.00-0.03); IMMATURE GRAN % 0.3 % (0.00-0.4); Lymphocyte (Absolute #) 1.83 x10^3/uL (1.0-4.6); Lymphocytes % 23.6 % (24.0-44.0); Mean Cell Volume 87.2 fL (78-100); Mean Corpuscular Hemoglobin 30.1 pg (26-32); Mean Corpuscular Hgb Concent. 34.5 g/dL (32-36); Mean Platelet Volume 9.9 fL (7.5-11.0); Monocyte (Absolute #) 0.45 x10^3/uL (0.0-1.3); Monocytes % 5.8 % (0.0-12.0); Neutrophil % 69.4 % (36.0-66.0); Platelet Count 392 x10^3/uL (150-450); Red Blood Count 5.32 x10^6/uL (4.1-5.6); White Blood Count 7.7 x10^3/uL (4.0-10.5)
[2022-08-20] MEDS ORDERED: Sodium Chloride 0.9% 1000 ML 1,000 ML ONE (20:30)
[2022-08-20 20:34] LABS: ALBUMIN 5.5 g/dL (3.5-5.0); ALKALINE PHOSPHATASE 77 U/L (38-126); AMYLASE 61 U/L (30-110); ANION GAP 21.3 MEQ/L (5-15); BLOOD UREA NITROGEN 22 mg/dL (9-20); CHLORIDE 101 mmol/L (98-107); Calcium 10.2 mg/dL (8.4-10.2); Carbon Dioxide 21 mmol/L (22-30); Creatinine 1 1.35 mg/dL (0.66-1.25); EST GLOMERULAR FILTRATION RATE > 60.0 ML/MIN; Glucose 152 mg/dL (74-106); LIPASE 123 U/L (23-300); Potassium 4.3 mmol/L (3.5-5.1); SGOT/AST 38 U/L (17-59); SGPT/ALT 23 U/L (0-50); SODIUM 139 mmol/L (137-145); Total Protein 9.4 g/dL (6.3-8.2)
--- NOTE | 2022-08-20 20:58 | ERPHSYRPT ---
- History of Present Illness Time Seen by Provider: 08/20/22 20:54 Source: patient Exam Limitations: no limitations Patient Subjective Stated Complaint: pt states he had an episode of chest pain and has had abd pain after going to bathroom tonight. states he has had some c onstipation Triage Nursing Assessment: pt alert and oriented, answers questions approp. [facility] respirations nonalbored. skin warm. heart rate 103 on monitor, sinus tach. no edema noted to lower ext. Physician History: pt states he had an episode of chest pain and has had abdominal pain after going to bathroom tonight. states he has had some constipation. Patient recently underwent arthroscopy procedure for his knee and then he was given some hydrocodone for pain and afterwards she started having these problems. Timing/Duration: today Severity: mild Associated Symptoms: abdominal pain, chest pain, No nausea, No vomiting Allergies/Adverse Reactions: Iodinated Contrast Media [Iodinated Contrast Media - IV Dye] Allergy (Severe, Verified 08/20/22 20:14) Rash ketorolac [From Toradol] Allergy (Intermediate, Verified 08/20/22 20:14) Itching quetiapine fumarate [From Seroquel] Allergy (Intermediate, Verified 08/20/22 20:14) rash, itching meperidine HCl [From Demerol] Allergy (Mild, Verified 08/20/22 20:14) Rash/hyper morphine Allergy (Mild, Verified 08/20/22 20:14) rash/ hyper oxycodone [From OxyContin] Allergy (Mild, Verified 08/20/22 20:14) Itching prednisone Allergy (Mild, Verified 08/20/22 20:14) Nausea tramadol HCl [From Ultram] Allergy (Mild, Verified 08/20/22 20:14) rash itching ondansetron [From Zofran] Allergy (Verified 08/20/22 20:14) Hives acetaminophen [From Percocet] Adverse Reaction (Verified 08/20/22 20:14) Hives Home Medications: Methylphenidate HCl [Ritalin] 10 mg PO BID 12/25/20 [History] Propranolol HCl [Inderal LA] 60 mg PO DAILY 12/25/20 [History] SUMAtriptan succinate [Imitrex] 100 mg PO DAILY 12/25/20 [History] Hx Tetanus, Diphtheria Vaccination/Date Given: Yes Hx Influenza Vaccination/Date Given: Yes Hx Pneumococcal Vaccination/Date Given: No Immunizations Up to Date: Yes Travel Risk - International Travel Have you traveled outside of the country in past 3 weeks: No - Coronavirus Screening Are you exhibiting any of the following symptoms?: No Close contact with a COVID-19 positive Pt in past 14-21 Days: No - Vaccine Status Have you recieved a Covid-19 vaccination: Yes Fur Pointer: Moderna - Vaccination Dates Date of 2cond Vaccination (if applicable): 2021 - Review of Systems Constitutional: No Fever, No Chills Eyes: No Symptoms Ears, Nose, & Throat: No Symptoms Respiratory: No Cough, No Dyspnea Cardiac: Chest Pain, No Edema, No Syncope Abdominal/Gastrointestinal: Abdominal Pain, Constipation, No Nausea, No Vomiting, No Diarrhea Genitourinary Symptoms: No Dysuria Musculoskeletal: No Back Pain, No Neck Pain Skin: No Rash Neurological: No Dizziness, No Focal Weakness, No Sensory Changes Psychological: No Symptoms Endocrine: No Symptoms All Other Systems: Reviewed and Negative - Past Medical History Pertinent Past Medical History: Yes Neurological History: Migraines, Seizures ENT History: No Pertinent History Cardiac History: Hypertension Respiratory History: Asthma Endocrine Medical History: No Pertinent History Musculoskeletal History: Osteoarthritis GI Medical History: Crohns Disease History: No Pertinent History Psycho-Social History: Anxiety, Attention Deficit Disorder, Depression Male Reproductive Disorders: No Pertinent History Other Medical History: celiac, Chrohn's dx, ADHD, non-hodgkins lymphoma - Past Surgical History Past Surgical History: Yes Neuro Surgical History: No Pertinent History Cardiac: No Pertinent History Respiratory: No Pertinent History Gastrointestinal: Hernia Repair Genitourinary: No Pertinent History Musculoskeletal: Orthopedic Surgery Male Surgical History: No Pertinent History Other Surgical History: r shoulder, rotator cuff, R knee - Social History Smoking Status: Never smoker How long have you smoked: rarely Exposure to second hand smoke: No Drug Use: none Patient Lives Alone: No - Nursing Vital Signs Nursing Vital Signs: Initial Vital Signs Temperature 97.1 F 08/20/22 20:17 Pulse Rate 103 H 08/20/22 20:17 Respiratory Rate 16 08/20/22 20:17 Blood Pressure 145/105 08/20/22 20:17 O2 Sat by Pulse Oximetry 97 08/20/22 20:17 Pain Scale Pain Intensity 7 - Physical Exam General Appearance: no apparent distress, alert Eye Exam: PERRL/EOMI, eyes nml inspection Ears, Nose, Throat Exam: normal ENT inspection, TMs normal, pharynx normal, moist mucous membranes Neck Exam: normal inspection, non-tender, supple, full range of motion Respiratory Exam: normal breath sounds, lungs clear, No respiratory distress Cardiovascular Exam: regular rate/rhythm, normal heart sounds, normal peripheral pulses Gastrointestinal/Abdomen Exam: soft, normal bowel sounds, No tenderness, No mass Back Exam: normal inspection, normal range of motion, No CVA tenderness, No vertebral tenderness Extremity Exam: normal inspection, normal range of motion, pelvis stable Neurologic Exam: alert, oriented x 3, cooperative, normal mood/affect, nml cerebellar function, nml station & gait, sensation nml, No motor deficits Skin Exam: normal color, warm, dry, No rash Lymphatic Exam: No adenopathy SpO2: 97 - Course Nursing assessment & vital signs reviewed: Yes EKG Interpreted by Me: Sinus Rhythm - Radiology Exams Abdomen X-ray Interpretation: Reviewed by me, Negative Chest X-ray Interpretation: Reviewed by me, Negative Ordered Tests: Active Orders 24 hr Category Date Time Status EKG-ER Only STAT Care 08/20/22 20:17 Active CHEST 1 VIEW (PORTABLE) Stat Exams 08/20/22 20:32 Taken KUB Stat Exams 08/20/22 20:18 Taken AMYLASE Stat Lab 08/20/22 20:20 Completed CBC W DIFF Stat Lab 08/20/22 20:20 Completed CMP Stat Lab 08/20/22 20:20 Completed LIPASE Stat Lab 08/20/22 20:20 Completed TROPONIN Q4H Lab 08/20/22 20:20 Completed TROPONIN Q4H Lab 08/21/22 00:30 Ordered TROPONIN Q4H Lab 08/21/22 04:30 Ordered UA W/RFX UR CULTURE Stat Lab 08/20/22 20:17 Ordered Urine Triage Profile Stat Lab 08/20/22 20:17 Ordered Medication Summary Discontinued Medications Generic Name Dose Route Start Last Admin Trade Name Freq PRN Reason Stop Dose Admin Sodium Chloride 1,000 mls @ 999 mls/hr 08/20/22 20:17 08/20/22 20:32 Sodium Chloride 0.9% 1000 Ml IV 08/20/22 21:17 999 mls/hr .Q1H1M STA Administration Sodium Chloride Confirm 08/20/22 20:30 Sodium Chloride 0.9% 1000 Ml Administered 08/20/22 20:31 Dose 1,000 mls @ [facility] Lab/Rad Data: Laboratory Result Diagrams 08/20/22 20:20 08/20/22 20:20 Laboratory Results 08/20/22 08/20/22 08/20/22 Range/Units 20:20 20:20 20:20 WBC 7.7 (4.0-10.5) x10^3/uL RBC 5.32 (4.1-5.6) x10^6/uL Hgb 16.0 (12.5-18.0) g/dL Hct 46.4 (42-50) % MCV 87.2 (78-100) fL MCH 30.1 (26-32) pg MCHC 34.5 (32-36) g/dL RDW 12.0 (11.5-14.0) % Plt Count 392 (150-450) x10^3/uL MPV 9.9 (7.5-11.0) fL Gran % 69.4 H (36.0-66.0) % Immature Gran % (Auto) 0.3 (0.00-0.4) % Nucleat RBC Rel Count 0.0 (0.00-0.1) % Eos # (Auto) 0.02 (0-0.5) x10^3/uL Immature Gran # (Auto) 0.02 (0.00-0.03) x10^3u/L Absolute Lymphs (auto) 1.83 (1.0-4.6) x10^3/uL Absolute Monos (auto) 0.45 (0.0-1.3) x10^3/uL Absolute Nucleated RBC 0.00 (0.00-0.01) x10^3u/L Lymphocytes % 23.6 L (24.0-44.0) % Monocytes % 5.8 (0.0-12.0) % Eosinophils % 0.3 (0.00-5.0) % Basophils % 0.6 (0.0-0.4) % Absolute Granulocytes 5.37 (1.4-6.9) x10^3/uL Basophils # 0.05 (0-0.4) x10^3/uL Sodium 139 (137-145) mmol/L Potassium 4.3 (3.5-5.1) mmol/L Chloride 101 (98-107) mmol/L Carbon Dioxide 21 L (22-30) mmol/L Anion Gap 21.3 H (5-15) MEQ/L BUN 22 H (9-20) mg/dL Creatinine 1.35 H (0.66-1.25) mg/dL Estimated GFR > 60.0 ML/MIN Glucose 152 H (74-106) mg/dL Calcium 10.2 (8.4-10.2) mg/dL Total Bilirubin 1.20 (0.2-1.3) mg/dL AST 38 (17-59) U/L ALT 23 (0-50) U/L Alkaline Phosphatase 77 (38-126) U/L Troponin I < 0.012 (0.000-0.034) ng/mL Serum Total Protein 9.4 H (6.3-8.2) g/dL Albumin 5.5 H (3.5-5.0) g/dL Amylase 61 (30-110) U/L Lipase 123 (23-300) U/L - Progress Progress: improved, pain not gone completely Counseled pt/family regarding: lab results, diagnosis, need for follow-up, rad results Medical Desision Making - Discussion of managment Reviewed:: Test results, Need for additional workup Agreed on:: Treatment plan, need for follow-up - Diagnostic Testing Diagnostic test were ordered, analyzed, and reviewed by me: Yes Radiological Interpretation: Interpreted by me, Reviewed by me - Risk of complications Low Risk: Low risk of morbidity from additional dx testing or treatment The pt has a mod risk of morbidity or mortality based on: Need for prescription drug management - Departure Departure Disposition: Home Clinical Impression: Chest wall pain, Chronic abdominal pain, Constipation due to opioid therapy Condition: Stable Critical Care Time: Yes Critical Care Time(excluding separately billable procedures): Critical 30-74 mins Referrals: GABRIEL NUNEZ [Primary Care Provider] - Follow up/PCP as directed Instructions: Constipation, Adult (DC), High Fiber Diet, Chest Pain (DC) Additional Instructions: Discharge/Care Plan ERICA TODD was seen on 08/20/22 in the Emergency Room. The patient was counseled regarding Diagnosis,Lab results, Imaging studies, need for follow up and when to return to the Emergency Room. Prescriptions given: Discharge Note I have spoken with the patient and/or caregivers. I have explained the patient's condition, diagnosis and treatment plan based on the information available to me at this time. I have answered the patient's and/or caregiver's questions and addressed any concerns. The patient and/or caregivers have as good understanding of the patient's diagnosis, condition and treatment plan as can be expected at this point. The vital signs have been stable. The patient's condition is stable and appropriate for discharge from the emergency department. The patient will pursue further outpatient evaluation with the primary care physician or other designated or consulting physician as outlined in the discharge instructions. The patient and/or caregivers are agreeable to this plan of care and follow-up instructions have been explained in detail. The patient and/or caregivers have received these instruction. The patient/and or caregivers are aware that any significant change in condition or worsening of symptoms should prompt an immediate return to this or the closest emergency department or call 911. ERICA TODD was seen on 08/20/22 n the Emergency Room. At that time you were treated for an emergent condition, during your visit Laboratory, Radiology and/or other procedures may have been ordered. It is very important that you follow-up with your Primary Care Physician GABRIEL NUNEZ within the next 24-48 hours to review your Emergency Room visit and the final results of testing that was ordered. Some test results such as Urine Cultures, Blood Cultures, and other cultures if ordered will not be finalized for 24-48 hours. If you do not have a Primary Care Provider please call the medical records department at [phone] to obtain a copy of your results or you may sign into our patient portal to obtain these results by visiting us @ [email or web address] and completing the following steps: 1. Click on the Patient Portal link 2. Click the Patient Self Enrollment Link to complete the enrollment form and entering your 3. Once the enrollment form is completed you will receive an email with a temporary ID and password at the email address you provided. 4. Next choose a user name and password. Your user name must be at least 4 characters long and your password must be at least 4 characters long. 5. Choose a security question from the list and provide your answer to the question. If you already have signed into the Health Portal you may access your Health Care Information 23/01 by the following steps: 1. Login to our website @ [email or web address] 2. Enter your original user name and password. FAQS The [facility] Portal is an online tool that contains your Lab Results, Radiology Reports, Visit History, Discharge Instructions and Health Summary Lab and Radiology Results will not be available for 72 hours on the portal. The Portal is a secure site, passwords are encryted and URLs are re-written so they cannot be copied and pasted. You and authorized family members are the only ones who can access your Portal. Also there is a timeout feature that protects your information if you leave the Portal page open. If you have technical difficulty please use the Contact Us link on the page this will allow you to submit any questions you have regarding the Portal or you may contact the Medical Record Department at [phone]. ABDOMINAL PAIN 1. There are several different causes for abdominal pain, some of which may not be able to be identified on initial examination. 2. The important thing to remember is that bodily functions can change in a short period of time. If you notice any of the following symptoms, return to the emergency department or consult your doctor immediately: A. Worsening pain or no improvement in the next 12 hours. B. Increasing, severe abdominal pain C. Blood in stool D. Black stools E. Persistent vomiting F. Fever or chills or other symptoms
[2022-08-20 21:59] VITALS: BP 103/73; PULSE 78; O2SAT 99
--- NOTE | 2022-08-21 08:42 | XRAY ---
Indication: Abdomen pain and constipation. Comparison: December 12, 2018 KUB nonacute and nonobstructed with again mild diffuse scattered colonic fecal debris throughout more than before. Solid organs and osseous structures unremarkable.
--- NOTE | 2022-08-21 08:42 | XRAY ---
Indication: Abdomen pain and constipation. Comparison: August 13, 2019 Portable chest again demonstrates normal heart, lungs, and bony thorax.
== END 2022-08-20 21:59 | disposition home or self-care (01) ==
LOC: ED 20:00
DX: R07.89 Other chest pain (principal); G89.29 Other chronic pain; R10.9 Unspecified abdominal pain; K59.03 Drug induced constipation; T40.2X5A Adverse effect of other opioids, initial encounter; I10 Essential (primary) hypertension; Z79.891 Long term (current) use of opiate analgesic; Z79.899 Other long term (current) drug therapy
CPT/HCPCS: 36415; 71045; 74018; 80053; 82150; 83690; 84484; 85025; 96360; 99283; 99291

== ENCOUNTER 2023-04-08 19:11 | Emergency (ER) | payer MEDICAID ==
[2023-04-08] MEDS ORDERED: TORAdol 30 mg Injection IM ONE (19:24)
[2023-04-08 19:25] VITALS: TEMP 98.3
[2023-04-08] MEDS ORDERED: Norflex 60 MG/2 ML IM ONE (19:29)
[2023-04-08] MEDS ORDERED: Norflex 60 MG/2 ML ONE (19:32)
--- NOTE | 2023-04-08 19:37 | ERPHSYRPT ---
- History of Present Illness Time Seen by Provider: 04/08/23 19:34 Source: patient, EMS Exam Limitations: no limitations Patient Subjective Stated Complaint: Pt reports yesterday morning he woke up with right hip pain that has continued to worsen. Describes pain as shooting pain starting from hip going down outer aspect of leg. Rates pain 6/10. Triage Nursing Assessment: Pt alert and oriented x3. No apparent respiratory distress. Skin w/p/d. Scooted self from ambulance cot to ED cot without difficulty. Right hip tender with palpation and movement. Physician History: Pt reports yesterday morning he woke up with right hip pain that has continued to worsen. Describes pain as shooting pain starting from hip going down outer aspect of leg. Rates pain 6/10. Method of Injury: unknown Occurred: yesterday Quality: constant Severity of Pain-Max: moderate Severity of Pain-Current: moderate Lower Extremities Pain: hip: right Modifying Factors: Improves With: nothing Associated Symptoms: No unable to bear weight, No dizzy, No fainted, No snapping sensation, No popping sensation Body Map: 1 - pain Allergies/Adverse Reactions: Iodinated Contrast Media [Iodinated Contrast Media - IV Dye] Allergy (Severe, Verified 04/08/23 19:12) Rash ketorolac [From Toradol] Allergy (Intermediate, Verified 04/08/23 19:12) Itching quetiapine fumarate [From Seroquel] Allergy (Intermediate, Verified 04/08/23 19:12) rash, itching meperidine HCl [From Demerol] Allergy (Mild, Verified 04/08/23 19:12) Rash/hyper morphine Allergy (Mild, Verified 04/08/23 19:12) rash/ hyper oxycodone [From OxyContin] Allergy (Mild, Verified 04/08/23 19:12) Itching prednisone Allergy (Mild, Verified 04/08/23 19:12) Nausea tramadol HCl [From Ultram] Allergy (Mild, Verified 04/08/23 19:12) rash itching ondansetron [From Zofran] Allergy (Verified 04/08/23 19:12) Hives acetaminophen [From Percocet] Adverse Reaction (Verified 04/08/23 19:12) Hives Home Medications: Methylphenidate HCl [Ritalin] 10 mg PO BID 12/25/20 [History] Propranolol HCl [Inderal LA] 60 mg PO DAILY 12/25/20 [History] Pantoprazole 20 mg [Protonix 20MG Tablet] 2 tab PO DAILY 04/08/23 [Histo ry] Hx Tetanus, Diphtheria Vaccination/Date Given: Yes Hx Influenza Vaccination/Date Given: No Hx Pneumococcal Vaccination/Date Given: No Travel Risk - International Travel Have you traveled outside of the country in past 3 weeks: No - Coronavirus Screening Are you exhibiting any of the following symptoms?: No Close contact with a COVID-19 positive Pt in past 14-21 Days: No - Vaccine Status Have you recieved a Covid-19 vaccination: Yes Mask Designer: Moderna - Vaccination Dates Date of 2cond Vaccination (if applicable): 2021 - Review of Systems Constitutional: No Fever, No Chills Eyes: No Symptoms Ears, Nose, & Throat: No Symptoms Respiratory: No Cough, No Dyspnea Cardiac: No Chest Pain, No Edema, No Syncope Abdominal/Gastrointestinal: No Abdominal Pain, No Nausea, No Vomiting, No Diarrhea Genitourinary Symptoms: No Dysuria Musculoskeletal: Joint Pain (right hip), No Back Pain, No Neck Pain, No Fall Skin: No Rash Neurological: No Dizziness, No Focal Weakness, No Sensory Changes Psychological: No Symptoms Endocrine: No Symptoms All Other Systems: Reviewed and Negative - Past Medical History Pertinent Past Medical History: Yes Neurological History: Migraines, Seizures ENT History: No Pertinent History Cardiac History: Hypertension Respiratory History: Asthma, Bronchitis Endocrine Medical History: No Pertinent History Musculoskeletal History: Osteoarthritis GI Medical History: Crohns Disease History: No Pertinent History Psycho-Social History: Anxiety, Attention Deficit Disorder, Depression Male Reproductive Disorders: No Pertinent History Other Medical History: celiac, Chrohn's dx, ADHD, non-hodgkins lymphoma - Past Surgical History Past Surgical History: Yes Neuro Surgical History: No Pertinent History Cardiac: No Pertinent History Respiratory: No Pertinent History Gastrointestinal: Hernia Repair Genitourinary: No Pertinent History Musculoskeletal: Orthopedic Surgery Male Surgical History: No Pertinent History Other Surgical History: r shoulder, rotator cuff, R knee Aug 2022 - Social History Smoking Status: Former smoker How long have you smoked: rarely Exposure to second hand smoke: No Drug Use: none Patient Lives Alone: No - Nursing Vital Signs Nursing Vital Signs: Initial Vital Signs Temperature 98.3 F 04/08/23 19:12 Pulse Rate 83 04/08/23 19:12 Respiratory Rate 18 04/08/23 19:12 Blood Pressure 160/106 04/08/23 19:12 O2 Sat by Pulse Oximetry 99 04/08/23 19:12 Pain Scale Pain Intensity 6 - Physical Exam General Appearance: alert Eyes, Ears, Nose, Throat Exam: moist mucous membranes Neck Exam: non-tender, supple Cardiovascular/Respiratory Exam: chest non-tender, normal breath sounds, regular rate/rhythm, no respiratory distress Gastrointestinal/Abdominal Exam: non-tender, guarding Back Exam: normal inspection, No vertebral tenderness Hips Exam: right: limited range of motion, pain, soft tissue tenderness, left: non-tender, normal inspection, normal range of motion, bilateral: no evidence of injury Legs Exam: bilateral leg: non-tender, normal inspection, normal range of motion, no evidence of injury Knees Exam: bilateral knee: non-tender, normal inspection, normal range of motion, no evidence of injury Ankle Exam: bilateral ankle: non-tender, normal inspection, normal range of motion, no evidence of injury Neuro/Tendon Exam: normal sensation, normal motor functions Mental Status Exam: alert, oriented x 3, cooperative Skin Exam: normal color, warm, dry SpO2: 99 - Course Nursing assessment & vital signs reviewed: Yes - Radiology Exams Hip X-ray Interpretation: Reviewed by me Ordered Tests: Active Orders 24 hr Category Date Time Status HIP UNI (2V) INCL PEL IF DONE Stat Exams 04/08/23 19:24 Taken Medication Summary Discontinued Medications Generic Name Dose Route Start Last Admin Trade Name Freq PRN Reason Stop Dose Admin Ketorolac Tromethamine 60 mg 04/08/23 19:24 04/08/23 19:41 Ketorolac Tromethamine 30 Mg/Ml Inj IM 04/08/23 19:25 Not Given STAT ONE Orphenadrine Citrate 60 mg 04/08/23 19:29 04/08/23 19:33 Orphenadrine Citrate 60 Mg/2 Ml Vial IM 04/08/23 19:30 60 mg STAT ONE Administration Orphenadrine Citrate Confirm 04/08/23 19:32 Orphenadrine Citrate 60 Mg/2 Ml Vial Administered 04/08/23 19:33 Dose 60 mg .ROUTE .STK-MED ONE - Progress Progress: improved, pain not gone completely Counseled pt/family regarding: diagnosis, need for follow-up, rad results - Departure Departure Disposition: Home Clinical Impression: Right hip pain Condition: Stable Critical Care Time: No Referrals: GABRIEL NUNEZ [Primary Care Provider] - Follow up/PCP as directed Instructions: Hip pain in adults, Hip Pain (DC), Bursitis ED Additional Instructions: Discharge/Care Plan ERICA TODD was seen on 04/08/23 in the Emergency Room. The patient was counseled regarding Diagnosis,Lab results, Imaging studies, need for follow up and when to return to the Emergency Room. Prescriptions given: Discharge Note I have spoken with the patient and/or caregivers. I have explained the patient's condition, diagnosis and treatment plan based on the information available to me at this time. I have answered the patient's and/or caregiver's questions and addressed any concerns. The patient and/or caregivers have as good understanding of the patient's diagnosis, condition and treatment plan as can be expected at this point. The vital signs have been stable. The patient's condition is stable and appropriate for discharge from the emergency department. The patient will pursue further outpatient evaluation with the primary care physician or other designated or consulting physician as outlined in the discharge instructions. The patient and/or caregivers are agreeable to this plan of care and follow-up instructions have been explained in detail. The patient and/or caregivers have received these instruction. The patient/and or caregivers are aware that any significant change in condition or worsening of symptoms should prompt an immediate return to this or the closest emergency department or call 911. ERICA TODD was seen on 04/08/23 n the Emergency Room. At that time you were treated for an emergent condition, during your visit Laboratory, Radiology and/or other procedures may have been ordered. It is very important that you follow-up with your Primary Care Physician GABRIEL NUNEZ within the next 24-48 hours to review your Emergency Room visit and the final results of testing that was ordered. Some test results such as Urine Cultures, Blood Cultures, and other cultures if ordered will not be finalized for 24-48 hours. If you do not have a Primary Care Provider please call the medical records department at [phone] ext [phone] to obtain a copy of your results or you may sign into our patient portal to obtain these results by visiting us @ [email or web address] and completing the following steps: 1. Click on the Patient Portal link 2. Click the Patient Self Enrollment Link to complete the enrollment form and entering your 3. Once the enrollment form is completed you will receive an email with a temporary ID and password at the email address you provided. 4. Next choose a user name and password. Your user name must be at least 4 characters long and your password must be at least 4 characters long. 5. Choose a security question from the list and provide your answer to the question. If you already have signed into the Health Portal you may access your Health Care Information 23/01 by the following steps: 1. Login to our website @ [email or web address] 2. Enter your original user name and password. FAQS The [facility] Health Portal is an online tool that contains your Lab Results, Radiology Reports, Visit History, Discharge Instructions and Health Summary Lab and Radiology Results will not be available for 72 hours on the portal. The Portal is a secure site, passwords are encryted and URLs are re-written so they cannot be copied and pasted. You and authorized family members are the only ones who can access your Portal. Also there is a timeout feature that protects your information if you leave the Portal page open. If you have technical difficulty please use the Contact Us link on the page this will allow you to submit any questions you have regarding the Portal or you may contact the Medical Record Department at [phone] ext [phone]. Prescriptions: Naproxen 375 mg [Naprosyn 375 mg] 375 mg PO Q8H #30 tablet
[2023-04-08 20:08] VITALS: BP 133/99; PULSE 76; RESP 16; O2SAT 96
--- NOTE | 2023-04-09 08:30 | XRAY ---
Indication: Right hip pain. Comparison: July 10, 2017 AP pelvis and 2 view right hip obtained. No bony, articular, or soft tissue abnormalities.
== END 2023-04-08 20:16 | disposition home or self-care (01) ==
LOC: ED 19:11
DX: M25.551 Pain in right hip (principal); I10 Essential (primary) hypertension; Z79.899 Other long term (current) drug therapy
CPT/HCPCS: 36000; 73502; 96372; 99283; J2360

== ENCOUNTER 2023-05-16 09:56 | Emergency (ER) | payer MEDICAID ==
[2023-05-16 10:19] VITALS: BP 179/94; TEMP 97.3; O2SAT 98
[2023-05-16] MEDS ORDERED: TYLENOL EXTRA STRENGTH 500 MG PO PRN (10:19)
[2023-05-16] MEDS ORDERED: TYLENOL EXTRA STRENGTH 500 MG ONE (10:21)
[2023-05-16] MEDS: TYLENOL EXTRA STRENGTH 500 MG PO STA (10:23)
--- NOTE | 2023-05-16 11:00 | XRAY ---
Indication: Pain. Comparison: June 15, 2022 3 view right knee now demonstrates minimal medial joint space narrowing. No other bony, articular, or soft tissue abnormalities.
--- NOTE | 2023-05-16 11:11 | ERPHSYRPT ---
- History of Present Illness Time Seen by Provider: 05/16/23 10:15 Source: patient Exam Limitations: no limitations Patient Subjective Stated Complaint: Right knee injury Triage Nursing Assessment: Patient ambulated back to ED and transferred self to bed. Patient A+O X 3. Patient's skin pink, warm and dry. Patient complains of right knee pain for the past few days. Patient denies recent injury or trauma. No visible injuries noted to right knee. Patient complains of pain to right knee 3/10. Physician History: Patient a 37-year-old male presents to our ED for evaluation of right knee pain x3 days. Patient has a bruise to the inner aspect of his right knee. However patient denies trauma. No fever. No diminished range of motion. Patient is ambulatory. Pain described as an ache that is localized. No radiation. Pain worse with weightbearing. Pain improved with rest. Patient currently rates his pain 3 out of 10. Patient took Tylenol 500 mg last night. Patient otherwise feels well. No associated foot ankle hip or back pain. Patient voices no other complaints or concerns at this time. Portions of this note were created with voice recognition technology. There may be grammatical, spelling, punctuation or sound alike errors Method of Injury: unknown Occurred: days ago (3 days) Quality: constant Severity of Pain-Max: moderate Severity of Pain-Current: mild Lower Extremities Pain: knee: right (There is some bruising to the medial aspect of the right knee.), other: right (The involved right lower extremity is neurovascular tact distally. Compartments are soft cap refill less than 2 seconds. All knee ligaments are stable range of motion is within normal limits) Modifying Factors: Improves With: movement Associated Symptoms: none Allergies/Adverse Reactions: Iodinated Contrast Media [Iodinated Contrast Media - IV Dye] Allergy (Severe, Verified 05/16/23 10:09) Rash ketorolac [From Toradol] Allergy (Intermediate, Verified 05/16/23 10:09) Itching quetiapine fumarate [From Seroquel] Allergy (Intermediate, Verified 05/16/23 10:09) rash, itching meperidine HCl [From Demerol] Allergy (Mild, Verified 05/16/23 10:09) Rash/hyper morphine Allergy (Mild, Verified 05/16/23 10:09) rash/ hyper oxycodone [From OxyContin] Allergy (Mild, Verified 05/16/23 10:09) Itching prednisone Allergy (Mild, Verified 05/16/23 10:09) Nausea tramadol HCl [From Ultram] Allergy (Mild, Verified 05/16/23 10:09) rash itching ondansetron [From Zofran] Allergy (Verified 05/16/23 10:09) Hives acetaminophen [From Percocet] Adverse Reaction (Verified 05/16/23 10:09) Hives Home Medications: Methylphenidate HCl [Ritalin] 10 mg PO BID 12/25/20 [History] Propranolol HCl [Inderal LA] 60 mg PO DAILY 12/25/20 [History] Pantoprazole 20 mg [Protonix 20MG Tablet] 2 tab PO DAILY 04/08/23 [History] Hx Tetanus, Diphtheria Vaccination/Date Given: Yes Hx Influenza Vaccination/Date Given: No Hx Pneumococcal Vaccination/Date Given: No Immunizations Up to Date: Yes Travel Risk - International Travel Have you traveled outside of the country in past 3 weeks: No - Coronavirus Screening Are you exhibiting any of the following symptoms?: No Close contact with a COVID-19 positive Pt in past 14-21 Days: No - Vaccine Status Have you recieved a Covid-19 vaccination: Yes Report Clerk: Moderna - Vaccination Dates Date of 2cond Vaccination (if applicable): 2021 - Review of Systems Constitutional: No Symptoms, No Fever, No Chills Eyes: No Symptoms Ears, Nose, & Throat: No Symptoms Respiratory: No Symptoms, No Cough, No Dyspnea Cardiac: No Symptoms, No Chest Pain, No Edema, No Syncope Abdominal/Gastrointestinal: No Symptoms, No Abdominal Pain, No Nausea, No Vomiting, No Diarrhea Genitourinary Symptoms: No Symptoms, No Dysuria Musculoskeletal: No Back Pain, No Neck Pain Skin: No Symptoms, No Rash Neurological: No Symptoms, No Dizziness, No Focal Weakness, No Sensory Changes Psychological: No Symptoms Endocrine: No Symptoms Hematologic/Lymphatic: No Symptoms Immunological/Allergic: No Symptoms All Other Systems: Reviewed and Negative - Past Medical History Pertinent Past Medical History: Yes Neurological History: Migraines, Seizures ENT History: No Pertinent History Cardiac History: Hypertension Respiratory History: Asthma, Bronchitis Endocrine Medical History: No Pertinent History Musculoskeletal History: Osteoarthritis GI Medical History: Crohns Disease History: No Pertinent History Psycho-Social History: Anxiety, Attention Deficit Disorder, Depression Male Reproductive Disorders: No Pertinent History Other Medical History: celiac, Chrohn's dx, ADHD, non-hodgkins lymphoma - Past Surgical History Past Surgical History: Yes Neuro Surgical History: No Pertinent History Cardiac: No Pertinent History Respiratory: No Pertinent History Gastrointestinal: Hernia Repair Genitourinary: No Pertinent History Musculoskeletal: Orthopedic Surgery Male Surgical History: No Pertinent History Other Surgical History: r shoulder, rotator cuff, R knee Aug 2022 - Social History Smoking Status: Former smoker How long have you smoked: rarely Exposure to second hand smoke: No Drug Use: none Patient Lives Alone: No - Nursing Vital Signs Nursing Vital Signs: Initial Vital Signs Temperature 97.3 F 05/16/23 10:10 Pulse Rate 65 05/16/23 10:10 Respiratory Rate 18 05/16/23 10:10 Blood Pressure 179/94 05/16/23 10:10 O2 Sat by Pulse Oximetry 98 05/16/23 10:10 Pain Scale Pain Intensity 3 - Physical Exam General Appearance: no apparent distress, alert Eyes, Ears, Nose, Throat Exam: normal ENT inspection, moist mucous membranes Neck Exam: normal inspection, non-tender, supple Cardiovascular/Respiratory Exam: normal breath sounds, regular rate/rhythm, no respiratory distress Gastrointestinal/Abdominal Exam: non-tender, soft Back Exam: normal inspection, normal range of motion, No vertebral tenderness Hips Exam: bilateral: non-tender, normal inspection, normal range of motion, no evidence of injury Legs Exam: bilateral leg: non-tender, normal inspection, normal range of motion, no evidence of injury Knees Exam: left knee: non-tender, normal inspection, normal range of motion, no evidence of injury Ankle Exam: bilateral ankle: non-tender, normal inspection, normal range of motion, no evidence of injury Foot Exam: bilateral foot: non-tender, normal inspection, normal range of motion, no evidence of injury Neuro/Tendon Exam: normal sensation, normal motor functions Mental Status Exam: alert, oriented x 3, cooperative Skin Exam: normal color, warm, dry SpO2 Interpretation: normal SpO2: 98 O2 Delivery: Room Air - Course Nursing assessment & vital signs reviewed: Yes - Radiology Exams Knee X-ray Interpretation: Teleradiologist Report (No fracture dislocations. Minimal joint space narrowing otherwise no acute findings) Ordered Tests: Active Orders 24 hr Category Date Time Status KNEE (3 VIEWS) Stat Exams 05/16/23 10:16 Completed Medication Summary Generic Name Dose Route Start Last Admin Trade Name Freq PRN Reason Stop Dose Admin Acetaminophen 1,000 mg 05/16/23 10:19 Acetaminophen 500 Mg Tablet PO 06/15/23 10:18 Q4H PRN PRN HEADACHE Discontinued Medications Generic Name Dose Route Start Last Admin Trade Name Freq PRN Reason Stop Dose Admin Acetaminophen 1,000 mg 05/16/23 10:22 05/16/23 10:23 Acetaminophen 500 Mg Tablet PO 05/16/23 10:23 1,000 mg STAT STA Administration - Progress Progress: improved Progress Note: 37-year-old male presents to our ED with right knee pain. There is a bruise to the medial aspect of his right knee. Physical exam otherwise nonremarkable. X- ray negative for acute findings. Patient received an Juan wrap per his request. 1 g of Tylenol administered for pain control. A referral to the orthopedic clinic provided. Patient has no other complaints. Portions of this note were created with voice recognition technology. There may be grammatical, spelling, punctuation or sound alike errors Complexity of problems addressed is low acute uncomplicated No critical care time Complex of data reviewed and analyzed is moderate. Test ordered test reviewed. Findings on x-ray was correlated clinically with history and physical exam. Risk of complication and or risk of morbidity/mortality of patient management is low Vital stable. Time spent to discharge patient is approximately 10 minutes. Plan of care established for shared decision making. No social determinants of health present impede follow-up. Portions of this note were created with voice recognition technology. There may be grammatical, spelling, punctuation or sound alike errors 05/16/23 11:16 Counseled pt/family regarding: diagnosis, need for follow-up, rad results - Departure Departure Disposition: Home Clinical Impression: Knee pain Condition: Stable Critical Care Time: No Referrals: GABRIEL NUNEZ [Primary Care Provider] - Follow up/PCP as directed Additional Instructions: Please follow-up in the orthopedic clinic tomorrow morning as a walk-in patient. Discharge/Care Plan ERICA TODD JOYA was seen on 05/16/23 in the Emergency Room. The patient was counseled regarding Diagnosis,Lab results, Imaging studies, need for follow up and when to return to the Emergency Room. Prescriptions given: Discharge Note I have spoken with the patient and/or caregivers. I have explained the patient's condition, diagnosis and treatment plan based on the information available to me at this time. I have answered the patient's and/or caregiver's questions and addressed any concerns. The patient and/or caregivers have as good understanding of the patient's diagnosis, condition and treatment plan as can be expected at this point. The vital signs have been stable. The patient's condition is stable and appropriate for discharge from the emergency department. The patient will pursue further outpatient evaluation with the primary care physician or other designated or consulting physician as outlined in the discharge instructions. The patient and/or caregivers are agreeable to this plan of care and follow-up instructions have been explained in detail. The patient and/or caregivers have received these instruction. The patient/and or caregivers are aware that any significant change in condition or worsening of symptoms should prompt an immediate return to this or the closest emergency department or call 911. Outpatient Orders: Ortho Referral Time Frame: 1 Day, Facility: [facility]. Hosp, Location: [facility]
[2023-05-16 11:14] VITALS: PULSE 80; RESP 16
== END 2023-05-16 11:26 | disposition home or self-care (01) ==
LOC: ED 09:56
DX: M25.561 Pain in right knee (principal); I10 Essential (primary) hypertension; Z79.899 Other long term (current) drug therapy
CPT/HCPCS: 73562; 99283; A9270-GY

== ENCOUNTER 2023-09-29 19:23 | Emergency (ER) | payer MEDICAID ==
[2023-09-29 19:46] VITALS: RESP 17; TEMP 99
[2023-09-29] MEDS ORDERED: NORCO 5/325 MG ONE ×2 (20:02→21:13)
[2023-09-29] MEDS: NORCO 5/325 MG PO ONE ×2 (20:03→21:19)
--- NOTE | 2023-09-29 20:06 | ERPHSYRPT ---
- History of Present Illness Time Seen by Provider: 09/29/23 19:55 Source: patient Exam Limitations: no limitations Patient Subjective Stated Complaint: fell yesterday and landed on back, pt c/o lower back pain Triage Nursing Assessment: pt ambulatory to bed by self from wheelchair, pt alert and oriented x3, skin pwd, pt c/o low back pain aftering falling yesterday on back, pt c/o "crushing" intermittent back pain, pt denies any tingling or num bness in lower extremities. Physician History: 38yo m presents by private vehicle for back pain x 1d. Pt states he was stepping down off the bottom step and slipped in a puddle, fell and hit his low back on the concrete. Pt denies hitting his head, has had pain throughout the day today that has not resolved w/ tylenol. Pt states the pain is non-radiating in his thoracolumbar region, denies any parasthesias or weakness in the LEs b/l. Pt denies any loss of bowel/bladder function, denies any saddle parasthesias. Timing/Duration: yesterday Method of Injury: fall Quality: aching Back Pain Location: T-spine, lumbar spine Severity of Pain-Max: moderate Severity of Pain-Current: moderate Modifying Factors: Improves With: nothing Associated Symptoms: No fever, No urinary incontinence, No loss of bowel control, No nausea, No vomiting, No problems urinating, No dizziness, No numbness in legs/feet, No weakness, No sensory/motor loss, No tingling in legs/feet Previous symptoms: no prior history Body Map: 1 - thoracolumbar paraspinal musculature Allergies/Adverse Reactions: Iodinated Contrast Media [Iodinated Contrast Media - IV Dye] Allergy (Severe, Verified 09/29/23 19:35) Rash ketorolac [From Toradol] Allergy (Intermediate, Verified 09/29/23 19:35) Itching quetiapine fumarate [From Seroquel] Allergy (Intermediate, Verified 09/29/23 19:35) rash, itching meperidine HCl [From Demerol] Allergy (Mild, Verified 09/29/23 19:35) Rash/hyper morphine Allergy (Mild, Verified 09/29/23 19:35) rash/ hyper oxycodone [From OxyContin] Allergy (Mild, Verified 09/29/23 19:35) Itching prednisone Allergy (Mild, Verified 09/29/23 19:35) Nausea tramadol HCl [From Ultram] Allergy (Mild, Verified 09/29/23 19:35) rash itching ondansetron [From Zofran] Allergy (Verified 09/29/23 19:35) Hives acetaminophen [From Percocet] Adverse Reaction (Verified 09/29/23 19:35) Hives Home Medications: Methylphenidate HCl [Ritalin] 10 mg PO UD 12/25/20 [History] Pantoprazole 20 mg [Protonix 20MG Tablet] 2 tab PO DAILY 04/08/23 [History] Hx Tetanus, Diphtheria Vaccination/Date Given: Yes Hx Influenza Vaccination/Date Given: Yes Hx Pneumococcal Vaccination/Date Given: No Immunizations Up to Date: No Travel Risk - International Travel Have you traveled outside of the country in past 3 weeks: No - Emerging Infectious Disease Are you exhibiting symptoms associated with any current EIDs: No - Review of Systems Constitutional: No Symptoms Respiratory: No Symptoms Cardiac: No Symptoms Abdominal/Gastrointestinal: No Symptoms Musculoskeletal: Back Pain, Fall, Myalgias, No Neck Pain, No Deformity, No Injury, No Joint Pain Skin: No Symptoms - Past Medical History Pertinent Past Medical History: Yes Neurological History: Migraines, Seizures ENT History: No Pertinent History Cardiac History: Hypertension Respiratory History: Asthma, Bronchitis Endocrine Medical History: No Pertinent History Musculoskeletal History: Osteoarthritis GI Medical History: Crohns Disease History: No Pertinent History Psycho-Social History: Anxiety, Attention Deficit Disorder, Depression Male Reproductive Disorders: No Pertinent History Other Medical History: celiac, non-hodgkins lymphoma - Past Surgical History Past Surgical History: Yes Neuro Surgical History: No Pertinent History Cardiac: No Pertinent History Respiratory: No Pertinent History Gastrointestinal: Hernia Repair Genitourinary: No Pertinent History Musculoskeletal: Orthopedic Surgery Male Surgical History: No Pertinent History Other Surgical History: r shoulder, rotator cuff, R knee Aug 2022 - Social History Smoking Status: Former smoker How long have you smoked: rarely Exposure to second hand smoke: No Drug Use: none Patient Lives Alone: No - Nursing Vital Signs Nursing Vital Signs: Initial Vital Signs Temperature 99.0 F 09/29/23 19:39 Pulse Rate 89 09/29/23 19:39 Respiratory Rate 17 09/29/23 19:39 Blood Pressure 140/97 09/29/23 19:39 O2 Sat by Pulse Oximetry 95 09/29/23 19:39 Pain Scale Pain Intensity 6 - Physical Exam General Appearance: no apparent distress, alert Neck Exam: normal inspection, non-tender, full range of motion Respiratory Exam: normal breath sounds Cardiovascular Exam: regular rate/rhythm Gastrointestinal Exam: soft, No tenderness, No distention Back Exam: normal inspection, normal range of motion, other (mild TTP over left lateral paraspinal musculature around T11-L1 ), No vertebral tenderness Extremity Exam: normal inspection, No deformities, No parasthesia, No paralysis, No swelling Neurologic Exam: alert, oriented x 3, cooperative, normal mood/affect, sensation nml, No motor deficits, No sensory deficit, No disoriented, No confusion, No motor weakness, No slurred speech SpO2 Interpretation: normal SpO2: 95 O2 Delivery: Room Air Ordered Tests: Active Orders 24 hr Category Date Time Status LUMBAR COMPLETE (MIN 4 VIEWS) Stat Exams 09/29/23 19:58 Taken THORACIC SPINE (AP,LAT,SWIMM) Stat Exams 09/29/23 19:58 Taken Medication Summary Discontinued Medications Generic Name Dose Route Start Last Admin Trade Name Freq PRN Reason Stop Dose Admin Hydrocodone Bitart/Acetaminophen 1 tab 09/29/23 19:59 09/29/23 20:03 Hydrocodone/Apap 5/325 1 Tab Tablet PO 09/29/23 20:00 1 tab STAT ONE Administration Hydrocodone Bitart/Acetaminophen Confirm 09/29/23 20:02 Hydrocodone/Apap 5/325 1 Tab Tablet Administered 09/29/23 20:03 Dose 1 tab .ROUTE .STK-MED ONE - Progress Progress: improved Progress Note: 09/29/23 20:54 no acute fx on imaging of T/L spine pain improved w/ 5mg norco x1 pain likely 2/2 sprain/strain of paraspinal musculature plan for dc home, will dc w/ 2 norco 5mg tablets for pain relief 09/29/23 21:01 Pt instructed to continue ice, ibuprofen/tylenol for pain management Instructed to rest as much as possible, avoid heavy lifting instructed to perform gentle stretching as tolerated return to ED if: develop numbness/tingling in legs, lose control of bowel or bladder function, develop weakness in legs Counseled pt/family regarding: diagnosis, rad results Medical Desision Making - Risk of complications Minimal Risk: Minimal risk of morbidity - Departure Departure Disposition: Home Clinical Impression: Low back strain Qualifiers: Encounter type: initial encounter Qualified Code(s): S39.012A - Strain of muscle, fascia and tendon of lower back, initial encounter Condition: Stable Critical Care Time: No Referrals: CHAVEZ JEROME, PRODUCTION SUPPORT MANAGER [Primary Care Provider] - Follow up/PCP as directed Additional Instructions: Pt instructed to continue ice, ibuprofen/tylenol for pain management Instructed to rest as much as possible, avoid heavy lifting instructed to perform gentle stretching as tolerated return to ED if: develop numbness/tingling in legs, lose control of bowel or bladder function, develop weakness in legs
[2023-09-29 20:57] VITALS: O2SAT 95
[2023-09-29 21:10] VITALS: BP 141/90; PULSE 99
--- NOTE | 2023-09-30 08:04 | XRAY ---
Indication: Pain following fall. Comparison: None 5 view lumbar spine demonstrates 5 lumbar segments in normal alignment with minimal L5-S1 disc space narrowing. No other bony, articular, or soft tissue abnormalities.
--- NOTE | 2023-09-30 08:04 | XRAY ---
Indication: Pain following fall. Comparison: None AP/lateral thoracic spine demonstrates 12 rib-bearing segments with minimal levoscoliosis centered at T9. No other bony, articular, or soft tissue abnormalities.
== END 2023-09-29 21:22 | disposition home or self-care (01) ==
LOC: ED 19:23
DX: S39.012A Strain of muscle, fascia and tendon of lower back, initial encounter (principal); W01.0XXA Fall on same level from slipping, tripping and stumbling without subsequent striking against object, initial encounter; I10 Essential (primary) hypertension; Z79.899 Other long term (current) drug therapy
CPT/HCPCS: 72072; 72110; 99283; A9270-GY

== ENCOUNTER 2023-11-10 19:34 | Emergency (ER) | payer MEDICAID ==
[2023-11-10 19:47] VITALS: TEMP 98.5; O2SAT 97
--- NOTE | 2023-11-10 19:56 | ERPHSYRPT ---
- History of Present Illness Time Seen by Provider: 11/10/23 19:55 Source: patient Patient Subjective Stated Complaint: r sided rib pain that started this morning Triage Nursing Assessment: pt ambulatory to bed by self with steady gait, pt alert and oriented x3, skin pwd, pt c/o R sided rib pain that started this morning, pt denies any injury, pt states pain is worse with inhaling, rating pain 7/10, pt denies any new cough Physician History: 38yo m presents for right sided rib pain that started this AM at 10:00. Pt states the pain starts in his right mid clavicular line and radiates minimally lateral and inferior. Pt denies any known injury or trauma to the area. Pt denies any recent vigorous exercise and heavy lifting. Pt does report dry cough that worsens his pain. Pt took 1 naproxen earlier today w/o significant relief of sx. Pt currently denies sob, n/v, vision changes, back pain. Timing/Duration: today Severity: moderate Associated Symptoms: denies symptoms Allergies/Adverse Reactions: Iodinated Contrast Media [Iodinated Contrast Media - IV Dye] Allergy (Severe, Verified 11/10/23 19:40) Rash ketorolac [From Toradol] Allergy (Intermediate, Verified 11/10/23 19:40) Itching quetiapine fumarate [From Seroquel] Allergy (Intermediate, Verified 11/10/23 19:40) rash, itching meperidine HCl [From Demerol] Allergy (Mild, Verified 11/10/23 19:40) Rash/hyper morphine Allergy (Mild, Verified 11/10/23 19:40) rash/ hyper oxycodone [From OxyContin] Allergy (Mild, Verified 11/10/23 19:40) Itching prednisone Allergy (Mild, Verified 11/10/23 19:40) Nausea tramadol HCl [From Ultram] Allergy (Mild, Verified 11/10/23 19:40) rash itching ondansetron [From Zofran] Allergy (Verified 11/10/23 19:40) Hives acetaminophen [From Percocet] Adverse Reaction (Verified 11/10/23 19:40) Hives Home Medications: Methylphenidate HCl [Ritalin] 10 mg PO UD 12/25/20 [History] Hx Tetanus, Diphtheria Vaccination/Date Given: Yes Hx Influenza Vaccination/Date Given: Yes Hx Pneumococcal Vaccination/Date Given: No Immunizations Up to Date: Yes Travel Risk - International Travel Have you traveled outside of the country in past 3 weeks: No - Emerging Infectious Disease Are you exhibiting symptoms associated with any current EIDs: No - Review of Systems Constitutional: No Symptoms Respiratory: Cough Abdominal/Gastrointestinal: No Symptoms Musculoskeletal: Other (rib pain) - Past Medical History Pertinent Past Medical History: Yes Neurological History: Migraines, Seizures ENT History: No Pertinent History Cardiac History: Hypertension Respiratory History: Asthma, Bronchitis Endocrine Medical History: No Pertinent History Musculoskeletal History: Osteoarthritis GI Medical History: Crohns Disease History: No Pertinent History Psycho-Social History: Anxiety, Attention Deficit Disorder, Depression Male Reproductive Disorders: No Pertinent History Other Medical History: celiac, non-hodgkins lymphoma - Past Surgical History Past Surgical History: Yes Neuro Surgical History: No Pertinent History Cardiac: No Pertinent History Respiratory: No Pertinent History Gastrointestinal: Hernia Repair Genitourinary: No Pertinent History Musculoskeletal: Orthopedic Surgery Male Surgical History: No Pertinent History Other Surgical History: r shoulder, rotator cuff, R knee Aug 2022, R ankle - Social History Smoking Status: Former smoker How long have you smoked: rarely Exposure to second hand smoke: Yes Drug Use: none Patient Lives Alone: No - Nursing Vital Signs Nursing Vital Signs: Initial Vital Signs Temperature 98.5 F 11/10/23 19:41 Pulse Rate 94 H 11/10/23 19:41 Respiratory Rate 18 11/10/23 19:41 Blood Pressure 155/110 11/10/23 19:41 O2 Sat by Pulse Oximetry 97 11/10/23 19:41 Pain Scale Pain Intensity 7 - Physical Exam General Appearance: no apparent distress, alert Respiratory Exam: normal breath sounds, chest tenderness (mild TTP over right lateral ribs 4-6), lungs clear, airway intact, No respiratory distress, No diminished breath sounds Cardiovascular Exam: regular rate/rhythm, normal heart sounds Gastrointestinal/Abdomen Exam: soft, No tenderness, No distention Neurologic Exam: alert, oriented x 3, cooperative Skin Exam: normal color, warm, dry SpO2 Interpretation: normal SpO2: 97 O2 Delivery: Room Air Ordered Tests: Active Orders 24 hr Category Date Time Status CHEST 2 VIEWS (PA AND LAT) Stat Exams 11/10/23 19:55 Taken Medication Summary Discontinued Medications Generic Name Dose Route Start Last Admin Trade Name Freq PRN Reason Stop Dose Admin Hydrocodone Bitart/Acetaminophen 1 tab 11/10/23 19:50 11/10/23 19:59 Hydrocodone/Apap 5/325 1 Tab Tablet PO 11/10/23 19:51 1 tab STAT ONE Administration Hydrocodone Bitart/Acetaminophen Confirm 11/10/23 19:57 Hydrocodone/Apap 5/325 1 Tab Tablet Administered 11/10/23 19:58 Dose 1 tab .ROUTE .STK-MED ONE - Progress Progress: improved Progress Note: 11/10/23 20:24 pt given tramadol 50mg tablet w/ significant improvement in sx cxr negative for acute cardiopulm process, no evidence of acute rib fracture likely chest muscle strain vs intercostal muscle strain plan to dc home w/ short course of naproxen instructed to use ice/heat alternating for discomfort return to ED if: chest pain begins to radiate into back, pain worsens significantly, pain radiates into jaw, develop fevers or sweating follow up w/ PCP Dr Hernandez next week Counseled pt/family regarding: diagnosis, need for follow-up, rad results Medical Desision Making - Diagnostic Testing Diagnostic test were ordered, analyzed, and reviewed by me: Yes Radiological Interpretation: Interpreted by me, Reviewed by me - Risk of complications Minimal Risk: Minimal risk of morbidity - Departure Departure Disposition: Home Clinical Impression: Rib pain on right side Condition: Stable Critical Care Time: No Referrals: CHAVEZ HERNANDEZ, EXECUTIVE HOUSEKEEPER [Primary Care Provider] - Follow up/PCP as directed Additional Instructions: plan to dc home w/ short course of naproxen instructed to use ice/heat alternating for discomfort return to ED if: chest pain begins to radiate into back, pain worsens significantly, pain radiates into jaw, develop fevers or sweating follow up w/ PCP Dr Hernandez next week Prescriptions: Naproxen 500 mg [Naprosyn 500 MG] 500 mg PO BIDPRN PRN #10 tablet PRN Reason: Pain
[2023-11-10] MEDS ORDERED: NORCO 5/325 MG ONE (19:57)
[2023-11-10] MEDS: NORCO 5/325 MG PO ONE (19:59)
[2023-11-10 20:36] VITALS: BP 159/102; PULSE 84; RESP 20
--- NOTE | 2023-11-10 22:20 | XRAY ---
Indication: Rib pain. No known injury. Comparison: August 20, 2022 PA/lateral chest remains inflated and clear. Heart and mediastinal structures within normal limits. Bony thorax intact. Impression: Nonacute chest.
== END 2023-11-10 20:38 | disposition home or self-care (01) ==
LOC: ED 19:34
DX: R07.81 Pleurodynia (principal); R05.9 Cough, unspecified; I10 Essential (primary) hypertension; Z79.899 Other long term (current) drug therapy
CPT/HCPCS: 71046; 99282; A9270-GY

== ENCOUNTER 2023-12-20 15:01 | Emergency (ER) | payer MEDICAID ==
[2023-12-20 15:10] VITALS: BP 133/93; PULSE 78; RESP 20; TEMP 97.6; O2SAT 97
--- NOTE | 2023-12-20 15:21 | ERPHSYRPT ---
- History of Present Illness Time Seen by Provider: 12/20/23 15:12 Historian: patient Patient Subjective Stated Complaint: Chest pain Triage Nursing Assessment: Patient ambulated into ED and transferred self to bed. Patient A+O X3. Patient's skin pink, warm and dry. Patient complains of chest pain 01/09 that started around 1300. Patient denies N/V. Physician History: Pt states for the past 2.5 hours he has had shortness of air and left anterio r/lateral chest pain; denies trauma, abdominal pain, vomiting, fever. Aspirin Treatment Today: 81 mg x 4, provided by ED Allergies/Adverse Reactions: Iodinated Contrast Media [Iodinated Contrast Media - IV Dye] Allergy (Severe, Verified 12/20/23 15:04) Rash ketorolac [From Toradol] Allergy (Intermediate, Verified 12/20/23 15:04) Itching quetiapine fumarate [From Seroquel] Allergy (Intermediate, Verified 12/20/23 15:04) rash, itching meperidine HCl [From Demerol] Allergy (Mild, Verified 12/20/23 15:04) Rash/hyper morphine Allergy (Mild, Verified 12/20/23 15:04) rash/ hyper oxycodone [From OxyContin] Allergy (Mild, Verified 12/20/23 15:04) Itching prednisone Allergy (Mild, Verified 12/20/23 15:04) Nausea tramadol HCl [From Ultram] Allergy (Mild, Verified 12/20/23 15:04) rash itching ondansetron [From Zofran] Allergy (Verified 12/20/23 15:04) Hives acetaminophen [From Percocet] Adverse Reaction (Verified 12/20/23 15:04) Hives Home Medications: Methylphenidate HCl [Ritalin] 10 mg PO UD 12/25/20 [History] Hx Tetanus, Diphtheria Vaccination/Date Given: Yes Hx Influenza Vaccination/Date Given: Yes Hx Pneumococcal Vaccination/Date Given: No Immunizations Up to Date: Yes Travel Risk - International Travel Have you traveled outside of the country in past 3 weeks: No - Emerging Infectious Disease Are you exhibiting symptoms associated with any current EIDs: No - Review of Systems Constitutional: No Fever Respiratory: Dyspnea Cardiac: Chest Pain Abdominal/Gastrointestinal: Diarrhea (chronic for the past 5 years), No Abdominal Pain, No Vomiting Neurological: No Headache - Past Medical History Pertinent Past Medical History: Yes Neurological History: Migraines, Seizures ENT History: No Pertinent History Cardiac History: Hypertension Respiratory History: Asthma, Bronchitis Endocrine Medical History: No Pertinent History Musculoskeletal History: Osteoarthritis GI Medical History: Crohns Disease History: No Pertinent History Psycho-Social History: Anxiety, Attention Deficit Disorder, Depression Male Reproductive Disorders: No Pertinent History Other Medical History: celiac, non-hodgkins lymphoma - Past Surgical History Past Surgical History: Yes Neuro Surgical History: No Pertinent History Cardiac: No Pertinent History Respiratory: No Pertinent History Gastrointestinal: Hernia Repair Genitourinary: No Pertinent History Musculoskeletal: Orthopedic Surgery Male Surgical History: No Pertinent History Other Surgical History: r shoulder, rotator cuff, R knee Aug 2022, R ankle - Social History Smoking Status: Former smoker How long have you smoked: rarely Exposure to second hand smoke: Yes Drug Use: none Patient Lives Alone: No - Social Determinants of Health Will the patient participate in the screening: Yes Do you worry about a steady place to live?: No Do you have any problems with any of the following?: No known problems In the past 12 months,have you had to go without utilities?: No Transportation Issues: No Has anyone in your support network made you feel unsafe?: No Have you or anyone in your house had to go without enough: No - Nursing Vital Signs Nursing Vital Signs: Initial Vital Signs Temperature 97.6 F 12/20/23 15:06 Pulse Rate 78 12/20/23 15:06 Respiratory Rate 20 12/20/23 15:06 Blood Pressure 133/93 12/20/23 15:06 O2 Sat by Pulse Oximetry 97 12/20/23 15:06 Pain Scale Pain Intensity 7 - Physical Exam General Appearance: alert Eye Exam: eyes nml inspection Ears, Nose, Throat Exam: pharynx normal, moist mucous membranes Neck Exam: normal inspection Respiratory Exam: lungs clear Cardiovascular Exam: normal heart sounds Gastrointestinal/Abdomen Exam: normal bowel sounds Extremity Exam: No pedal edema Neurologic Exam: alert, cooperative Skin Exam: warm, dry, No cyanosis SpO2 Interpretation: normal SpO2: 97 O2 Delivery: Room Air - Course Nursing assessment & vital signs reviewed: Yes EKG Interpreted by Me: RATE (73), Sinus Rhythm, NORMAL AXIS, Other (QTc = 407) - Radiology Exams Chest X-ray Interpretation: Discussed w/ radiologist (No new/acute findings) Ordered Tests: Active Orders 24 hr Category Date Time Status EKG-ER Only STAT Care 12/20/23 15:33 Active IV Insertion STAT Care 12/20/23 15:33 Active CHEST 2 VIEWS (PA AND LAT) Stat Exams 12/20/23 15:33 Completed AMYLASE Stat Lab 12/20/23 15:20 Completed CBC W DIFF Stat Lab 12/20/23 15:20 Completed CMP Stat Lab 12/20/23 15:20 Completed LIPASE Stat Lab 12/20/23 15:20 Completed MAGNESIUM Stat Lab 12/20/23 15:20 Completed TROPONIN Q4H Lab 12/20/23 15:20 Completed TROPONIN Q4H Lab 12/20/23 19:45 Ordered TROPONIN Q4H Lab 12/20/23 23:45 Ordered Medication Summary Generic Name Dose Route Start Last Admin Trade Name Freq PRN Reason Stop Dose Admin Sodium Chloride 1,000 mls @ 100 mls/hr 12/20/23 15:45 12/20/23 15:57 Sodium Chloride 0.9% 1000 Ml IV 01/19/24 15:44 100 mls/hr .Q10H JOHAN Administration Discontinued Medications Generic Name Dose Route Start Last Admin Trade Name Freq PRN Reason Stop Dose Admin Aspirin 324 mg 12/20/23 15:33 12/20/23 15:54 Aspirin 81 Mg Tab.Chew PO 12/20/23 15:34 324 mg STAT ONE Administration Aspirin Confirm 12/20/23 15:42 Aspirin 81 Mg Tab.Chew Administered 12/20/23 15:43 Dose 324 mg .ROUTE .STK-MED ONE Nitroglycerin 0.4 mg 12/20/23 15:33 12/20/23 15:56 Nitroglycerin 0.4 Mg (Ed) 0.4 Mg Tab.Subl SL 12/20/23 15:34 0.4 mg STAT ONE Administration Nitroglycerin Confirm 12/20/23 15:42 Nitroglycerin 0.4 Mg (Ed) 0.4 Mg Tab.Subl Administered 12/20/23 15:43 Dose 0.4 mg SL .STK-MED ONE Ondansetron HCl 4 mg 12/20/23 16:01 12/20/23 16:12 Ondansetron Hcl 4 Mg/2 Ml Vial IV 12/20/23 16:02 4 mg STAT ONE Administration Ondansetron HCl Confirm 12/20/23 16:03 Ondansetron Hcl 4 Mg/2 Ml Vial Administered 12/20/23 16:04 Dose 4 mg .ROUTE .K-MED ONE Lab/Rad Data: Laboratory Result Diagrams 12/20/23 15:20 12/20/23 15:20 Laboratory Results 12/20/23 12/20/23 12/20/23 Range/Units 15:20 15:20 15:20 WBC 5.7 (4.23-9.07) x10^3/uL RBC 4.51 L (4.63-6.08) x10^6/uL Hgb 13.5 L (13.7-17.5) g/dL Hct 39.5 L (40.1-51.0) % MCV 87.6 (79.0-92.2) fL MCH 29.9 (25.7-32.2) pg MCHC 34.2 (32.3-36.5) g/dL RDW 12.2 (11.6-14.4) % Plt Count 279 (163-337) x10^3/uL MPV 10.2 (9.4-12.4) fL Gran % 60.4 (34.0-67.9) % Immature Gran % (Auto) 0.2 (0.001-0.429) % Nucleat RBC Rel Count 0.0 (0.00-0.2) % Eos # (Auto) 0.19 (0.04-0.54) x10^3/uL Immature Gran # (Auto) 0.01 (0.001-0.031) x10^3u/L Absolute Lymphs (auto) 1.64 (1.32-3.57) x10^3/uL Absolute Monos (auto) 0.38 (0.30-0.82) x10^3/uL Absolute Nucleated RBC 0.00 (0.00-0.012) x10^3u/L Lymphocytes % 28.7 (21.8-53.1) % Monocytes % 6.7 (5.3-12.2) % Eosinophils % 3.3 (0.8-7.0) % Basophils % 0.7 (0.2-1.2) % Absolute Granulocytes 3.45 (1.78-5.38) x10^3/uL Basophils # 0.04 (0.01-0.08) x10^3/uL Sodium 141 (135-145) mmol/L Potassium 4.3 (3.5-5.1) mmol/L Chloride 107 (98-107) mmol/L Carbon Dioxide 22 (22-30) mmol/L Anion Gap 16.8 H (5-15) MEQ/L BUN 13 (9-20) mg/dL Creatinine 0.99 (0.66-1.25) mg/dL Estimated GFR 101.3 ML/MIN Glucose 104 (74-106) mg/dL Calcium 9.6 (8.4-10.2) mg/dL Magnesium 1.9 (1.6-2.3) mg/dL Total Bilirubin 0.50 (0.2-1.3) mg/dL AST 25 (17-59) U/L ALT 16 (0-50) U/L Alkaline Phosphatase 60 (38-126) U/L Troponin I < 0.012 (0.000-0.033) ng/mL Serum Total Protein 8.4 H (6.3-8.2) g/dL Albumin 4.7 (3.5-5.0) g/dL Amylase 73 (30-110) U/L Lipase 107 (23-300) U/L - Progress Progress: improved Counseled pt/family regarding: lab results, diagnosis, need for follow-up, rad results Medical Desision Making - Diagnostic Testing Diagnostic test were ordered, analyzed, and reviewed by me: Yes Radiological Interpretation: Discussed w/ radiologist - Departure Departure Disposition: Home Clinical Impression: Chest pain, Dyspnea Condition: Stable Critical Care Time: No Referrals: CHAVEZ JEROME CHILD WELFARE MANAGER [Primary Care Provider] - Follow up/PCP as directed Instructions: Chest Pain (DC) Additional Instructions: Follow up with private doctor tomorrow. Forms: Work/School Release Form
[2023-12-20 15:42] LABS: Absolute Neutrophil Ct (ANC) 3.45 x10^3/uL (1.78-5.38); BASOPHIL % 0.7 % (0.2-1.2); Basophil (Absolute #) 0.04 x10^3/uL (0.01-0.08); Eosinophil % 3.3 % (0.8-7.0); Eosinophil (Absolute #) 0.19 x10^3/uL (0.04-0.54); Hematocrit 39.5 % (40.1-51.0); Hemoglobin 13.5 g/dL (13.7-17.5); IMMATURE GRAN # 0.01 x10^3u/L (0.001-0.031); IMMATURE GRAN % 0.2 % (0.001-0.429); Lymphocyte (Absolute #) 1.64 x10^3/uL (1.32-3.57); Lymphocytes % 28.7 % (21.8-53.1); Mean Cell Volume 87.6 fL (79.0-92.2); Mean Corpuscular Hemoglobin 29.9 pg (25.7-32.2); Mean Corpuscular Hgb Concent. 34.2 g/dL (32.3-36.5); Mean Platelet Volume 10.2 fL (9.4-12.4); Monocyte (Absolute #) 0.38 x10^3/uL (0.30-0.82); Monocytes % 6.7 % (5.3-12.2); Neutrophil % 60.4 % (34.0-67.9); Platelet Count 279 x10^3/uL (163-337); Red Blood Count 4.51 x10^6/uL (4.63-6.08); Red Cell Distribution Width 12.2 % (11.6-14.4); White Blood Count 5.7 x10^3/uL (4.23-9.07)
[2023-12-20] MEDS ORDERED: BABY ASPIRIN 81 MG CHEW ONE (15:42)
[2023-12-20] MEDS ORDERED: Nitrostat 0.4 MG (ED) SL ONE (15:42)
[2023-12-20] MEDS ORDERED: Sodium Chloride 0.9% 1000 ML 1,000 ML ONE (15:43)
[2023-12-20 15:49] LABS: ALBUMIN 4.7 g/dL (3.5-5.0); ANION GAP 16.8 MEQ/L (5-15); BILIRUBIN,TOTAL 0.5 mg/dL (0.2-1.3); Calcium 9.6 mg/dL (8.4-10.2); Creatinine 1 0.99 mg/dL (0.66-1.25); EST GLOMERULAR FILTRATION RATE 101.3 ML/MIN; MAGNESIUM 1.9 mg/dL (1.6-2.3); Potassium 4.3 mmol/L (3.5-5.1); Total Protein 8.4 g/dL (6.3-8.2)
[2023-12-20] MEDS: BABY ASPIRIN 81 MG CHEW PO ONE (15:54)
[2023-12-20] MEDS: Nitrostat 0.4 MG (ED) SL ONE (15:56)
[2023-12-20] MEDS: Sodium Chloride 0.9% 1000 ML 1,000 ML IV SCH (15:57)
[2023-12-20] MEDS ORDERED: Zofran 4 MG/2 ML VIAL ONE (16:03)
[2023-12-20] MEDS: Zofran 4 MG/2 ML VIAL IV ONE (16:12)
--- NOTE | 2023-12-20 16:29 | XRAY ---
Indication: Chest pain. Comparison: November 10, 2023 PA/lateral chest again demonstrates normal heart and lungs with a few incidental right hilar calcified nodes. Bony thorax intact. No new/acute findings.
== END 2023-12-20 17:06 | disposition home or self-care (01) ==
LOC: ED 15:01
DX: R07.9 Chest pain, unspecified (principal); R06.00 Dyspnea, unspecified; I10 Essential (primary) hypertension; Z79.899 Other long term (current) drug therapy
CPT/HCPCS: 36000; 36415; 71046; 80053; 82150; 83690; 83735; 84484; 85025; 93005; 96374; 99284; J2405; A9270-GY

== ENCOUNTER 2024-02-08 13:19 | Emergency (ER) | payer MEDICAID ==
[2024-02-08 13:24] VITALS: TEMP 97.8
[2024-02-08 13:47] LABS: Absolute Neutrophil Ct (ANC) 5.74 x10^3/uL (1.78-5.38); BASOPHIL % 0.5 % (0.2-1.2); Basophil (Absolute #) 0.04 x10^3/uL (0.01-0.08); Eosinophil % 1.3 % (0.8-7.0); Hematocrit 40.6 % (40.1-51.0); Hemoglobin 13.8 g/dL (13.7-17.5); IMMATURE GRAN # 0.02 x10^3u/L (0.001-0.031); IMMATURE GRAN % 0.3 % (0.001-0.429); Lymphocyte (Absolute #) 1.41 x10^3/uL (1.32-3.57); Lymphocytes % 18.4 % (21.8-53.1); Mean Cell Volume 87.7 fL (79.0-92.2); Mean Corpuscular Hemoglobin 29.8 pg (25.7-32.2); Mean Platelet Volume 10.2 fL (9.4-12.4); Monocyte (Absolute #) 0.36 x10^3/uL (0.30-0.82); Monocytes % 4.7 % (5.3-12.2); Neutrophil % 74.8 % (34.0-67.9); Platelet Count 274 x10^3/uL (163-337); Red Blood Count 4.63 x10^6/uL (4.63-6.08); Red Cell Distribution Width 12.5 % (11.6-14.4); White Blood Count 7.7 x10^3/uL (4.23-9.07)
[2024-02-08] MEDS ORDERED: TYLENOL 325 MG ONE (14:02)
[2024-02-08] MEDS ORDERED: Sodium Chloride 0.9% 1000 ML 1,000 ML ONE (14:02)
[2024-02-08] MEDS: TYLENOL 325 MG PO ONE (14:05)
[2024-02-08] MEDS: Sodium Chloride 0.9% 1000 ML 1,000 ML IV STA (14:05)
[2024-02-08 14:09] LABS: ALBUMIN 4.9 g/dL (3.5-5.0); ALKALINE PHOSPHATASE 61 U/L (38-126); ANION GAP 17.5 MEQ/L (5-15); BLOOD UREA NITROGEN 16 mg/dL (9-20); CHLORIDE 107 mmol/L (98-107); Calcium 9.9 mg/dL (8.4-10.2); Carbon Dioxide 24 mmol/L (22-30); Glucose 116 mg/dL (74-106); NT PRO BNPII < 20.0 pg/mL (<300); Potassium 4.1 mmol/L (3.5-5.1); SGOT/AST 30 U/L (17-59); SGPT/ALT 21 U/L (0-50); SODIUM 145 mmol/L (135-145); Total Protein 8.7 g/dL (6.3-8.2)
--- NOTE | 2024-02-08 14:34 | ERPHSYRPT ---
- History of Present Illness Time Seen by Provider: 02/08/24 13:21 Historian: patient Exam Limitations: no limitations Patient Subjective Stated Complaint: Pt states "I woke up with my chest hurting but it got worse when I was working and arguing with my uncle." Triage Nursing Assessment: Pt presented alert and oriented X 3, skin wpd. pt ambulates with an upright steady gait, able to speak in clear full sentenes. pt resting comfortably on the bed. Physician History: 38 years old male with history of anxiety/depression/ADD, recurrent chest pains with negative workup, going follow-up with Dr. Tubbs presented in the ER with complaint of chest pain all over when he woke up this morning, dull aching with no significant aggravating or relieving factors. 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 Patient reported it got really worse after he had arguments with his uncle. Patient is very anxious. Denies any palpitations or difficulty breathing. No fever chills or cough reported. Currently having minimal discomfort and does not want any pain medications. Aspirin Treatment Today: 81 mg x 4 Allergies/Adverse Reactions: Iodinated Contrast Media [Iodinated Contrast Media - IV Dye] Allergy (Severe, Verified 12/20/23 15:04) Rash ketorolac [From Toradol] Allergy (Intermediate, Verified 12/20/23 15:04) Itching quetiapine fumarate [From Seroquel] Allergy (Intermediate, Verified 12/20/23 15:04) rash, itching meperidine HCl [From Demerol] Allergy (Mild, Verified 12/20/23 15:04) Rash/hyper morphine Allergy (Mild, Verified 12/20/23 15:04) rash/ hyper oxycodone [From OxyContin] Allergy (Mild, Verified 12/20/23 15:04) Itching prednisone Allergy (Mild, Verified 12/20/23 15:04) Nausea tramadol HCl [From Ultram] Allergy (Mild, Verified 12/20/23 15:04) rash itching ondansetron [From Zofran] Allergy (Verified 12/20/23 15:04) Hives acetaminophen [From Percocet] Adverse Reaction (Verified 12/20/23 15:04) Hives Home Medications: Methylphenidate HCl [Ritalin] 10 mg PO UD 12/25/20 [History] Hx Tetanus, Diphtheria Vaccination/Date Given: Yes Hx Influenza Vaccination/Date Given: Yes Hx Pneumococcal Vaccination/Date Given: No Immunizations Up to Date: No Travel Risk - International Travel Have you traveled outside of the country in past 3 weeks: No - Emerging Infectious Disease Are you exhibiting symptoms associated with any current EIDs: No - Review of Systems Constitutional: No Symptoms Eyes: No Symptoms Ears, Nose, & Throat: No Symptoms Respiratory: No Symptoms Cardiac: Chest Pain Abdominal/Gastrointestinal: No Symptoms Genitourinary Symptoms: No Symptoms Musculoskeletal: No Symptoms Skin: No Symptoms Neurological: No Symptoms Endocrine: No Symptoms Hematologic/Lymphatic: No Symptoms - Past Medical History Pertinent Past Medical History: Yes Neurological History: Migraines, Seizures ENT History: No Pertinent History Cardiac History: Hypertension Respiratory History: Asthma, Bronchitis Endocrine Medical History: No Pertinent History Musculoskeletal History: Osteoarthritis GI Medical History: Crohns Disease History: No Pertinent History Psycho-Social History: Anxiety, Attention Deficit Disorder, Depression Male Reproductive Disorders: No Pertinent History Other Medical History: celiac, non-hodgkins lymphoma - Past Surgical History Past Surgical History: Yes Neuro Surgical History: No Pertinent History Cardiac: No Pertinent History Respiratory: No Pertinent History Gastrointestinal: Hernia Repair Genitourinary: No Pertinent History Musculoskeletal: Orthopedic Surgery Male Surgical History: No Pertinent History Other Surgical History: r shoulder, rotator cuff, R knee Aug 2022, R ankle - Social History Smoking Status: Former smoker How long have you smoked: rarely Exposure to second hand smoke: Yes Drug Use: none Patient Lives Alone: No - Social Determinants of Health Will the patient participate in the screening: Yes Do you worry about a steady place to live?: No Do you have any problems with any of the following?: No known problems In the past 12 months,have you had to go without utilities?: No Transportation Issues: No Has anyone in your support network made you feel unsafe?: No Have you or anyone in your house had to go without enough: No - Nursing Vital Signs Nursing Vital Signs: Initial Vital Signs Temperature 97.8 F 02/08/24 13:20 Pulse Rate 111 H 02/08/24 13:20 Respiratory Rate 18 02/08/24 13:20 Blood Pressure 145/87 02/08/24 13:20 O2 Sat by Pulse Oximetry 98 02/08/24 13:20 Pain Scale Pain Intensity 2 - Physical Exam General Appearance: no apparent distress, alert Eye Exam: PERRL/EOMI Ears, Nose, Throat Exam: normal ENT inspection Neck Exam: normal inspection, full range of motion Respiratory Exam: normal breath sounds, lungs clear Cardiovascular Exam: regular rate/rhythm, normal heart sounds Gastrointestinal/Abdomen Exam: soft, normal bowel sounds, No tenderness Extremity Exam: normal inspection, normal range of motion Neurologic Exam: alert, oriented x 3, cooperative, No normal mood/affect Skin Exam: normal color SpO2 Interpretation: normal SpO2: 95 O2 Delivery: Room Air - Course EKG Interpreted by Me: RATE (98), Sinus Rhythm, NORMAL AXIS, NORMAL INTERVALS, NORMAL QRS Ordered Tests: Active Orders 24 hr Category Date Time Status CHEST 1 VIEW (PORTABLE) Stat Exams 02/08/24 13:32 Completed CBC W DIFF Stat Lab 02/08/24 13:20 Completed CMP Stat Lab 02/08/24 13:20 Completed NT PRO BNPII Stat Lab 02/08/24 13:20 Completed TROPONIN Q4H Lab 02/08/24 13:20 Completed TROPONIN Q4H Lab 02/08/24 16:18 Received TROPONIN Q4H Lab 02/08/24 21:45 Ordered Medication Summary Discontinued Medications Generic Name Dose Route Start Last Admin Trade Name Darwin PRN Reason Stop Dose Admin Acetaminophen 975 mg 02/08/24 13:51 02/08/24 14:05 Acetaminophen 325 Mg Tablet PO 02/08/24 13:52 975 mg STAT ONE Administration Acetaminophen Confirm 02/08/24 14:02 Acetaminophen 325 Mg Tablet Administered 02/08/24 14:03 Dose 975 mg .ROUTE .STK-MED ONE Sodium Chloride 1,000 mls @ 999 mls/hr 02/08/24 13:51 02/08/24 15:18 Sodium Chloride 0.9% 1000 Ml IV 02/08/24 14:51 Infused .Q1H1M STA Infusion Sodium Chloride Confirm 02/08/24 14:02 Sodium Chloride 0.9% 1000 Ml Administered 02/08/24 14:03 Dose 1,000 mls @ ud .ROUTE .STK-MED ONE Lab/Rad Data: Laboratory Result Diagrams 02/08/24 13:20 02/08/24 13:20 Laboratory Results 02/08/24 02/08/24 02/08/24 Range/Units 13:20 13:20 13:20 WBC 7.7 (4.23-9.07) x10^3/uL RBC 4.63 (4.63-6.08) x10^6/uL Hgb 13.8 (13.7-17.5) g/dL Hct 40.6 (40.1-51.0) % MCV 87.7 (79.0-92.2) fL MCH 29.8 (25.7-32.2) pg MCHC 34.0 (32.3-36.5) g/dL RDW 12.5 (11.6-14.4) % Plt Count 274 (163-337) x10^3/uL MPV 10.2 (9.4-12.4) fL Gran % 74.8 H (34.0-67.9) % Immature Gran % (Auto) 0.3 (0.001-0.429) % Nucleat RBC Rel Count 0.0 (0.00-0.2) % Eos # (Auto) 0.10 (0.04-0.54) x10^3/uL Immature Gran # (Auto) 0.02 (0.001-0.031) x10^3u/L Absolute Lymphs (auto) 1.41 (1.32-3.57) x10^3/uL Absolute Monos (auto) 0.36 (0.30-0.82) x10^3/uL Absolute Nucleated RBC 0.00 (0.00-0.012) x10^3u/L Lymphocytes % 18.4 L (21.8-53.1) % Monocytes % 4.7 L (5.3-12.2) % Eosinophils % 1.3 (0.8-7.0) % Basophils % 0.5 (0.2-1.2) % Absolute Granulocytes 5.74 H (1.78-5.38) x10^3/uL Basophils # 0.04 (0.01-0.08) x10^3/uL Sodium 145 (135-145) mmol/L Potassium 4.1 (3.5-5.1) mmol/L Chloride 107 (98-107) mmol/L Carbon Dioxide 24 (22-30) mmol/L Anion Gap 17.5 H (5-15) MEQ/L BUN 16 (9-20) mg/dL Creatinine 1.30 H (0.66-1.25) mg/dL Estimated GFR 73.0 ML/MIN Glucose 116 H (74-106) mg/dL Calcium 9.9 (8.4-10.2) mg/dL Total Bilirubin 0.70 (0.2-1.3) mg/dL AST 30 (17-59) U/L ALT 21 (0-50) U/L Alkaline Phosphatase 61 (38-126) U/L Troponin I < 0.012 (0.000-0.033) ng/mL NT-Pro-B Natriuret Pep < 20.0 (<300) pg/mL Serum Total Protein 8.7 H (6.3-8.2) g/dL Albumin 4.9 (3.5-5.0) g/dL - Progress Progress: improved, re-examined Air Movement: good Progress Note: 02/08/24 38-year-old is evaluated for chest pain since morning which got worse after he had arguments with his uncle and he was working out side in the hot weather. Patient was very anxious on presentation. He is given fluids and symptomatic treatment with Tylenol, on reevaluation his pain is resolved and feeling improved. EKG is normal sinus rhythm with no acute ischemic changes. Negative troponins x 2. Lungs clear to auscultation and chest x-ray is negative for any acute cardiopulmonary findings. Normal white count and fairly unremarkable chemistries. Patient is thoroughly counseled as part of patient's symptoms are secondary to anxiety as well. Patient is a low heart score, do not think needs admission and can be discharged with outpatient follow-up. Discussed signs symptoms of worsening needing return to ER which he seems understanding. Stable for discharge. Taking into account patient's history, workup, interpretation of data, review of previous records it was a moderate complexity. Blood Culture(s) Obtained: No Antibiotics given: No Counseled pt/family regarding: lab results, diagnosis, need for follow-up, rad results Medical Desision Making - Diagnostic Testing Diagnostic test were ordered, analyzed, and reviewed by me: Yes Radiological Interpretation: Reviewed by me - Risk of complications The pt has a mod risk of morbidity or mortality based on: Need for prescription drug management - Departure Departure Disposition: Home Clinical Impression: Atypical chest pain, Anxiety Condition: Stable Critical Care Time: No Referrals: CHAVEZ JEROME COPYRIGHT CLERK [Primary Care Provider] - Follow up with PCP 1 day BRANDON TUBBS MD [CONSULTING PHYSICIAN] - Follow up PCP 10 days (Call for appointment) Instructions: Chest Pain (DC), Angina (DC) Additional Instructions: Take Tylenol as needed. Follow-up with primary care/cardiology for reevaluation. Return to ER for intractable pain or if having palpitation/shortness of breath etc.
--- NOTE | 2024-02-08 14:40 | XRAY ---
Indication: Chest pain. Comparison: December 20, 2023 Portable chest now rotated and less inflated but remains clear. Heart not enlarged. Bony thorax intact. No new/acute findings.
[2024-02-08 17:17] VITALS: BP 139/81; PULSE 79; RESP 15; O2SAT 99
== END 2024-02-08 17:20 | disposition home or self-care (01) ==
LOC: ED 13:19
DX: R07.89 Other chest pain (principal); F41.9 Anxiety disorder, unspecified; I10 Essential (primary) hypertension; Z79.899 Other long term (current) drug therapy
CPT/HCPCS: 36415; 71045; 80053; 83880; 84484; 85025; 96360; 99284; A9270-GY

== ENCOUNTER 2024-02-10 14:01 | Emergency (ER) | payer MEDICAID ==
[2024-02-10 14:13] VITALS: BP 153/98; PULSE 84; RESP 18; TEMP 97.3; O2SAT 96
[2024-02-10] MEDS ORDERED: TYLENOL 325 MG ONE (15:24)
[2024-02-10] MEDS: TYLENOL 325 MG PO STA (15:25)
[2024-02-10 15:47] LABS: INFLUENZA A NEGATIVE (NEGATIVE); INFLUENZA B NEGATIVE (NEGATIVE); RESPIRATORY SYNCTIAL VIRUS NEGATIVE (NEGATIVE); SARS-CoV-2 Xpert Express NEGATIVE (NEGATIVE)
--- NOTE | 2024-02-10 18:14 | ERPHSYRPT ---
- History of Present Illness Time Seen by Provider: 02/10/24 15:08 Source: patient Exam Limitations: no limitations Patient Subjective Stated Complaint: Left eye pain/cough Triage Nursing Assessment: Patient ambulated back to ED and transferred self to bed. Patient A+O X3. Patient's skin pink, warm and dry. Patient complains of left eye irriation since waking up day. Patient states his left eye is red, itching and has had green drainage. Patient's left eye noted to be red. Patient also complains of productive cough with thin green sputum since Monday. Lungs clear a/p norm. Patient denies pain or discomfort. Physician History: 38yo m presents via private vehicle for 3-4d of miminally productive cough, sore throat, sinus congestion. Pt denies any fevers at home, denies any recent sick contacts. Pt does report when he woke up this AM his left eye had some sanguinous drainage and was itchy. Pt reports the eye is back to normal at time of exam and drainage had stopped. Pt denies any cp, sob, n/v/d. Timing/Duration: day(s) (3) Cough Quality/Degree: mild, productive cough Modifying Factors: Improves With: nothing Associated Symptoms: cough, nasal congestion, nasal drainage, sore throat, No fever, No chills, No chest pain/soreness, No headache, No shortness of breath, No wheezing Allergies/Adverse Reactions: Iodinated Contrast Media [Iodinated Contrast Media - IV Dye] Allergy (Severe, Verified 02/10/24 14:07) Rash ketorolac [From Toradol] Allergy (Intermediate, Verified 02/10/24 14:07) Itching quetiapine fumarate [From Seroquel] Allergy (Intermediate, Verified 02/10/24 14:07) rash, itching meperidine HCl [From Demerol] Allergy (Mild, Verified 02/10/24 14:07) Rash/hyper morphine Allergy (Mild, Verified 02/10/24 14:07) rash/ hyper oxycodone [From OxyContin] Allergy (Mild, Verified 02/10/24 14:07) Itching prednisone Allergy (Mild, Verified 02/10/24 14:07) Nausea tramadol HCl [From Ultram] Allergy (Mild, Verified 02/10/24 14:07) rash itching ondansetron [From Zofran] Allergy (Verified 02/10/24 14:07) Hives acetaminophen [From Percocet] Adverse Reaction (Verified 02/10/24 14:07) Hives Home Medications: Methylphenidate HCl [Ritalin] 10 mg PO UD 12/25/20 [History] Hx Tetanus, Diphtheria Vaccination/Date Given: Yes Hx Influenza Vaccination/Date Given: Yes Hx Pneumococcal Vaccination/Date Given: No Immunizations Up to Date: Yes Travel Risk - International Travel Have you traveled outside of the country in past 3 weeks: No - Emerging Infectious Disease Are you exhibiting symptoms associated with any current EIDs: No - Review of Systems Constitutional: No Fever, No Chills Eyes: Discharge, Itchy, No Eye Redness, No Photophobia, No Tearing, No Vision Changes Ears, Nose, & Throat: Nose Congestion, Sinus Drainage, No Throat Swelling, No Painful Swallowing, No Stridor Respiratory: Cough, No Dyspnea, No Wheezing Cardiac: No Symptoms Abdominal/Gastrointestinal: No Symptoms - Past Medical History Pertinent Past Medical History: Yes Neurological History: Migraines, Seizures ENT History: No Pertinent History Cardiac History: Hypertension Respiratory History: Asthma, Bronchitis Endocrine Medical History: No Pertinent History Musculoskeletal History: Osteoarthritis GI Medical History: Crohns Disease History: No Pertinent History Psycho-Social History: Anxiety, Attention Deficit Disorder, Depression Male Reproductive Disorders: No Pertinent History Other Medical History: celiac, non-hodgkins lymphoma - Past Surgical History Past Surgical History: Yes Neuro Surgical History: No Pertinent History Cardiac: No Pertinent History Respiratory: No Pertinent History Gastrointestinal: Hernia Repair Genitourinary: No Pertinent History Musculoskeletal: Orthopedic Surgery Male Surgical History: No Pertinent History Other Surgical History: r shoulder, rotator cuff, R knee Aug 2022, R ankle - Social History Smoking Status: Former smoker How long have you smoked: rarely Exposure to second hand smoke: Yes Drug Use: none Patient Lives Alone: No - Social Determinants of Health Will the patient participate in the screening: Yes Do you worry about a steady place to live?: No Do you have any problems with any of the following?: No known problems In the past 12 months,have you had to go without utilities?: No Transportation Issues: No Has anyone in your support network made you feel unsafe?: No Have you or anyone in your house had to go without enough: No - Nursing Vital Signs Nursing Vital Signs: Initial Vital Signs Temperature 97.3 F 02/10/24 14:07 Pulse Rate 84 02/10/24 14:07 Respiratory Rate 18 02/10/24 14:07 Blood Pressure 153/98 02/10/24 14:07 O2 Sat by Pulse Oximetry 96 02/10/24 14:07 Pain Scale Pain Intensity 2 - Physical Exam General Appearance: no apparent distress, alert Eye Exam: PERRL/EOMI, eyes nml inspection, No scleral icterus, No pale conjunctivae, No photophobia Ears, Nose, Throat Exam: normal ENT inspection, TMs normal, pharynx normal Respiratory Exam: normal breath sounds, lungs clear, airway intact, No chest tenderness, No respiratory distress, No wheezing, No stridor Cardiovascular Exam: regular rate/rhythm, normal heart sounds, normal peripheral pulses Skin Exam: normal color, warm, dry SpO2 Interpretation: normal SpO2: 96 O2 Delivery: Room Air Ordered Tests: Active Orders 24 hr Category Date Time Status CHEST 2 VIEWS (PA AND LAT) Stat Exams 02/10/24 14:55 Taken Medication Summary Discontinued Medications Generic Name Dose Route Start Last Admin Trade Name Darwin PRN Reason Stop Dose Admin Acetaminophen 650 mg 02/10/24 14:57 02/10/24 15:25 Acetaminophen 325 Mg Tablet PO 02/10/24 14:58 650 mg STAT STA Administration Acetaminophen Confirm 02/10/24 15:24 Acetaminophen 325 Mg Tablet Administered 02/10/24 15:25 Dose 650 mg .ROUTE .2U-Tangler ONE Lab/Rad Data: Laboratory Results 02/10/24 02/10/24 Range/Units 15:00 15:00 Influenza Type A Ag NEGATIVE (NEGATIVE) Influenza Type B Ag NEGATIVE (NEGATIVE) RSV (PCR) NEGATIVE (NEGATIVE) SARS-CoV-2 (PCR) NEGATIVE (NEGATIVE) Group A Strep Antibody NOT DETECTED (NEGATIVE) - Progress Progress: improved Air Movement: good Progress Note: 02/10/24 18:11 covid/flu/rsv/strep negative cxr negative for acute process likely viral URI continue OTC antihistamine daily for sx management recommend warm tea w/ honey for sore throat/dry cough follow up w/ PCP - Dustin Mary this week if symptoms not improving return to ED if: develop fevers that do not resolve w/ tylenol/iburprofen, develop shortness of breath, develop chest pain Blood Culture(s) Obtained: No Antibiotics given: No Counseled pt/family regarding: lab results, diagnosis, rad results Medical Desision Making - Diagnostic Testing Diagnostic test were ordered, analyzed, and reviewed by me: Yes Radiological Interpretation: Interpreted by me, Reviewed by me - Risk of complications Minimal Risk: Minimal risk of morbidity - Departure Departure Disposition: Home Clinical Impression: Sinus congestion Cough Qualifiers: Cough type: acute Qualified Code(s): R05.1 - Acute cough Condition: Stable Critical Care Time: No Referrals: CHAVEZ HERNANDEZ, INSURANCE RISK ANALYST [Primary Care Provider] - Follow up/PCP as directed Instructions: Upper respiratory infection in adults - Discharge instructions Additional Instructions: likely viral URI continue OTC antihistamine daily for sx management recommend warm tea w/ honey for sore throat/dry cough follow up w/ PCP - Dustin Hernandez this week if symptoms not improving return to ED if: develop fevers that do not resolve w/ tylenol/iburprofen, develop shortness of breath, develop chest pain
--- NOTE | 2024-02-10 21:24 | XRAY ---
Indication: Cough. Comparison: February 08, 2024 PA/lateral chest again demonstrates normal heart, lungs, and bony thorax.
== END 2024-02-10 18:28 | disposition home or self-care (01) ==
LOC: ED 14:01
DX: R09.81 Nasal congestion (principal); R05.1 Acute cough; J02.9 Acute pharyngitis, unspecified; I10 Essential (primary) hypertension; Z79.899 Other long term (current) drug therapy
CPT/HCPCS: 0241U; 71046; 87651; 99283; A9270-GY

== ENCOUNTER 2024-03-11 22:05 | Emergency (ER) | payer MEDICAID, OTHER ==
--- NOTE | 2024-03-11 22:07 | ERPHSYRPT ---
- History of Present Illness Time Seen by Provider: 03/11/24 22:07 Historian: patient, EMS, old records Exam Limitations: no limitations Physician History: This is a 38-year-old white male patient who presents to the emergency department transported by the paramedics because of left lower quadrant Sheldon pain that radiates into his left upper quadrant and axilla as well as the left groin. Patient states he is never had this type of pain before. Patient states that he did not have this pain yesterday it began this morning and he laid around in bed and the pain worsened. Patient describes the pain as sharp with intermittent episodes of crampiness. He has had no nausea vomiting or diarrhea symptoms. Patient is currently on antibiotics and steroids to treat bilateral ear infections but he is almost out of his medication. Patient has a history of celiac disease, anxiety and depression, ADD, migraine headaches, seizure disorder and asthma and bronchitis. He currently has no shortness of breath symptoms and no chest pain. Timing/Duration: today Abdominal Pain Onset Location: LLQ Pain Radiation: groin (Left), other (Left axilla) Severity of Pain-Max: moderate Severity of Pain-Current: mild (To moderate) Modifying Factors: Improves With: nothing Associated Symptoms: denies symptoms Previous symptoms: no prior history, no recent treatment Allergies/Adverse Reactions: Iodinated Contrast Media [Iodinated Contrast Media - IV Dye] Allergy (Severe, Verified 03/11/24 22:51) Rash ketorolac [From Toradol] Allergy (Intermediate, Verified 03/11/24 22:51) Itching quetiapine fumarate [From Seroquel] Allergy (Intermediate, Verified 03/11/24 22:51) rash, itching meperidine HCl [From Demerol] Allergy (Mild, Verified 03/11/24 22:51) Rash/hyper morphine Allergy (Mild, Verified 03/11/24 22:51) rash/ hyper oxycodone [From OxyContin] Allergy (Mild, Verified 03/11/24 22:51) Itching prednisone Allergy (Mild, Verified 03/11/24 22:51) Nausea tramadol HCl [From Ultram] Allergy (Mild, Verified 03/11/24 22:51) rash itching ondansetron [From Zofran] Allergy (Verified 03/11/24 22:51) Hives acetaminophen [From Percocet] Adverse Reaction (Verified 03/11/24 22:51) Hives Home Medications: Methylphenidate HCl [Ritalin] 10 mg PO UD 12/25/20 [History] Amox Tr/Potass Clav. 875 mg [Augmentin 875-125 Tablet] 875 mg PO BID 03/11/24 [History] PANTOPRAZOLE 40 mg Tablet [Protonix 40MG Tablet] 40 mg PO QAM 03/11/24 [History] predniSONE [Prednisone] 50 mg PO DAILY 03/11/24 [History] Hx Tetanus, Diphtheria Vaccination/Date Given: Yes Hx Influenza Vaccination/Date Given: Yes Hx Pneumococcal Vaccination/Date Given: No Travel Risk - International Travel Have you traveled outside of the country in past 3 weeks: No - Emerging Infectious Disease Are you exhibiting symptoms associated with any current EIDs: No - Review of Systems Constitutional: No Symptoms Eyes: No Symptoms Ears, Nose, & Throat: No Symptoms Respiratory: No Symptoms Cardiac: No Symptoms Abdominal/Gastrointestinal: Abdominal Pain, No Nausea, No Vomiting, No Diarrhea, No Constipation, No Appetite Changes (Patient ate 30 minutes prior to arrival to the emergency department) Genitourinary Symptoms: No Symptoms Musculoskeletal: No Symptoms Skin: No Symptoms Neurological: No Symptoms Psychological: No Symptoms Endocrine: No Symptoms Hematologic/Lymphatic: No Symptoms Immunological/Allergic: No Symptoms All Other Systems: Reviewed and Negative - Past Medical History Pertinent Past Medical History: Yes Neurological History: Migraines, Seizures ENT History: No Pertinent History Cardiac History: Hypertension Respiratory History: Asthma, Bronchitis Endocrine Medical History: No Pertinent History Musculoskeletal History: Osteoarthritis GI Medical History: Crohns Disease History: No Pertinent History Psycho-Social History: Anxiety, Attention Deficit Disorder, Depression Male Reproductive Disorders: No Pertinent History Other Medical History: celiac, non-hodgkins lymphoma - Past Surgical History Past Surgical History: Yes Neuro Surgical History: No Pertinent History Cardiac: No Pertinent History Respiratory: No Pertinent History Gastrointestinal: Hernia Repair Genitourinary: No Pertinent History Musculoskeletal: Orthopedic Surgery Male Surgical History: No Pertinent History Other Surgical History: r shoulder, rotator cuff, R knee Aug 2022, R ankle - Social History Smoking Status: Former smoker How long have you smoked: rarely Exposure to second hand smoke: Yes Drug Use: none Patient Lives Alone: No - Social Determinants of Health Will the patient participate in the screening: Yes Do you worry about a steady place to live?: No In the past 12 months,have you had to go without utilities?: No Transportation Issues: No Has anyone in your support network made you feel unsafe?: No Have you or anyone in your house had to go without enough: No - Nursing Vital Signs Nursing Vital Signs: Initial Vital Signs Pulse Rate 88 03/11/24 22:06 Respiratory Rate 18 03/11/24 22:06 Blood Pressure 175/112 03/11/24 22:06 O2 Sat by Pulse Oximetry 97 03/11/24 22:06 Pain Scale Pain Intensity 6 - Physical Exam General Appearance: no apparent distress, alert, anxiety Eye Exam: PERRL/EOMI, post op pupil defect (L) Ears, Nose, Throat Exam: normal ENT inspection, moist mucous membranes Neck Exam: normal inspection, non-tender, supple, full range of motion Respiratory Exam: normal breath sounds, lungs clear, airway intact, No chest tenderness, No respiratory distress Cardiovascular Exam: regular rate/rhythm, normal heart sounds, normal peripheral pulses Gastrointestinal/Abdomen Exam: soft, normal bowel sounds, tenderness (Mild left lower quadrant to palpation), guarding (Mild left lower quadrant to palpation), No rebound Rectal Exam: not done Back Exam: normal inspection, normal range of motion, No CVA tenderness, No vertebral tenderness Extremity Exam: normal inspection, normal range of motion, pelvis stable Neurologic Exam: alert, oriented x 3, cooperative, electrician sound II-XII nml as tested, nml cerebellar function, nml station & gait, sensation nml Skin Exam: normal color, warm, dry Lymphatic Exam: No adenopathy SpO2 Interpretation: normal O2 Delivery: Room Air - Course Nursing assessment & vital signs reviewed: Yes Ordered Tests: Active Orders 24 hr Category Date Time Status IV Insertion STAT Care 03/11/24 22:06 Active ABDOMEN AND PELVIS W/0 CONTRAS [CT] Stat Exams 03/11/24 22:38 Completed AMYLASE Stat Lab 03/11/24 22:50 Completed CBC W DIFF Stat Lab 03/11/24 22:50 Completed CMP Stat Lab 03/11/24 22:50 Completed LIPASE Stat Lab 03/11/24 22:50 Completed Lactic Acid Stat Lab 03/11/24 22:50 Completed UA W/RFX UR CULTURE Stat Lab 03/11/24 22:38 Ordered Lab/Rad Data: Laboratory Result Diagrams 03/11/24 22:50 03/11/24 22:50 Laboratory Results 03/11/24 03/11/24 03/11/24 Range/Units 22:50 22:50 22:50 WBC 5.7 (4.23-9.07) x10^3/uL RBC 4.41 L (4.63-6.08) x10^6/uL Hgb 13.4 L (13.7-17.5) g/dL Hct 38.8 L (40.1-51.0) % MCV 88.0 (79.0-92.2) fL MCH 30.4 (25.7-32.2) pg MCHC 34.5 (32.3-36.5) g/dL RDW 12.1 (11.6-14.4) % Plt Count 250 (163-337) x10^3/uL MPV 9.7 (9.4-12.4) fL Gran % 58.8 (34.0-67.9) % Immature Gran % (Auto) 0.2 (0.001-0.429) % Nucleat RBC Rel Count 0.0 (0.00-0.2) % Eos # (Auto) 0.19 (0.04-0.54) x10^3/uL Immature Gran # (Auto) 0.01 (0.001-0.031) x10^3u/L Absolute Lymphs (auto) 1.73 (1.32-3.57) x10^3/uL Absolute Monos (auto) 0.38 (0.30-0.82) x10^3/uL Absolute Nucleated RBC 0.00 (0.00-0.012) x10^3u/L Lymphocytes % 30.3 (21.8-53.1) % Monocytes % 6.7 (5.3-12.2) % Eosinophils % 3.3 (0.8-7.0) % Basophils % 0.7 (0.2-1.2) % Absolute Granulocytes 3.36 (1.78-5.38) x10^3/uL Basophils # 0.04 (0.01-0.08) x10^3/uL Sodium 140 (135-145) mmol/L Potassium 4.1 (3.5-5.1) mmol/L Chloride 107 (98-107) mmol/L Carbon Dioxide 23 (22-30) mmol/L Anion Gap 15.2 H (5-15) MEQ/L BUN 17 (9-20) mg/dL Creatinine 0.89 (0.66-1.25) mg/dL Estimated GFR 113.9 ML/MIN Glucose 117 H (74-106) mg/dL Lactic Acid 1.6 (0.4-2.0) Calcium 9.6 (8.4-10.2) mg/dL Total Bilirubin 0.20 (0.2-1.3) mg/dL AST 29 (17-59) U/L ALT 21 (0-50) U/L Alkaline Phosphatase 54 (38-126) U/L Serum Total Protein 7.8 (6.3-8.2) g/dL Albumin 4.4 (3.5-5.0) g/dL Amylase 83 (30-110) U/L Lipase 178 (23-300) U/L - Progress Progress: unchanged, pain not gone completely, re-examined Progress Note: 03/11/24 23:16 My medical decision making and the assignment of moderate complexity to this patient's medical issue today is based on review of the patient's past medical history, review of the patient's medication list, reviewed patient drug allergy list, history present illness and physical findings on examination. The workup in this patient includes placement of intravenous line, CBC, CMP, amylase, lipase, urinalysis, CT scan of the abdomen pelvis without contrast. Differential diagnosis includes but is not limited to pancreatitis, colitis, inguinal hernia, ventral hernia, bowel obstruction 03/12/24 00:02 I interpreted the patient's laboratory data results. Based on the laboratory data results, the patient has no acute, emergent medical issue. CT scan of the abdomen pelvis without contrast was interpreted by the radiologist and I reviewed the impression. Impression states mildly dilated left ureter with calculus in the urinary bladder. Suggesting recently passed ureteral stone. Counseled pt/family regarding: lab results, diagnosis, need for follow-up, rad results Medical Desision Making - Diagnostic Testing Diagnostic test were ordered, analyzed, and reviewed by me: Yes Radiological Interpretation: Reviewed by me, Teleradiologist Report - Risk of complications Low Risk: Low risk of morbidity from additional dx testing or treatment - Departure Departure Disposition: Home Clinical Impression: Urinary bladder calculus Condition: Stable Critical Care Time: No Referrals: CHAVEZ JEROME, EDUCATION ASSISTANT [Primary Care Provider] - Follow up/PCP as directed Additional Instructions: Drink plenty of fluids. Use [id number] pain medication as discussed. Call your primary care provider later today, 03/12/2024, to make arrangements for follow-up appointment to be evaluated in the next 3 to 5 days.
[2024-03-11 22:55] LABS: Absolute Neutrophil Ct (ANC) 3.36 x10^3/uL (1.78-5.38); BASOPHIL % 0.7 % (0.2-1.2); Basophil (Absolute #) 0.04 x10^3/uL (0.01-0.08); Eosinophil % 3.3 % (0.8-7.0); Eosinophil (Absolute #) 0.19 x10^3/uL (0.04-0.54); Hematocrit 38.8 % (40.1-51.0); Hemoglobin 13.4 g/dL (13.7-17.5); IMMATURE GRAN # 0.01 x10^3u/L (0.001-0.031); IMMATURE GRAN % 0.2 % (0.001-0.429); Lymphocyte (Absolute #) 1.73 x10^3/uL (1.32-3.57); Lymphocytes % 30.3 % (21.8-53.1); Mean Corpuscular Hemoglobin 30.4 pg (25.7-32.2); Mean Corpuscular Hgb Concent. 34.5 g/dL (32.3-36.5); Mean Platelet Volume 9.7 fL (9.4-12.4); Monocyte (Absolute #) 0.38 x10^3/uL (0.30-0.82); Monocytes % 6.7 % (5.3-12.2); Neutrophil % 58.8 % (34.0-67.9); Platelet Count 250 x10^3/uL (163-337); Red Blood Count 4.41 x10^6/uL (4.63-6.08); Red Cell Distribution Width 12.1 % (11.6-14.4); White Blood Count 5.7 x10^3/uL (4.23-9.07)
[2024-03-11 23:09] LABS: ALBUMIN 4.4 g/dL (3.5-5.0); ANION GAP 15.2 MEQ/L (5-15); BILIRUBIN,TOTAL 0.2 mg/dL (0.2-1.3); Calcium 9.6 mg/dL (8.4-10.2); Creatinine 1 0.89 mg/dL (0.66-1.25); EST GLOMERULAR FILTRATION RATE 113.9 ML/MIN; Potassium 4.1 mmol/L (3.5-5.1); Total Protein 7.8 g/dL (6.3-8.2)
--- NOTE | 2024-03-12 | XRAY ---
CLINICAL HISTORY: left sided abd. pain, diarrhea COMPARISON: None TECHNIQUE: CT scan of the abdomen and pelvis was performed without IV contrast. Coronal and sagittal reconstructive images were also obtained.One of the following dose reduction techniques were utilized for this exam: Automated exposure control, adjustment of the mA and/or kV according to patient size, use of iterative reconstruction. FINDINGS: Abdomen: The liver is normal in size. No focal or diffuse parenchymal abnormality. The portal vein, intrahepatic biliary radicals and the bile ducts are normal. The gallbladder is contracted. The spleen, pancreas, adrenal glands are unremarkable. Few tiny 1-2.5 mm nonobstructive calculi in all the calyces of both kidneys. Left ureter is slightly prominent in its entire course, representing recently passed calculus. The kidneys are normal in size and shape. A 15mm hypodense lesion at lower pole of right kidney, likely simple cyst. Few scattered uncomplicated colonic diverticulae. The ascending colon, the transverse colon, the descending colon, visualized small bowel loops are unremarkable. Appendix appears unremarkable. Pelvis: A 2 mm vesical calculus near left vesicoureteric junction with prominent left ureter. The rectosigmoid colon is unremarkable. Prostate appears unremarkable. No evidence of pelvic lymphadenopathy. Degenerative changes in lumbar spine noted. IMPRESSION: A 2 mm vesical calculus near left vesicoureteric junction with prominent left ureter. Few tiny 1-2.5 mm nonobstructive calculi in all the calyces of both kidneys. A 15mm hypodense lesion at lower pole of right kidney, likely simple cyst. [facility] ER was called at [phone] at 10:47 PM CHEMICAL PROCESSING SUPERVISOR and Lizeth (ER Nurse) was informed about the important medical findings. Electronically Signed by: Ame Juarez MD. (03/11/2024 23:54:58 EDT)
[2024-03-12 00:05] VITALS: RESP 16
[2024-03-12 00:41] LABS: Appearance Clear (Clear); Bacteria None Seen /HPF (None Seen); Bilirubin Negative (Negative); Blood Negative (Negative); Epithelial Cells None Seen /HPF (None Seen); Glucose, Urine Negative (Negative); Hyaline Casts NONE SEEN /LPF (0-2); Ketones Negative (Negative); Leukocyte Esterase Negative (Negative); Nitrite Negative (Negative); Ph 5.5 (4.6-8.0); Protein,Urine Dip Negative (Negative); RBC 0-2 /HPF (0-5); Urobilinogen 0.2 mg/dL (0.2); WBC 0-2 /HPF (0-5)
[2024-03-12 00:45] LABS: ADD URINE CULTURE? NO (NO)
[2024-03-12] MEDS ORDERED: Zofran 4 MG/2 ML VIAL ONE (00:55)
[2024-03-12] MEDS ORDERED: Hydromorphone 1 mg/ml Injection ONE (00:55)
[2024-03-12] MEDS: Hydromorphone 1 mg/ml Injection IV ONE (00:57)
[2024-03-12] MEDS: Zofran 4 MG/2 ML VIAL IV ONE (00:58)
[2024-03-12 01:34] VITALS: BP 138/74; PULSE 87; O2SAT 97
== END 2024-03-12 01:25 | disposition home or self-care (01) ==
LOC: ED 22:05
DX: N21.0 Calculus in bladder (principal); R10.32 Left lower quadrant pain; I10 Essential (primary) hypertension; Z79.52 Long term (current) use of systemic steroids; Z79.899 Other long term (current) drug therapy
CPT/HCPCS: 36000; 36415; 74176; 80053; 81001; 82150; 83605; 83690; 85025; 96374; 96375; 99284; J1170; J2405

== ENCOUNTER 2024-04-23 09:03 | Emergency (ER) | payer OTHER ==
[2024-04-23 09:32] VITALS: TEMP 97.2
[2024-04-23 10:10] VITALS: BP 155/108; PULSE 67; RESP 18; O2SAT 96
--- NOTE | 2024-04-23 10:29 | ERPHSYRPT ---
- History of Present Illness Time Seen by Provider: 04/23/24 10:28 Source: patient Exam Limitations: no limitations Patient Subjective Stated Complaint: "I have chronic back pain and I see Dr. Edwards Pain Doctor, he's suppose to be doing a nerve block tomorrow but the pain is so bad I couldn't sleep last night and it's shooting down my left leg". Triage Nursing Assessment: Pt presents to ER with complaints of lower left lumbar back pain. Pt is alert and oriented x 3. Skin is pink, warm, and dry. Respirations are easy. Pt has chronic back pain but states pain worsened last night and he was unable to sleep. Pt ambulates with impaired gait, guarding his back. States pain radiates down left leg and causing him to have tingling in left leg. Pt complains of nausea. Pt rates pain 8/10 scale. Denies any new injury to area. Pt had MRI on 04/01/24 and scheduled for pain mgmt injection tomorrow with Dr. Edwards. Allergies/Adverse Reactions: Iodinated Contrast Media [Iodinated Contrast Media - IV Dye] Allergy (Severe, Verified 03/11/24 22:51) Rash ketorolac [From Toradol] Allergy (Intermediate, Verified 03/11/24 22:51) Itching quetiapine fumarate [From Seroquel] Allergy (Intermediate, Verified 03/11/24 22:51) rash, itching meperidine HCl [From Demerol] Allergy (Mild, Verified 03/11/24 22:51) Rash/hyper morphine Allergy (Mild, Verified 03/11/24 22:51) rash/ hyper oxycodone [From OxyContin] Allergy (Mild, Verified 03/11/24 22:51) Itching prednisone Allergy (Mild, Verified 03/11/24 22:51) Nausea tramadol HCl [From Ultram] Allergy (Mild, Verified 03/11/24 22:51) rash itching ondansetron [From Zofran] Adverse Reaction (Mild, Verified 04/23/24 09:32) Hives acetaminophen [From Percocet] Adverse Reaction (Verified 03/11/24 22:51) Hives Home Medications: Methylphenidate HCl [Ritalin] 10 mg PO UD 12/25/20 [History] Hx Tetanus, Diphtheria Vaccination/Date Given: Yes Hx Influenza Vaccination/Date Given: Yes Hx Pneumococcal Vaccination/Date Given: No Immunizations Up to Date: Yes Travel Risk - International Travel Have you traveled outside of the country in past 3 weeks: No - Emerging Infectious Disease Are you exhibiting symptoms associated with any current EIDs: No - Past Medical History Pertinent Past Medical History: Yes Neurological History: Migraines ENT History: No Pertinent History Cardiac History: Hypertension Respiratory History: Asthma Endocrine Medical History: Other Musculoskeletal History: Osteoarthritis, Other GI Medical History: Crohns Disease History: No Pertinent History Psycho-Social History: Anxiety, Attention Deficit Disorder, Depression Male Reproductive Disorders: No Pertinent History Other Medical History: ARTHROSCOPY RIGHT KNEE 08/2023 "CLEAN IT OUT". ROTATOR CUFF REPAIR RIGHT 2019. RIGHT ANKLE "TENDON REPAIR" 2011. NON-HODGKINS LYMPHOMA IN REMISSION FOR 16 YEARS. CROHN'S AND CELIAC DISEASE. Buldging disk, chronic back pain 2023 - Past Surgical History Past Surgical History: Yes Neuro Surgical History: No Pertinent History Cardiac: No Pertinent History Respiratory: No Pertinent History Gastrointestinal: Hernia Repair Genitourinary: No Pertinent History Musculoskeletal: Orthopedic Surgery Male Surgical History: No Pertinent History Other Surgical History: r shoulder, rotator cuff, R knee Aug 2022, R ankle, - Social History Smoking Status: Never smoker How long have you smoked: rarely Exposure to second hand smoke: No Drug Use: none Patient Lives Alone: No - Social Determinants of Health Will the patient participate in the screening: Yes Do you worry about a steady place to live?: No Do you have any problems with any of the following?: No known problems In the past 12 months,have you had to go without utilities?: No Transportation Issues: No Has anyone in your support network made you feel unsafe?: No Have you or anyone in your house had to go without enough: No - Nursing Vital Signs Nursing Vital Signs: Initial Vital Signs Temperature 97.2 F 04/23/24 09:22 Pulse Rate 55 L 04/23/24 09:22 Respiratory Rate 22 04/23/24 09:22 Blood Pressure 168/113 04/23/24 09:22 O2 Sat by Pulse Oximetry 97 04/23/24 09:22 Pain Scale Pain Intensity [Left Back] 8 Pain Intensity 8 - Physical Exam SpO2: 96 - Departure Referrals: CHAVEZ JEROME SAWMILL MOULDER OPERATOR [Primary Care Provider] - Follow up/PCP as directed
[2024-04-23] MEDS ORDERED: TORAdol 30 mg Injection ONE (10:31)
[2024-04-23] MEDS ORDERED: ZOFRAN ODT 4 MG ONE (10:32)
[2024-04-23] MEDS: ZOFRAN ODT 4 MG PO ONE (10:32)
[2024-04-23] MEDS: TORAdol 30 mg Injection IM ONE (10:33)
--- NOTE | 2024-04-23 10:38 | ERPHSYRPT ---
- History of Present Illness Time Seen by Provider: 04/23/24 10:28 Source: patient Exam Limitations: no limitations Patient Subjective Stated Complaint: "I have chronic back pain and I see Dr. Edwards Pain Doctor, he's suppose to be doing a nerve block tomorrow but the pain is so bad I couldn't sleep last night and it's shooting down my left leg". Triage Nursing Assessment: Pt presents to ER with complaints of lower left lumbar back pain. Pt is alert and oriented x 3. Skin is pink, warm, and dry. Respirations are easy. Pt has chronic back pain but states pain worsened last night and he was unable to sleep. Pt ambulates with impaired gait, guarding his back. States pain radiates down left leg and causing him to have tingling in left leg. Pt complains of nausea. Pt rates pain 8/10 scale. Denies any new injury to area. Pt had MRI on 04/01/24 and scheduled for pain mgmt injection tomorrow with Dr. Edwards. Physician History: 38-year-old male presents to our ED for evaluation and treatment of acute on chronic low back pain. Patient states that he has not taken his pain medication per his pain doctors request as he will be having a nerve block tomorrow. No interval trauma no fever no saddle anesthesia no change in bowel bladder function. No recent back procedures. Patient simply has not taken his pain medication as scheduled for his pain doctors request. No associated urological complaints. No hematuria dysuria or frequency. Patient's pain is the same as his usual back pain with sciatica features. Pain described as an ache that is at the lumbar spine area radiates down to his leg on the left side. Patient is ambulatory with a normal gait. He voices no other complaints or concerns at this time. Portions of this note were created with voice recognition technology. There may be grammatical, spelling, punctuation or sound alike errors Timing/Duration: today Method of Injury: unknown Quality: aching Back Pain Location: lumbar spine Back Pain Radiation: buttocks Severity of Pain-Max: moderate Severity of Pain-Current: moderate Modifying Factors: Improves With: movement Associated Symptoms: nausea Previous symptoms: same symptoms as today Allergies/Adverse Reactions: Iodinated Contrast Media [Iodinated Contrast Media - IV Dye] Allergy (Severe, Verified 03/11/24 22:51) Rash ketorolac [From Toradol] Allergy (Intermediate, Verified 03/11/24 22:51) Itching quetiapine fumarate [From Seroquel] Allergy (Intermediate, Verified 03/11/24 22:51) rash, itching meperidine HCl [From Demerol] Allergy (Mild, Verified 03/11/24 22:51) Rash/hyper morphine Allergy (Mild, Verified 03/11/24 22:51) rash/ hyper oxycodone [From OxyContin] Allergy (Mild, Verified 03/11/24 22:51) Itching prednisone Allergy (Mild, Verified 03/11/24 22:51) Nausea tramadol HCl [From Ultram] Allergy (Mild, Verified 03/11/24 22:51) rash itching ondansetron [From Zofran] Adverse Reaction (Mild, Verified 04/23/24 09:32) Hives acetaminophen [From Percocet] Adverse Reaction (Verified 03/11/24 22:51) Hives Home Medications: Methylphenidate HCl [Ritalin] 10 mg PO UD 12/25/20 [History] Hx Tetanus, Diphtheria Vaccination/Date Given: Yes Hx Influenza Vaccination/Date Given: Yes Hx Pneumococcal Vaccination/Date Given: No Immunizations Up to Date: Yes Travel Risk - International Travel Have you traveled outside of the country in past 3 weeks: No - Emerging Infectious Disease Are you exhibiting symptoms associated with any current EIDs: No - Review of Systems Constitutional: No Symptoms, No Fever, No Chills Eyes: No Symptoms Ears, Nose, & Throat: No Symptoms Respiratory: No Symptoms, No Cough, No Dyspnea Cardiac: No Symptoms, No Chest Pain, No Edema, No Syncope Abdominal/Gastrointestinal: No Symptoms, No Abdominal Pain, No Nausea, No Vomiting, No Diarrhea Genitourinary Symptoms: No Symptoms, No Dysuria Musculoskeletal: No Symptoms, No Back Pain, No Neck Pain Skin: No Symptoms, No Rash Neurological: No Symptoms, No Dizziness, No Focal Weakness, No Sensory Changes Psychological: No Symptoms Endocrine: No Symptoms Hematologic/Lymphatic: No Symptoms Immunological/Allergic: No Symptoms All Other Systems: Reviewed and Negative - Past Medical History Pertinent Past Medical History: Yes Neurological History: Migraines ENT History: No Pertinent History Cardiac History: Hypertension Respiratory History: Asthma Endocrine Medical History: Other Musculoskeletal History: Osteoarthritis, Other GI Medical History: Crohns Disease History: No Pertinent History Psycho-Social History: Anxiety, Attention Deficit Disorder, Depression Male Reproductive Disorders: No Pertinent History Other Medical History: ARTHROSCOPY RIGHT KNEE 08/2023 "CLEAN IT OUT". ROTATOR CUFF REPAIR RIGHT 2019. RIGHT ANKLE "TENDON REPAIR" 2011. NON-HODGKINS LYMPHOMA IN REMISSION FOR 16 YEARS. CROHN'S AND CELIAC DISEASE. Buldging disk, chronic back pain 2023 - Past Surgical History Past Surgical History: Yes Neuro Surgical History: No Pertinent History Cardiac: No Pertinent History Respiratory: No Pertinent History Gastrointestinal: Hernia Repair Genitourinary: No Pertinent History Musculoskeletal: Orthopedic Surgery Male Surgical History: No Pertinent History Other Surgical History: r shoulder, rotator cuff, R knee Aug 2022, R ankle, - Social History Smoking Status: Never smoker How long have you smoked: rarely Exposure to second hand smoke: No Drug Use: none Patient Lives Alone: No - Social Determinants of Health Will the patient participate in the screening: Yes Do you worry about a steady place to live?: No Do you have any problems with any of the following?: No known problems In the past 12 months,have you had to go without utilities?: No Transportation Issues: No Has anyone in your support network made you feel unsafe?: No Have you or anyone in your house had to go without enough: No - Nursing Vital Signs Nursing Vital Signs: Initial Vital Signs Temperature 97.2 F 04/23/24 09:22 Pulse Rate 55 L 04/23/24 09:22 Respiratory Rate 22 04/23/24 09:22 Blood Pressure 168/113 04/23/24 09:22 O2 Sat by Pulse Oximetry 97 04/23/24 09:22 Pain Scale Pain Intensity [Left Back] 8 Pain Intensity 8 - Physical Exam General Appearance: no apparent distress, alert Eye Exam: PERRL/EOMI, eyes nml inspection Neck Exam: normal inspection, non-tender, supple, full range of motion, No meningismus, No midline tenderness Respiratory Exam: normal breath sounds, lungs clear, No respiratory distress Cardiovascular Exam: regular rate/rhythm, normal heart sounds Gastrointestinal Exam: soft, No tenderness, No mass Back Exam: other (Tenderness palpation lumbar spine) Extremity Exam: normal inspection, normal range of motion, No calf tenderness, No pedal edema Neurologic Exam: alert, oriented x 3, cooperative, professor of criminal justice II-XII nml as tested, normal mood/affect, nml station & gait, sensation nml, No motor deficits Skin Exam: normal color, warm, dry, No rash Lymphatic Exam: No adenopathy SpO2 Interpretation: normal SpO2: 96 O2 Delivery: Room Air - Course Nursing assessment & vital signs reviewed: Yes Ordered Tests: Medication Summary Discontinued Medications Generic Name Dose Route Start Last Admin Trade Name Darwin PRN Reason Stop Dose Admin Ketorolac Tromethamine 60 mg 04/23/24 10:27 04/23/24 10:33 Ketorolac Tromethamine 30 Mg/Ml Inj IM 04/23/24 10:28 60 mg STAT ONE Administration Ketorolac Tromethamine Confirm 04/23/24 10:31 Ketorolac Tromethamine 30 Mg/Ml Inj Administered 04/23/24 10:32 Dose 60 mg .ROUTE .STK-MED ONE Ondansetron HCl 4 mg 04/23/24 10:28 04/23/24 10:32 Zofran 4 Mg/Udtablet Orally Disintegrating PO 04/23/24 10:29 4 mg STAT ONE Administration Ondansetron HCl Confirm 04/23/24 10:32 Zofran 4 Mg/Udtablet Orally Disintegrating Administered 04/23/24 10:33 Dose 4 mg .ROUTE .STK-MED ONE - Progress Progress: improved Progress Note: 38-year-old male with acute on chronic back pain. Pain associated with mild nausea. No associated chest pain or shortness of breath. No diaphoresis. Patient not taking his pain medications as per his pain specialist recommendations. Patient scheduled for nerve block tomorrow. We contacted amrit quispe's pain specialist office. They advised treating pain as indicated. No specific recommendations otherwise. They will see patient in the office tomorrow and write a prescription for outpatient pain management. Patient received IM Toradol for pain control. Patient will follow-up tomorrow as scheduled. Patient pain improved. Patient states is ready for discharge she voices no other complaints or concerns at this time. Portions of this note were created with voice recognition technology. There may be grammatical, spelling, punctuation or sound alike errors Complexity problem addressed is moderate acute complicated. No critical care time. Complex of data reviewed and analyzed is none. Diagnosis made based on history and physical exam. Risk of complication or risk of morbidity/mortality patient management is low. Vital stable. Time spent to discharge patient approximately 15 minutes. Plan of care established for shared decision making. No social determinants of health presents TRIAGE ASSISTANT follow-up. Portions of this note were created with voice recognition technology. There may be grammatical, spelling, punctuation or sound alike errors 04/23/24 10:41 Counseled pt/family regarding: diagnosis, need for follow-up, rad results - Departure Departure Disposition: Home Clinical Impression: Back pain, Sciatica Condition: Stable Critical Care Time: No Referrals: CHAVEZ JEROME, TRIAGE ASSISTANT [Primary Care Provider] - Follow up/PCP as directed Additional Instructions: Discharge/Care Plan ERICA TODD was seen on 04/23/24 in the Emergency Room. The patient was counseled regarding Diagnosis,Lab results, Imaging studies, need for follow up and when to return to the Emergency Room. Prescriptions given: Discharge Note I have spoken with the patient and/or caregivers. I have explained the patient's condition, diagnosis and treatment plan based on the information available to me at this time. I have answered the patient's and/or caregiver's questions and addressed any concerns. The patient and/or caregivers have as good understanding of the patient's diagnosis, condition and treatment plan as can be expected at this point. The vital signs have been stable. The patient's condition is stable and appropriate for discharge from the emergency department. The patient will pursue further outpatient evaluation with the primary care physician or other designated or consulting physician as outlined in the discharge instructions. The patient and/or caregivers are agreeable to this plan of care and follow-up instructions have been explained in detail. The patient and/or caregivers have received these instruction. The patient/and or caregivers are aware that any significant change in condition or worsening of symptoms should prompt an immediate return to this or the closest emergency department or call 911.
== END 2024-04-23 11:47 | disposition home or self-care (01) ==
LOC: ED 09:03
DX: M54.42 Lumbago with sciatica, left side (principal); I10 Essential (primary) hypertension; Z79.899 Other long term (current) drug therapy
CPT/HCPCS: 96372; 99283; J1885; Q0162

== ENCOUNTER 2024-04-24 11:28 | Day surgery (SDC) | payer OTHER ==
[2024-04-24] MEDS ORDERED: Xylocaine-Mpf 2% 5 Ml Vial IJ ONE (11:29)
[2024-04-24] MEDS ORDERED: Depo-Medrol 40 MG/ML IM ONE (11:29)
[2024-04-24] MEDS ORDERED: Zofran 4 MG/2 ML VIAL ONE (13:01)
[2024-04-24] MEDS ORDERED: TRANDATE 20 MG/4 ML SYRINGE IV PRN (13:02)
[2024-04-24] MEDS ORDERED: Versed 2 MG/2 ML Injection ONE (13:11)
[2024-04-24] MEDS ORDERED: Versed 2 MG/2 ML Injection IV ONE (13:15)
[2024-04-24] MEDS ORDERED: TRANDATE 20 MG/4 ML SYRINGE IV ONE (13:15)
[2024-04-24] MEDS ORDERED: DIPRIVAN 200 MG/20 ML IV ONE (13:42)
--- NOTE | 2024-04-24 16:35 | XRAY ---
Indication: Bilateral L4-S1 MBB. Intraoperative fluoroscopy provided for 13 seconds. Single digital spot image submitted for interpretation demonstrates posterior needle tips projecting over the expected left and right L4-S1 nerve roots. Correlate with intraoperative findings/report.
--- NOTE | 2024-04-24 16:45 | XRAY ---
13 seconds of fluoroscopy was used in surgery for a bilateral L4-S1 MBB.
== END 2024-04-24 14:20 | disposition home or self-care (01) ==
LOC: SDC-PAIN 11:28
PROVIDERS: ATTEND Psychiatry & Neurology Pain Medicine
DX: M47.816 Spondylosis without myelopathy or radiculopathy, lumbar region (principal)
CPT/HCPCS: 64493; 64494; 72020; 77002; J2250; J2405; J2704

== ENCOUNTER 2024-05-15 15:07 | Emergency (ER) | payer OTHER ==
--- NOTE | 2024-05-15 15:12 | ERPHSYRPT ---
- History of Present Illness Time Seen by Provider: 05/15/24 15:12 Historian: patient Exam Limitations: no limitations Physician History: This is a 38-year-old white male patient who does not have a primary care provider and presents with left-sided chest pressure associated with elevated blood pressure that was measured at physical therapy today. Patient has a history of chronic intermittent chest pain. He supposed to be on what appears to be propranolol 60 mg long-acting each day. He has been out of that medication for several months. He is changing primary care provider and does not have 1 at this time. He has a history of hypertension, asthma, osteoarthr itis, Crohn's disease, anxiety, ADD and depression. Patient was sent to the emergency department from [facility]. Blood pressure was elevated 150s over 111 mmHg. He no longer has chest pain. Timing/Duration: today Activities at Onset: activity Quality: pressure Location: other (left chest) Chest Pain Radiation: no radiation Severity of Pain-Max: mild Severity of Pain-Current: none Modifying Factors: Improves With: nothing Associated Symptoms: denies symptoms Nitro Today/Relief: no nitro taken today Aspirin Treatment Today: 81 mg x 4, provided by ED Allergies/Adverse Reactions: Iodinated Contrast Media [Iodinated Contrast Media - IV Dye] Allergy (Severe, Verified 05/15/24 15:14) Rash ketorolac [From Toradol] Allergy (Intermediate, Verified 05/15/24 15:14) Itching quetiapine fumarate [From Seroquel] Allergy (Intermediate, Verified 05/15/24 15:14) rash, itching meperidine HCl [From Demerol] Allergy (Mild, Verified 05/15/24 15:14) Rash/hyper morphine Allergy (Mild, Verified 05/15/24 15:14) rash/ hyper oxycodone [From OxyContin] Allergy (Mild, Verified 05/15/24 15:14) Itching prednisone Allergy (Mild, Verified 05/15/24 15:14) Nausea tramadol HCl [From Ultram] Allergy (Mild, Verified 05/15/24 15:14) rash itching ondansetron [From Zofran] Adverse Reaction (Mild, Verified 05/15/24 15:14) Hives acetaminophen [From Percocet] Adverse Reaction (Verified 05/15/24 15:14) Hives Home Medications: Methylphenidate HCl [Ritalin] 10 mg PO UD 12/25/20 [History] Hx Tetanus, Diphtheria Vaccination/Date Given: Yes Hx Influenza Vaccination/Date Given: Yes Hx Pneumococcal Vaccination/Date Given: No Travel Risk - International Travel Have you traveled outside of the country in past 3 weeks: No - Emerging Infectious Disease Are you exhibiting symptoms associated with any current EIDs: No - Review of Systems Constitutional: No Symptoms Eyes: No Symptoms Ears, Nose, & Throat: No Symptoms Respiratory: No Symptoms Cardiac: Chest Pain Abdominal/Gastrointestinal: No Symptoms Genitourinary Symptoms: No Symptoms Musculoskeletal: No Symptoms Skin: No Symptoms Neurological: No Symptoms Psychological: No Symptoms Endocrine: No Symptoms Hematologic/Lymphatic: No Symptoms Immunological/Allergic: No Symptoms All Other Systems: Reviewed and Negative - Past Medical History Pertinent Past Medical History: Yes Neurological History: Migraines ENT History: No Pertinent History Cardiac History: Hypertension Respiratory History: Asthma Endocrine Medical History: Other Musculoskeletal History: Osteoarthritis, Other GI Medical History: Crohns Disease History: No Pertinent History Psycho-Social History: Anxiety, Attention Deficit Disorder, Depression Male Reproductive Disorders: No Pertinent History Other Medical History: ARTHROSCOPY RIGHT KNEE 08/2023 "CLEAN IT OUT". ROTATOR CUFF REPAIR RIGHT 2019. RIGHT ANKLE "TENDON REPAIR" 2011. NON-HODGKINS LYMPHOMA IN REMISSION FOR 16 YEARS. CROHN'S AND CELIAC DISEASE. Buldging disk, chronic back pain 2023 - Past Surgical History Past Surgical History: Yes Neuro Surgical History: No Pertinent History Cardiac: No Pertinent History Respiratory: No Pertinent History Gastrointestinal: Hernia Repair Genitourinary: No Pertinent History Musculoskeletal: Orthopedic Surgery Male Surgical History: No Pertinent History Other Surgical History: r shoulder, rotator cuff, R knee Aug 2022, R ankle, - Social History Smoking Status: Never smoker How long have you smoked: rarely Exposure to second hand smoke: No Drug Use: none Patient Lives Alone: No - Social Determinants of Health Will the patient participate in the screening: Yes Do you worry about a steady place to live?: No In the past 12 months,have you had to go without utilities?: No Transportation Issues: No Has anyone in your support network made you feel unsafe?: No Have you or anyone in your house had to go without enough: No - Nursing Vital Signs Nursing Vital Signs: Initial Vital Signs Temperature 98.1 F 05/15/24 15:08 Pulse Rate 67 05/15/24 15:08 Respiratory Rate 20 05/15/24 15:08 Blood Pressure 156/107 05/15/24 15:08 O2 Sat by Pulse Oximetry 98 05/15/24 15:08 Pain Scale Pain Intensity 4 - Physical Exam General Appearance: no apparent distress, alert, anxiety Eye Exam: PERRL/EOMI, eyes nml inspection Ears, Nose, Throat Exam: normal ENT inspection, moist mucous membranes Neck Exam: normal inspection, non-tender, supple, full range of motion Respiratory Exam: normal breath sounds, lungs clear, airway intact, No chest tenderness, No respiratory distress Cardiovascular Exam: regular rate/rhythm, normal heart sounds, normal peripheral pulses Gastrointestinal/Abdomen Exam: soft, normal bowel sounds, No tenderness Rectal Exam: not done Back Exam: normal inspection, normal range of motion, No CVA tenderness, No vertebral tenderness Extremity Exam: normal inspection, normal range of motion, pelvis stable Neurologic Exam: alert, oriented x 3, cooperative, floor runner II-XII nml as tested, nml cerebellar function, nml station & gait, sensation nml Skin Exam: normal color, warm, dry Lymphatic Exam: No adenopathy SpO2 Interpretation: normal O2 Delivery: Room Air - Course Nursing assessment & vital signs reviewed: Yes EKG Interpreted by Me: RATE (58), Sinus Rhythm, NORMAL AXIS, NORMAL INTERVALS, NORMAL QRS, Other (No acute ischemia on today's twelve-lead EKG. QTc is 396.) Ordered Tests: Active Orders 24 hr Category Date Time Status Medical Assembler STAT Care 05/15/24 15:12 Active EKG-ER Only STAT Care 05/15/24 15:12 Active Pulse Oximetry (ED) STAT Care 05/15/24 15:12 Active CHEST 1 VIEW (PORTABLE) Stat Exams 05/15/24 15:12 Completed CBC W DIFF Stat Lab 05/15/24 15:20 Completed CMP Stat Lab 05/15/24 15:20 Completed MAGNESIUM Stat Lab 05/15/24 15:20 Completed TROPONIN Q4H Lab 05/15/24 15:20 Completed TROPONIN Q4H Lab 05/15/24 19:15 Ordered TROPONIN Q4H Lab 05/15/24 23:15 Ordered Medication Summary Discontinued Medications Generic Name Dose Route Start Last Admin Trade Name Freq PRN Reason Stop Dose Admin Clonidine 0.1 mg 05/15/24 16:22 05/15/24 16:28 Clonidine Hcl 0.1 Mg Tablet PO 05/15/24 16:23 0.1 mg STAT ONE Administration Clonidine Confirm 05/15/24 16:27 Clonidine Hcl 0.1 Mg Tablet Administered 05/15/24 16:28 Dose 0.1 mg .ROUTE .STK-MED ONE Lab/Rad Data: Laboratory Result Diagrams 05/15/24 15:20 05/15/24 15:20 Laboratory Results 05/15/24 05/15/24 05/15/24 Range/Units 15:20 15:20 15:20 WBC 5.4 (4.23-9.07) x10^3/uL RBC 4.69 (4.63-6.08) x10^6/uL Hgb 14.2 (13.7-17.5) g/dL Hct 40.9 (40.1-51.0) % MCV 87.2 (79.0-92.2) fL MCH 30.3 (25.7-32.2) pg MCHC 34.7 (32.3-36.5) g/dL RDW 12.3 (11.6-14.4) % Plt Count 250 (163-337) x10^3/uL MPV 9.4 (9.4-12.4) fL Gran % 66.2 (34.0-67.9) % Immature Gran % (Auto) 0.4 (0.001-0.429) % Nucleat RBC Rel Count 0.0 (0.00-0.2) % Eos # (Auto) 0.11 (0.04-0.54) x10^3/uL Immature Gran # (Auto) 0.02 (0.001-0.031) x10^3u/L Absolute Lymphs (auto) 1.22 L (1.32-3.57) x10^3/uL Absolute Monos (auto) 0.42 (0.30-0.82) x10^3/uL Absolute Nucleated RBC 0.00 (0.00-0.012) x10^3u/L Lymphocytes % 22.8 (21.8-53.1) % Monocytes % 7.8 (5.3-12.2) % Eosinophils % 2.1 (0.8-7.0) % Basophils % 0.7 (0.2-1.2) % Absolute Granulocytes 3.55 (1.78-5.38) x10^3/uL Basophils # 0.04 (0.01-0.08) x10^3/uL Sodium 139 (135-145) mmol/L Potassium 4.4 (3.5-5.1) mmol/L Chloride 106 (98-107) mmol/L Carbon Dioxide 20 L (22-30) mmol/L Anion Gap 18.0 H (5-15) MEQ/L BUN 12 (9-20) mg/dL Creatinine 0.85 (0.66-1.25) mg/dL Estimated GFR 115.5 ML/MIN Glucose 101 (74-106) mg/dL Calcium 9.6 (8.4-10.2) mg/dL Magnesium 2.0 (1.6-2.3) mg/dL Total Bilirubin 0.70 (0.2-1.3) mg/dL AST 28 (17-59) U/L ALT 21 (0-50) U/L Alkaline Phosphatase 62 (38-126) U/L Troponin I < 0.012 (0.000-0.033) ng/mL Serum Total Protein 8.1 (6.3-8.2) g/dL Albumin 4.7 (3.5-5.0) g/dL - Progress Progress: improved, re-examined Air Movement: good Progress Note: 05/15/24 16:51 My medical decision making and the assignment of moderate complexity to this patient's medical issue today is based on review of the patient's past medical history, review of the patient's medication list, reviewed patient drug allergy list, history present illness and physical findings on examination. The workup in this patient includes CBC, CMP, twelve-lead EKG, troponin level. Differential diagnosis includes but is not limited to hypertension causing chest pain, electrolyte abnormalities, arrhythmias, myocardial infarction, stress/anxiety 05/15/24 16:53 Interpreted the patient's laboratory data results. Based on the laboratory data results, there are no acute, emergent findings. The chest x-ray was interpreted by the radiologist and I reviewed the impression. The impression states no acute cardiopulmonary process. Blood Culture(s) Obtained: No Antibiotics given: No Counseled pt/family regarding: lab results, diagnosis, need for follow-up, rad results Medical Desision Making - Independent Historian Additional History obtained from: Family - Diagnostic Testing Diagnostic test were ordered, analyzed, and reviewed by me: Yes Radiological Interpretation: Reviewed by me, Teleradiologist Report - Risk of complications The pt has a mod risk of morbidity or mortality based on: Need for prescription drug management - Departure Departure Disposition: Home Clinical Impression: Chronic stable angina, Hypertension Condition: Stable Critical Care Time: No Referrals: CHAVEZ JEROME VOCAL MUSIC TEACHER [Primary Care Provider] - Follow up/PCP as directed Additional Instructions: Take care medication as prescribed. Call the primary care provider tomorrow, 05/16/2024, to make arranges for follow-up appointment to be seen in the next 3 to 5 days. Prescriptions: Propranolol HCl [Propranolol HCl ER] 60 mg PO DAILY #21 cap
[2024-05-15 15:13] VITALS: TEMP 98.1
[2024-05-15 15:28] LABS: Absolute Neutrophil Ct (ANC) 3.55 x10^3/uL (1.78-5.38); BASOPHIL % 0.7 % (0.2-1.2); Basophil (Absolute #) 0.04 x10^3/uL (0.01-0.08); Eosinophil % 2.1 % (0.8-7.0); Eosinophil (Absolute #) 0.11 x10^3/uL (0.04-0.54); Hematocrit 40.9 % (40.1-51.0); Hemoglobin 14.2 g/dL (13.7-17.5); IMMATURE GRAN # 0.02 x10^3u/L (0.001-0.031); IMMATURE GRAN % 0.4 % (0.001-0.429); Lymphocyte (Absolute #) 1.22 x10^3/uL (1.32-3.57); Lymphocytes % 22.8 % (21.8-53.1); Mean Cell Volume 87.2 fL (79.0-92.2); Mean Corpuscular Hemoglobin 30.3 pg (25.7-32.2); Mean Corpuscular Hgb Concent. 34.7 g/dL (32.3-36.5); Mean Platelet Volume 9.4 fL (9.4-12.4); Monocyte (Absolute #) 0.42 x10^3/uL (0.30-0.82); Monocytes % 7.8 % (5.3-12.2); Neutrophil % 66.2 % (34.0-67.9); Platelet Count 250 x10^3/uL (163-337); Red Blood Count 4.69 x10^6/uL (4.63-6.08); Red Cell Distribution Width 12.3 % (11.6-14.4); White Blood Count 5.4 x10^3/uL (4.23-9.07)
[2024-05-15 15:50] LABS: ALBUMIN 4.7 g/dL (3.5-5.0); BILIRUBIN,TOTAL 0.7 mg/dL (0.2-1.3); Calcium 9.6 mg/dL (8.4-10.2); Creatinine 1 0.85 mg/dL (0.66-1.25); EST GLOMERULAR FILTRATION RATE 115.5 ML/MIN; Potassium 4.4 mmol/L (3.5-5.1); Total Protein 8.1 g/dL (6.3-8.2)
[2024-05-15 16:26] VITALS: O2SAT 97
[2024-05-15] MEDS ORDERED: CLONIDINE 0.1 MG TABLET ONE (16:27)
--- NOTE | 2024-05-15 16:27 | XRAY ---
Indication: Chest pain. Comparison: February 10, 2024 Portable chest less inflated again demonstrating normal heart and lungs. Bony thorax intact. No new/acute findings.
[2024-05-15] MEDS: CLONIDINE 0.1 MG TABLET PO ONE (16:28)
[2024-05-15 17:01] VITALS: BP 158/106; PULSE 69; RESP 13
== END 2024-05-15 17:01 | disposition home or self-care (01) ==
LOC: ED 15:07
DX: I20.89 Other forms of angina pectoris (principal); I10 Essential (primary) hypertension
CPT/HCPCS: 36415; 71045; 80053; 83735; 84484; 85025; 93005; 93041; 94760; 99284; A9270-GY

== ENCOUNTER 2024-05-22 14:04 | Day surgery (SDC) | payer OTHER ==
[2024-05-22] MEDS ORDERED: Sodium Chloride 0.9(Preservative Free) 10 ML IJ ONE (14:05)
[2024-05-22] MEDS ORDERED: Decadron 4 MG INJ IV ONE (14:05)
[2024-05-22] MEDS ORDERED: Zofran 4 MG/2 ML VIAL ONE (14:58)
[2024-05-22] MEDS ORDERED: DIPRIVAN 200 MG/20 ML IV ONE (15:59)
[2024-05-22] MEDS ORDERED: Hydromorphone 1 mg/ml Injection ONE (16:18)
--- NOTE | 2024-05-22 18:32 | XRAY ---
Indication: Left L4-S1 transforaminal DORY. Intraoperative fluoroscopy provided for 20 seconds. 4 digital spot images submitted for interpretation demonstrates posterior needle tips projecting over the expected left L4 and L5 nerve roots. Small amount of contrast injected for needle tip placement. Correlate with intraoperative findings/report.
--- NOTE | 2024-05-23 09:21 | XRAY ---
20 seconds of fluoroscopy was used in used in surgery for a left L4-S1 transforaminal DORY.
== END 2024-05-22 16:40 | disposition home or self-care (01) ==
LOC: SDC-PAIN 14:04
PROVIDERS: ATTEND Psychiatry & Neurology Pain Medicine
DX: M54.16 Radiculopathy, lumbar region (principal)
CPT/HCPCS: 64483; 64484; 72100; 77003; J1100; J1171; J2405; J2704; Q9966

== ENCOUNTER 2024-05-25 00:01 | Emergency (ER) | payer OTHER ==
[2024-05-25 00:15] VITALS: O2SAT 96
[2024-05-25 00:18] VITALS: TEMP 97.3
[2024-05-25 00:35] LABS: BASOPHIL % 0.6 % (0.2-1.2); Basophil (Absolute #) 0.04 x10^3/uL (0.01-0.08); Eosinophil % 0.9 % (0.8-7.0); Eosinophil (Absolute #) 0.06 x10^3/uL (0.04-0.54); Hematocrit 38.7 % (40.1-51.0); Hemoglobin 13.2 g/dL (13.7-17.5); IMMATURE GRAN # 0.02 x10^3u/L (0.001-0.031); IMMATURE GRAN % 0.3 % (0.001-0.429); Lymphocyte (Absolute #) 2.39 x10^3/uL (1.32-3.57); Lymphocytes % 36.6 % (21.8-53.1); Mean Cell Volume 88.2 fL (79.0-92.2); Mean Corpuscular Hemoglobin 30.1 pg (25.7-32.2); Mean Corpuscular Hgb Concent. 34.1 g/dL (32.3-36.5); Mean Platelet Volume 9.6 fL (9.4-12.4); Monocyte (Absolute #) 0.52 x10^3/uL (0.30-0.82); Neutrophil % 53.6 % (34.0-67.9); Platelet Count 257 x10^3/uL (163-337); Red Blood Count 4.39 x10^6/uL (4.63-6.08); Red Cell Distribution Width 12.3 % (11.6-14.4); White Blood Count 6.5 x10^3/uL (4.23-9.07)
[2024-05-25 00:55] LABS: ALBUMIN 4.2 g/dL (3.5-5.0); ANION GAP 14.2 MEQ/L (5-15); BILIRUBIN,TOTAL 0.3 mg/dL (0.2-1.3); Calcium 9.1 mg/dL (8.4-10.2); Creatinine 1 1.34 mg/dL (0.66-1.25); EST GLOMERULAR FILTRATION RATE 70.4 ML/MIN; MAGNESIUM 1.8 mg/dL (1.6-2.3); Potassium 4.1 mmol/L (3.5-5.1); Total Protein 7.1 g/dL (6.3-8.2)
--- NOTE | 2024-05-25 01:01 | ERPHSYRPT ---
- History of Present Illness Time Seen by Provider: 05/25/24 00:15 Historian: patient Exam Limitations: no limitations Patient Subjective Stated Complaint: c/o chest pain Triage Nursing Assessment: pt brought into ED by ambulance with c/o of chest pain. Patient rates pain 4/10, denies radiating pain, states it remains in the middle of the chest. Patient had an epideral on monday and the pain started in the back and the chest pain started today after he ate dinner. hypertensive, denies N/V, or burping, skin w/n/d, s1 and s2 heard, pt doesn't appear to be in any distress at this time. Physician History: This is a 38-year-old white male patient known to me secondary to multiple visits to this emergency department for the same complaint of chest pain. The chest pain is dull achiness in the left anterior chest without radiation. Patient was seen on 05/15/2024 with the same complaint. Patient was transported to the emergency department by the paramedics. Patient does not have a primary care provider. He has a history of chronic intermittent left anterior chest pain. Patient has not had a cough or. Patient has a history of anxiety, hypertension, propranolol, asthma, osteoarthritis, Crohn's disease and ADD as well as depression. Timing/Duration: today Quality: aching, pressure Location: other (Left anterior chest) Severity of Pain-Max: mild Severity of Pain-Current: mild Associated Symptoms: hurts to breathe, fever Nitro Today/Relief: no nitro taken today Aspirin Treatment Today: no aspirin today Allergies/Adverse Reactions: Iodinated Contrast Media [Iodinated Contrast Media - IV Dye] Allergy (Severe, Verified 05/25/24 00:18) Rash ketorolac [From Toradol] Allergy (Intermediate, Verified 05/25/24 00:18) Itching quetiapine fumarate [From Seroquel] Allergy (Intermediate, Verified 05/25/24 00:18) rash, itching meperidine HCl [From Demerol] Allergy (Mild, Verified 05/25/24 00:18) Rash/hyper morphine Allergy (Mild, Verified 05/25/24 00:18) rash/ hyper oxycodone [From OxyContin] Allergy (Mild, Verified 05/25/24 00:18) Itching prednisone Allergy (Mild, Verified 05/25/24 00:18) Nausea tramadol HCl [From Ultram] Allergy (Mild, Verified 05/25/24 00:18) rash itching ondansetron [From Zofran] Adverse Reaction (Mild, Verified 05/25/24 00:18) Hives acetaminophen [From Percocet] Adverse Reaction (Verified 05/25/24 00:18) Hives Home Medications: Methylphenidate HCl [Ritalin] 10 mg PO UD 12/25/20 [History] Lisinopril 20 mg [Zestril 20 MG] 20 mg PO DAILY 05/25/24 [History] Hx Tetanus, Diphtheria Vaccination/Date Given: Yes Hx Influenza Vaccination/Date Given: Yes Hx Pneumococcal Vaccination/Date Given: No Travel Risk - International Travel Have you traveled outside of the country in past 3 weeks: No - Emerging Infectious Disease Are you exhibiting symptoms associated with any current EIDs: No - Review of Systems Constitutional: No Symptoms Eyes: No Symptoms Ears, Nose, & Throat: No Symptoms Respiratory: No Symptoms Cardiac: Chest Pain Abdominal/Gastrointestinal: No Symptoms Genitourinary Symptoms: No Symptoms Musculoskeletal: No Symptoms Skin: No Symptoms Neurological: No Symptoms Psychological: No Symptoms Endocrine: No Symptoms - Past Medical History Pertinent Past Medical History: Yes Neurological History: Migraines ENT History: No Pertinent History Cardiac History: Hypertension Respiratory History: Asthma Endocrine Medical History: Other Musculoskeletal History: Osteoarthritis, Other GI Medical History: Crohns Disease History: No Pertinent History Psycho-Social History: Anxiety, Attention Deficit Disorder, Depression Male Reproductive Disorders: No Pertinent History Other Medical History: ARTHROSCOPY RIGHT KNEE 08/2023 "CLEAN IT OUT". ROTATOR CUFF REPAIR RIGHT 2019. RIGHT ANKLE "TENDON REPAIR" 2011. NON-HODGKINS LYMPHOMA IN REMISSION FOR 16 YEARS. CROHN'S AND CELIAC DISEASE. Buldging disk, chronic back pain 2023 - Past Surgical History Past Surgical History: Yes Neuro Surgical History: No Pertinent History Cardiac: No Pertinent History Respiratory: No Pertinent History Gastrointestinal: Hernia Repair Genitourinary: No Pertinent History Musculoskeletal: Orthopedic Surgery Male Surgical History: No Pertinent History Other Surgical History: r shoulder, rotator cuff, R knee Aug 2022, R ankle, - Social History Smoking Status: Never smoker How long have you smoked: rarely Exposure to second hand smoke: No Drug Use: none Patient Lives Alone: No - Social Determinants of Health Will the patient participate in the screening: Yes Do you worry about a steady place to live?: No Do you have any problems with any of the following?: No known problems In the past 12 months,have you had to go without utilities?: No Transportation Issues: No Has anyone in your support network made you feel unsafe?: No Have you or anyone in your house had to go without enough: No - Nursing Vital Signs Nursing Vital Signs: Initial Vital Signs Temperature 97.3 F 05/25/24 00:06 Pain Scale Pain Intensity 4 - Physical Exam SpO2: 96 - Course Nursing assessment & vital signs reviewed: Yes EKG Interpreted by Me: RATE Ordered Tests: Active Orders 24 hr Category Date Time Status Assistant Operator STAT Care 05/25/24 00:19 Active EKG-ER Only STAT Care 05/25/24 00:19 Active IV Insertion STAT Care 05/25/24 00:19 Active CBC W DIFF Stat Lab 05/25/24 00:33 Completed CMP Stat Lab 05/25/24 00:33 Completed MAG [MAGNESIUM] Stat Lab 05/25/24 00:33 Completed TROPONIN Q4H Lab 05/25/24 00:33 Completed TROPONIN Q4H Lab 05/25/24 04:30 Ordered TROPONIN Q4H Lab 05/25/24 08:30 Ordered Lab/Rad Data: Laboratory Result Diagrams 05/25/24 00:33 05/25/24 00:33 Laboratory Results 05/25/24 05/25/24 05/25/24 Range/Units 00:33 00:33 00:33 WBC 6.5 (4.23-9.07) x10^3/uL RBC 4.39 L (4.63-6.08) x10^6/uL Hgb 13.2 L (13.7-17.5) g/dL Hct 38.7 L (40.1-51.0) % MCV 88.2 (79.0-92.2) fL MCH 30.1 (25.7-32.2) pg MCHC 34.1 (32.3-36.5) g/dL RDW 12.3 (11.6-14.4) % Plt Count 257 (163-337) x10^3/uL MPV 9.6 (9.4-12.4) fL Gran % 53.6 (34.0-67.9) % Immature Gran % (Auto) 0.3 (0.001-0.429) % Nucleat RBC Rel Count 0.0 (0.00-0.2) % Eos # (Auto) 0.06 (0.04-0.54) x10^3/uL Immature Gran # (Auto) 0.02 (0.001-0.031) x10^3u/L Absolute Lymphs (auto) 2.39 (1.32-3.57) x10^3/uL Absolute Monos (auto) 0.52 (0.30-0.82) x10^3/uL Absolute Nucleated RBC 0.00 (0.00-0.012) x10^3u/L Lymphocytes % 36.6 (21.8-53.1) % Monocytes % 8.0 (5.3-12.2) % Eosinophils % 0.9 (0.8-7.0) % Basophils % 0.6 (0.2-1.2) % Absolute Granulocytes 3.50 (1.78-5.38) x10^3/uL Basophils # 0.04 (0.01-0.08) x10^3/uL Sodium 140 (135-145) mmol/L Potassium 4.1 (3.5-5.1) mmol/L Chloride 107 (98-107) mmol/L Carbon Dioxide 23 (22-30) mmol/L Anion Gap 14.2 (5-15) MEQ/L BUN 20 (9-20) mg/dL Creatinine 1.34 H (0.66-1.25) mg/dL Estimated GFR 70.4 ML/MIN Glucose 107 H (74-106) mg/dL Calcium 9.1 (8.4-10.2) mg/dL Magnesium 1.8 (1.6-2.3) mg/dL Total Bilirubin 0.30 (0.2-1.3) mg/dL AST 25 (17-59) U/L ALT 25 (0-50) U/L Alkaline Phosphatase 44 (38-126) U/L Troponin I < 0.012 (0.000-0.033) ng/mL Serum Total Protein 7.1 (6.3-8.2) g/dL Albumin 4.2 (3.5-5.0) g/dL - Progress Progress: improved Air Movement: good Progress Note: 05/25/24 01:08 My medical decision making and the assignment of moderate complexity to this patient's medical issue today is based on review of the patient's past medical history, review of the patient's medication list, reviewed patient drug allergy list, history present illness and physical findings on examination. The workup in this patient includes CBC, CMP, magnesium level, troponin level and twelve- lead EKG. Differential diagnosis includes but not limited to anxiety, stress, myocardial infarction, electrolyte abnormalities, arrhythmias Blood Culture(s) Obtained: No Antibiotics given: No Medical Desision Making - Independent Historian Additional History obtained from: Butter Fat Tester/EMT - Diagnostic Testing Diagnostic test were ordered, analyzed, and reviewed by me: Yes - Risk of complications Low Risk: Low risk of morbidity from additional dx testing or treatment - Departure Departure Disposition: Home Clinical Impression: Nonspecific chest pain Condition: Stable Critical Care Time: No Referrals: CHAVEZ JEROME, UNDERWRITING SPECIALIST [Primary Care Provider] - Follow up/PCP as directed Additional Instructions: Drink plenty of fluids. Take your medications as prescribed. Call your primary care provider on 05/27/2024, to make arrangements for follow-up appointment to be seen in the next 3 to 5 days.
[2024-05-25 01:05] VITALS: BP 133/95
[2024-05-25 01:15] VITALS: PULSE 60; RESP 17
== END 2024-05-25 01:17 | disposition home or self-care (01) ==
LOC: ED 00:01
DX: R07.9 Chest pain, unspecified (principal); I10 Essential (primary) hypertension; Z79.899 Other long term (current) drug therapy
CPT/HCPCS: 36415; 80053; 83735; 84484; 85025; 93005; 93041; 99283; 99284

== ENCOUNTER 2024-07-31 13:22 | Day surgery (SDC) | payer OTHER ==
[2024-07-31] MEDS ORDERED: Depo-Medrol 40 MG/ML IM ONE (13:23)
[2024-07-31] MEDS ORDERED: BUPIVACAINE 0.5% VIAL IJ ONE (13:23)
[2024-07-31] MEDS ORDERED: Zofran 4 MG/2 ML VIAL ONE (14:51)
[2024-07-31] MEDS ORDERED: BENADRYL 50 MG/ML ONE (14:51)
[2024-07-31] MEDS ORDERED: TORAdol 30 mg Injection ONE (14:51)
[2024-07-31] MEDS ORDERED: dexAMETHasone sodium phosphate ONE (14:51)
[2024-07-31] MEDS ORDERED: propofoL IV ONE (15:17)
--- NOTE | 2024-07-31 16:52 | XRAY ---
12 seconds of fluoroscopy was used in surgery for a bilateral L4-S1 MBB.
--- NOTE | 2024-07-31 16:54 | XRAY ---
Indication: Bilateral L4-S1 MBB. Intraoperative fluoroscopy provided for 12 seconds. Single digital spot image submitted for interpretation demonstrates posterior needle tips projecting over expected left and right L4-S1 nerve roots. Correlate with intraoperative findings/report.
== END 2024-07-31 15:48 | disposition home or self-care (01) ==
LOC: SDC-PAIN 13:22
PROVIDERS: ATTEND Psychiatry & Neurology Pain Medicine
DX: M47.816 Spondylosis without myelopathy or radiculopathy, lumbar region (principal)
CPT/HCPCS: 64493; 64494; 72020; 77002; J1100; J1200; J1885; J2405; J2704

== ENCOUNTER 2024-09-04 14:21 | Day surgery (SDC) | payer OTHER ==
[2024-09-04] MEDS ORDERED: Lactated Ringers 500 ML IV ONE (15:26)
[2024-09-04] MEDS ORDERED: Zofran 4 MG/2 ML VIAL ONE ×2 (15:56→17:14)
[2024-09-04] MEDS ORDERED: BENADRYL 50 MG/ML ONE (15:56)
[2024-09-04] MEDS ORDERED: TORAdol 30 mg Injection ONE (15:56)
[2024-09-04] MEDS ORDERED: TRANDATE 20 MG/4 ML SYRINGE IV ONE (16:03)
== END 2024-09-04 17:40 ==
LOC: SDC-PAIN 14:21
PROVIDERS: ATTEND Psychiatry & Neurology Pain Medicine
DX: Z53.8 Procedure and treatment not carried out for other reasons (principal); M47.817 Spondylosis without myelopathy or radiculopathy, lumbosacral region; R51.9 Headache, unspecified
CPT/HCPCS: J1200; J1885; J2405

== ENCOUNTER 2024-09-11 21:04 | Emergency (ER) | payer OTHER ==
[2024-09-11 21:25] VITALS: TEMP 97.9
[2024-09-11] MEDS ORDERED: XYLOCAINE VISCOUS 2% 15 ML CUP ONE (21:29)
[2024-09-11] MEDS ORDERED: PROTONIX 40 MG IV IV ONE (21:29)
[2024-09-11] MEDS ORDERED: MAALOX ES 30 ML UNIT DOSE ONE (21:30)
[2024-09-11] MEDS ORDERED: Sodium Chloride 0.9% 1000 ML 1,000 ML ONE (21:30)
[2024-09-11] MEDS: PROTONIX 40 MG IV IV ONE (21:31)
[2024-09-11] MEDS: GI COCKTAIL 45 ML (Maalox/Lidocaine) PO ONE (21:31)
[2024-09-11] MEDS: Sodium Chloride 0.9% 1000 ML 1,000 ML IV STA (21:31)
--- NOTE | 2024-09-11 21:31 | ERPHSYRPT ---
- History of Present Illness Time Seen by Provider: 09/11/24 21:22 Source: patient Exam Limitations: no limitations Patient Subjective Stated Complaint: pt states that every time he ate today he had diarrhea. pt states that he has epigastric pain that radiates to LUQ Triage Nursing Assessment: pt came into the er via ambulance; pt transfer self t o cot; pt is axo x3; c/o abd pain; pt states pain 5/10 to epigastric region that radiates to LUQ; abd round, distended, tender; c/o N/V/D; skin PDW; no respiratory distress present; hypertensive Physician History: 39-year-old male presents to our ED for evaluation of epigastric pain. Patient states pain started today. Pain described as an ache that is worse after meals. Pain tends to radiate towards the left mid to upper abdomen. No trauma no fever. Patient has a history of gastric ulcer. However patient denies blood in stool. No vomiting. Patient admits to loose stools. However the stools are normal in color. Palpation to the xiphoid process reproduces pain. Patient states he has some discomfort with deep breaths as well. Patient otherwise feels well. He voices no other complaints or concerns at this time. Portions of this note were created with voice recognition technology. There may be grammatical, spelling, punctuation or sound alike errors Timing/Duration: today Severity: moderate Modifying Factors: Improves With: nothing Associated Symptoms: denies symptoms Allergies/Adverse Reactions: Iodinated Contrast Media [Iodinated Contrast Media - IV Dye] Allergy (Severe, Verified 09/11/24 21:09) Rash ketorolac [From Toradol] Allergy (Intermediate, Verified 09/11/24 21:09) Itching quetiapine fumarate [From Seroquel] Allergy (Intermediate, Verified 09/11/24 21:09) rash, itching meperidine HCl [From Demerol] Allergy (Mild, Verified 09/11/24 21:09) Rash/hyper morphine Allergy (Mild, Verified 09/11/24 21:09) rash/ hyper oxycodone [From OxyContin] Allergy (Mild, Verified 09/11/24 21:09) Itching prednisone Allergy (Mild, Verified 09/11/24 21:09) Nausea tramadol HCl [From Ultram] Allergy (Mild, Verified 09/11/24 21:09) rash itching ondansetron [From Zofran] Adverse Reaction (Mild, Verified 09/11/24 21:09) Hives acetaminophen [From Percocet] Adverse Reaction (Verified 09/11/24 21:09) Hives Home Medications: Methylphenidate HCl [Ritalin] 10 mg PO TID 12/25/20 [History] Lisinopril 20 mg [Zestril 20 MG] 20 mg PO DAILY 05/25/24 [History] Hydrocodone/Acetaminophen [Hydrocodone-Acetamin 5-325 mg] 1 tab PO BID 09/11/24 [History] PANTOPRAZOLE 40 mg Tablet [Protonix 40MG Tablet] 40 mg PO DAILY 09/11/24 [History] Hx Tetanus, Diphtheria Vaccination/Date Given: Yes Hx Influenza Vaccination/Date Given: Yes Hx Pneumococcal Vaccination/Date Given: No Travel Risk - International Travel Have you traveled outside of the country in past 3 weeks: No - Emerging Infectious Disease Are you exhibiting symptoms associated with any current EIDs: Yes Symptoms: Abdominal Pain - Review of Systems Constitutional: No Symptoms, No Fever, No Chills Eyes: No Symptoms Ears, Nose, & Throat: No Symptoms Respiratory: No Symptoms, No Cough, No Dyspnea Cardiac: No Symptoms, No Chest Pain, No Edema, No Syncope Abdominal/Gastrointestinal: No Symptoms, No Abdominal Pain, No Nausea, No Vomiting, No Diarrhea Genitourinary Symptoms: No Symptoms, No Dysuria Musculoskeletal: No Symptoms, No Back Pain, No Neck Pain Skin: No Symptoms, No Rash Neurological: No Symptoms, No Dizziness, No Focal Weakness, No Sensory Changes Psychological: No Symptoms Endocrine: No Symptoms Hematologic/Lymphatic: No Symptoms Immunological/Allergic: No Symptoms All Other Systems: Reviewed and Negative - Past Medical History Pertinent Past Medical History: Yes Neurological History: Migraines ENT History: No Pertinent History Cardiac History: Hypertension Respiratory History: Asthma Endocrine Medical History: Other Musculoskeletal History: Osteoarthritis, Other GI Medical History: Crohns Disease History: No Pertinent History Psycho-Social History: Anxiety, Attention Deficit Disorder, Depression Male Reproductive Disorders: No Pertinent History Other Medical History: ARTHROSCOPY RIGHT KNEE 08/2023 "CLEAN IT OUT". ROTATOR CUFF REPAIR RIGHT 2019. RIGHT ANKLE "TENDON REPAIR" 2011. NON-HODGKINS LYMPHOMA IN REMISSION FOR 16 YEARS. CROHN'S AND CELIAC DISEASE. Buldging disk, chronic back pain 2023 - Past Surgical History Past Surgical History: Yes Neuro Surgical History: No Pertinent History Cardiac: No Pertinent History Respiratory: No Pertinent History Gastrointestinal: Hernia Repair Genitourinary: No Pertinent History Musculoskeletal: Orthopedic Surgery Male Surgical History: No Pertinent History Other Surgical History: r shoulder, rotator cuff, R knee Aug 2022, R ankle, - Social History Smoking Status: Never smoker How long have you smoked: rarely Exposure to second hand smoke: No Drug Use: none - Social Determinants of Health Will the patient participate in the screening: Yes Do you worry about a steady place to live?: No Do you have any problems with any of the following?: No known problems In the past 12 months,have you had to go without utilities?: No Transportation Issues: No Has anyone in your support network made you feel unsafe?: No Have you or anyone in your house had to go w/o enough food: No - Nursing Vital Signs Nursing Vital Signs: Initial Vital Signs Pulse Rate 95 H 09/11/24 21:08 Blood Pressure 152/103 09/11/24 21:08 O2 Sat by Pulse Oximetry 97 09/11/24 21:08 Pain Scale Pain Intensity 3 - Physical Exam General Appearance: no apparent distress, alert Eye Exam: PERRL/EOMI, eyes nml inspection Ears, Nose, Throat Exam: normal ENT inspection, moist mucous membranes Neck Exam: normal inspection, full range of motion Respiratory Exam: normal breath sounds, lungs clear, airway intact, No respiratory distress Cardiovascular Exam: regular rate/rhythm, normal heart sounds, normal peripheral pulses Gastrointestinal/Abdomen Exam: soft, normal bowel sounds, tenderness (Epigastric tenderness to palpation), No mass Back Exam: normal inspection, normal range of motion, No CVA tenderness, No vertebral tenderness Extremity Exam: normal inspection, normal range of motion, pelvis stable Neurologic Exam: alert, oriented x 3, cooperative, normal mood/affect, nml cerebellar function, nml station & gait, sensation nml, No motor deficits Skin Exam: normal color, warm, dry, No rash Lymphatic Exam: No adenopathy SpO2 Interpretation: normal SpO2: 97 O2 Delivery: Room Air - Course Nursing assessment & vital signs reviewed: Yes - CT Exams Abdomen/Pelvis CT Interpretation: Tele-radiologist Report (Nephrolithiasis, right renal cyst, diverticulosis) Ordered Tests: Active Orders 24 hr Category Date Time Status Bricklayer Apprentice STAT Care 09/11/24 21:25 Active EKG-ER Only STAT Care 09/11/24 21:25 Active IV Insertion STAT Care 09/11/24 21:25 Active Pulse Oximetry (ED) STAT Care 09/11/24 21:25 Active ABDOMEN AND PELVIS W/0 CONTRAS [CT] Stat Exams 09/11/24 22:17 Completed CBC W DIFF Stat Lab 09/11/24 21:23 Completed CMP Stat Lab 09/11/24 21:23 Completed D-DIMER QUANTITATIVE Stat Lab 09/11/24 21:23 Completed LIPASE Stat Lab 09/11/24 21:23 Completed TROPONIN Q4H Lab 09/11/24 21:23 Completed TROPONIN Q4H Lab 09/12/24 01:30 Ordered TROPONIN Q4H Lab 09/12/24 05:30 Ordered Medication Summary Discontinued Medications Generic Name Dose Route Start Last Admin Trade Name Freq PRN Reason Stop Dose Admin Al Hydrox/Mg Hydrox/Simethicone Confirm 09/11/24 21:30 Mag Hydrox/Al Hydrox/Simeth 30 Ml Udcup Administered 09/11/24 21:31 Dose 30 ml .ROUTE .STK-MED ONE Sodium Chloride 1,000 mls @ 999 mls/hr 09/11/24 21:26 09/11/24 23:25 Sodium Chloride 0.9% 1000 Ml IV 09/11/24 22:26 Infused .Q1H1M STA Infusion Sodium Chloride Confirm 09/11/24 21:30 Sodium Chloride 0.9% 1000 Ml Administered 09/11/24 21:31 Dose 1,000 mls @ ud .ROUTE .STK-MED ONE Lidocaine HCl Confirm 09/11/24 21:29 Lidocaine Hcl 2% Viscous 15 Ml Udcup Administered 09/11/24 21:30 Dose 15 ml .ROUTE .STK-MED ONE Magnesium Hydroxide 45 ml 09/11/24 21:25 09/11/24 21:31 Mag Hydrx/Alum Hyd/Simeth/Lido 45 Ml Bottle PO 09/11/24 21:26 45 ml STAT ONE Administration Pantoprazole Sodium 40 mg 09/11/24 21:26 09/11/24 21:31 Pantoprazole 40 Mg Vial IV 09/11/24 21:27 40 mg STAT ONE Administration Pantoprazole Sodium Confirm 09/11/24 21:29 Pantoprazole 40 Mg Vial Administered 09/11/24 21:30 Dose 40 mg IV .[facility] ONE Lab/Rad Data: Laboratory Result Diagrams 09/11/24 21:23 09/11/24 21:23 Laboratory Results 09/11/24 09/11/24 09/11/24 Range/Units 21:23 21:23 21:23 WBC (4.23-9.07) x10^3/uL RBC (4.63-6.08) x10^6/uL Hgb (13.7-17.5) g/dL Hct (40.1-51.0) % MCV (79.0-92.2) fL MCH (25.7-32.2) pg MCHC (32.3-36.5) g/dL RDW (11.6-14.4) % Plt Count (163-337) x10^3/uL MPV (9.4-12.4) fL Gran % (34.0-67.9) % Immature Gran % (Auto) (0.001-0.429) % Nucleat RBC Rel Count (0.00-0.2) % Eos # (Auto) (0.04-0.54) x10^3/uL Immature Gran # (Auto) (0.001-0.031) x10^3u/L Absolute Lymphs (auto) (1.32-3.57) x10^3/uL Absolute Monos (auto) (0.30-0.82) x10^3/uL Absolute Nucleated RBC (0.00-0.012) x10^3u/L Lymphocytes % (21.8-53.1) % Monocytes % (5.3-12.2) % Eosinophils % (0.8-7.0) % Basophils % (0.2-1.2) % Absolute Granulocytes (1.78-5.38) x10^3/uL Basophils # (0.01-0.08) x10^3/uL D-Dimer < 0.19 (0.0-0.50) mg/L Sodium 142 (135-145) mmol/L Potassium 4.2 (3.5-5.1) mmol/L Chloride 107 (98-107) mmol/L Carbon Dioxide 19 L (22-30) mmol/L Anion Gap 20.1 H (5-15) MEQ/L BUN 16 (9-20) mg/dL Creatinine 0.88 (0.66-1.25) mg/dL Estimated GFR 113.6 ML/MIN Glucose 114 H (74-106) mg/dL Calcium 9.4 (8.4-10.2) mg/dL Total Bilirubin 0.60 (0.2-1.3) mg/dL AST 37 (17-59) U/L ALT 31 (0-50) U/L Alkaline Phosphatase 49 (38-126) U/L Troponin I < 0.012 (0.000-0.033) ng/mL Serum Total Protein 8.0 (6.3-8.2) g/dL Albumin 4.9 (3.5-5.0) g/dL Lipase 129 (23-300) U/L 09/11/24 Range/Units 21:23 WBC 6.8 (4.23-9.07) x10^3/uL RBC 4.62 L (4.63-6.08) x10^6/uL Hgb 13.9 (13.7-17.5) g/dL Hct 40.1 (40.1-51.0) % MCV 86.8 (79.0-92.2) fL MCH 30.1 (25.7-32.2) pg MCHC 34.7 (32.3-36.5) g/dL RDW 12.2 (11.6-14.4) % Plt Count 282 (163-337) x10^3/uL MPV 10.0 (9.4-12.4) fL Gran % 60.9 (34.0-67.9) % Immature Gran % (Auto) 0.1 (0.001-0.429) % Nucleat RBC Rel Count 0.0 (0.00-0.2) % Eos # (Auto) 0.27 (0.04-0.54) x10^3/uL Immature Gran # (Auto) 0.01 (0.001-0.031) x10^3u/L Absolute Lymphs (auto) 1.82 (1.32-3.57) x10^3/uL Absolute Monos (auto) 0.50 (0.30-0.82) x10^3/uL Absolute Nucleated RBC 0.00 (0.00-0.012) x10^3u/L Lymphocytes % 26.9 (21.8-53.1) % Monocytes % 7.4 (5.3-12.2) % Eosinophils % 4.0 (0.8-7.0) % Basophils % 0.7 (0.2-1.2) % Absolute Granulocytes 4.11 (1.78-5.38) x10^3/uL Basophils # 0.05 (0.01-0.08) x10^3/uL D-Dimer (0.0-0.50) mg/L Sodium (135-145) mmol/L Potassium (3.5-5.1) mmol/L Chloride (98-107) mmol/L Carbon Dioxide (22-30) mmol/L Anion Gap (5-15) MEQ/L BUN (9-20) mg/dL Creatinine (0.66-1.25) mg/dL Estimated GFR ML/MIN Glucose (74-106) mg/dL Calcium (8.4-10.2) mg/dL Total Bilirubin (0.2-1.3) mg/dL AST (17-59) U/L ALT (0-50) U/L Alkaline Phosphatase (38-126) U/L Troponin I (0.000-0.033) ng/mL Serum Total Protein (6.3-8.2) g/dL Albumin (3.5-5.0) g/dL Lipase (23-300) U/L - Progress Progress: improved Progress Note: 29-year-old male presents to emergency department for evaluation of epigastric pain. Physical exam reveals some tenderness to the epigastrium. Patient states pain worse after he eats. Patient states occasionally deep breathing hurts that location as well. D-dimer negative. Troponin negative. Laboratory workup nonremarkable. CT abdomen pelvis reveals nephrolithiasis, right renal cyst and diverticulosis neither which explains patient's pain. Patient received a GI cocktail and Protonix. Patient's pain resolved. We advised patient to follow- up with his primary care doctor as he may require a EGD. Patient agrees to do so. Patient already on Protonix daily. Patient advised to continue his Protonix and follow-up with his primary care doctor within 48 hours. He agrees to do so. Patient voices no other complaints or concerns at this time. Portions of this note were created with voice recognition technology. There may be grammatical, spelling, punctuation or sound alike errors Complexity of problem addressed is moderate acute complicated. No critical care time. Complexity of data reviewed and analyzed is moderate. Test ordered test reviewed results analyzed and correlated clinically with history and physical exam. Risk of complication and or risk of morbidity/mortality of patient management is low. Vital stable. Time spent to discharge patient is approximately 15 minutes. Plan of care established for shared decision making. No social determinants of health present to impede follow-up. Portions of this note were created with voice recognition technology. There may be grammatical, spelling, punctuation or sound alike errors 09/12/24 00:21 Counseled pt/family regarding: lab results, diagnosis, need for follow-up, rad results - Departure Departure Disposition: Home Clinical Impression: Diverticulosis, Nephrolithiasis, Renal cyst, right, Epigastric pain Condition: Stable Critical Care Time: No Referrals: CHAVEZ JEROME TEST ENG [Primary Care Provider] - Follow up/PCP as directed Additional Instructions: Discharge/Care Plan ERICA TODD was seen on 09/12/24 in the Emergency Room. The adriana love was counseled regarding Diagnosis,Lab results, Imaging studies, need for follow up and when to return to the Emergency Room. Prescriptions given: Discharge Note I have spoken with the patient and/or caregivers. I have explained the patient's condition, diagnosis and treatment plan based on the information available to me at this time. I have answered the patient's and/or caregiver's questions and ad dressed any concerns. The patient and/or caregivers have as good understanding of the patient's diagnosis, condition and treatment plan as can be expected at this point. The vital signs have been stable. The patient's condition is stable and appropriate for discharge from the emergency department. The patient will pursue further outpatient evaluation with the primary care physician or other designated or consulting physician as outlined in the discharge instructions. The patient and/or caregivers are agreeable to this plan of care and follow-up instructions have been explained in detail. The patient and/or caregivers have received these instruction. The patient/and or caregivers are aware that any significant change in condition or worsening of symptoms should prompt an immediate return to this or the closest emergency department or call 911.
[2024-09-11 21:56] LABS: Absolute Neutrophil Ct (ANC) 4.11 x10^3/uL (1.78-5.38); BASOPHIL % 0.7 % (0.2-1.2); Basophil (Absolute #) 0.05 x10^3/uL (0.01-0.08); Eosinophil (Absolute #) 0.27 x10^3/uL (0.04-0.54); Hematocrit 40.1 % (40.1-51.0); Hemoglobin 13.9 g/dL (13.7-17.5); IMMATURE GRAN # 0.01 x10^3u/L (0.001-0.031); IMMATURE GRAN % 0.1 % (0.001-0.429); Lymphocyte (Absolute #) 1.82 x10^3/uL (1.32-3.57); Lymphocytes % 26.9 % (21.8-53.1); Mean Cell Volume 86.8 fL (79.0-92.2); Mean Corpuscular Hemoglobin 30.1 pg (25.7-32.2); Mean Corpuscular Hgb Concent. 34.7 g/dL (32.3-36.5); Monocytes % 7.4 % (5.3-12.2); Neutrophil % 60.9 % (34.0-67.9); Platelet Count 282 x10^3/uL (163-337); Red Blood Count 4.62 x10^6/uL (4.63-6.08); Red Cell Distribution Width 12.2 % (11.6-14.4); White Blood Count 6.8 x10^3/uL (4.23-9.07)
[2024-09-11 22:05] LABS: ALBUMIN 4.9 g/dL (3.5-5.0); ANION GAP 20.1 MEQ/L (5-15); BILIRUBIN,TOTAL 0.6 mg/dL (0.2-1.3); Calcium 9.4 mg/dL (8.4-10.2); Creatinine 1 0.88 mg/dL (0.66-1.25); EST GLOMERULAR FILTRATION RATE 113.6 ML/MIN; Potassium 4.2 mmol/L (3.5-5.1)
[2024-09-12 00:03] VITALS: BP 148/115; PULSE 93; RESP 19
--- NOTE | 2024-09-12 00:10 | XRAY ---
CLINICAL HISTORY: pain COMPARISON: CT abdomen and pelvis scan done on 11 March 2024 TECHNIQUE: Contiguous axial images were obtained from the level of the diaphragm to the pubic symphysis without intravenous or oral contrast. Coronal and sagittal reconstructions were likewise performed and indicated to increase the sensitivity for detecting clinically relevant pathology. CT scan was performed according to ALARA (as low as reasonable achievable). FINDINGS: The visualized lung bases are clear. Evaluation of the abdominal and pelvic visceral organs is limited without intravenous contrast. The unenhanced liver, spleen, pancreas, and adrenal glands are grossly unremarkable. The gallbladder is present. The kidneys are normal in size and attenuation . Few tiny 1-2.5 mm nonobstructive calculi in all the calyces of both kidneys. A 15mm hypodense lesion at lower pole of right kidney, likely simple cyst. The ureters are normal in caliber. No adenopathy or fluid collections are seen. Small sized diverticula are seen in the sigmoid colon. No evidence of focal or diffuse bowel wall thickening or evidence of bowel obstruction is seen. The aorta is normal in caliber. The urinary bladder is normal in contour. Pelvic viscera are grossly unremarkable. Degenerative changes in the visualized spine. No aggressive appearing osseous lesions are identified. IMPRESSION: 1. Bilateral non-obstructive renal calculi 2. Uncomplicated sigmoid diverticulosis As compared to prior CT scan, the left ureter is of normal caliber. Rest of the findings remain unchanged Electronically Signed by: Demian Monson MD. (09/12/2024 00:05:56 EDT)
[2024-09-12 00:19] VITALS: O2SAT 97
== END 2024-09-12 00:24 | disposition home or self-care (01) ==
LOC: ED 21:04
DX: K57.90 Diverticulosis of intestine, part unspecified, without perforation or abscess without bleeding (principal); N20.0 Calculus of kidney; N28.1 Cyst of kidney, acquired; R10.13 Epigastric pain; I10 Essential (primary) hypertension; Z79.891 Long term (current) use of opiate analgesic; Z79.899 Other long term (current) drug therapy
CPT/HCPCS: 36415; 74176; 80053; 83690; 84484; 85025; 85379; 93005; 93041; 94760; 96361; 96374; 99284; 99285; A9270-GY

== ENCOUNTER 2024-10-02 13:16 | Day surgery (SDC) | payer OTHER ==
[2024-10-02] MEDS ORDERED: BUPIVACAINE 0.5% VIAL IJ ONE (13:17)
[2024-10-02] MEDS ORDERED: Depo-Medrol 40 MG/ML IM ONE (13:17)
[2024-10-02] MEDS ORDERED: TRANDATE 20 MG/4 ML SYRINGE IV ONE (13:17)
[2024-10-02] MEDS ORDERED: LIDOCAINE HCL 1% AMPUL 5 ML IJ ONE (13:17)
[2024-10-02] MEDS ORDERED: Zofran 4 MG/2 ML VIAL ONE (14:49)
[2024-10-02] MEDS ORDERED: propofoL IV ONE (14:57)
--- NOTE | 2024-10-02 16:32 | XRAY ---
Indication: Right L4-S1 RFA. Intraoperative fluoroscopy provided for 15 seconds. 3 digital spot images submitted for interpretation demonstrates posterior needle tips projecting over expected right L4-S1 nerve roots. Correlate with intraoperative findings/report.
--- NOTE | 2024-10-02 16:36 | XRAY ---
15 seconds of fluoroscopy was used in surgery for a right L4-S1 RFA.
== END 2024-10-02 15:45 | disposition home or self-care (01) ==
LOC: SDC-PAIN 13:16
PROVIDERS: ATTEND Psychiatry & Neurology Pain Medicine
DX: M47.816 Spondylosis without myelopathy or radiculopathy, lumbar region (principal)
CPT/HCPCS: 64635; 64636; 72100; J2405; J2704

== ENCOUNTER 2024-10-09 13:33 | Day surgery (SDC) | payer OTHER ==
[2024-10-09] MEDS ORDERED: BUPIVACAINE 0.5% VIAL IJ ONE (13:34)
[2024-10-09] MEDS ORDERED: Depo-Medrol 40 MG/ML IM ONE (13:34)
[2024-10-09] MEDS ORDERED: LIDOCAINE HCL 1% AMPUL 5 ML IJ ONE (13:34)
[2024-10-09] MEDS ORDERED: Zofran 4 MG/2 ML VIAL ONE (15:54)
[2024-10-09] MEDS ORDERED: propofoL IV ONE ×2 (16:22→16:31)
--- NOTE | 2024-10-09 19:19 | XRAY ---
Indication: Left L4-S1 RFA. Intraoperative fluoroscopy provided for 22 seconds. 3 digital spot image submitted for interpretation demonstrates posterior needle tips projecting over expected left L4-S1 nerve roots. Correlate with intraoperative findings/report.
--- NOTE | 2024-10-09 20:32 | XRAY ---
22 seconds of fluoroscopy were used in surgery for a left L4-S1 RFA.
== END 2024-10-09 16:59 | disposition home or self-care (01) ==
LOC: SDC-PAIN 13:33
PROVIDERS: ATTEND Psychiatry & Neurology Pain Medicine
DX: M47.816 Spondylosis without myelopathy or radiculopathy, lumbar region (principal); M47.817 Spondylosis without myelopathy or radiculopathy, lumbosacral region
CPT/HCPCS: 64635; 64636; 72100; J2405; J2704

== ENCOUNTER 2024-10-31 22:58 | Emergency (ER) | payer OTHER ==
[2024-10-31 23:05] VITALS: RESP 18; TEMP 97.7; O2SAT 97
[2024-10-31] MEDS ORDERED: NORCO 5/325 MG ONE (23:26)
[2024-10-31] MEDS: NORCO 5/325 MG PO ONE (23:27)
--- NOTE | 2024-10-31 23:31 | ERPHSYRPT ---
- History of Present Illness Time Seen by Provider: 10/31/24 23:31 Source: patient Exam Limitations: no limitations Patient Subjective Stated Complaint: rt ankle sprain Triage Nursing Assessment: . Physician History: 39-year-old male presents to our ED for evaluation of a right lower extremity ankle sprain. Patient states he inverted his ankle 2 weeks ago. Patient has been walking on his ankle ever since. However he states the pain has gotten worse today. No interval trauma. Pain described as an ache that is localized. No radiation. Pain worse with weightbearing. Pain improves with rest. Patient otherwise feels well. He voices no other complaints or concerns at this time. Method of Injury: twisted Occurred: other (2 weeks ago) Quality: constant Severity of Pain-Max: moderate Severity of Pain-Current: mild Lower Extremities Pain: ankle: right Modifying Factors: Improves With: movement, other (Weightbearing) Associated Symptoms: none Allergies/Adverse Reactions: Iodinated Contrast Media [Iodinated Contrast Media - IV Dye] Allergy (Severe, Verified 10/31/24 23:20) Rash ketorolac [From Toradol] Allergy (Intermediate, Verified 10/31/24 23:20) Itching quetiapine fumarate [From Seroquel] Allergy (Intermediate, Verified 10/31/24 23:20) rash, itching meperidine HCl [From Demerol] Allergy (Mild, Verified 10/31/24 23:20) Rash/hyper morphine Allergy (Mild, Verified 10/31/24 23:20) rash/ hyper oxycodone [From OxyContin] Allergy (Mild, Verified 10/31/24 23:20) Itching prednisone Allergy (Mild, Verified 10/31/24 23:20) Nausea tramadol HCl [From Ultram] Allergy (Mild, Verified 10/31/24 23:20) rash itching ondansetron [From Zofran] Adverse Reaction (Mild, Verified 10/31/24 23:20) Hives acetaminophen [From Percocet] Adverse Reaction (Verified 10/31/24 23:20) Hives Home Medications: Methylphenidate HCl [Ritalin] 10 mg PO TID 12/25/20 [History] Lisinopril 20 mg [Zestril 20 MG] 20 mg PO DAILY 05/25/24 [History] Hydrocodone/Acetaminophen [Hydrocodone-Acetamin 5-325 mg] 1 tab PO BID 09/11/24 [History] PANTOPRAZOLE 40 mg Tablet [Protonix 40MG Tablet] 40 mg PO DAILY 09/11/24 [History] Hx Tetanus, Diphtheria Vaccination/Date Given: Yes Hx Influenza Vaccination/Date Given: Yes Hx Pneumococcal Vaccination/Date Given: No Travel Risk - International Travel Have you traveled outside of the country in past 3 weeks: No - Emerging Infectious Disease Are you exhibiting symptoms associated with any current EIDs: No Symptoms: Abdominal Pain - Review of Systems Constitutional: No Symptoms, No Fever, No Chills Eyes: No Symptoms Ears, Nose, & Throat: No Symptoms Respiratory: No Symptoms, No Cough, No Dyspnea Cardiac: No Symptoms, No Chest Pain, No Edema, No Syncope Abdominal/Gastrointestinal: No Symptoms, No Abdominal Pain, No Nausea, No Vomiting, No Diarrhea Genitourinary Symptoms: No Symptoms, No Dysuria Musculoskeletal: No Symptoms, No Back Pain, No Neck Pain Skin: No Symptoms, No Rash Neurological: No Symptoms, No Dizziness, No Focal Weakness, No Sensory Changes Psychological: No Symptoms Endocrine: No Symptoms Hematologic/Lymphatic: No Symptoms Immunological/Allergic: No Symptoms All Other Systems: Reviewed and Negative - Past Medical History Pertinent Past Medical History: Yes Neurological History: Migraines ENT History: No Pertinent History Cardiac History: Hypertension Respiratory History: Asthma Endocrine Medical History: Other Musculoskeletal History: Osteoarthritis, Other GI Medical History: Crohns Disease History: No Pertinent History Psycho-Social History: Anxiety, Attention Deficit Disorder, Depression Male Reproductive Disorders: No Pertinent History Other Medical History: ARTHROSCOPY RIGHT KNEE 08/2023 "CLEAN IT OUT". ROTATOR CUFF REPAIR RIGHT 2019. RIGHT ANKLE "TENDON REPAIR" 2011. NON-HODGKINS LYMPHOMA IN REMISSION FOR 16 YEARS. CROHN'S AND CELIAC DISEASE. Buldging disk, chronic back pain 2023 - Past Surgical History Past Surgical History: Yes Neuro Surgical History: No Pertinent History Cardiac: No Pertinent History Respiratory: No Pertinent History Gastrointestinal: Hernia Repair Genitourinary: No Pertinent History Musculoskeletal: Orthopedic Surgery Male Surgical History: No Pertinent History Other Surgical History: r shoulder, rotator cuff, R knee Aug 2022, R ankle, - Social History Smoking Status: Former smoker Exposure to second hand smoke: No Drug Use: none - Social Determinants of Health Will the patient participate in the screening: Yes Do you worry about a steady place to live?: No Do you have any problems with any of the following?: No known problems In the past 12 months,have you had to go without utilities?: No Transportation Issues: No Has anyone in your support network made you feel unsafe?: No Have you or anyone in your house had to go w/o enough food: No - Nursing Vital Signs Nursing Vital Signs: Initial Vital Signs Temperature 97.7 F 10/31/24 23:03 Pulse Rate 116 H 10/31/24 23:03 Respiratory Rate 18 10/31/24 23:03 Blood Pressure 144/103 10/31/24 23:03 O2 Sat by Pulse Oximetry 97 10/31/24 23:03 Pain Scale Pain Intensity 7 - Physical Exam General Appearance: alert Eyes, Ears, Nose, Throat Exam: normal ENT inspection, moist mucous membranes Neck Exam: non-tender, supple Cardiovascular/Respiratory Exam: chest non-tender, normal breath sounds, regular rate/rhythm, no respiratory distress Gastrointestinal/Abdominal Exam: non-tender, soft Back Exam: normal inspection, normal range of motion, No vertebral tenderness Hips Exam: bilateral: non-tender, normal inspection, normal range of motion, no evidence of injury Legs Exam: bilateral leg: non-tender, normal inspection, normal range of motion, no evidence of injury Knees Exam: bilateral knee: non-tender, normal inspection, normal range of motion, no evidence of injury Ankle Exam: right ankle: soft tissue tenderness, other (Tenderness to palpation at the lateral aspect of the right ankle. Overlying soft tissue intact. No obvious signs of trauma. The involved extremity is neurovascular tact distally compartments are soft cap refill less than 2 seconds.), left ankle: non-tender, normal inspection, normal range of motion, no evidence of injury Foot Exam: bilateral foot: non-tender, normal inspection, normal range of motion, no evidence of injury Neuro/Tendon Exam: normal sensation, normal motor functions Mental Status Exam: alert, oriented x 3, cooperative Skin Exam: normal color, warm, dry SpO2 Interpretation: normal SpO2: 97 O2 Delivery: Room Air - Course Nursing assessment & vital signs reviewed: Yes Ordered Tests: Active Orders 24 hr Category Date Time Status ANKLE (3 VIEWS) Stat Exams 10/31/24 23:13 Taken Medication Summary Discontinued Medications Generic Name Dose Route Start Last Admin Trade Name Freq PRN Reason Stop Dose Admin Hydrocodone Bitart/Acetaminophen 1 tab 10/31/24 23:24 10/31/24 23:27 Hydrocodone/Apap 5/325 1 Tab Tablet PO 10/31/24 23:25 1 tab STAT ONE Administration Hydrocodone Bitart/Acetaminophen Confirm 10/31/24 23:26 Hydrocodone/Apap 5/325 1 Tab Tablet Administered 10/31/24 23:27 Dose 1 tab .ROUTE .STK-MED ONE - Progress Progress: improved Progress Note: 39-year-old male presents to our ED for evaluation of right ankle pain. Physical exam reveals some tenderness at the lateral ankle. Overlying soft tissue intact. No signs of trauma. The involved extremity is neurovascular tact distally. X-ray of the right ankle negative for fracture dislocation. Patient received Winona pill for pain control. Patient also received an Juan wrap and bilateral axillary crutches. A referral to the orthopedic clinic was completed as well. Patient agrees to follow-up as planned. He voices no other complaints or concerns at this time. Portions of this note were created with voice recognition technology. There may be grammatical, spelling, punctuation or sound alike errors Complexity of problem addressed is moderate acute complicated. No critical care time. Complexity of data reviewed and analyzed as moderate. Dr. Pierre independently reviewed the x-ray of the right ankle. Risk of complication and or risk of morbidity/mortality of patient management is moderate. Patient received a Winona pill in our ED. Vital stable. Time spent to discharge patient is approximately 15 minutes. Plan of care established for shared decision making. No social determinants of health present to impede follow-up. Portions of this note were created with voice recognition technology. There may be grammatical, spelling, punctuation or sound alike errors 10/31/24 23:42 Counseled pt/family regarding: diagnosis, need for follow-up, rad results - Departure Departure Disposition: Home Clinical Impression: Ankle sprain Condition: Stable Critical Care Time: No Referrals: CHAVEZ JEROME HAM PASSER [Primary Care Provider, UNKNOWN] - Follow up/PCP as directed Instructions: Ankle sprain - ED discharge instructions Additional Instructions: Discharge/Care Plan ERICA TODD JOYA was seen on 10/31/24 in the Emergency Room. The patient was counseled regarding Diagnosis,Lab results, Imaging studies, need for follow up and when to return to the Emergency Room. Prescriptions given: Discharge Note I have spoken with the patient and/or caregivers. I have explained the patient's condition, diagnosis and treatment plan based on the information available to me at this time. I have answered the patient's and/or caregiver's questions and addressed any concerns. The patient and/or caregivers have as good understanding of the patient's diagnosis, condition and treatment plan as can be expected at this point. The vital signs have been stable. The patient's condition is stable and appropriate for discharge from the emergency department. The patient will pursue further outpatient evaluation with the primary care physician or other designated or consulting physician as outlined in the discharge instructions. The patient and/or caregivers are agreeable to this plan of care and follow-up instructions have been explained in detail. The patient and/or caregivers have received these instruction. The patient/and or caregivers are aware that any significant change in condition or worsening of symptoms should prompt an immediate return to this or the closest emergency department or call 911. Outpatient Orders: Ortho Referral Time Frame: 1 Day, Facility: [facility]. [facility]osp, Location: [facility]
[2024-10-31 23:37] VITALS: BP 153/98; PULSE 98
--- NOTE | 2024-11-01 09:52 | XRAY ---
Indication: Twisting injury. Pain. Comparison: August 02, 2023 3 view right ankle demonstrates minimal anterolateral soft tissue swelling. Stable tiny posterior heel spur. No other bony, articular, or soft tissue abnormalities.
== END 2024-10-31 23:49 | disposition home or self-care (01) ==
LOC: ED 22:58
DX: S93.401A Sprain of unspecified ligament of right ankle, initial encounter (principal); X50.0XXA Overexertion from strenuous movement or load, initial encounter; Z79.899 Other long term (current) drug therapy
CPT/HCPCS: 73610; 99283; A9270-GY

== ENCOUNTER 2025-04-09 09:01 | Emergency (ER) | payer OTHER ==
[2025-04-09 09:25] VITALS: RESP 16; TEMP 98
--- NOTE | 2025-04-09 09:25 | ERPHSYRPT ---
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 Hernandez with a complaint of left flank, groin pain with dysuria. Patient saw his pain specialist, Dr. Edwards on 04/03/2025. The paramedics placed an intravenous line and provided him with fentanyl and intravenous Zofran. Patient has a history of kidney stones per his report. Patient has a history of hypertension, migraine headaches, gastroesophageal reflux disease, asthma, anxiety, ADD, depression and chronic low back pain. Timing/Duration: day(s) (2) Activities at Onset: none Quality: burning, sharpness Abdominal Pain Onset Location: flank (Left flank) Pain Radiation: groin (Left) Severity of Pain-Max: moderate Severity of Pain-Current: mild Modifying Factors: Improves With: analgesics (Fentanyl provided by the paramedics) Associated Symptoms: denies symptoms, No chest pain, No shortness of breath Previous symptoms: same symptoms as today, no recent treatment Allergies/Adverse Reactions: Iodinated Contrast Media [Iodinated Contrast Media - IV Dye] Allergy (Severe, Verified 04/09/25 09:10) Rash ketorolac [From Toradol] Allergy (Intermediate, Verified 04/09/25 09:10) Itching quetiapine fumarate [From Seroquel] Allergy (Intermediate, Verified 04/09/25 09:10) rash, itching meperidine HCl [From Demerol] Allergy (Mild, Verified 04/09/25 09:10) Rash/hyper morphine Allergy (Mild, Verified 04/09/25 09:10) rash/ hyper oxycodone [From OxyContin] Allergy (Mild, Verified 04/09/25 09:10) Itching prednisone Allergy (Mild, Verified 04/09/25 09:10) Nausea tramadol HCl [From Ultram] Allergy (Mild, Verified 04/09/25 09:10) rash itching ondansetron [From Zofran] Adverse Reaction (Mild, Verified 04/09/25 09:10) Hives acetaminophen [From Percocet] Adverse Reaction (Verified 04/09/25 09:10) Hives promethazine [From Phenergan] Adverse Reaction (Verified 04/09/25 09:10) sertraline [From Zoloft] Adverse Reaction (Verified 04/09/25 09:10) Home Medications: Methylphenidate HCl [Ritalin] 10 mg PO TID 12/25/20 [History] Fluticasone/Vilanterol [Breo Ellipta 50-25 Mcg Inhaler] 1 each IH DAILY 11/29/24 [History] PANTOPRAZOLE 40 mg Tablet [Protonix 40MG Tablet] 40 mg PO BID 11/29/24 [History] Ubrogepant [Ubrelvy] 100 mg PO UD PRN 11/29/24 [History] lisinopriL [Lisinopril] 40 mg PO DAILY 11/29/24 [History] Amlodipine Besylate 5 mg [Norvasc 5 mg] 5 mg PO DAILY 04/09/25 [History] Hydrocodone/Acetaminophen [Hydrocodon-Acetaminoph 7.5-325] 1 tab PO TID 04/09/25 [History] Hx Tetanus, Diphtheria Vaccination/Date Given: Yes Hx Influenza Vaccination/Date Given: Yes Hx Pneumococcal Vaccination/Date Given: No Travel Risk - International Travel Have you traveled outside of the country in past 3 weeks: No - Emerging Infectious Disease Are you exhibiting symptoms associated with any current EIDs: No Symptoms: Diarrhea, Shortness of Breath - Review of Systems Constitutional: No Symptoms Eyes: No Symptoms Ears, Nose, & Throat: No Symptoms Respiratory: No Symptoms Cardiac: No Symptoms Genitourinary Symptoms: Dysuria, Flank Pain (Left side) Musculoskeletal: No Symptoms Skin: No Symptoms Neurological: No Symptoms Psychological: No Symptoms Endocrine: No Symptoms Hematologic/Lymphatic: No Symptoms Immunological/Allergic: No Symptoms All Other Systems: Reviewed and Negative - Past Medical History Pertinent Past Medical History: Yes Neurological History: Migraines ENT History: No Pertinent History Cardiac History: Angina, Hypertension Respiratory History: Asthma Endocrine Medical History: Other Musculoskeletal History: No Pertinent History GI Medical History: Crohns Disease History: No Pertinent History Psycho-Social History: Anxiety, Attention Deficit Disorder, Depression Male Reproductive Disorders: No Pertinent History Other Medical History: CYST ON KIDNEY, HAS DR. CAMPBELL FOR HEART. - Past Surgical History Past Surgical History: Yes Neuro Surgical History: No Pertinent History Cardiac: No Pertinent History Respiratory: No Pertinent History Gastrointestinal: Hernia Repair Genitourinary: No Pertinent History Musculoskeletal: Orthopedic Surgery Male Surgical History: No Pertinent History Other Surgical History: r shoulder, rotator cuff, R knee Aug 2022, R ankle, right foot - Social History Smoking Status: Former smoker Exposure to second hand smoke: No Drug Use: none - Social Determinants of Health Will the patient participate in the screening: Yes Do you worry about a steady place to live?: No In the past 12 months,have you had to go without utilities?: No Transportation Issues: No Has anyone in your support network made you feel unsafe?: No Have you or anyone in your house had to go w/o enough food: No - Nursing Vital Signs Nursing Vital Signs: Initial Vital Signs Temperature 98 F 04/09/25 09:02 Pulse Rate 74 04/09/25 09:02 Respiratory Rate 16 04/09/25 09:02 O2 Sat by Pulse Oximetry 96 04/09/25 09:02 Pain Scale Pain Intensity 7 - Physical Exam General Appearance: no apparent distress, alert, anxiety Eye Exam: PERRL/EOMI, eyes nml inspection Ears, Nose, Throat Exam: normal ENT inspection, moist mucous membranes Neck Exam: normal inspection, non-tender, supple, full range of motion Respiratory Exam: normal breath sounds, lungs clear, airway intact, No chest tenderness, No respiratory distress Cardiovascular Exam: regular rate/rhythm, normal heart sounds, normal peripheral pulses Gastrointestinal/Abdomen Exam: soft, normal bowel sounds, tenderness (Left lower quadrant to palpation), guarding (Left lower quadrant to palpation), No rebound Rectal Exam: not done Back Exam: normal inspection, normal range of motion (Left side), CVA tenderness, No vertebral tenderness Extremity Exam: normal inspection, normal range of motion, pelvis stable Neurologic Exam: alert, oriented x 3, cooperative, 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 operator II-XII nml as tested, sensation nml Skin Exam: normal color, warm, dry Lymphatic Exam: No adenopathy SpO2 Interpretation: normal O2 Delivery: Room Air - Course Nursing assessment & vital signs reviewed: Yes Ordered Tests: Active Orders 24 hr Category Date Time Status ABDOMEN AND PELVIS W/0 CONTRAS [CT] Stat Exams 04/09/25 09:19 Completed AMYLASE Stat Lab 04/09/25 09:25 Completed CBC W DIFF Stat Lab 04/09/25 09:25 Completed CMP Stat Lab 04/09/25 09:25 Completed LIPASE Stat Lab 04/09/25 09:25 Completed UA W/RFX UR CULTURE Stat Lab 04/09/25 10:15 Completed Medication Summary Discontinued Medications Generic Name Dose Route Start Last Admin Trade Name Darwin PRN Reason Stop Dose Admin Hydromorphone HCl 1 mg 04/09/25 10:14 04/09/25 10:31 Hydromorphone 1 Mg/1ml Inj IV 04/09/25 10:15 1 mg STAT ONE Administration Hydromorphone HCl Confirm 04/09/25 10:30 Hydromorphone 1 Mg/1ml Inj Administered 04/09/25 10:31 Dose 1 mg .ROUTE .STK-MED ONE Sodium Chloride 1,000 mls @ 999 mls/hr 04/09/25 09:19 04/09/25 10:36 Sodium Chloride 0.9% 1000 Ml IV 04/09/25 10:19 Infused .Q1H1M STA Infusion Sodium Chloride Confirm 04/09/25 09:28 Sodium Chloride 0.9% 1000 Ml Administered 04/09/25 09:29 Dose 1,000 mls @ ud .ROUTE .STK-MED ONE Tamsulosin HCl 0.4 mg 04/09/25 10:15 04/09/25 10:31 Tamsulosin Hcl 0.4 Mg Cap PO 04/09/25 10:16 0.4 mg STAT ONE Administration Tamsulosin HCl Confirm 04/09/25 10:30 Tamsulosin Hcl 0.4 Mg Cap Administered 04/09/25 10:31 Dose 0.4 mg .ROUTE .STK-MED ONE Lab/Rad Data: Laboratory Result Diagrams 04/09/25 09:25 04/09/25 09:25 Laboratory Results 04/09/25 04/09/25 04/09/25 Range/Units 10:15 09: 09:25 WBC 7.4 (4.23-9.07) x10^3/uL RBC 4.25 L (4.63-6.08) x10^6/uL Hgb 13.0 L (13.7-17.5) g/dL Hct 38.3 L (40.1-51.0) % MCV 90.1 (79.0-92.2) fL MCH 30.6 (25.7-32.2) pg MCHC 33.9 (32.3-36.5) g/dL RDW 12.6 (11.6-14.4) % Plt Count 304 (163-337) x10^3/uL MPV 9.8 (9.4-12.4) fL Gran % 62.2 (34.0-67.9) % Immature Gran % (Auto) 0.3 (0.001-0.429) % Nucleat RBC Rel Count 0.0 (0.00-0.2) % Eos # (Auto) 0.39 (0.04-0.54) x10^3/uL Immature Gran # (Auto) 0.02 (0.001-0.031) x10^3u/L Absolute Lymphs (auto) 1.76 (1.32-3.57) x10^3/uL Absolute Monos (auto) 0.54 (0.30-0.82) x10^3/uL Absolute Nucleated RBC 0.00 (0.00-0.012) x10^3u/L Lymphocytes % 23.9 (21.8-53.1) % Monocytes % 7.3 (5.3-12.2) % Eosinophils % 5.3 (0.8-7.0) % Basophils % 1.0 (0.2-1.2) % Absolute Granulocytes 4.58 (1.78-5.38) x10^3/uL Basophils # 0.07 (0.01-0.08) x10^3/uL Sodium 138 (135-145) mmol/L Potassium 4.1 (3.5-5.1) mmol/L Chloride 105 (98-107) mmol/L Carbon Dioxide 21 L (22-30) mmol/L Anion Gap 16.1 H (5-15) MEQ/L BUN 14 (9-20) mg/dL Creatinine 1.08 (0.66-1.25) mg/dL Estimated GFR 90.6 ML/MIN Glucose 122 H (74-106) mg/dL Calcium 9.2 (8.4-10.2) mg/dL Total Bilirubin 0.30 (0.2-1.3) mg/dL AST 27 (17-59) U/L ALT 19 (0-50) U/L Alkaline Phosphatase 63 (38-126) U/L Serum Total Protein 8.3 H (6.3-8.2) g/dL Albumin 4.7 (3.5-5.0) g/dL Amylase 75 (30-110) U/L Lipase 146 (23-300) U/L Urine Color Yellow (Yellow) Urine Appearance Clear (Clear) Urine pH 5.0 (4.6-8.0) Ur Specific [place] 1.025 (1.005-1.030) Urine Protein Negative (Negative) Urine Glucose (UA) Negative (Negative) mg/dL Urine Ketones Trace A (Negative) Urine Blood Negative (Negative) Urine Nitrite Negative (Negative) Urine Bilirubin Negative (Negative) Urine Urobilinogen 1.0 A (0.2) mg/dL Ur Leukocyte Esterase Negative (Negative) U Hyaline Cast (Auto) 3-5 A (0-2) /LPF Urine Microscopic RBC 0-2 (0-5) /HPF Urine Microscopic WBC 3-5 (0-5) /HPF Ur Epithelial Cells None Seen (None Seen) /HPF Urine Bacteria None Seen (None Seen) /HPF Urine Culture Reflexed NO (NO) - Progress Progress: improved, pain not gone completely, re-examined Progress Note: 04/09/25 09:24 My medical decision making and the assignment of moderate complexity of this patient's medical issue today is based on review of the patient's past medical history, review the patient's medication list, reviewed patient drug allergy list, history present illness and physical findings on examination. The workup in this patient includes intravenous crystalloid, CBC, CMP, amylase, lipase, urinalysis, CT scan of the abdomen pelvis without contrast. Differential diagnosis includes but is not limited to muscle skeletal pain, urinary tract infection, pyelonephritis, ureterolithiasis, pancreatitis, diverticulitis 04/09/25 10:15 I interpreted the patient's laboratory data results except for the urinalysis which is pending. Based on the current results, there are no acute, emergent medical issues. We will provide interpretation for urinalysis once it is resulted. CT scan of the abdomen pelvis without contrast was interpreted by the radiologist and I reviewed the impression. The impression states new 4 to 5 mm distal left ureteral calculus with partial obstruction. This location is just proximal to the UVJ on the left side. 04/09/25 11:28 Urinalysis shows no acute process. 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 - External Record(s) Reviewed Records reviewed as a part of evaluation & management: EMS - Social Determinants of Health Limited access to: transportation - Diagnostic Testing Diagnostic test were ordered, analyzed, and reviewed by me: Yes Radiological Interpretation: Reviewed by me, Teleradiologist Report - Risk of complications Low Risk: Low risk of morbidity from additional dx testing or treatment The pt has a mod risk of morbidity or mortality based on: Need for prescription drug management - Departure Departure Disposition: Home Clinical Impression: Left ureteral calculus Condition: Stable Critical Care Time: No Referrals: CHAVEZ HERNANDEZ NP [Primary Care Provider, UNKNOWN] - Follow up/PCP as directed Additional Instructions: Drink plenty of clear liquids before advancing your diet. Take your medications as prescribed. Call your primary care provider and a urologist today, 04/09/2025, to make arrangements for follow-up appointment for further evaluation and management. Continue your [place] medication as an outpatient as prescribed. If there are no contraindications, add ibuprofen 600 mg orally 3 times a day with food for 5 days. Prescriptions: Tamsulosin HCl 0.4 mg [Flomax 0.4 MG] 0.4 mg PO DAILY #7 cap
[2025-04-09 09:33] LABS: BASOPHIL % 1.0 % (0.2-1.2); Basophil (Absolute #) 0.07 x10^3/uL (0.01-0.08); Eosinophil (Absolute #) 0.39 x10^3/uL (0.04-0.54); Hematocrit 38.3 % (40.1-51.0); Hemoglobin 13.0 g/dL (13.7-17.5); IMMATURE GRAN # 0.02 x10^3u/L (0.001-0.031); IMMATURE GRAN % 0.3 % (0.001-0.429); Lymphocyte (Absolute #) 1.76 x10^3/uL (1.32-3.57); Mean Corpuscular Hemoglobin 30.6 pg (25.7-32.2); Mean Corpuscular Hgb Concent. 33.9 g/dL (32.3-36.5); Monocyte (Absolute #) 0.54 x10^3/uL (0.30-0.82); NUCLEATED RBC # 0.00 x10^3u/L (0.00-0.012); NUCLEATED RBC % 0.0 % (0.00-0.2); Platelet Count 304 x10^3/uL (163-337); Red Blood Count 4.25 x10^6/uL (4.63-6.08); White Blood Count 7.4 x10^3/uL (4.23-9.07)
[2025-04-09 09:47] LABS: Calcium 9.2 mg/dL (8.4-10.2); Carbon Dioxide 21.0 mmol/L (22-30); Creatinine 1 1.08 mg/dL (0.66-1.25); EST GLOMERULAR FILTRATION RATE 90.6 ML/MIN; Glucose 122.0 mg/dL (74-106); Potassium 4.1 mmol/L (3.5-5.1); SGOT/AST 27.0 U/L (17-59); SGPT/ALT 19.0 U/L (0-50); Total Protein 8.3 g/dL (6.3-8.2)
--- NOTE | 2025-04-09 10:09 | XRAY ---
Indication: Left flank pain. Dysuria. History kidney stones. Multiple contiguous axial images obtained through the abdomen and pelvis without contrast using renal stone protocol. Comparison: February 11, 2025 Lung bases clear again with incidental small medial right lower lobe calcified granuloma. Heart not enlarged. Again incidental small paraesophageal and tiny right infrahilar calcified granulomas. New 4-5 mm calculus just proximal to left UVJ. Proximal left ureter slightly prominent up to 8 mm along with minimal hydronephrosis consistent with partial obstructive uropathy. There remains additional bilateral renal punctate calculi. Stable small right lower renal cyst. No free fluid/air. Noncontrasted stomach and bowel loops appear nonobstructed. Remaining liver, gallbladder, pancreas, spleen, adrenal glands, kidneys, ureters, bladder, and aorta are unremarkable for noncontrast exam. Osseous structures intact. Impression: 1. New 4-5 mm distal left ureteral calculus producing partial obstruction as detailed. 2. Again bilateral renal punctate calculi, small right renal cyst, and old granulomatous disease.
[2025-04-09] MEDS ORDERED: Flomax 0.4 MG ONE (10:30)
[2025-04-09] MEDS ORDERED: Hydromorphone 1 mg/ml Injection ONE (10:30)
[2025-04-09] MEDS: Flomax 0.4 MG PO ONE (10:31)
[2025-04-09] MEDS: Hydromorphone 1 mg/ml Injection IV ONE (10:31)
[2025-04-09 10:40] LABS: Glucose, Urine Negative (Negative); Protein,Urine Dip Negative (Negative); RBC 0-2 /HPF (0-5)
[2025-04-09 11:40] VITALS: BP 120/86; PULSE 67; O2SAT 97
== END 2025-04-09 11:40 | disposition home or self-care (01) ==
LOC: ED 09:01
DX: N20.1 Calculus of ureter (principal); R10.9 Unspecified abdominal pain; R30.0 Dysuria; I10 Essential (primary) hypertension; Z79.891 Long term (current) use of opiate analgesic; Z79.899 Other long term (current) drug therapy; Z59.82 Transportation insecurity

== ENCOUNTER 2025-04-10 21:05 | Emergency (ER) | payer OTHER ==
--- NOTE | 2025-04-10 21:11 | ERPHSYRPT ---
- History of Present Illness Time Seen by Provider: 04/10/25 21:10 Historian: patient Exam Limitations: no limitations Physician History: This is a 39-year-old white male patient who arrives to the emergency department by private vehicle with a complaint of worsening left flank and left groin pain since he was seen in emergency department within the last 24 to 36 hours. Patient has known 4 to 5 mm distal left ureteral calculus at the UVJ junction. Patient was given a prescription for Flomax for home. Patient told the nursing staff yesterday that he had [place] 5/325 prescription at home. Today, he arrives to the emergency department stating that he had to wait a couple days before he received that prescription. He does not have [place] 11/02/2024 at home. Patient states his pain is worsening. He has not had a fever. He has been nauseated but not vomiting. Timing/Duration: yesterday Quality: sharpness, stabbing Abdominal Pain Onset Location: flank (Left flank) Pain Radiation: groin (Left groin) Severity of Pain-Max: moderate Severity of Pain-Current: moderate Modifying Factors: Improves With: nothing Associated Symptoms: nausea, vomiting, No fever/chills Previous symptoms: same symptoms as today, recently seen, recently treated Allergies/Adverse Reactions: Iodinated Contrast Media [Iodinated Contrast Media - IV Dye] Allergy (Severe, Verified 04/10/25 21:15) Rash ketorolac [From Toradol] Allergy (Intermediate, Verified 04/10/25 21:15) Itching quetiapine fumarate [From Seroquel] Allergy (Intermediate, Verified 04/10/25 21:15) rash, itching meperidine HCl [From Demerol] Allergy (Mild, Verified 04/10/25 21:15) Rash/hyper morphine Allergy (Mild, Verified 04/10/25 21:15) rash/ hyper oxycodone [From OxyContin] Allergy (Mild, Verified 04/10/25 21:15) Itching prednisone Allergy (Mild, Verified 04/10/25 21:15) Nausea tramadol HCl [From Ultram] Allergy (Mild, Verified 04/10/25 21:15) rash itching acetaminophen [From Percocet] Adverse Reaction (Verified 04/10/25 21:15) Hives promethazine [From Phenergan] Adverse Reaction (Verified 04/10/25 21:15) sertraline [From Zoloft] Adverse Reaction (Verified 04/10/25 21:15) Home Medications: Methylphenidate HCl [Ritalin] 10 mg PO TID 12/25/20 [History] Fluticasone/Vilanterol [Breo Ellipta 50-25 Mcg Inhaler] 1 each IH DAILY 11/29/24 [History] PANTOPRAZOLE 40 mg Tablet [Protonix 40MG Tablet] 40 mg PO BID 11/29/24 [History] Ubrogepant [Ubrelvy] 100 mg PO UD PRN 11/29/24 [History] lisinopriL [Lisinopril] 40 mg PO DAILY 11/29/24 [History] Amlodipine Besylate 5 mg [Norvasc 5 mg] 5 mg PO DAILY 04/09/25 [History] Hydrocodone/Acetaminophen [Hydrocodon-Acetaminoph 7.5-325] 1 tab PO TID 04/09/25 [History] Hx Tetanus, Diphtheria Vaccination/Date Given: Yes Hx Influenza Vaccination/Date Given: Yes Hx Pneumococcal Vaccination/Date Given: No Travel Risk - International Travel Have you traveled outside of the country in past 3 weeks: No - Emerging Infectious Disease Are you exhibiting symptoms associated with any current EIDs: No Symptoms: Diarrhea, Shortness of Breath - Review of Systems Constitutional: No Symptoms Eyes: No Symptoms Ears, Nose, & Throat: No Symptoms Respiratory: No Symptoms Cardiac: No Symptoms Abdominal/Gastrointestinal: No Symptoms Genitourinary Symptoms: Flank Pain (Left flank) Musculoskeletal: No Symptoms Skin: No Symptoms Neurological: No Symptoms Psychological: No Symptoms Endocrine: No Symptoms Hematologic/Lymphatic: No Symptoms Immunological/Allergic: No Symptoms All Other Systems: Reviewed and Negative - Past Medical History Pertinent Past Medical History: Yes Neurological History: Migraines ENT History: No Pertinent History Cardiac History: Angina, Hypertension Respiratory History: Asthma Endocrine Medical History: Other Musculoskeletal History: No Pertinent History GI Medical History: Crohns Disease History: No Pertinent History Psycho-Social History: Anxiety, Attention Deficit Disorder, Depression Male Reproductive Disorders: No Pertinent History Other Medical History: CYST ON KIDNEY, HAS DR. CAMPBELL FOR HEART. - Past Surgical History Past Surgical History: Yes Neuro Surgical History: No Pertinent History Cardiac: No Pertinent History Respiratory: No Pertinent History Gastrointestinal: Hernia Repair Genitourinary: No Pertinent History Musculoskeletal: Orthopedic Surgery Male Surgical History: No Pertinent History Other Surgical History: r shoulder, rotator cuff, R knee Aug 2022, R ankle, rig ht foot - Social History Smoking Status: Former smoker Exposure to second hand smoke: No Drug Use: none - Social Determinants of Health Will the patient participate in the screening: Yes Do you worry about a steady place to live?: No In the past 12 months,have you had to go without utilities?: No Transportation Issues: No Has anyone in your support network made you feel unsafe?: No Have you or anyone in your house had to go w/o enough food: No - Nursing Vital Signs Nursing Vital Signs: Initial Vital Signs Temperature 98 F 04/10/25 21:06 Pulse Rate 82 04/10/25 21:06 Respiratory Rate 14 04/10/25 21:06 O2 Sat by Pulse Oximetry 98 04/10/25 21:06 Pain Scale Pain Intensity 6 - Physical Exam General Appearance: mild distress, alert, anxiety Eye Exam: PERRL/EOMI, eyes nml inspection Ears, Nose, Throat Exam: normal ENT inspection, moist mucous membranes Neck Exam: normal inspection, non-tender, supple, full range of motion Respiratory Exam: normal breath sounds, lungs clear, airway intact, No chest tenderness, No respiratory distress Cardiovascular Exam: regular rate/rhythm, normal heart sounds, normal peripheral pulses Gastrointestinal/Abdomen Exam: soft, normal bowel sounds, No tenderness, No guarding Male Genitalia Exam: other (Left groin pain) Back Exam: normal inspection, normal range of motion, CVA tenderness (Mild left side), No vertebral tenderness Extremity Exam: normal inspection, normal range of motion, pelvis stable Neurologic Exam: alert, oriented x 3, cooperative, 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 nml as tested, normal mood/affect, nml cerebellar function, nml station & gait, sensation nml Skin Exam: normal color, warm, dry Lymphatic Exam: No adenopathy SpO2 Interpretation: normal O2 Delivery: Room Air - Course Nursing assessment & vital signs reviewed: Yes Ordered Tests: Active Orders 24 hr Category Date Time Status IV Insertion STAT Care 04/10/25 21:53 Active ABDOMEN AND PELVIS W/0 CONTRAS [CT] Stat Exams 04/10/25 22:18 Completed UA W/RFX UR CULTURE Stat Lab 04/10/25 21:55 Completed Medication Summary Discontinued Medications Generic Name Dose Route Start Last Admin Trade Name Darwin PRN Reason Stop Dose Admin Hydromorphone HCl 1 mg 04/10/25 21:53 04/10/25 22:03 Hydromorphone 1 Mg/1ml Inj IV 04/10/25 21:54 Not Given STAT ONE Hydromorphone HCl Confirm 04/10/25 22:02 Hydromorphone 1 Mg/1ml Inj Administered 04/10/25 22:03 Dose 1 mg .ROUTE .STK-MED ONE Sodium Chloride 1,000 mls @ 999 mls/hr 04/10/25 21:53 04/10/25 23:05 Sodium Chloride 0.9% 1000 Ml IV 04/10/25 22:53 Infused .Q1H1M STA Infusion Sodium Chloride Confirm 04/10/25 22:02 Sodium Chloride 0.9% 1000 Ml Administered 04/10/25 22:03 Dose 1,000 mls @ ud .ROUTE .STK-MED ONE Ondansetron HCl 4 mg 04/10/25 21:53 04/10/25 22:04 Ondansetron Hcl 4 Mg/2 Ml Vial IV 04/10/25 21:54 4 mg STAT ONE Administration Ondansetron HCl Confirm 04/10/25 22:02 Ondansetron Hcl 4 Mg/2 Ml Vial Administered 04/10/25 22:03 Dose 4 mg .ROUTE .STK-MED ONE Lab/Rad Data: Laboratory Results 04/10/25 Range/Units 21:55 Urine Color Yellow (Yellow) Urine Appearance Clear (Clear) Urine pH 5.0 (4.6-8.0) Ur Specific [place] 1.020 (1.005-1.030) Urine Protein Negative (Negative) Urine Glucose (UA) Negative (Negative) mg/dL Urine Ketones Negative (Negative) Urine Blood Small A (Negative) Urine Nitrite Negative (Negative) Urine Bilirubin Negative (Negative) Urine Urobilinogen 1.0 A (0.2) mg/dL Ur Leukocyte Esterase Negative (Negative) U Hyaline Cast (Auto) NONE SEEN (0-2) /LPF Urine Microscopic RBC 6-10 A (0-5) /HPF Urine Microscopic WBC 0-2 (0-5) /HPF Ur Epithelial Cells None Seen (None Seen) /HPF Urine Bacteria None Seen (None Seen) /HPF Urine Culture Reflexed NO (NO) - Progress Progress: improved, pain not gone completely Progress Note: 04/10/25 22:51 My medical decision making and the assignment of low to moderate complexity of this patient's medical issue today is based on review of the patient's past medical history, reviewed patient's medication list, reviewed the patient drug allergy list, history of present illness and physical findings on examination. The workup in this patient includes placement of intravenous line, infusion of normal saline solution, urinalysis, repeat CT scan of the abdomen pelvis without contrast. Differential diagnosis includes but is not limited to urinary tract infection, persistent left distal ureteral calculus, worsening obstructive uropathy. Clinically, the patient's symptoms are worsening. We will perform the above- stated studies to determine whether or not the patient can have his pain regimen modified or if he needs to be transferred to where there is a urologist this evening for further evaluation, management and intervention. 04/11/25 00:06 I interpreted the patient's laboratory data results. Based on laboratory data results, there is no evidence of urinary tract infection. He does have mild hematuria microscopically. The CT scan of the abdomen pelvis without contrast was compared to similar study dated 04/09/2025 secondary to the patient's symptoms worsening. The results were interpreted by the radiologist and I reviewed the impression. The impression states left kidney with hydronephrosis and hydroureter up to the 4 mm obstructing calculus at the vesicoureteral junction. The calculus has slightly progressed downward towards the vesicoureteral junction Counseled pt/family regarding: lab results, diagnosis, rad results Medical Desision Making - Risk of complications Low Risk: Low risk of morbidity from additional dx testing or treatment - Departure Departure Disposition: Home Clinical Impression: Left ureteral calculus Condition: Stable Critical Care Time: No Referrals: CHAVEZ JEROME ACTIVITIES OFFICER [Primary Care Provider, UNKNOWN] - Follow up/PCP as directed Additional Instructions: Drink plenty of fluids. Take your medications as prescribed. Call your prescribing physicians who prescribed your pain medicine today, 04/11/2025, to obtain outpatient pain management/control. Continue your Flomax as prescribed
[2025-04-10] MEDS ORDERED: Hydromorphone 1 mg/ml Injection ONE (22:02)
[2025-04-10] MEDS ORDERED: Zofran 4 MG/2 ML VIAL ONE (22:02)
[2025-04-10] MEDS: Hydromorphone 1 mg/ml Injection IV ONE (22:03)
[2025-04-10] MEDS: Zofran 4 MG/2 ML VIAL IV ONE (22:04)
[2025-04-10 22:05] LABS: Glucose, Urine Negative (Negative); Protein,Urine Dip Negative (Negative); WBC 0-2 /HPF (0-5)
--- NOTE | 2025-04-10 23:52 | XRAY ---
CLINICAL HISTORY: Left ureteral calculus COMPARISON: 04/09/2025 08:31:54 [employer] TECHNIQUE: Contiguous axial images were obtained from the level of the diaphragm to the pubic symphysis without intravenous or oral contrast. Coronal and sagittal reconstructions were also performed and indicated to increase the sensitivity for detecting clinically relevant pathology. The CT scan was performed according to ALARA (as low as reasonably achievable) principles. FINDINGS: The visualized lung bases are clear. Evaluation of the abdominal and pelvic visceral organs is limited without intravenous contrast. Hepatic steatosis is present. The unenhanced spleen, pancreas, and adrenal glands are grossly unremarkable. The gallbladder is present. The kidneys are normal in size and attenuation. The left kidney shows hydronephrosis and hydroureter up to an obstructing calculus measuring 4 mm, which is noted at the left vesicoureteric junction. 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 The left kidney shows a non-obstructing calculus measuring 2 mm in the mid calyx. A stable right renal cortical cyst is present. No adenopathy or fluid collections are seen. There is no evidence of focal or diffuse bowel wall thickening or evidence of bowel obstruction. Appendix is visualized and measures upto 7 mm in caliber. No significant periappendiceal fat starnding is seen at present. The aorta is normal in caliber. The urinary bladder is normal in contour. The pelvic viscera are grossly unremarkable. No aggressive-appearing osseous lesions are identified. Multiple small uncomplicated sigmoid colonic diverticula are present. IMPRESSION: 1. 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 - stable. 2. The left kidney shows a non-obstructing calculus measuring 2 mm in the mid calyx. - stable. 3. The left kidney shows hydronephrosis and hydroureter up to an obstructing calculus measuring 4 mm is noted at the left vesicoureteric junction. -the calculus has slightly progressed downwards towards the vesicoureteric junction. 4. A stable right renal cortical cyst is present. 5. Multiple small uncomplicated sigmoid colonic diverticula - stable. 6. Appendix is visualized and measures upto 7 mm in caliber. No significant periappendiceal fat starnding is seen. Advised clinical correlation to rule out subacute appendicitis. Electronically Signed by: Demian Monson MD. (04/10/2025 23:49:49 EDT)
[2025-04-11] MEDS ORDERED: Hydromorphone 1 mg/ml Injection ONE (00:14)
[2025-04-11] MEDS: Hydromorphone 1 mg/ml Injection IV ONE (00:15)
[2025-04-11 00:43] VITALS: BP 134/102; PULSE 72; RESP 17; TEMP 98.1; O2SAT 99
== END 2025-04-11 00:30 | disposition home or self-care (01) ==
LOC: ED 21:05
DX: N13.2 Hydronephrosis with renal and ureteral calculous obstruction (principal); I10 Essential (primary) hypertension; Z79.891 Long term (current) use of opiate analgesic; Z79.899 Other long term (current) drug therapy

== ENCOUNTER 2025-04-13 01:30 | Emergency (ER) | payer OTHER ==
[2025-04-13 01:40] VITALS: TEMP 97.2
[2025-04-13] MEDS: Hydromorphone 1 mg/ml Injection IV ONE ×4 (01:50→10:43)
[2025-04-13] MEDS ORDERED: Zofran 4 MG/2 ML VIAL ONE (01:56)
[2025-04-13] MEDS ORDERED: Hydromorphone 1 mg/ml Injection ONE ×4 (01:57→10:42)
[2025-04-13] MEDS: Zofran 4 MG/2 ML VIAL IV ONE (01:58)
--- NOTE | 2025-04-13 01:59 | ERPHSYRPT ---
<SANIYA COHEN - Last Filed: 04/13/25 17:23> - History of Present Illness Source: patient Exam Limitations: no limitations Patient Subjective Stated Complaint: Flank pain- left sided Triage Nursing Assessment: Patient brought into ED per EMS and transferred self to bed. Patient A+O X 3. Patient's skin pink, warm and dry. Patient complains of left sided flank/abdominal pain 12/10. Patient has been in ER two times this week and dx with kidney stone. Timing/Duration: day(s) (5) Activites at Onset: none Quality: pressure, sharpness Onset Location: left flank Pain Radiation: none Severity of Pain-Max: mild Severity of Pain-Current: mild Modifying Factors: Improves With: nothing Associated Symptoms: No abdominal pain, No fever, No vomiting, No dysuria, No nocturia, No polyuria, No loss of bladder control Hx Tetanus, Diphtheria Vaccination/Date Given: No Hx Influenza Vaccination/Date Given: Yes Hx Pneumococcal Vaccination/Date Given: No Immunizations Up to Date: Yes <ED CAMPBELL - Last Filed: 04/13/25 18:43> - History of Present Illness Time Seen by Provider: 04/13/25 01:55 Physician History: 39-year-old male presents to the emergency room with ongoing left flank pain patient reports he was recently diagnosed with a kidney stone reports he is able to urinate but is reporting that he is having pain he reports he been trying ibuprofen for his pain with minimal improvement reports he has got [place] at home but has not been taking it for this kidney stone denies any fevers denies any chest pain or shortness of breath denies any nausea vomiting diarrhea patient has not seen a urologist as of yet does not have any upcoming appointments patient is now in ED for further eval (ED CAMPBELL) Allergies/Adverse Reactions: Iodinated Contrast Media [Iodinated Contrast Media - IV Dye] Allergy (Severe, Verified 04/13/25 01:40) Rash ketorolac [From Toradol] Allergy (Intermediate, Verified 04/13/25 01:40) Itching quetiapine fumarate [From Seroquel] Allergy (Intermediate, Verified 04/13/25 01:40) rash, itching meperidine HCl [From Demerol] Allergy (Mild, Verified 04/13/25 01:40) Rash/hyper morphine Allergy (Mild, Verified 04/13/25 01:40) rash/ hyper oxycodone [From OxyContin] Allergy (Mild, Verified 04/13/25 01:40) Itching prednisone Allergy (Mild, Verified 04/13/25 01:40) Nausea tramadol HCl [From Ultram] Allergy (Mild, Verified 04/13/25 01:40) rash itching acetaminophen [From Percocet] Adverse Reaction (Verified 04/13/25 01:40) Hives promethazine [From Phenergan] Adverse Reaction (Verified 04/13/25 01:40) sertraline [From Zoloft] Adverse Reaction (Verified 04/13/25 01:40) Home Medications: Methylphenidate HCl [Ritalin] 10 mg PO TID 12/25/20 [History] Fluticasone/Vilanterol [Breo Ellipta 50-25 Mcg Inhaler] 1 each IH DAILY 11/29/24 [History] PANTOPRAZOLE 40 mg Tablet [Protonix 40MG Tablet] 40 mg PO BID 11/29/24 [History] Ubrogepant [Ubrelvy] 100 mg PO UD PRN 11/29/24 [History] lisinopriL [Lisinopril] 40 mg PO DAILY 11/29/24 [History] Amlodipine Besylate 5 mg [Norvasc 5 mg] 5 mg PO DAILY 04/09/25 [History] Hydrocodone/Acetaminophen [Hydrocodon-Acetaminoph 7.5-325] 1 tab PO TID 04/09/25 [History] Travel Risk - International Travel Have you traveled outside of the country in past 3 weeks: No - Emerging Infectious Disease Are you exhibiting symptoms associated with any current EIDs: No Symptoms: Diarrhea, Shortness of Breath <ED CAMPBELL - Last Filed: 04/13/25 18:43> - Past Medical History Pertinent Past Medical History: Yes Neurological History: Migraines ENT History: No Pertinent History Cardiac History: Angina, Hypertension Respiratory History: Asthma Endocrine Medical History: Other Musculoskeletal History: No Pertinent History GI Medical History: Crohns Disease History: No Pertinent History Psycho-Social History: Anxiety, Attention Deficit Disorder, Depression Male Reproductive Disorders: No Pertinent History Other Medical History: CYST ON KIDNEY, HAS DR. CAMPBELL FOR HEART. - Past Surgical History Past Surgical History: Yes Neuro Surgical History: No Pertinent History Cardiac: No Pertinent History Respiratory: No Pertinent History Gastrointestinal: Hernia Repair Genitourinary: No Pertinent History Musculoskeletal: Orthopedic Surgery Male Surgical History: No Pertinent History Other Surgical History: r shoulder, rotator cuff, R knee Aug 2022, R ankle, right foot - Social History Smoking Status: Former smoker Exposure to second hand smoke: No Drug Use: none - Social Determinants of Health Will the patient participate in the screening: Yes Do you worry about a steady place to live?: No Do you have any problems with any of the following?: No known problems In the past 12 months,have you had to go without utilities?: No Transportation Issues: No Has anyone in your support network made you feel unsafe?: No Have you or anyone in your house had to go w/o enough food: No <ED CAMPBELL - Last Filed: 04/13/25 18:43> - Review of Systems Constitutional: No Fever, No Chills Eyes: No Symptoms Ears, Nose, & Throat: No Symptoms Respiratory: No Cough, No Dyspnea Cardiac: No Chest Pain, No Edema, No Syncope Abdominal/Gastrointestinal: No Abdominal Pain, No Nausea, No Vomiting, No Diarrhea Genitourinary Symptoms: Flank Pain, No Dysuria Musculoskeletal: No Back Pain, No Neck Pain Skin: No Rash Neurological: No Dizziness, No Focal Weakness, No Sensory Changes Psychological: No Symptoms Endocrine: No Symptoms All Other Systems: Reviewed and Negative <ED CAMPBELL - Last Filed: 04/13/25 18:43> - Physical Exam General Appearance: no apparent distress, alert Eye Exam: PERRL/EOMI Ears, Nose, Throat Exam: pharynx normal, moist mucous membranes Neck Exam: normal inspection, supple Respiratory Exam: normal breath sounds, lungs clear Cardiovascular Exam: regular rate/rhythm, No edema Gastrointestinal/Abdomen Exam: soft, tenderness (Left flank) Back Exam: normal inspection, No CVA tenderness Extremity Exam: normal inspection, normal range of motion, No pedal edema Neurologic Exam: alert, oriented x 3, cooperative, sensation nml, No motor deficits Skin Exam: normal color, warm, dry, No rash SpO2: 97 <ED CAMPBELL - Last Filed: 04/13/25 18:43> - Nursing Vital Signs Nursing Vital Signs: Initial Vital Signs Pulse Rate 93 H 04/13/25 01:35 Respiratory Rate 23 04/13/25 01:35 Blood Pressure 142/102 04/13/25 01:35 O2 Sat by Pulse Oximetry 96 04/13/25 01:35 Pain Scale Pain Intensity 4 - Course Nursing assessment & vital signs reviewed: Yes <ED CAMPBELL - Last Filed: 04/13/25 18:43> Ordered Tests: Active Orders 24 hr Category Date Time Status EKG-ER Only STAT Care 04/13/25 08:53 Completed IV Insertion STAT Care 04/13/25 01:53 Completed CBC W DIFF Stat Lab 04/13/25 02:07 Completed CMP Stat Lab 04/13/25 02:07 Completed TROPONIN Q4H Lab 04/13/25 09:00 Completed UA W/RFX UR CULTURE Stat Lab 04/13/25 04:19 Completed Medication Summary Discontinued Medications Generic Name Dose Route Start Last Admin Trade Name Freq PRN Reason Stop Dose Admin Hydromorphone HCl 0.5 mg 04/13/25 01:53 04/13/25 01:59 Hydromorphone 1 Mg/1ml Inj IV 04/13/25 01:54 0.5 mg STAT ONE Administration Hydromorphone HCl Confirm 04/13/25 01:57 Hydromorphone 1 Mg/1ml Inj Administered 04/13/25 01:58 Dose 1 mg .ROUTE .STK-MED ONE Hydromorphone HCl Confirm 04/13/25 03:03 Hydromorphone 1 Mg/1ml Inj Administered 04/13/25 03:04 Dose 1 mg .ROUTE .STK-MED ONE Hydromorphone HCl 0.5 mg 04/13/25 03:51 04/13/25 01:50 Hydromorphone 1 Mg/1ml Inj IV 04/13/25 03:52 0.5 mg STAT ONE Administration Hydromorphone HCl 0.5 mg 04/13/25 07:54 04/13/25 08:10 Hydromorphone 1 Mg/1ml Inj IV 04/13/25 07:55 0.5 mg STAT ONE Administration Hydromorphone HCl Confirm 04/13/25 08:09 Hydromorphone 1 Mg/1ml Inj Administered 04/13/25 08:10 Dose 1 mg .ROUTE .STK-MED ONE Hydromorphone HCl 0.5 mg 04/13/25 10:40 04/13/25 10:43 Hydromorphone 1 Mg/1ml Inj IV 04/13/25 10:41 0.5 mg STAT ONE Administration Hydromorphone HCl Confirm 04/13/25 10:42 Hydromorphone 1 Mg/1ml Inj Administered 04/13/25 10:43 Dose 1 mg .ROUTE .STK-MED ONE Sodium Chloride 1,000 mls @ 999 mls/hr 04/13/25 01:53 04/13/25 04:13 Sodium Chloride 0.9% 1000 Ml IV 04/13/25 02:53 Infused .Q1H1M STA Infusion Sodium Chloride Confirm 04/13/25 01:58 Sodium Chloride 0.9% 1000 Ml Administered 04/13/25 01:59 Dose 1,000 mls @ ud .ROUTE .STK-MED ONE Sodium Chloride 1,000 mls @ 250 mls/hr 04/13/25 04:00 04/13/25 09:10 Sodium Chloride 0.9% 1000 Ml IV 05/13/25 03:59 Not Given .Q4H JOHAN Sodium Chloride Confirm 04/13/25 04:12 Sodium Chloride 0.9% 1000 Ml Administered 04/13/25 04:13 Dose 1,000 mls @ ud .ROUTE .STK-MED ONE Ondansetron HCl 4 mg 04/13/25 01:53 04/13/25 01:58 Ondansetron Hcl 4 Mg/2 Ml Vial IV 04/13/25 01:54 4 mg STAT ONE Administration Ondansetron HCl Confirm 04/13/25 01:56 Ondansetron Hcl 4 Mg/2 Ml Vial Administered 04/13/25 01:57 Dose 4 mg .ROUTE .STK-MED ONE Lab/Rad Data: Laboratory Result Diagrams 04/13/25 02:07 04/13/25 02:07 Laboratory Results 04/13/25 04/13/25 04/13/25 Range/Units 09:00 04:19 02:07 WBC (4.23-9.07) x10^3/uL RBC (4.63-6.08) x10^6/uL Hgb (13.7-17.5) g/dL Hct (40.1-51.0) % MCV (79.0-92.2) fL MCH (25.7-32.2) pg MCHC (32.3-36.5) g/dL RDW (11.6-14.4) % Plt Count (163-337) x10^3/uL MPV (9.4-12.4) fL Gran % (34.0-67.9) % Immature Gran % (Auto) (0.001-0.429) % Nucleat RBC Rel Count (0.00-0.2) % Eos # (Auto) (0.04-0.54) x10^3/uL Immature Gran # (Auto) (0.001-0.031) x10^3u/L Absolute Lymphs (auto) (1.32-3.57) x10^3/uL Absolute Monos (auto) (0.30-0.82) x10^3/uL Absolute Nucleated RBC (0.00-0.012) x10^3u/L Lymphocytes % (21.8-53.1) % Monocytes % (5.3-12.2) % Eosinophils % (0.8-7.0) % Basophils % (0.2-1.2) % Absolute Granulocytes (1.78-5.38) x10^3/uL Basophils # (0.01-0.08) x10^3/uL Sodium 142 (135-145) mmol/L Potassium 4.2 (3.5-5.1) mmol/L Chloride 108 H (98-107) mmol/L Carbon Dioxide 22 (22-30) mmol/L Anion Gap 16.3 H (5-15) MEQ/L BUN 16 (9-20) mg/dL Creatinine 1.46 H (0.66-1.25) mg/dL Estimated GFR 63.1 ML/MIN Glucose 131 H (74-106) mg/dL Calcium 9.4 (8.4-10.2) mg/dL Total Bilirubin 0.40 (0.2-1.3) mg/dL AST 31 (17-59) U/L ALT 19 (0-50) U/L Alkaline Phosphatase 64 (38-126) U/L Troponin I < 0.012 (0.000-0.033) ng/mL Serum Total Protein 8.7 H (6.3-8.2) g/dL Albumin 4.8 (3.5-5.0) g/dL Urine Color Yellow (Yellow) Urine Appearance Clear (Clear) Urine pH 5.5 (4.6-8.0) Ur Specific [place] 1.020 (1.005-1.030) Urine Protein Negative (Negative) Urine Glucose (UA) Negative (Negative) mg/dL Urine Ketones Negative (Negative) Urine Blood Negative (Negative) Urine Nitrite Negative (Negative) Urine Bilirubin Negative (Negative) Urine Urobilinogen 0.2 (0.2) mg/dL Ur Leukocyte Esterase Trace A (Negative) U Hyaline Cast (Auto) NONE SEEN (0-2) /LPF Urine Microscopic RBC 0-2 (0-5) /HPF Urine Microscopic WBC 3-5 (0-5) /HPF Ur Epithelial Cells None Seen (None Seen) /HPF Urine Bacteria None Seen (None Seen) /HPF Urine Culture Reflexed NO (NO) 04/13/25 Range/Units 02:07 WBC 10.4 H (4.23-9.07) x10^3/uL RBC 4.35 L (4.63-6.08) x10^6/uL Hgb 12.9 L (13.7-17.5) g/dL Hct 38.7 L (40.1-51.0) % MCV 89.0 (79.0-92.2) fL MCH 29.7 (25.7-32.2) pg MCHC 33.3 (32.3-36.5) g/dL RDW 12.4 (11.6-14.4) % Plt Count 318 (163-337) x10^3/uL MPV 9.6 (9.4-12.4) fL Gran % 78.7 H (34.0-67.9) % Immature Gran % (Auto) 0.2 (0.001-0.429) % Nucleat RBC Rel Count 0.0 (0.00-0.2) % Eos # (Auto) 0.17 (0.04-0.54) x10^3/uL Immature Gran # (Auto) 0.02 (0.001-0.031) x10^3u/L Absolute Lymphs (auto) 1.34 (1.32-3.57) x10^3/uL Absolute Monos (auto) 0.63 (0.30-0.82) x10^3/uL Absolute Nucleated RBC 0.00 (0.00-0.012) x10^3u/L Lymphocytes % 12.9 L (21.8-53.1) % Monocytes % 6.1 (5.3-12.2) % Eosinophils % 1.6 (0.8-7.0) % Basophils % 0.5 (0.2-1.2) % Absolute Granulocytes 8.17 H (1.78-5.38) x10^3/uL Basophils # 0.05 (0.01-0.08) x10^3/uL Sodium (135-145) mmol/L Potassium (3.5-5.1) mmol/L Chloride (98-107) mmol/L Carbon Dioxide (22-30) mmol/L Anion Gap (5-15) MEQ/L BUN (9-20) mg/dL Creatinine (0.66-1.25) mg/dL Estimated GFR ML/MIN Glucose (74-106) mg/dL Calcium (8.4-10.2) mg/dL Total Bilirubin (0.2-1.3) mg/dL AST (17-59) U/L ALT (0-50) U/L Alkaline Phosphatase (38-126) U/L Troponin I (0.000-0.033) ng/mL Serum Total Protein (6.3-8.2) g/dL Albumin (3.5-5.0) g/dL Urine Color (Yellow) Urine Appearance (Clear) Urine pH (4.6-8.0) Ur Specific [place] (1.005-1.030) Urine Protein (Negative) Urine Glucose (UA) (Negative) mg/dL Urine Ketones (Negative) Urine Blood (Negative) Urine Nitrite (Negative) Urine Bilirubin (Negative) Urine Urobilinogen (0.2) mg/dL Ur Leukocyte Esterase (Negative) U Hyaline Cast (Auto) (0-2) /LPF Urine Microscopic RBC (0-5) /HPF Urine Microscopic WBC (0-5) /HPF Ur Epithelial Cells (None Seen) /HPF Urine Bacteria (None Seen) /HPF Urine Culture Reflexed (NO) - Progress Progress: pain not gone completely Counseled pt/family regarding: lab results, diagnosis, need for follow-up, rad results <SANIYA COHEN - Last Filed: 04/13/25 17:23> <ED CAMPBELL - Last Filed: 04/13/25 18:43> - Progress Progress Note: 04/13/25 08:54 Patient reported CP at 854, EKG and Troponin ordered. 04/13/25 17:24 EKG unremarkable, troponin neg (SANIYA COHEN) 04/13/25 04:20 Discussed the case with Dr. Cazares from [facility] who is a urologist who agrees with the recommendation for admission for WILLIAM and given that this is a patient's third ER visit for his kidney stone and has still not arranged for follow-up patient will benefit from consultation with a urologist patient is agreeable to transfer 04/13/25 04:32 Patient is accepted by hospitalist Dr. [facility] 04/13/25 18:43 care was signed out to Dr. Cohen awaiting transport - patient has been accepted. (ED CAMPBELL) Medical Desision Making - Diagnostic Testing Diagnostic test were ordered, analyzed, and reviewed by me: Yes Radiological Interpretation: Reviewed by me, Teleradiologist Report - Risk of complications The pt has a mod risk of morbidity or mortality based on: Need for prescription drug management The pt has a high risk of morbidity or mortality based on: Decision regarding hospitilization or escalation of hosp level of care <SANIYA COHEN - Last Filed: 04/13/25 17:23> <SANIYA COHEN - Last Filed: 04/13/25 17:23> - Departure Departure Disposition: Transfer Critical Care Time: No <ED CAMPBELL - Last Filed: 04/13/25 18:43> - Departure Clinical Impression: Renal stones, WILLIAM (acute kidney injury) Flank pain Qualifiers: Laterality: left Qualified Code(s): R10.A2 - Flank pain, left side Condition: Stable Referrals: CHAVEZ JEROME, SHOP SERVICE TECHNICIAN [Primary Care Provider, UNKNOWN] - Follow up/PCP as directed Instructions: Kidney Stones (DC)
[2025-04-13 02:09] LABS: BASOPHIL % 0.5 % (0.2-1.2); Basophil (Absolute #) 0.05 x10^3/uL (0.01-0.08); Eosinophil (Absolute #) 0.17 x10^3/uL (0.04-0.54); Hematocrit 38.7 % (40.1-51.0); Hemoglobin 12.9 g/dL (13.7-17.5); IMMATURE GRAN # 0.02 x10^3u/L (0.001-0.031); IMMATURE GRAN % 0.2 % (0.001-0.429); Lymphocyte (Absolute #) 1.34 x10^3/uL (1.32-3.57); Mean Corpuscular Hemoglobin 29.7 pg (25.7-32.2); Mean Corpuscular Hgb Concent. 33.3 g/dL (32.3-36.5); Monocyte (Absolute #) 0.63 x10^3/uL (0.30-0.82); NUCLEATED RBC # 0.00 x10^3u/L (0.00-0.012); NUCLEATED RBC % 0.0 % (0.00-0.2); Platelet Count 318 x10^3/uL (163-337); Red Blood Count 4.35 x10^6/uL (4.63-6.08); White Blood Count 10.4 x10^3/uL (4.23-9.07)
[2025-04-13 02:24] LABS: Calcium 9.4 mg/dL (8.4-10.2); Carbon Dioxide 22.0 mmol/L (22-30); Creatinine 1 1.46 mg/dL (0.66-1.25); EST GLOMERULAR FILTRATION RATE 63.1 ML/MIN; Glucose 131.0 mg/dL (74-106); Potassium 4.2 mmol/L (3.5-5.1); SGOT/AST 31.0 U/L (17-59); SGPT/ALT 19.0 U/L (0-50); Total Protein 8.7 g/dL (6.3-8.2)
[2025-04-13 04:28] LABS: Glucose, Urine Negative (Negative); Protein,Urine Dip Negative (Negative); RBC 0-2 /HPF (0-5)
[2025-04-13 09:11] VITALS: BP 127/96; PULSE 70; RESP 19
[2025-04-13 18:44] VITALS: O2SAT 97
== END 2025-04-13 10:50 | disposition short-term general hospital (02) ==
LOC: ED 01:30
DX: N20.0 Calculus of kidney (principal); N17.9 Acute kidney failure, unspecified; R10.A2 Flank pain, left side; I10 Essential (primary) hypertension; Z79.891 Long term (current) use of opiate analgesic; Z79.899 Other long term (current) drug therapy

== ENCOUNTER 2025-04-16 10:32 | Day surgery (SDC) | payer OTHER ==
[2025-04-16] MEDS ORDERED: BUPIVACAINE 0.5% VIAL IJ ONE (10:33)
[2025-04-16] MEDS ORDERED: methylPREDNISolone acetate IM ONE (10:33)
[2025-04-16] MEDS ORDERED: Lactated Ringers 2,000 ML IV ONE (12:23)
[2025-04-16] MEDS ORDERED: propofoL IV ONE ×2 (12:37→12:46)
[2025-04-16] MEDS ORDERED: Zofran 4 MG/2 ML VIAL ONE (12:40)
--- NOTE | 2025-04-16 13:23 | XRAY ---
Indication: Left hip injection. Intraoperative fluoroscopy provided for 14 seconds. Single digital spot image submitted for interpretation demonstrates needle tip projecting lateral to left femur neck. Small amount of contrast injected for needle tip placement. Correlate with intraoperative findings/report.
--- NOTE | 2025-04-16 13:54 | XRAY ---
14 seconds of fluoroscopy were used in surgery for a left intra-articular hip injection.
== END 2025-04-16 13:20 | disposition home or self-care (01) ==
LOC: SDC-PAIN 10:32
PROVIDERS: ATTEND Psychiatry & Neurology Pain Medicine
DX: M16.12 Unilateral primary osteoarthritis, left hip (principal)